=== PATIENT | female | born 1990 | race Caucasian/White ===

== ENCOUNTER → 2020-08-10 09:32 | Outpatient (CLI) | payer OTHER, SELFPAY ==
[2020-08-10 13:12] LABS: Add Manual Diff / Slide Review NO; Basophils Absolute Auto 0 /uL (0-100); Basophils Percent Auto 0.2 % (0-2); Eosinophils Absolute Auto 100 /uL (0-450); Eosinophils Percent Auto 0.5 % (2-4); Hematocrit 35.3 % (36-46); Lymphocytes Absolute Auto 1600 /uL (1100-4500); Lymphocytes Percent Auto 14.6 % (25-40); Mean Corpuscular Hemoglobin 31.6 PG (26-34); Monocytes Absolute Auto 400 /uL (0-900); Monocytes Percent Auto 3.8 % (3-14); Neutrophils Absolute Auto 8700 /uL (1500-7000); Neutrophils Percent Auto 80.9 % (50-75); Platelet Count 233 X10^3/uL (150-400); Red Cell Distribution Width 12.5 % (11.6-14.8); White Blood Cell Count 10.8 X10^3/uL (4.5-11.0)
[2020-08-10 13:29] LABS: GTT (PREG) 1 Hour PP 50gm Dose 103 mg/dL (76-139)
== END ==
PROVIDERS: PCP Family Medicine; Referring Provider Family Medicine; Visit Provider Family Medicine
DX: Z34.90 Encounter for supervision of normal pregnancy, unspecified, unspecified trimester (principal)
CPT/HCPCS: 36415; 82950; 85025

== ENCOUNTER 2020-09-15 09:00 | Outpatient (CLI) | payer OTHER, SELFPAY ==
--- NOTE | 2020-09-15 09:27 | PM.OBTRLD ---
Visit Information Visit Information Date of evaluation: 09/15/20 Primary OB Provider: Chayo Diego Reason for Evaluation: Yes non-stress test non-stress test reason: other (growth restriction) Comments/Additional reasons for admission: 29yo at 34w0d here for NST due to growth restriction. Recent growth scan 7th percentile. [facility] Medical History (Updated 09/15/20 @ 09:30 by Chayo Diego MD) Congenital dysplasia of right hip (~2009) DVT (deep venous thrombosis) (~2011) Labral tear of right hip joint (~2011) Seasonal allergies Surgical History (Updated 07/10/20 @ 17:17 by Diamante Mg RN) H/O LEEP (~2012) History of hip surgery (~2009) History of laparoscopic appendectomy (~2010) History of tonsillectomy (~02/2012) Hx laparoscopic cholecystectomy (~2010) [place] teeth extracted (~2008) Family History (Updated 07/10/20 @ 17:32 by Diamante Mg RN) Mother Osteoporosis Father Glaucoma Grandmother Alzheimer's dementia Parkinsons disease Osteoporosis History of heart bypass surgery Hypertension Grandfather Family estrangement Hypertension Glaucoma Grandmother Family estrangement Grandfather Family estrangement Family/Other Heart murmur Family/Other VSD (ventricular septal defect) Social History marital status: Evaluation Evaluation Baseline heart rate: 135 Variability: Moderate (11-25) monitor accelerations: Present monitor decelerations: Absent Diagnosis, Plan/Disposition Final Diagnosis (1) 34 weeks gestation of : Status: Acute (2) growth restriction: Status: Acute Plan/Disposition Plan: 29yo G1P at 34w0d here for NST for growth restriction. Reactive NST. Continue twice weekly NST with weekly ANA LILIA. OB Disposition: home
== END 2020-09-15 09:42 | disposition home or self-care (01) ==
LOC: LABOR 09:19 → OB 09-16 16:47
PROVIDERS: PCP Family Medicine; Referring Provider Family Medicine; Visit Provider Family Medicine
DX: O36.5930 Maternal care for other known or suspected poor fetal growth, third trimester, not applicable or unspecified (principal); Z3A.34 34 weeks gestation of pregnancy
CPT/HCPCS: 59025; G0378; G0379

== ENCOUNTER 2020-09-21 12:27 | Outpatient (CLI) | payer OTHER, SELFPAY ==
--- NOTE | 2020-09-21 13:12 | PM.OBTRLD ---
Visit Information Visit Information Date of evaluation: 09/21/20 Primary OB Provider: Chayo Diego Reason for Evaluation: Yes non-stress test non-stress test reason: other (IUGR) Comments/Additional reasons for admission: 29yo at 34w6d her for NST due to IUGR. [facility] Medical History (Updated 09/15/20 @ 09:30 by Chayo Diego MD) Congenital dysplasia of right hip (~2009) DVT (deep venous thrombosis) (~2011) Labral tear of right hip joint (~2011) Seasonal allergies Surgical History (Updated 07/10/20 @ 17:17 by Diamante Mg RN) H/O LEEP (~2012) History of hip surgery (~2009) History of laparoscopic appendectomy (~2010) History of tonsillectomy (~02/2012) Hx laparoscopic cholecystectomy (~2010) [place] teeth extracted (~2008) Family History (Updated 07/10/20 @ 17:32 by Diamante Mg RN) Mother Osteoporosis Father Glaucoma Grandmother Alzheimer's dementia Parkinsons disease Osteoporosis History of heart bypass surgery Hypertension Grandfather Family estrangement Hypertension Glaucoma Grandmother Family estrangement Grandfather Family estrangement Family/Other Heart murmur Family/Other VSD (ventricular septal defect) Social History marital status: Evaluation Evaluation Baseline heart rate: 130 Variability: Moderate (11-25) monitor accelerations: Present monitor decelerations: Absent Category of Tracing: Reactive Diagnosis, Plan/Disposition Final Diagnosis (1) growth restriction: Status: Acute (2) 34 weeks gestation of : Status: Acute Plan/Disposition Plan: 29yo at 34w6d here for NST due to IUGR. Reactive NST. Continue twice weekly NST with weekly ANA LILIA/doppler. OB Disposition: home
== END 2020-09-21 13:15 | disposition home or self-care (01) ==
LOC: LABOR 12:41 → OB 15:41
PROVIDERS: PCP Family Medicine; Referring Provider Family Medicine; Visit Provider Family Medicine
DX: O36.5930 Maternal care for other known or suspected poor fetal growth, third trimester, not applicable or unspecified (principal); Z3A.34 34 weeks gestation of pregnancy
CPT/HCPCS: 59025; G0378; G0379

== ENCOUNTER 2020-09-28 11:04 | Outpatient (CLI) | payer OTHER, SELFPAY ==
--- NOTE | 2020-09-28 11:47 | PM.OBTRLD ---
Visit Information Visit Information Date of evaluation: 09/28/20 Primary OB Provider: phyllis On-call OB Provider: Alanis Gorman Reason for Evaluation: Yes non-stress test non-stress test reason: other (IUGR) Comments/Additional reasons for admission: 29yo at 35w6d her for NST due to IUGR. Vital Signs Vital Signs: Temperature 36.4? blood pressure 118/61 heart rate 91 PFSH Medical History (Updated 09/28/20 @ 11:48 by Alanis Gorman, DO) Abnormal Pap smear of cervix (~2012) Acne (~2005) Allergies Chicken pox (~1994) Congenital dysplasia of right hip (~2009) DVT (deep venous thrombosis) (~2011) Fibroids (~2009) Labral tear of right hip joint (~2011) Seasonal allergies Surgical History (Updated 09/21/20 @ 20:20 by Crissy Jimenez) Anesthesia H/O LEEP (~2012) History of hip surgery (~2009) History of laparoscopic appendectomy (~2010) History of tonsillectomy (~02/2012) Hx laparoscopic cholecystectomy (~2010) [place] teeth extracted (~2008) Family History (Updated 07/10/20 @ 17:32 by Diamante Mg RN) Mother Osteoporosis Father Glaucoma Grandmother Alzheimer's dementia Parkinsons disease Osteoporosis History of heart bypass surgery Hypertension Grandfather Family estrangement Hypertension Glaucoma Grandmother Family estrangement Grandfather Family estrangement Family/Other Heart murmur Family/Other VSD (ventricular septal defect) Social History marital status: Evaluation Evaluation Baseline heart rate: 130 Variability: Moderate (11-25) monitor accelerations: Present monitor decelerations: Absent Category of Tracing: Reactive Diagnosis, Plan/Disposition Final Diagnosis (1) growth restriction: Status: Acute (2) 35 weeks gestation of : Status: Acute Plan/Disposition Plan: 29yo at 35w6d her for NST due to IUGR. Reactive NST. Continue twice weekly NST with weekly ANA LILIA/doppler, follow up with Dr. Diego as scheduled. OB Disposition: home
== END 2020-09-28 11:57 | disposition home or self-care (01) ==
LOC: LABOR 11:09 → OB 09-29 09:11
PROVIDERS: PCP Family Medicine; Referring Provider Family Medicine; Visit Provider Family Medicine
DX: O36.5930 Maternal care for other known or suspected poor fetal growth, third trimester, not applicable or unspecified (principal); Z3A.35 35 weeks gestation of pregnancy
CPT/HCPCS: 59025; G0378; G0379

== ENCOUNTER → 2020-09-30 11:53 | Outpatient (CLI) | payer OTHER, SELFPAY ==
[2020-10-01 08:31] LABS: Strep Grp B PCR NEG for Grp B Strep
== END ==
PROVIDERS: PCP Family Medicine; Visit Provider Family Medicine
DX: Z34.03 Encounter for supervision of normal first pregnancy, third trimester (principal); Z3A.36 36 weeks gestation of pregnancy
CPT/HCPCS: 87653

== ENCOUNTER 2020-10-08 08:09 | Outpatient (CLI) | payer OTHER, SELFPAY ==
--- NOTE | 2020-10-08 08:34 | P.TNLD_ITS ---
Visit Information Visit Information Date of evaluation: 10/08/20 On-call OB Provider: Manish Quintero Reason for Evaluation: Yes non-stress test Comments/Additional reasons for admission: Patient in for NST because of value GR. strip was reviewed blood pressure is normal. Patient is not young. NST is reassuring category 1 [facility] Medical History (Updated 09/28/20 @ 11:48 by Alanis Gorman DO) Abnormal Pap smear of cervix (~2012) Acne (~2005) Allergies Chicken pox (~1994) Congenital dysplasia of right hip (~2009) DVT (deep venous thrombosis) (~2011) Fibroids (~2009) Labral tear of right hip joint (~2011) Seasonal allergies Surgical History (Updated 09/21/20 @ 20:20 by Crissy Jimenez) Anesthesia H/O LEEP (~2012) History of hip surgery (~2009) History of laparoscopic appendectomy (~2010) History of tonsillectomy (~02/2012) Hx laparoscopic cholecystectomy (~2010) [place] teeth extracted (~2008) Family History (Updated 07/10/20 @ 17:32 by Diamante Mg RN) Mother Osteoporosis Father Glaucoma Grandmother Alzheimer's dementia Parkinsons disease Osteoporosis History of heart bypass surgery Hypertension Grandfather Family estrangement Hypertension Glaucoma Grandmother Family estrangement Grandfather Family estrangement Family/Other Heart murmur Family/Other VSD (ventricular septal defect) Social History marital status:
== END 2020-10-08 08:45 | disposition home or self-care (01) ==
LOC: LABOR 08:54 → OB 10-11 11:02
PROVIDERS: PCP Family Medicine; Referring Provider Family Medicine; Visit Provider Family Medicine
DX: O36.5930 Maternal care for other known or suspected poor fetal growth, third trimester, not applicable or unspecified (principal); Z3A.37 37 weeks gestation of pregnancy
CPT/HCPCS: 59025; G0378; G0379

== ENCOUNTER 2020-10-15 09:00 | Outpatient (RCR) | payer OTHER, SELFPAY ==
--- NOTE | 2020-08-03 19:34 | PT.OIE ---
Current Diagnoses Pain in right hip (07/30/20) Sacrococcygeal disorders, not elsewhere classified (07/30/20) Encounter for supervision of normal , unspecified, unspecified trimester (07/30/20) Other specified postprocedural states (07/30/20) Past Medical History (Last Updated 07/10/20 @ 16:28 by Diamante Mg RN) Congenital dysplasia of right hip (Acute ~2009) DVT (deep venous thrombosis) (Acute ~2011) Labral tear of right hip joint (Acute ~2011) Seasonal allergies (Acute) Past Surgical History (Last Updated 07/10/20 @ 17:17 by Dimaante Mg RN) H/O LEEP (Acute ~2012) History of hip surgery (Acute ~2009) History of laparoscopic appendectomy (Acute ~2010) History of tonsillectomy (Acute ~02/2012) Hx laparoscopic cholecystectomy (Acute ~2010) [place] teeth extracted (Acute ~2008) Visit Care Team Role Provider Type Chayo Diego MD Attending Provider Physician Primary Care Provider Referring Provider Specialty: [facility] Address: [address] [place] [address] Email: [email or web address] Physical Therapy Initial Evaluation PT-OP-A Visit Information Start: 07/30/20 08:59 Freq: Status: Active Protocol: Document 07/30/20 17:53 [facility] (Rec: 07/30/20 17:54 [facility] [email or web address]) Out-Patient Physical Therapy Visit Information Visit Information Visit Type Initial Evaluation Visit Start Time 16:00 Visit Stop Time 16:45 Total Visit Minutes 45 Number of SEATING CAPTAIN Visits 1 Evaluation Information Evaluation Date 07/30/20 PT-OP-B Current Condition Start: 07/30/20 08:59 Freq: Status: Active Protocol: Document 07/30/20 16:00 [facility] (Rec: 08/03/20 19:11 [facility] [email or web address]) Current Condition History of Current Condition Onset Date with Current Complaints R sided SI pain History of Current Condition Kimber is a 29 year old female 27 weeks with her first . She c/o right sided SI pain. Kimber has a history of torn labrum on her right hip when she was 19. She was diagnosed with hip dysplasia at that time. She underwent pericetabular osteotomy and a year and a half later returned for a labrum repair with hip flexor release. She did have a good amount of PT both before and after surgery. She reports she has stayed very active since this time and if she stays active she has limited symptoms. Her right sided sciatic symptoms began at 12 weeks. She also reports symptoms of round ligament pain especially with quick positions changes. She was stationed in [place] with her and they recently moved to [place]. Kimber did get PT in [place]. Kimber reports her plan is that she would like to have a vaginal delivery. Past medical history includes DVT following hip surgery. Treatment Goals Patient/Caregiver Goals Kimber goals include decreasing her right sided SI joint pain and her birthing plan is that she would like a vaginal delivery Current Functional Impairments (Reported) Functional Limitations- ADL's activites that require sitting for long periods increase her symptoms PT-OP-C Subjective Start: 07/30/20 08:59 Freq: Status: Active Protocol: Document 07/30/20 16:00 [facility] (Rec: 08/03/20 19:32 [facility] [email or web address]) OP-PT Pain Assessment Pain Assessment Grid Paper Pain Assessment Grid Completed Yes Location round ligament B Pain Location Details round ligament B Intensity 2 Scale Used Numeric (0 - 10) Description Sharp Frequency Intermittent Pain Aggravating Factors Changing Position right SI joint Pain Location Details right SI joint Intensity 2 Scale Used Numeric (0 - 10) PT-OP-J Posture/Palpation/Skin Start: 07/30/20 08:59 Freq: Status: Active Protocol: Document 07/30/20 16:00 [facility] (Rec: 08/03/20 19:32 [facility] [email or web address]) Palpation Assessment Location right SI joint Palpation Location right SI joint PSIS Palpation Findings Tenderness Palpation Details tenderness to palpation over the right ASIS PT-OP-K Range of Motion Start: 07/30/20 08:59 Freq: Status: Active Protocol: Document 07/30/20 16:00 [facility] (Rec: 08/03/20 19:32 [facility] [email or web address]) Hip Goniometric Range of Motion Hip Right Comments Kimber shows good overall hip ROM on the right and no pain with end range hip motion. She does have tightness in her iliopsoas on the right as compared to her left with a + rufus test on the right Hip ROM Limitations Hip ROM Limitations Soft Tissue Tightness Comments hip limited in full extension on the right as compared to the left PT-OP-M Strength Start: 07/30/20 08:59 Freq: Status: Active Protocol: Document 07/30/20 16:00 [facility] (Rec: 08/03/20 19:32 [facility] [email or web address]) Trunk Strength Trunk Manual Muscle Testing Core Stabilization Kimber had difficulty finding her pelvic floor muscles and has limited endurance of her pelvic floor. With education Kimber was able to contract her pelvic floor today and was given a home program for her pelvic floor and TA There is some stretch weakness of the transverse abdominal musculature PT-OP-Q Treatments Start: 07/30/20 08:59 Freq: Status: Active Protocol: Document 07/30/20 17:54 [facility] (Rec: 07/30/20 17:56 [facility] [email or web address]) Therapeutic Exercises Other Exercises supine ball squeeze Other Exercise Name supine ball squeeze Side bilateral Reps/Minutes x 10 sidelying Pelvic floor Reps/Minutes work up to 10 reps x 10 second hold quadruped TA Other Exercise Name quadruped TA Side bilateral Reps/Minutes work up to 10 reps with 10 second hold Self-Care/Home Management Treatment Education Patient Education Body Mechanics,Home Exercise Program Other Education body mechanics training to avoid strain to the right SI, avoid crossing the right leg over left in sitting PT-OP-T Assessment and Plan Start: 07/30/20 08:59 Freq: Status: Active Protocol: Document 07/30/20 16:00 [facility] (Rec: 08/03/20 19:32 [facility] [email or web address]) Physical Therapy Assessment Rehab Potential Rehabilitation Potential Excellent Evaluation Complexity Number of Personal Factors/Comorbidities 0 Number of Body Systems Impaired 1-2 Clinical Presentation at Evaluation Stable Impairments Impairments Activity Tolerance,Pain, Posture,Soft Tissue Mobility, Strength Goals difficulty with squatting Impairment Difficulty with squatting activity due to R SI pain Long-Term Goal (LTG) Kimber is able to perform a safe squat 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 car seat without complaints of right sided SI pain LTG Duration 6-8 weeks iliopsoas tightness R>L Impairment Iliopsoas tightness R>L Short Term Goal (STG) Kimber is educated on a home stretching program for her iliopsoas during STG Duration 4 weeks right sided SI joint pain Impairment right sided SI joint pain rated 2/10 Short Term Goal (STG) Kimber is educated on safe body mechanics during to avoid straining her SI joint STG Duration 2-3 weeks Long-Term Goal (LTG) Kimber is able to stabilize her right SI joint with pelvic floor and transverse abdominal bracing during her to reduce pain and improve her function LTG Duration 8 weeks Assessment Summary Assessment Kimber is a 29 year old female who is 27 weeks with chief complaints of right sided sciatic pain that began around week 10 of her . She was stationed in [place] with her and was receiving PT in [place] and she has recently moved to [place]. Kimber has a past medical history of a torn labrum in her right hip at age 19. She was diagnosed with hip dysplasia at the time of injury and underwent a pericetabular osteotomy. A year and a half later was still having pain and then had a labrum repair with hip flexor release. She did do extensive PT after her surgery . She reports if she stays active for the most part her right hip does not bother her. Her SI pain can be aggravated by long durations of sitting. She also reports having some round ligament pain especially with quick positional changes. With examination today Kimber demonstrates WFL ROM of her right hip without any pain at end ranges. She notes that her plan is to have a vaginal which sheis discussing with her doctor with her history of hip surgery. I did place her in end range hip flexion with abduction and ER and this did not bring on symptoms. She is tighter in her right iliopsoas as compared to her left and this tightness on the right could be contributing her her SI joint pain. She presents with stretch weakness of the transverse abdominal muscles and has limited endurance of her pelvic floor. I began her today with both pelvic floor and Transverse abdominal bracing exercises to help stabilize her SI joint. She was also given a iliopsoas stretch with emphasis on the right side. She is a good candidate for PT for SI stabilization during her . Physical Therapy Plan Frequency and Duration Frequency of Treatment 1x/Week Duration of Treatment 8 weeks Plan of Care Start Date 07/30/20 Plan of Care End Date 09/24/20 Therapeutic Interventions Therapeutic Interventions Home Exercise Program,Manual Therapy,Neuromuscular Re- education,Patient/Caregiver Education,Self-Care/Home Management,Soft Tissue Mobilization,Therapeutic Exercises Next Visit Focus/Plan Next Note Type Treatment Note Next Visit Plan Review stabilization exercises next visit, body mechanics with ADL's to decrease strain to the SI joint, iliopsoas stretches
--- NOTE | 2020-08-03 19:35 | PT.OPPOC ---
Physical, Occupational & Speech Therapy At [facility] Current Diagnoses Pain in right hip (07/30/20) Sacrococcygeal disorders, not elsewhere classified (07/30/20) Encounter for supervision of normal , unspecified, unspecified trimester (07/30/20) Other specified postprocedural states (07/30/20) Visit Care Team Role Provider Type Chayo Diego MD Attending Provider Physician Primary Care Provider Referring Provider Specialty: [facility] Practice Address: [address] [place] [address] Email: [email or web address] Plan Of Care PT-OP-T Assessment and Plan Start: 07/30/20 08:59 Freq: Status: Active Protocol: Document 07/30/20 16:00 [facility] (Rec: 08/03/20 19:32 [facility] [email or web address]) Physical Therapy Assessment Rehab Potential Rehabilitation Potential Excellent Evaluation Complexity Number of Personal Factors/Comorbidities 0 Number of Body Systems Impaired 1-2 Clinical Presentation at Evaluation Stable Impairments Impairments Activity Tolerance,Pain, Posture,Soft Tissue Mobility, Strength Goals difficulty with squatting Impairment Difficulty with squatting activity due to R SI pain Shelter Goal (LTG) Kimber is able to perform a safe squat 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 car seat without complaints of right sided SI pain LTG Duration 6-8 weeks iliopsoas tightness R>L Impairment Iliopsoas tightness R>L Short Term Goal (STG) Kimber is educated on a home stretching program for her iliopsoas during STG Duration 4 weeks right sided SI joint pain Impairment right sided SI joint pain rated 2/10 Short Term Goal (STG) Kimber is educated on safe body mechanics during to avoid straining her SI joint STG Duration 2-3 weeks Tank Stave Assembler Goal (LTG) Kimber is able to stabilize her right SI joint with pelvic floor and transverse abdominal bracing during her to reduce pain and improve her function LTG Duration 8 weeks Assessment Summary Assessment Kimber is a 29 year old female who is 27 weeks with chief complaints of right sided sciatic pain that began around week 10 of her . She was stationed in [place] with her and was receiving PT in [place] and she has recently moved to [place]. Kimber has a past medical history of a torn labrum in her right hip at age 19. She was diagnosed with hip dysplasia at the time of injury and underwent a pericetabular osteotomy. A year and a half later was still having pain and then had a labrum repair with hip flexor release. She did do extensive PT after her surgery . She reports if she stays active for the most part her right hip does not bother her. Her SI pain can be aggravated by long durations of sitting. She also reports having some round ligament pain especially with quick positional changes. With examination today Kimber demonstrates WFL ROM of her right hip without any pain at end ranges. She notes that her plan is to have a vaginal which she is discussing with her doctor with her history of hip surgery. I did place her in end range hip flexion with abduction and ER and this did not bring on symptoms. She is tighter in her right iliopsoas as compared to her left and this tightness on the right could be contributing her her SI joint pain. She presents with stretch weakness of the transverse abdominal muscles and has limited endurance of her pelvic floor. I began her today with both pelvic floor and Transverse abdominal bracing exercises to help stabilize her SI joint. She was also given a iliopsoas stretch with emphasis on the right side. She is a good candidate for PT for SI stabilization during her . Physical Therapy Plan Frequency and Duration Frequency of Treatment 1x/Week Duration of Treatment 8 weeks Plan of Care Start Date 07/30/20 Plan of Care End Date 09/24/20 Therapeutic Interventions Therapeutic Interventions Home Exercise Program,Manual Therapy,Neuromuscular Re- education,Patient/Caregiver Education,Self-Care/Home Management,Soft Tissue Mobilization,Therapeutic Exercises Next Visit Focus/Plan Next Note Type Treatment Note Next Visit Plan Review stabilization exercises next visit, body mechanics with ADL's to decrease strain to the SI joint, iliopsoas stretches Plan of Care Dates Plan of Care Start Date 07/30/20 Plan of Care End Date 09/24/20 Electronically Signed by: Hyacinth Gifford, PT 08/03/201934 Please Sign and Return: I have reviewed this Plan of Care and certify that the skilled therapy services above are required to meet the patient?s needs. Physician Signature Date Printed Name and Credentials Clinical Instructor Signature Printed Name and Credentials
--- NOTE | 2020-08-04 16:29 | PT.OTN ---
Current Diagnoses Pain in right hip (08/04/20) Sacrococcygeal disorders, not elsewhere classified (08/04/20) Encounter for supervision of normal , unspecified, unspecified trimester (08/04/20) Other specified postprocedural states (08/04/20) Physical Therapy Treatment Note PT-OP-A Visit Information Start: 07/30/20 08:59 Freq: Status: Active Protocol: Document 08/04/20 16:00 [facility] (Rec: 08/09/20 16:29 [facility] [email or web address]) Out-Patient Physical Therapy Visit Information Visit Information Visit Type Treatment Note Visit Start Time 16:00 Visit Stop Time 16:45 Total Visit Minutes 45 Visit Number 2 PT-OP-B Current Condition Start: 07/30/20 08:59 Freq: Status: Active Protocol: Document 07/30/20 16:00 [facility] (Rec: 08/03/20 19:11 [facility] [email or web address]) Current Condition History of Current Condition Onset Date with Current Complaints R sided SI pain History of Current Condition Kimber is a 29 year old female 27 weeks with her first . She c/o right sided SI pain. Kimber has a history of torn labrum on her right hip when she was 19. She was diagnosed with hip dysplasia at that time. She underwent pericetabular osteotomy and a year and a half later returned for a labrum repair with hip flexor release. She did have a good amount of PT both before and after surgery. She reports she has stayed very active since this time and if she stays active she has limited symptoms. Her right sided sciatic symptoms began at 12 weeks. She also reports symptoms of round ligament pain especially with quick positions changes. She was stationed in [place] with her and they recently moved to [place]. Kimber did get PT in [place]. Kimber reports her plan is that she would like to have a vaginal delivery. Past medical history includes DVT following hip surgery. Treatment Goals Patient/Caregiver Goals Kimber goals include decreasing her right sided SI joint pain and her birthing plan is that she would like a vaginal delivery Current Functional Impairments (Reported) Functional Limitations- ADL's activites that require sitting for long periods increase her symptoms PT-OP-C Subjective Start: 07/30/20 08:59 Freq: Status: Active Protocol: Document 08/04/20 16:00 [facility] (Rec: 08/09/20 16:29 [facility] [email or web address]) OP-PT Subjective Patient Comments Patient Comments Kimber reports she has some right sided Si joint pain today PT-OP-J Posture/Palpation/Skin Start: 07/30/20 08:59 Freq: Status: Active Protocol: Document 07/30/20 16:00 [facility] (Rec: 08/03/20 19:32 [facility] [email or web address]) Palpation Assessment Location right SI joint Palpation Location right SI joint PSIS Palpation Findings Tenderness Palpation Details tenderness to palpation over the right ASIS PT-OP-K Range of Motion Start: 07/30/20 08:59 Freq: Status: Active Protocol: Document 07/30/20 16:00 [facility] (Rec: 08/03/20 19:32 [facility] [email or web address]) Hip Goniometric Range of Motion Hip Right Comments Kimber shows good overall hip ROM on the right and no pain with end range hip motion. She does have tightness in her iliopsoas on the right as compared to her left with a + rufus test on the right Hip ROM Limitations Hip ROM Limitations Soft Tissue Tightness Comments hip limited in full extension on the right as compared to the left PT-OP-M Strength Start: 07/30/20 08:59 Freq: Status: Active Protocol: Document 07/30/20 16:00 [facility] (Rec: 08/03/20 19:32 [facility] [email or web address]) Trunk Strength Trunk Manual Muscle Testing Core Stabilization Kimber had difficulty finding her pelvic floor muscles and has limited endurance of her pelvic floor. With education Kimber was able to contract her pelvic floor today and was given a home program for her pelvic floor and TA There is some stretch weakness of the transverse abdominal musculatre PT-OP-Q Treatments Start: 07/30/20 08:59 Freq: Status: Active Protocol: Document 08/04/20 16:00 [facility] (Rec: 08/09/20 16:29 [facility] [email or web address]) Therapeutic Exercises Supine Exercises iliopsoas stretch Supine Exercise Name iliopsoas stretch for HEP Other Exercises supine ball squeeze Other Exercise Name supine ball squeeze Side bilateral Reps/Minutes x 10 sidelying Pelvic floor Reps/Minutes work up to 10 reps x 10 second hold quadruped TA Other Exercise Name quadruped TA Side bilateral Reps/Minutes work up to 10 reps with 10 second hold Manual Therapy Treatment Manual Techniques manual ilopsoas and quad stretches Type manual iliopsas and quad stretches Body Position Sidelying Comments pt in both supine and sidelying, manual release to the quads and psoas stretches. Good tolerance for manual work manual MET for right innominant anterior rotation Type MET right innominant anterior rotation Reps/Duration x 5 reps Comments good tolerance and pt was shown a partner MET for home in left sidelying PT-OP-T Assessment and Plan Start: 07/30/20 08:59 Freq: Status: Active Protocol: Document 08/04/20 16:00 [facility] (Rec: 08/09/20 16:29 [facility] [email or web address]) Physical Therapy Assessment Assessment Summary Assessment pt was educted on SI belt for home and self MET with her in left sidelying. Reviewed body mechancis to avoid strain to the SI joint Good tolerance for ther ex today. Physical Therapy Plan Frequency and Duration Frequency of Treatment 1x/Week Duration of Treatment 8 weeks Plan of Care Start Date 07/30/20 Plan of Care End Date 09/24/20 Therapeutic Interventions Therapeutic Interventions Home Exercise Program,Manual Therapy,Neuromuscular Re- education,Patient/Caregiver Education,Self-Care/Home Management,Soft Tissue Mobilization,Therapeutic Exercises
--- NOTE | 2020-08-13 15:47 | PT.OTN ---
Current Diagnoses Pain in right hip (08/13/20) Sacrococcygeal disorders, not elsewhere classified (08/13/20) Encounter for supervision of normal , unspecified, unspecified trimester (08/13/20) Other specified postprocedural states (08/13/20) Physical Therapy Treatment Note PT-OP-A Visit Information Start: 07/30/20 08:59 Freq: Status: Active Protocol: Document 08/13/20 09:47 [facility] (Rec: 08/13/20 09:50 [facility] [id number]) Out-Patient Physical Therapy Visit Information Visit Information Visit Type Treatment Note Visit Start Time 09:48 Visit Stop Time 10:30 Visit Number 3 PT-OP-B Current Condition Start: 07/30/20 08:59 Freq: Status: Active Protocol: Document 07/30/20 16:00 [facility] (Rec: 08/03/20 19:11 [facility] [email or web address]) Current Condition History of Current Condition Onset Date with Current Complaints R sided SI pain History of Current Condition Kimber is a 29 year old female 27 weeks with her first . She c/o right sided SI pain. Kimber has a history of torn labrum on her right hip when she was 19. She was diagnosed with hip dysplasia at that time. She underwent pericetabular osteotomy and a year and a half later returned for a labrum repair with hip flexor release. She did have a good amount of PT both before and after surgery. She reports she has stayed very active since this time and if she stays active she has limited symptoms. Her right sided sciatic symptoms began at 12 weeks. She also reports symptoms of round ligament pain especially with quick positions changes. She was stationed in [employer] with her and they recently moved to [place]. Kimber did get PT in [employer]. Kimber reports her plan is that she would like to have a vaginal delivery. Past medical history includes DVT following hip surgery. Treatment Goals Patient/Caregiver Goals Kimber goals include decreasing her right sided SI joint pain and her birthing plan is that she would like a vaginal delivery Current Functional Impairments (Reported) Functional Limitations- ADL's activites that require sitting for long periods increase her symptoms PT-OP-C Subjective Start: 07/30/20 08:59 Freq: Status: Active Protocol: Document 08/13/20 09:47 [facility] (Rec: 08/13/20 09:50 [facility] [id number]) OP-PT Subjective Patient Comments Patient Comments Si pain off and on, today not as bad PT-OP-J Posture/Palpation/Skin Start: 07/30/20 08:59 Freq: Status: Active Protocol: Document 07/30/20 16:00 [facility] (Rec: 08/03/20 19:32 [facility] [email or web address]) Palpation Assessment Location right SI joint Palpation Location right SI joint PSIS Palpation Findings Tenderness Palpation Details tenderness to palpation over the right ASIS PT-OP-K Range of Motion Start: 07/30/20 08:59 Freq: Status: Active Protocol: Document 07/30/20 16:00 [facility] (Rec: 08/03/20 19:32 [facility] [email or web address]) Hip Goniometric Range of Motion Hip Right Comments Kimber shows good overall hip ROM on the right and no pain with end range hip motion. She does have tightness in her iliopsoas on the right as compared to her left with a + rufus test on the right Hip ROM Limitations Hip ROM Limitations Soft Tissue Tightness Comments hip limited in full extension on the right as compared to the left PT-OP-M Strength Start: 07/30/20 08:59 Freq: Status: Active Protocol: Document 07/30/20 16:00 [facility] (Rec: 08/03/20 19:32 [facility] [email or web address]) Trunk Strength Trunk Manual Muscle Testing Core Stabilization Kimber had difficulty finding her pelvic floor muscles and has limited endurance of her pelvic floor. With education Kimber was able to contract her pelvic floor today and was given a home program for her pelvic floor and TA There is some stretch weakness of the transverse abdominal musculatre PT-OP-Q Treatments Start: 07/30/20 08:59 Freq: Status: Active Protocol: Document 08/13/20 15:40 [facility] (Rec: 08/13/20 15:47 [facility] [email or web address]) Therapeutic Exercises Supine Exercises iliopsoas stretch Supine Exercise Name iliopsoas stretch for HEP Other Exercises quadruped thoracic extension Other Exercise Name quarduped thoracic rotation Reps/Minutes x 10 reps quadruped sidebends Other Exercise Name quadruped sidebends Reps/Minutes x 10 reps cat cow Other Exercise Name cat cow Reps/Minutes x 10 reps supine ball squeeze Other Exercise Name supine ball squeeze Side bilateral Reps/Minutes x 10 quadruped TA Other Exercise Name quadruped TA Side bilateral Reps/Minutes work up to 10 reps with 10 second hold Manual Therapy Treatment Soft Tissue Mobilization 1 Body Location right iliopsoas and quads Comments manual STM/MFR over the right quadriceps and iliopsoas Manual Techniques manual ilopsoas and quad stretches Type manual iliopsas and quad stretches Body Position Sidelying Comments pt in both supine and sidelying, manual release to the quads and psoas stretches. Good tolerance for manual work PT-OP-T Assessment and Plan Start: 07/30/20 08:59 Freq: Status: Active Protocol: Document 08/13/20 15:40 [facility] (Rec: 08/13/20 15:47 [facility] [email or web address]) Physical Therapy Assessment Assessment Summary Assessment Kimber was given thoracic rotation and side bends in quadruped for the rib tightness she is experiencing. She was aligned today with her leg length. She is tolerating treatment well. Physical Therapy Plan Frequency and Duration Frequency of Treatment 1x/Week Duration of Treatment 8 weeks Plan of Care Start Date 07/30/20 Plan of Care End Date 09/24/20 Therapeutic Interventions Therapeutic Interventions Home Exercise Program,Manual Therapy,Neuromuscular Re- education,Patient/Caregiver Education,Self-Care/Home Management,Soft Tissue Mobilization,Therapeutic Exercises Next Visit Focus/Plan Next Note Type Treatment Note Next Visit Plan Review stabilization exercises next visit, body mechanics with ADL's to decrease strain to the SI joint, iliopsoas stretches
--- NOTE | 2020-08-26 14:22 | PT.OTN ---
Current Diagnoses Pain in right hip (08/26/20) Sacrococcygeal disorders, not elsewhere classified (08/26/20) Encounter for supervision of normal , unspecified, unspecified trimester (08/26/20) Other specified postprocedural states (08/26/20) Physical Therapy Treatment Note PT-OP-A Visit Information Start: 07/30/20 08:59 Freq: Status: Active Protocol: Document 08/26/20 14:17 [facility] (Rec: 08/26/20 14:21 [facility] [id number]) Out-Patient Physical Therapy Visit Information Visit Information Visit Type Treatment Note Visit Start Time 10:30 Visit Stop Time 11:15 Total Visit Minutes 45 Visit Number 4 PT-OP-B Current Condition Start: 07/30/20 08:59 Freq: Status: Active Protocol: Document 07/30/20 16:00 [facility] (Rec: 08/03/20 19:11 [facility] [email or web address]) Current Condition History of Current Condition Onset Date with Current Complaints R sided SI pain History of Current Condition Kimber is a 29 year old female 27 weeks with her first . She c/o right sided SI pain. Kimber has a history of torn labrum on her right hip when she was 19. She was diagnosed with hip dysplasia at that time. She underwent pericetabular osteotomy and a year and a half later returned for a labrum repair with hip flexor release. She did have a good amount of PT both before and after surgery. She reports she has stayed very active since this time and if she stays active she has limited symptoms. Her right sided sciatic symptoms began at 12 weeks. She also reports symptoms of round ligament pain especially with quick positions changes. She was stationed in [employer] with her and they recently moved to [place]. Kimber did get PT in [employer]. Kimber reports her plan is that she would like to have a vaginal delivery. Past medical history includes DVT following hip surgery. Treatment Goals Patient/Caregiver Goals Kimber goals include decreasing her right sided SI joint pain and her birthing plan is that she would like a vaginal delivery Current Functional Impairments (Reported) Functional Limitations- ADL's activites that require sitting for long periods increase her symptoms PT-OP-C Subjective Start: 07/30/20 08:59 Freq: Status: Active Protocol: Document 08/26/20 14:17 [facility] (Rec: 08/26/20 14:21 [facility] [id number]) OP-PT Subjective Patient Comments Patient Comments Jose Maria reports she tried sweeping and vaccumming and felt right SI pain afterward. She had been fine until she did this. PT-OP-J Posture/Palpation/Skin Start: 07/30/20 08:59 Freq: Status: Active Protocol: Document 07/30/20 16:00 [facility] (Rec: 08/03/20 19:32 [facility] [email or web address]) Palpation Assessment Location right SI joint Palpation Location right SI joint PSIS Palpation Findings Tenderness Palpation Details tenderness to palpation over the right ASIS PT-OP-K Range of Motion Start: 07/30/20 08:59 Freq: Status: Active Protocol: Document 07/30/20 16:00 [facility] (Rec: 08/03/20 19:32 [facility] [email or web address]) Hip Goniometric Range of Motion Hip Right Comments Kimber shows good overall hip ROM on the right and no pain with end range hip motion. She does have tightness in her iliopsoas on the right as compared to her left with a + rufus test on the right Hip ROM Limitations Hip ROM Limitations Soft Tissue Tightness Comments hip limited in full extension on the right as compared to the left PT-OP-M Strength Start: 07/30/20 08:59 Freq: Status: Active Protocol: Document 07/30/20 16:00 [facility] (Rec: 08/03/20 19:32 [facility] [email or web address]) Trunk Strength Trunk Manual Muscle Testing Core Stabilization Kimber had difficulty finding her pelvic floor muscles and has limited endurance of her pelvic floor. With education Kimber was able to contract her pelvic floor today and was given a home program for her pelvic floor and TA There is some stretch weakness of the transverse abdominal musculatre PT-OP-Q Treatments Start: 07/30/20 08:59 Freq: Status: Active Protocol: Document 08/26/20 14:17 [facility] (Rec: 08/26/20 14:21 [facility] [id number]) Therapeutic Exercises Supine Exercises iliopsoas stretch Supine Exercise Name iliopsoas stretch for HEP Other Exercises cat cow Other Exercise Name cat cow Reps/Minutes x 10 reps Manual Therapy Treatment Soft Tissue Mobilization prone over pillow paraspinal release Body Location paraspinal release Mobilization Type Myofascial Release 1 Body Location right iliopsoas and quads Comments manual STM/MFR over the right quadriceps and iliopsoas Manual Techniques manual ilopsoas and quad stretches Type manual iliopsas and quad stretches Body Position Sidelying Comments pt in both supine and sidelying, manual release to the quads and psoas stretches. Good tolerance for manual work manual MET for right innominant anterior rotation Type MET right innominant anterior rotation Reps/Duration x 5 reps Comments good tolerance and pt was shown a partner MET for home in left sidelying Self-Care/Home Management Treatment Education Patient Education Home Exercise Program,Joint Protection Other Education review of body mechanics for ADL's PT-OP-T Assessment and Plan Start: 07/30/20 08:59 Freq: Status: Active Protocol: Document 08/26/20 14:17 [facility] (Rec: 08/26/20 14:21 [facility] [id number]) Physical Therapy Assessment Assessment Summary Assessment Body mechanics were reviewed today for ADL's, squatting and lifting. I worked on the paraspinals today with pillow which pt tolerated well. Her low back was tighter today and we are working on avoiding excess lumbar lordosis. She did well with treatement. Physical Therapy Plan Frequency and Duration Frequency of Treatment 1x/Week Duration of Treatment 8 weeks Plan of Care Start Date 07/30/20 Plan of Care End Date 09/24/20 Therapeutic Interventions Therapeutic Interventions Home Exercise Program,Manual Therapy,Neuromuscular Re- education,Patient/Caregiver Education,Self-Care/Home Management,Soft Tissue Mobilization,Therapeutic Exercises
--- NOTE | 2020-09-09 14:31 | PT.OTN ---
Current Diagnoses Pain in right hip (09/09/20) Sacrococcygeal disorders, not elsewhere classified (09/09/20) Encounter for supervision of normal , unspecified, unspecified trimester (09/09/20) Other specified postprocedural states (09/09/20) Physical Therapy Treatment Note PT-OP-A Visit Information Start: 07/30/20 08:59 Freq: Status: Active Protocol: Document 09/09/20 14:21 [facility] (Rec: 09/09/20 14:30 [facility] [id number]) Out-Patient Physical Therapy Visit Information Visit Information Visit Type Treatment Note Visit Start Time 11:15 Visit Stop Time 12:00 Total Visit Minutes 45 Visit Number 5 PT-OP-B Current Condition Start: 07/30/20 08:59 Freq: Status: Active Protocol: Document 07/30/20 16:00 [facility] (Rec: 08/03/20 19:11 [facility] [email or web address]) Current Condition History of Current Condition Onset Date with Current Complaints R sided SI pain History of Current Condition Kimber is a 29 year old female 27 weeks with her first . She c/o right sided SI pain. Kimber has a history of torn labrum on her right hip when she was 19. She was diagnosed with hip dysplasia at that time. She underwent pericetabular osteotomy and a year and a half later returned for a labrum repair with hip flexor release. She did have a good amount of PT both before and after surgery. She reports she has stayed very active since this time and if she stays active she has limited symptoms. Her right sided sciatic symptoms began at 12 weeks. She also reports symptoms of round ligament pain especially with quick positions changes. She was stationed in [employer] with her and they recently moved to [place]. Kimber did get PT in [place]. iKmber reports her plan is that she would like to have a vaginal delivery. Past medical history includes DVT following hip surgery. Treatment Goals Patient/Caregiver Goals Kimber goals include decreasing her right sided SI joint pain and her birthing plan is that she would like a vaginal delivery Current Functional Impairments (Reported) Functional Limitations- ADL's activites that require sitting for long periods increase her symptoms PT-OP-C Subjective Start: 07/30/20 08:59 Freq: Status: Active Protocol: Document 09/09/20 14:21 [facility] (Rec: 09/09/20 14:30 [facility] [id number]) OP-PT Subjective Patient Comments Patient Comments Kimber reports right SI pain the past few weeks but has been better in the last 2 days . She does have a muscle spasm up higher in the right side of her thoracic spine. She did get a SI belt and feels this has been helping PT-OP-J Posture/Palpation/Skin Start: 07/30/20 08:59 Freq: Status: Active Protocol: Document 07/30/20 16:00 [facility] (Rec: 08/03/20 19:32 [facility] [email or web address]) Palpation Assessment Location right SI joint Palpation Location right SI joint PSIS Palpation Findings Tenderness Palpation Details tenderness to palpation over the right ASIS PT-OP-K Range of Motion Start: 07/30/20 08:59 Freq: Status: Active Protocol: Document 07/30/20 16:00 [facility] (Rec: 08/03/20 19:32 [facility] [email or web address]) Hip Goniometric Range of Motion Hip Right Comments Kimber shows good overall hip ROM on the right and no pain with end range hip motion. She does have tightness in her iliopsoas on the right as compared to her left with a + rufus test on the right Hip ROM Limitations Hip ROM Limitations Soft Tissue Tightness Comments hip limited in full extension on the right as compared to the left PT-OP-M Strength Start: 07/30/20 08:59 Freq: Status: Active Protocol: Document 07/30/20 16:00 [facility] (Rec: 08/03/20 19:32 [facility] [email or web address]) Trunk Strength Trunk Manual Muscle Testing Core Stabilization Kimber had difficulty finding her pelvic floor muscles and has limited endurance of her pelvic floor. With education Kimber was able to contract her pelvic floor today and was given a home program for her pelvic floor and TA There is some stretch weakness of the transverse abdominal musculatre PT-OP-Q Treatments Start: 07/30/20 08:59 Freq: Status: Active Protocol: Document 09/09/20 14:21 [facility] (Rec: 09/09/20 14:30 [facility] [id number]) Therapeutic Exercises Supine Exercises iliopsoas stretch Supine Exercise Name iliopsoas stretch for HEP Other Exercises tj pose with arms to the left to stretch right side of spine Other Exercise Name tj pose with arms to the left to stretch the right side of the spine Comments HEP Manual Therapy Treatment Soft Tissue Mobilization prone over pillow paraspinal release Body Location paraspinal release Mobilization Type Myofascial Release Comments worked higher up in the thoracic spine today as right side of paraspinals was guarded Manual Techniques manual ilopsoas and quad stretches Type manual iliopsas and quad stretches Body Position Sidelying Comments pt in sidelying, manual release to the quads and psoas stretches. Good tolerance for manual work Self-Care/Home Management Treatment Education Patient Education Joint Protection Other Education pt shown how to nahid SI belt in the correct place, discussed right sidelying as a position for the pushing phase of labor PT-OP-T Assessment and Plan Start: 07/30/20 08:59 Freq: Status: Active Protocol: Document 09/09/20 14:21 [facility] (Rec: 09/09/20 14:30 [facility] [id number]) Physical Therapy Assessment Assessment Summary Assessment Kimber was tighter in the paraspinals today with right sided lower thoracic tightness . We talked about starting to open up her chest with doorway stretch. We also talked about positions for labor and delivery to minimize stress to her right hip. Right sidelying may be beneficial for the pusing phase of labor. Physical Therapy Plan Frequency and Duration Frequency of Treatment 1x/Week Duration of Treatment 8 weeks Plan of Care Start Date 07/30/20 Plan of Care End Date 09/24/20 Therapeutic Interventions Therapeutic Interventions Home Exercise Program,Manual Therapy,Neuromuscular Re- education,Patient/Caregiver Education,Self-Care/Home Management,Soft Tissue Mobilization,Therapeutic Exercises Next Visit Focus/Plan Next Note Type Treatment Note Next Visit Plan review all stretches next week including doorwau chest stretch
--- NOTE | 2020-09-16 14:17 | PT.OTN ---
Current Diagnoses Pain in right hip (09/16/20) Sacrococcygeal disorders, not elsewhere classified (09/16/20) Encounter for supervision of normal , unspecified, unspecified trimester (09/16/20) Other specified postprocedural states (09/16/20) Physical Therapy Treatment Note PT-OP-A Visit Information Start: 07/30/20 08:59 Freq: Status: Active Protocol: Document 09/16/20 14:12 [facility] (Rec: 09/16/20 14:17 [facility] [email or web address]) Out-Patient Physical Therapy Visit Information Visit Information Visit Type Treatment Note Visit Start Time 11:15 Visit Stop Time 12:00 Total Visit Minutes 45 Visit Number 6 PT-OP-B Current Condition Start: 07/30/20 08:59 Freq: Status: Active Protocol: Document 07/30/20 16:00 [facility] (Rec: 08/03/20 19:11 [facility] [email or web address]) Current Condition History of Current Condition Onset Date with Current Complaints R sided SI pain History of Current Condition Kimber is a 29 year old female 27 weeks with her first . She c/o right sided SI pain. Kimber has a history of torn labrum on her right hip when she was 19. She was diagnosed with hip dysplasia at that time. She underwent pericetabular osteotomy and a year and a half later returned for a labrum repair with hip flexor release. She did have a good amount of PT both before and after surgery. She reports she has stayed very active since this time and if she stays active she has limited symptoms. Her right sided sciatic symptoms began at 12 weeks. She also reports symptoms of round ligament pain especially with quick positions changes. She was stationed in [employer] with her and they recently moved to [place]. Kimber did get PT in [employer]. Kimber reports her plan is that she would like to have a vaginal delivery. Past medical history includes DVT following hip surgery. Treatment Goals Patient/Caregiver Goals Kimber goals include decreasing her right sided SI joint pain and her birthing plan is that she would like a vaginal delivery Current Functional Impairments (Reported) Functional Limitations- ADL's activites that require sitting for long periods increase her symptoms PT-OP-C Subjective Start: 07/30/20 08:59 Freq: Status: Active Protocol: Document 09/16/20 14:12 [facility] (Rec: 09/16/20 14:17 [facility] [email or web address]) OP-PT Subjective Patient Comments Patient Comments Kimber reports her SI is feeling good at this point. She is still feeling the muscle spasm on the right side of her mid back. SHe is trying to work on the door way stretch PT-OP-J Posture/Palpation/Skin Start: 07/30/20 08:59 Freq: Status: Active Protocol: Document 07/30/20 16:00 [facility] (Rec: 08/03/20 19:32 [facility] [email or web address]) Palpation Assessment Location right SI joint Palpation Location right SI joint PSIS Palpation Findings Tenderness Palpation Details tenderness to palpation over the right ASIS PT-OP-K Range of Motion Start: 07/30/20 08:59 Freq: Status: Active Protocol: Document 07/30/20 16:00 [facility] (Rec: 08/03/20 19:32 [facility] [email or web address]) Hip Goniometric Range of Motion Hip Right Comments Kimber shows good overall hip ROM on the right and no pain with end range hip motion. She does have tightness in her iliopsoas on the right as compared to her left with a + rufus test on the right Hip ROM Limitations Hip ROM Limitations Soft Tissue Tightness Comments hip limited in full extension on the right as compared to the left PT-OP-M Strength Start: 07/30/20 08:59 Freq: Status: Active Protocol: Document 07/30/20 16:00 [facility] (Rec: 08/03/20 19:32 [facility] [email or web address]) Trunk Strength Trunk Manual Muscle Testing Core Stabilization Kimber had difficulty finding her pelvic floor muscles and has limited endurance of her pelvic floor. With education Kimber was able to contract her pelvic floor today and was given a home program for her pelvic floor and TA There is some stretch weakness of the transverse abdominal musculatre PT-OP-Q Treatments Start: 07/30/20 08:59 Freq: Status: Active Protocol: Document 09/16/20 14:12 [facility] (Rec: 09/16/20 14:17 [facility] [email or web address]) Therapeutic Exercises Other Exercises standing theraband rows Other Exercise Name standing theraband rows Reps/Minutes 2 x 10 reps horizontal 1/2 foam roll Other Exercise Name horizontal 1/2 foam roll T spine Comments hold 1-2 min 1/2 foam roller Other Exercise Name vertical 1/2 foam roller Comments arm flexion, wall slides, snow angels Manual Therapy Treatment Soft Tissue Mobilization prone over pillow paraspinal release Body Location paraspinal release Mobilization Type Myofascial Release Comments worked higher up in the thoracic spine today as right side of paraspinals was guarded Manual Techniques sidelying scapular mobs Type sidelying scapular mobs PT-OP-T Assessment and Plan Start: 07/30/20 08:59 Freq: Status: Active Protocol: Document 09/16/20 14:12 [facility] (Rec: 09/16/20 14:17 [facility] [email or web address]) Physical Therapy Assessment Assessment Summary Assessment worked on the 1/2 foam roll today with good tolerance. Kimber could tell this was working on the area she is sore on her right side. She noted today she may be induced early due to lower weight of the baby. She may be induced the first near the end of this year or October Physical Therapy Plan Frequency and Duration Frequency of Treatment 1x/Week Duration of Treatment 8 weeks Plan of Care Start Date 07/30/20 Plan of Care End Date 09/24/20 Therapeutic Interventions Therapeutic Interventions Home Exercise Program,Manual Therapy,Neuromuscular Re- education,Patient/Caregiver Education,Self-Care/Home Management,Soft Tissue Mobilization,Therapeutic Exercises
--- NOTE | 2020-09-30 10:25 | PT.OTN ---
Current Diagnoses Pain in right hip (09/29/20) Sacrococcygeal disorders, not elsewhere classified (09/29/20) Encounter for supervision of normal , unspecified, unspecified trimester (09/29/20) Other specified postprocedural states (09/29/20) Physical Therapy Treatment Note PT-OP-A Visit Information Start: 07/30/20 08:59 Freq: Status: Active Protocol: Document 09/29/20 14:30 [facility] (Rec: 09/30/20 10:25 [facility] [email or web address]) Out-Patient Physical Therapy Visit Information Visit Information Visit Type Treatment Note Visit Start Time 14:30 Visit Stop Time 15:15 Total Visit Minutes 45 Visit Number 8 PT-OP-B Current Condition Start: 07/30/20 08:59 Freq: Status: Active Protocol: Document 07/30/20 16:00 [facility] (Rec: 08/03/20 19:11 [facility] [email or web address]) Current Condition History of Current Condition Onset Date with Current Complaints R sided SI pain History of Current Condition Kimber is a 29 year old female 27 weeks with her first . She c/o right sided SI pain. Kimber has a history of torn labrum on her right hip when she was 19. She was diagnosed with hip dysplasia at that time. She underwent pericetabular osteotomy and a year and a half later returned for a labrum repair with hip flexor release. She did have a good amount of PT both before and after surgery. She reports she has stayed very active since this time and if she stays active she has limited symptoms. Her right sided sciatic symptoms began at 12 weeks. She also reports symptoms of round ligament pain especially with quick positions changes. She was stationed in [facility] with her and they recently moved to [place]. Kimber did get PT in [facility]. Kimber reports her plan is that she would like to have a vaginal delivery. Past medical history includes DVT following hip surgery. Treatment Goals Patient/Caregiver Goals Kimber goals include decreasing her right sided SI joint pain and her birthing plan is that she would like a vaginal delivery Current Functional Impairments (Reported) Functional Limitations- ADL's activites that require sitting for long periods increase her symptoms PT-OP-C Subjective Start: 07/30/20 08:59 Freq: Status: Active Protocol: Document 09/29/20 14:30 [facility] (Rec: 09/30/20 10:25 [facility] [email or web address]) OP-PT Subjective Patient Comments Patient Comments pt reports she had relief for a few days following last visit. She is now feeling the right sided mid thoracic pain again. She has been working on stretches at home PT-OP-J Posture/Palpation/Skin Start: 07/30/20 08:59 Freq: Status: Active Protocol: Document 07/30/20 16:00 [facility] (Rec: 08/03/20 19:32 [facility] [email or web address]) Palpation Assessment Location right SI joint Palpation Location right SI joint PSIS Palpation Findings Tenderness Palpation Details tenderness to palpation over the right ASIS PT-OP-K Range of Motion Start: 07/30/20 08:59 Freq: Status: Active Protocol: Document 07/30/20 16:00 [facility] (Rec: 08/03/20 19:32 [facility] [email or web address]) Hip Goniometric Range of Motion Hip Right Comments Kimber shows good overall hip ROM on the right and no pain with end range hip motion. She does have tightness in her iliopsoas on the right as compared to her left with a + rufus test on the right Hip ROM Limitations Hip ROM Limitations Soft Tissue Tightness Comments hip limited in full extension on the right as compared to the left PT-OP-M Strength Start: 07/30/20 08:59 Freq: Status: Active Protocol: Document 07/30/20 16:00 [facility] (Rec: 08/03/20 19:32 [facility] [email or web address]) Trunk Strength Trunk Manual Muscle Testing Core Stabilization Kimber had difficulty finding her pelvic floor muscles and has limited endurance of her pelvic floor. With education Kimber was able to contract her pelvic floor today and was given a home program for her pelvic floor and TA There is some stretch weakness of the transverse abdominal musculatre PT-OP-Q Treatments Start: 07/30/20 08:59 Freq: Status: Active Protocol: Document 09/29/20 14:30 [facility] (Rec: 09/30/20 10:25 [facility] [email or web address]) Therapeutic Exercises Other Exercises supine horizontal abduction over foam roll Reps/Minutes x 10 Manual Therapy Treatment Soft Tissue Mobilization prone over pillow paraspinal release Body Location paraspinal release Mobilization Type Myofascial Release Comments worked higher up in the thoracic spine today as right side of paraspinals was guarded Joint Mobilizations seated thoracic mobilizations Joint seated thoracic mobilizations for improved extension Direction AMBROCIO san Grade II Comments good tolerance, good spinal mobility, pain appears to be more muscular in nature Manual Techniques kinesiotape Type kinestiotape to inhibit the pec minor and facilitate lower traps Comments right side PT-OP-T Assessment and Plan Start: 07/30/20 08:59 Freq: Status: Active Protocol: Document 09/29/20 14:30 [facility] (Rec: 09/30/20 10:25 [facility] [email or web address]) Physical Therapy Assessment Assessment Summary Assessment Pain appears to be more muscular in nature. Kimber hasd been shown stretches for her thoracic spine for home. I did try taping her shoulder today for lower trap facilitation and pec minor inhibition. Physical Therapy Plan Frequency and Duration Frequency of Treatment 1x/Week Duration of Treatment 8 weeks Plan of Care Start Date 07/30/20 Plan of Care End Date 09/24/20 Therapeutic Interventions Therapeutic Interventions Home Exercise Program,Manual Therapy,Neuromuscular Re- education,Patient/Caregiver Education,Self-Care/Home Management,Soft Tissue Mobilization,Therapeutic Exercises Next Visit Focus/Plan Next Note Type Treatment Note Next Visit Plan reassess kinesiotape next visit and work on releasing the right paraspinals
--- NOTE | 2020-10-15 13:37 | PT.OTN ---
Current Diagnoses Pain in right hip (10/15/20) Sacrococcygeal disorders, not elsewhere classified (10/15/20) Encounter for supervision of normal , unspecified, unspecified trimester (10/15/20) Other specified postprocedural states (10/15/20) Physical Therapy Treatment Note PT-OP-A Visit Information Start: 07/30/20 08:59 Freq: Status: Active Protocol: Document 10/15/20 09:03 [facility] (Rec: 10/15/20 09:06 [facility] [id number]) Out-Patient Physical Therapy Visit Information Visit Information Visit Type Treatment Note Visit Start Time 09:00 Visit Stop Time 09:45 Total Visit Minutes 45 Visit Number 9 PT-OP-B Current Condition Start: 07/30/20 08:59 Freq: Status: Active Protocol: Document 07/30/20 16:00 [facility] (Rec: 08/03/20 19:11 [facility] [email or web address]) Current Condition History of Current Condition Onset Date with Current Complaints R sided SI pain History of Current Condition Kimber is a 29 year old female 27 weeks with her first . She c/o right sided SI pain. Kimber has a history of torn labrum on her right hip when she was 19. She was diagnosed with hip dysplasia at that time. She underwent pericetabular osteotomy and a year and a half later returned for a labrum repair with hip flexor release. She did have a good amount of PT both before and after surgery. She reports she has stayed very active since this time and if she stays active she has limited symptoms. Her right sided sciatic symptoms began at 12 weeks. She also reports symptoms of round ligament pain especially with quick positions changes. She was stationed in [employer] with her and they recently moved to [place]. Kimber did get PT in [employer]. Kimber reports her plan is that she would like to have a vaginal delivery. Past medical history includes DVT following hip surgery. Treatment Goals Patient/Caregiver Goals Kimber goals include decreasing her right sided SI joint pain and her birthing plan is that she would like a vaginal delivery Current Functional Impairments (Reported) Functional Limitations- ADL's activites that require sitting for long periods increase her symptoms PT-OP-C Subjective Start: 07/30/20 08:59 Freq: Status: Active Protocol: Document 10/15/20 09:03 [facility] (Rec: 10/15/20 09:06 [facility] [id number]) OP-PT Subjective Patient Comments Patient Comments Hip is a little tight, she worked it on the foam roller yesterday. Her back is still bothering her but she did get good relief after last visit. Kimber reports she will be induced tonight at [facility]. PT-OP-J Posture/Palpation/Skin Start: 07/30/20 08:59 Freq: Status: Active Protocol: Document 07/30/20 16:00 [facility] (Rec: 08/03/20 19:32 [facility] [email or web address]) Palpation Assessment Location right SI joint Palpation Location right SI joint PSIS Palpation Findings Tenderness Palpation Details tenderness to palpation over the right ASIS PT-OP-K Range of Motion Start: 07/30/20 08:59 Freq: Status: Active Protocol: Document 07/30/20 16:00 [facility] (Rec: 08/03/20 19:32 [facility] [email or web address]) Hip Goniometric Range of Motion Hip Right Comments Kimber shows good overall hip ROM on the right and no pain with end range hip motion. She does have tightness in her iliopsoas on the right as compared to her left with a + rufus test on the right Hip ROM Limitations Hip ROM Limitations Soft Tissue Tightness Comments hip limited in full extension on the right as compared to the left PT-OP-M Strength Start: 07/30/20 08:59 Freq: Status: Active Protocol: Document 07/30/20 16:00 [facility] (Rec: 08/03/20 19:32 [facility] [email or web address]) Trunk Strength Trunk Manual Muscle Testing Core Stabilization Kimber had difficulty finding her pelvic floor muscles and has limited endurance of her pelvic floor. With education Kimber was able to contract her pelvic floor today and was given a home program for her pelvic floor and TA There is some stretch weakness of the transverse abdominal musculatre PT-OP-Q Treatments Start: 07/30/20 08:59 Freq: Status: Active Protocol: Document 10/15/20 13:35 [facility] (Rec: 10/15/20 13:37 [facility] [email or web address]) Manual Therapy Treatment Soft Tissue Mobilization prone over pillow paraspinal release Body Location paraspinal release Mobilization Type Myofascial Release Comments worked higher up in the thoracic spine today as right side of paraspinals was guarded Joint Mobilizations seated thoracic mobilizations Joint seated thoracic mobilizations for improved extension Direction AMBROCIO san Grade II Comments good tolerance, good spinal mobility, pain appears to be more muscular in nature PT-OP-T Assessment and Plan Start: 07/30/20 08:59 Freq: Status: Active Protocol: Document 10/15/20 13:35 [facility] (Rec: 10/15/20 13:37 [facility] [email or web address]) Physical Therapy Assessment Assessment Summary Assessment pt in her last day of PT prior to delivery. Pt plans on delivering in right sidelying to avoid strain to the right hip. She has been given exercises she can do . I would be happy to resume treatment for her in the period should she need further treatment Physical Therapy Plan Discharge Physical Therapy Discharge Reasons Change in Medical Status Discharge Comments Pt being induced tonight for delivery
--- NOTE | 2020-10-15 13:40 | PT.OPDS ---
Current Diagnoses Pain in right hip (10/15/20) Sacrococcygeal disorders, not elsewhere classified (10/15/20) Encounter for supervision of normal , unspecified, unspecified trimester (10/15/20) Other specified postprocedural states (10/15/20) Visit Care Team Role Provider Type Chayo Diego MD Attending Provider Physician Primary Care Provider Referring Provider Specialty: Family Practice Address: [address] [place] [address], [facility] Email: [email or web address] Number Visit Number 9 Discharge Summary PT-OP-B Current Condition Start: 07/30/20 08:59 Freq: Status: Active Protocol: Document 07/30/20 16:00 [facility] (Rec: 08/03/20 19:11 [facility] [id number]) Current Condition History of Current Condition Onset Date with Current Complaints R sided SI pain History of Current Condition Kimber is a 29 year old female 27 weeks with her first . She c/o right sided SI pain. Kimber has a history of torn labrum on her right hip when she was 19. She was diagnosed with hip dysplasia at that time. She underwent pericetabular osteotomy and a year and a half later returned for a labrum repair with hip flexor release. She did have a good amount of PT both before and after surgery. She reports she has stayed very active since this time and if she stays active she has limited symptoms. Her right sided sciatic symptoms began at 12 weeks. She also reports symptoms of round ligament pain especially with quick positions changes. She was stationed in [place] with her and they recently moved to [place]. Kimber did get PT in [place]. Kimber reports her plan is that she would like to have a vaginal delivery. Past medical history includes DVT following hip surgery. Treatment Goals Patient/Caregiver Goals Kimber goals include decreasing her right sided SI joint pain and her birthing plan is that she would like a vaginal delivery Current Functional Impairments (Reported) Functional Limitations- ADL's activites that require sitting for long periods increase her symptoms PT-OP-C Subjective Start: 07/30/20 08:59 Freq: Status: Active Protocol: Document 10/15/20 09:03 [facility] (Rec: 10/15/20 09:06 [facility] [id number]) OP-PT Subjective Patient Comments Patient Comments Hip is a little tight, she worked it on the foam roller yesterday. Her back is still bothering her but she did get good relief after last visit. Kimber reports she will be induced tonight at [facility]. PT-OP-J Posture/Palpation/Skin Start: 07/30/20 08:59 Freq: Status: Active Protocol: Document 07/30/20 16:00 [facility] (Rec: 08/03/20 19:32 [facility] [id number]) Palpation Assessment Location right SI joint Palpation Location right SI joint PSIS Palpation Findings Tenderness Palpation Details tenderness to palpation over the right ASIS PT-OP-K Range of Motion Start: 07/30/20 08:59 Freq: Status: Active Protocol: Document 07/30/20 16:00 [facility] (Rec: 08/03/20 19:32 [facility] [id number]) Hip Goniometric Range of Motion Hip Right Comments Kimber shows good overall hip ROM on the right and no pain with end range hip motion. She does have tightness in her iliopsoas on the right as compared to her left with a + rufus test on the right Hip ROM Limitations Hip ROM Limitations Soft Tissue Tightness Comments hip limited in full extension on the right as compared to the left PT-OP-M Strength Start: 07/30/20 08:59 Freq: Status: Active Protocol: Document 07/30/20 16:00 [facility] (Rec: 08/03/20 19:32 [facility] [id number]) Trunk Strength Trunk Manual Muscle Testing Core Stabilization Kimber had difficulty finding her pelvic floor muscles and has limited endurance of her pelvic floor. With education Kimber was able to contract her pelvic floor today and was given a home program for her pelvic floor and TA There is some stretch weakness of the transverse abdominal musculature PT-OP-T Assessment and Plan Start: 07/30/20 08:59 Freq: Status: Active Protocol: Document 10/15/20 13:35 [facility] (Rec: 10/15/20 13:37 [facility] [id number]) Physical Therapy Assessment Assessment Summary Assessment Kimber was seen for the last visit of PT today prior to delivery. She has done well with PT and has minimal c/o right hip tightness in the psoas at this time. Pt plans on delivering in right sidelying to avoid strain to the right hip. She has been given exercises she can do for her core. I would be happy to resume treatment for her in the period should she need further treatment Physical Therapy Plan Discharge Physical Therapy Discharge Reasons Change in Medical Status Discharge Comments Pt being induced tonight for delivery
== END 2020-10-16 13:00 ==
LOC: PHYS 09:00
PROVIDERS: PCP Family Medicine; Referring Provider Family Medicine; Visit Provider Family Medicine
DX: Z34.90 Encounter for supervision of normal pregnancy, unspecified, unspecified trimester (principal); M25.551 Pain in right hip; Z98.890 Other specified postprocedural states; M53.3 Sacrococcygeal disorders, not elsewhere classified
CPT/HCPCS: 97110; 97140; 97161; 97535

== ENCOUNTER 2020-10-15 18:59 | Inpatient (IN) | payer OTHER, SELFPAY ==
[2020-10-15 20:22] VITALS: BP 122/65
[2020-10-15] MEDS: DINOPROSTONE VAG (CERVIDIL) 10 MG VAG (20:22)
[2020-10-15 20:25] LABS: Add Manual Diff / Slide Review NO; Basophils Absolute Auto 0 /uL (0-100); Basophils Percent Auto 0.3 % (0-2); Eosinophils Absolute Auto 100 /uL (0-450); Eosinophils Percent Auto 0.8 % (2-4); Hematocrit 34.6 % (36-46); Hemoglobin 11.8 g/dL (12.0-16.0); Lymphocytes Absolute Auto 3000 /uL (1100-4500); Lymphocytes Percent Auto 23.1 % (25-40); Mean Corpuscular HGB Conc 34.3 % (30-36); Mean Corpuscular Hemoglobin 31.1 PG (26-34); Mean Corpuscular Volume 90.8 fL (80-100); Monocytes Absolute Auto 600 /uL (0-900); Monocytes Percent Auto 4.8 % (3-14); Neutrophils Absolute Auto 9100 /uL (1500-7000); Platelet Count 277 X10^3/uL (150-400); Red Blood Cell Count 3.81 X10^6/uL (4.0-5.2); Red Cell Distribution Width 12.5 % (11.6-14.8); White Blood Cell Count 12.9 X10^3/uL (4.5-11.0)
[2020-10-15 20:38] LABS: COVID19 -Nasal RAPID Negative (Negative)
[2020-10-15 20:43] LABS: INR 0.9 (0.9-1.3); Prothrombin Time 10.7 SECONDS (10.1-12.7)
[2020-10-15 20:45] LABS: PTT Partial Thromboplastin Tim 33 SECONDS (26.4-36.2)
[2020-10-15] MEDS: ZOLPIDEM 5 MG TABLET PO (22:45)
--- NOTE | 2020-10-16 08:19 | P.HPOB_ITS ---
OB HPI Date/Time Date of admission: 10/15/20 Date Patient Seen: 10/16/20 Time Patient Seen: 08:00 History of Present Condition Chief complaint: INDUCTION : 1 Para: 0 Estimated Date of Delivery: 10/27/20 Estimated Gestational Age (weeks): 38w3d Narrative: Kimber Zavala is a 29 year at 38w3d here for IOL due to IUGR. The pt denies any vaginal bleeding, contractions, or LOF prior to presentation. She was feeling baby move regularly. The pt transferred from [facility] around 24wks. Her was complicated by a hx of postoperative DVT without subsequent coagulopathy work-up, on anticoagulation throughout due to potentially increased clotting risk. She remained on Lovenox throughout , transitioning to BID Heparin earlier this week. also complicated by IUGR, found incidentally at her intake appt with MFM due to clotting hx. Initially fetus at 7th percentile. Umbilical dopplers and NSTs remained reassuring. Repeat growth scan the week prior to IOL showed growth at the 6th percentile, however AC had decreased from the 10th to the 2nd percentile. Indications Indication for induction OB: other (IUGR) History of Present care: good care, initiated at week # (7) and pounds weight gain (24) Dating criteria: based on LMP only Ultrasounds: normal 1st trimester US and normal mid trimester US ( weight 12th percentile) Obstetrical complications: growth restriction Medical complications: other (hx of postoperative DVT) Preadmission Labs Blood type: A (+) positive -: Antibody screen: negative, Cystic fibrosis screen: negative, GBS status: negative, HBsAG: negative, HIV: negative and RPR/VDLR: negative -: Chlamydia screen: not detected and Gonorrhea screen: not detected -: Rubella: immune HCT: 34.6 PAP: Normal Quad screen: Normal Urine: Negative 1 hr GTT: 103 Evaluation Evaluation Baseline heart rate: 125 Variability: Moderate (11-25) monitor accelerations: Present monitor decelerations: Absent Contraction Frequency (minutes): 5 Uterine Contraction Intensity: Mild Status: Category l Cervical dilation (cm): 1 Cervical effacement (%): 25 station: -2 Laboratory results: Laboratory Tests 10/15/20 10/15/20 10/15/20 19:45 19:45 19:45 WBC 12.9 H RBC 3.81 L Hgb 11.8 L Hct 34.6 L MCV 90.8 MCH 31.1 MCHC 34.3 RDW 12.5 Plt Count 277 Neut % (Auto) 71.0 Lymph % (Auto) 23.1 L [place] % (Auto) 4.8 Eos % (Auto) 0.8 L Baso % (Auto) 0.3 Neut # (Auto) 9100 H Lymph # (Auto) 3000 [place] # (Auto) 600 Eos # (Auto) 100 Baso # (Auto) 0 PT INR APTT SARS-CoV-2 (PCR) Negative Blood Type A Positive Antibody Screen Negative 10/15/20 20:30 WBC RBC Hgb Hct MCV MCH MCHC RDW Plt Count Neut % (Auto) Lymph % (Auto) [place] % (Auto) Eos % (Auto) Baso % (Auto) Neut # (Auto) Lymph # (Auto) [place] # (Auto) Eos # (Auto) Baso # (Auto) PT 10.7 INR 0.9 APTT 33 SARS-CoV-2 (PCR) Blood Type Antibody Screen [facility] Medical History (Updated 10/14/20 @ 13:11 by Chayo Diego MD) Abnormal Pap smear of cervix (~2012) Acne (~2005) Allergies Chicken pox (~1994) Congenital dysplasia of right hip (~2009) DVT (deep venous thrombosis) (~2011) Fibroids (~2009) Labral tear of right hip joint (~2011) Seasonal allergies Surgical History (Updated 09/21/20 @ 20:20 by Crissy Jimenez) Anesthesia H/O LEEP (~2012) History of hip surgery (~2009) History of laparoscopic appendectomy (~2010) History of tonsillectomy (~02/2012) Hx laparoscopic cholecystectomy (~2010) [place] teeth extracted (~2008) Family History (Updated 07/10/20 @ 17:32 by Diamante Mg RN) Mother Osteoporosis Father Glaucoma Grandmother Alzheimer's dementia Parkinsons disease Osteoporosis History of heart bypass surgery Hypertension Grandfather Family estrangement Hypertension Glaucoma Grandmother Family estrangement Grandfather Family estrangement Family/Other Heart murmur Family/Other VSD (ventricular septal defect) Social History marital status: Smoking Status: Never smoker Meds Home Medications and Allergies Home Medications Medication Instructions Recorded Confirmed Type ferrous sulfate 325 mg (65 mg 325 mg PO DAILY 07/10/20 10/15/20 History iron) tablet magnesium 250 mg tablet 250 mg PO DAILY 07/10/20 10/15/20 History omega-3 fatty acids 1,000 mg 1,000 mg PO DAILY 07/10/20 10/15/20 History capsule loratadine 10 mg tablet 10 mg PO DAILY #90 tab 08/10/20 10/15/20 Rx breast pump #1 ea 08/24/20 10/15/20 Rx enoxaparin 40 mg/0.4 mL 40 mg SUBCUT DAILY #12 ml 08/24/20 10/15/20 Rx subcutaneous syringe prenat.vits,nory,bpo-tfhp-jkhon 1 tab PO DAILY #180 tab 09/08/20 10/15/20 Rx heparin (porcine) 10,000 unit/mL 10,000 unit SUBCUT Q12H 10 Days 10/08/20 10/15/20 Rx injection solution #20 ml Electronic Breast Pump #1 ea 10/13/20 10/15/20 Rx Allergies Allergy/AdvReac Type Severity Reaction Status Date / Time grass pollen Allergy Intermediate Swollen Verified 10/08/20 08:49 lips, no anaphylaxis. meperidine [From Demerol] Allergy Mild Hives Verified 10/08/20 08:49 cefprozil [From Cefzil] Allergy Unknown as a child. Verified 10/08/20 08:49 Sulfa (Sulfonamide Allergy Unknown as a child Verified 10/08/20 08:49 Antibiotics) Exam Const General: cooperative, healthy appearing and comfortable Orientation: alert, awake and oriented x3 Resp Effort & Inspection: normal respiratory effort Auscultation: clear to auscultation bilaterally Cardio Rate: regular rate Rhythm: regular rhythm Heart Sounds: S1 normal, S2 normal and no murmurs GI Inspection: non-distended Palpation: soft and No tender Other: gravid Presentation: vertex Estimated Weight (lbs): 5 Extrem General: no clubbing, cyanosis or edema Objective Labs Result Diagrams: 10/15/20 19:45 Labs: Laboratory Results - last 24 hr 10/15/20 10/15/20 10/15/20 19:45 19:45 19:45 WBC 12.9 H RBC 3.81 L Hgb 11.8 L Hct 34.6 L MCV 90.8 MCH 31.1 MCHC 34.3 RDW 12.5 Plt Count 277 Neut % (Auto) 71.0 Lymph % (Auto) 23.1 L [place] % (Auto) 4.8 Eos % (Auto) 0.8 L Baso % (Auto) 0.3 Neut # (Auto) 9100 H Lymph # (Auto) 3000 [place] # (Auto) 600 Eos # (Auto) 100 Baso # (Auto) 0 PT INR APTT SARS-CoV-2 (PCR) Negative Blood Type A Positive Antibody Screen Negative 10/15/20 20:30 WBC RBC Hgb Hct MCV MCH MCHC RDW Plt Count Neut % (Auto) Lymph % (Auto) [place] % (Auto) Eos % (Auto) Baso % (Auto) Neut # (Auto) Lymph # (Auto) [place] # (Auto) Eos # (Auto) Baso # (Auto) PT 10.7 INR 0.9 APTT 33 SARS-CoV-2 (PCR) Blood Type Antibody Screen Assessment and Plan Assessment and Plan Assessment and Plan narrative: 29yo at 38w3d here for IOL due to IUGR, 6th percentile. also complicated by requiring anticoagulation due to hx of DVT postoperatively without coagulopathy work-up completed after treatment. Received Cervidil overnight with minimal cervical change. Rh positive, GBS negative. - Expectant management, anticipate - Discussed womack cather vs pitocin with the pt. Jimenes score currently 4. Pt adamantly does not want womack catheter currently. Will trial pitocin, titrate up as tolerated. Re-evaluate in 4 hours. If no change, will reconsider womack catheter. - Due to hx of DVT, per [facility] recommendations, SCDs throughout labor when not mobile - Epidural for pain control when desired. Encouraged to wait at least until cervical check in 4 hours. - FHT reassuring - GBS negative, no prophylaxis indicated
[2020-10-16] MEDS: OXYTOCIN PREMIX 30 UNIT/500 ML PLAST..BAG IV (09:13)
[2020-10-16] MEDS: LACTATED RINGERS 1,000 ML 100 ML IV ×3 (09:13→21:32)
[2020-10-16] MEDS: LIDOCAINE 2% (UROJET) 5 ML GEL TOP (12:45)
--- NOTE | 2020-10-16 12:57 | P.PNOB_ITS ---
Date/Time Date Patient Seen: 10/16/20 Time Patient Seen: 13:05 Pain Control Pain control: tolerating well Pelvic Exam Dilation (cm): 1 Effacement (%): 25 station: -2 Contractions Pitocin rate (mU/min): 12 Contraction frequency (min): 2 Contraction pattern: Regular Contraction intensity: Mild Status status: Category l Heart Rate Baseline: 130 Monitor Accelerations: Present Monitor Decelerations: Absent Monitor Variability: Moderate Assessment and Plan Comments: 29yo at 38w3d here for IOL due to IUGR, 6th percentile. also complicated by requiring anticoagulation due to hx of DVT postoperatively without coagulopathy work-up completed after treatment. Received Cervidil overnight with minimal cervical change. On pitocin for 4hrs with no cervical change. Rh positive, GBS negative. - Expectant management, anticipate - Due to no cervical change, and Jimenes still < 8, will initiate womack catheter, which pt is in agreement with now. After informed consent, the womack was introduced through the cervix and inflated with 30cc NS. Position was confirmed. Gentle traction was applied to the womack. Pt tolerated well. Plan to leave for up to 12 hrs or when falls out. - Due to hx of DVT, per [facility] recommendations, SCDs throughout labor when not mobile - Epidural for pain control when desired. Encouraged to wait at least until womack removed. - FHT reassuring - GBS negative, no prophylaxis indicated
--- NOTE | 2020-10-16 17:21 | P.PNOB_ITS ---
Date/Time Date Patient Seen: 10/16/20 Time Patient Seen: 17:00 Pain Control Pain control: tolerating well Pelvic Exam Dilation (cm): 3 Effacement (%): 50 station: -3 Amniotic membrane status: Ruptured Comments: Head well applied to cervix. After informed consent, AROM was performed with production of copius clear fluid. FHT remained reassuring after. Contractions Monitor mode: External Pitocin rate (mU/min): 3 Contraction frequency (min): 4 Contraction pattern: Irregular Contraction intensity: Moderate Status status: Category l Heart Rate Baseline: 130 Monitor Accelerations: Present Monitor Decelerations: Absent Monitor Variability: Moderate Assessment and Plan Comments: 29yo at 38w3d here for IOL due to IUGR, 6th percentile. also complicated by requiring anticoagulation due to hx of DVT postoperatively without coagulopathy work-up completed after treatment. Received Cervidil overnight with minimal cervical change. On pitocin for 4hrs with no cervical change. Kim bulb placed with low dose pitocin continued. Removed due to cervical dilation around bulb. AROM with clear fluid present. Rh positive, GBS negative. - Expectant management, anticipate - Continue pitocin, titrate as tolerated - Due to hx of DVT, per [facility] recommendations, SCDs throughout labor when not mobile. Pt thus far has been out of bed for majority of IOL. - Epidural for pain control when desired. - FHT reassuring - GBS negative, no prophylaxis indicated
[2020-10-17] MEDS: FENT 2MCG/ML BUPIV 0.125% EPI 200 MCG/100 ML PLAST..BAG 12 MCG EPIDURAL (01:55)
[2020-10-17] MEDS: CALCIUM CARBONATE 500 MG TAB PO (03:49)
--- NOTE | 2020-10-17 06:31 | PM.OBPRVD ---
Events: Labor Induction Labor & Delivery Delivery date: 10/17/20 Intrapartal events: None Estimated blood loss (mL): 100 Anesthesia Type: Epidural Complications: None Narrative: PROCEDURE: at 38w2d presented for IOL due to IUGR and was admitted to Labor and Delivery. The patient progressed through the 1st stage over 10.5 hours. She received Cervidil followed by pitocin. Due to no significant cervical change, womack catheter was placed with low-dose pitocin continued. The womack effectively dilated the cervix, and fell out. Pitocin was then titrated up as tolerated. AROM was performed with production of clear fluid. Pain was controlled with an epidural. The patient progressed through the 2nd stage over 3 hours and delivered a viable female with APGARs 9/9 at 6:09 via without complications. Baby was delivered to maternal abdomen, with cord clamped and cut after it stopped pulsating. The perineum and vagina were inspected with no lacerations. PREPROCEDURE DIAGNOSIS: Intrauterine at 38w2d GBS negative RH positive IUGR Hx of DVT POSTPROCEDURE DIAGNOSIS: Intrauterine at 38w4d, delivered Same as preprocedure PROCEDURE: Spontaneous vaginal delivery INDUCTION: Cervidil, Womack catheter LABOR AUGMENTATION: Pitocin, AROM ROM APPEARANCE: Clear BABY A DELIVERY TIME: 6:09am BABY A OUTCOME: Viable BABY A SEX: Female BABY A WEIGHT: [id number] BABY A PRESENTATION: Vertex BABY A POSITION: OA BABY A NUCHAL CORD: None, cord delivered with shoulder BABY A # CORD VESSELS: 3 BABY A CORD GASES OBTAINED: No PLACENTA DELIVERY TIME: 6:13 PLACENTAL DELIVERY TYPE: Spontaneous PLACENTA APPEARANCE: Intact, succenturiate lobe noted Baby 1: gender: Female score (1 min): 9 score (5 min): 9 Plan for aftercare: Normal care
[2020-10-17] MEDS: FERROUS SULFATE 325 MG TABLET PO (11:49)
[2020-10-17] MEDS: PRENATAL VIT,CALC/IRON/FOLIC 1 TABLET 1 TAB PO (11:49)
[2020-10-17] MEDS: DOCUSATE 100 MG CAPSULE PO (11:49)
[2020-10-17] MEDS: ENOXAPARIN 40 MG/0.4 ML SYRINGE SUBCUT (13:57)
[2020-10-17] MEDS: IBUPROFEN 600 MG TABLET PO (21:30)
[2020-10-17] MEDS: ACETAMINOPHEN 325 MG TABLET 650 MG PO (21:30)
[2020-10-18] MEDS: ACETAMINOPHEN 325 MG TABLET 650 MG PO (04:47)
[2020-10-18] MEDS: IBUPROFEN 600 MG TABLET PO (04:47)
[2020-10-18] MEDS: DOCUSATE 100 MG CAPSULE PO (09:17)
[2020-10-18] MEDS: PRENATAL VIT,CALC/IRON/FOLIC 1 TABLET 1 TAB PO (09:17)
[2020-10-18] MEDS: FERROUS SULFATE 325 MG TABLET PO (09:17)
--- NOTE | 2020-10-18 10:23 | PM.OBDS.1 ---
Discharge Providers Provider Date of admission: 10/15/20 18:59 Discharge Date: 10/18/20 Primary care physician: Chayo Diego MD Consults: 10/18/20 06:45 Consult to It Compliance Manager Routine Comment: Discharge provider: Chayo Diego MD Summary Hospital Course Date Patient Seen: 10/18/20 Time Patient Seen: 09:45 Procedures: Spontaneous vaginal delivery Hospital Course: The pt presented for IOL due to IUGR. SCDs were utilized during her labor when she was not out of bed. She received Cervidil overnight, and then was started on Pitocin. Due to no significant cervical change, womack catheter was placed and pitocin reduced to low-dose. The womack catheter fell out, and pitocin was titrated up as tolerated. She received an epidural for pain control. The pt progressed to complete dilation. She had a of a viable baby girl at 6:09am on 10/17/20 without complications. There were no lacerations. She tolerated delivery well. , there were no complications. She was started on Lovenox again 8 hours . At the time of discharge she was voiding, ambulating, and passing flatus without difficulty. She had a BM prior to d/c as well. She was with good latch. Her lochia was decreasing appropriately. Her pain was adequately controlled. She will discharge home with plans to f/u in 6 weeks for check. She will continue her Lovenox at home. Peripartum Data Delivery Method: Natural Vaginal Laceration Description: None Episiotomy description: None Procedures: Spontaneous vaginal delivery complications: none Maple 1: Gender: Female Disposition of : home Status at Discharge Cognitive/behavioral status at discharge: oriented Functional status at discharge: independent ambulation Overall status at discharge: patient is progressing back to baseline Time Spent with Patient Time attestation: Total time spent providing and/or coordinating discharge services: Objective Labs Result Diagrams: 10/15/20 19:45 Discharge Plan Discharge Plan Patient Disposition: Home Discharge orders & Medications Prescriptions: Continued enoxaparin [Lovenox] 40 mg/0.4 mL syringe 40 mg SUBCUT DAILY Qty: 12 RF: 3 (DME) breast pump Device See Rx Instructions .ROUTE .MEDSUPPLY Qty: 1 RF: 0 loratadine [Claritin] 10 mg tablet 10 mg PO DAILY Qty: 90 RF: 3 prenat.vits,nory,cqf-keli-cxmbm Tablet 1 tab PO DAILY Qty: 180 RF: 2 (DME) Electronic Breast Pump See Rx Instructions .Route .MEDSUPPLY Qty: 1 RF: 0 omega-3 fatty acids [Fish Oil Concentrate] 1,000 mg capsule 1,000 mg PO DAILY RF: 0 magnesium 250 mg tablet 250 mg PO DAILY RF: 0 ferrous sulfate [FerrouSul] 325 mg (65 mg iron) tablet 325 mg PO DAILY RF: 0 Discontinued heparin (porcine) 10,000 unit/mL solution 10,000 unit SUBCUT Q12H 10 Days Qty: 20 RF: 0 Follow up/Referrals: Chayo Diego MD [Primary Care Provider] - 6 Weeks Diet/Activity/Treatments Diet: Diet as Tolerated and Regular Skin/Wound/Dressing Care Report to your healthcare provider any signs of infection, such as:: chills, fever, increased pain and unusual drainage Visit Report/Discharge Packet Instructions: DI for Labor and Delivery, Vaginal Visit Report Forms: Patient Portal/API, Stroke Signs & Symptoms Discharge Data Primary Care Provider: Chayo Diego
[2020-10-18 10:26] VITALS: BP 121/69; PULSE 65; RESP 17; TEMP 36.2
== END 2020-10-18 11:00 | disposition home or self-care (01) | DRG 807 ==
PROVIDERS: Admitting Provider Family Medicine; PCP Family Medicine; Referring Provider Family Medicine; Visit Provider Family Medicine
DX: O36.5930 Maternal care for other known or suspected poor fetal growth, third trimester, not applicable or unspecified (principal); Z37.0 Single live birth; Z3A.38 38 weeks gestation of pregnancy; Z86.718 Personal history of other venous thrombosis and embolism; Z79.01 Long term (current) use of anticoagulants; Z20.822 Contact with and (suspected) exposure to COVID-19; M25.551 Pain in right hip; M53.3 Sacrococcygeal disorders, not elsewhere classified
CPT/HCPCS: 01967; 36415; 59050; 59410; 85025; 85610; 85730; 86850; 86900; 86901; 87635; 97140; C9803; J1650; J2590

== ENCOUNTER → 2020-12-24 08:22 | Outpatient (CLI) | payer OTHER, SELFPAY ==
[2020-12-24 09:11] LABS: Add Manual Diff / Slide Review NO; Basophils Absolute Auto 0 /uL (0-100); Basophils Percent Auto 0.6 % (0-2); Eosinophils Absolute Auto 200 /uL (0-450); Eosinophils Percent Auto 2.1 % (2-4); Hematocrit 42.9 % (36-46); Hemoglobin 14.5 g/dL (12.0-16.0); Lymphocytes Absolute Auto 2500 /uL (1100-4500); Lymphocytes Percent Auto 29.2 % (25-40); Mean Corpuscular HGB Conc 33.7 % (30-36); Mean Corpuscular Hemoglobin 30.1 PG (26-34); Mean Corpuscular Volume 89.3 fL (80-100); Monocytes Absolute Auto 400 /uL (0-900); Monocytes Percent Auto 5.2 % (3-14); Neutrophils Absolute Auto 5400 /uL (1500-7000); Neutrophils Percent Auto 62.9 % (50-75); Platelet Count 252 X10^3/uL (150-400); Red Blood Cell Count 4.81 X10^6/uL (4.0-5.2); Red Cell Distribution Width 12.5 % (11.6-14.8); White Blood Cell Count 8.5 X10^3/uL (4.5-11.0)
[2020-12-24 09:16] LABS: Prothrombin Time 11.3 SECONDS (10.1-12.7)
[2020-12-24 09:18] LABS: PTT Partial Thromboplastin Tim 39 SECONDS (26.4-36.2)
[2020-12-24 09:29] LABS: BUN Creatinine Ratio 22.7 (6-22); Blood Urea Nitrogen 20 mg/dL (7-17); Calcium 9.7 mg/dL (8.4-10.2); Carbon Dioxide 25 mmol/L (22-32); Chloride 106 mmol/L (98-107); Estimated Glomerular Filt Rate > 60.0 mL/min (>60); Glucose 86 mg/dL (70-100); HEMOLYSIS < 15 (0-50); Potassium 3.8 mmol/L (3.4-5.1); Sodium 139 mmol/L (137-145)
[2020-12-27 00:41] LABS: Cardiolipin Ab IgA <9 APL U/mL (0-11); Cardiolipin Ab IgG <9 GPL U/mL (0-14); Cardiolipin Ab IgM <9 MPL U/mL (0-12)
[2020-12-27 11:26] LABS: Protein C-Functional 122 % (73-180); Protein S-Functional 86 % (63-140)
[2020-12-27 12:28] LABS: Dilute Russell Viper Venom 33.9 sec (0.0-47.0); Lupus Reflex Interpretation Comment: (.); PTT-LA 34.6 sec (0.0-51.9)
== END ==
PROVIDERS: Family Provider Family Medicine; PCP Family Medicine; Referring Provider Family Medicine; Visit Provider Family Medicine
DX: I82.409 Acute embolism and thrombosis of unspecified deep veins of unspecified lower extremity (principal)
CPT/HCPCS: 36415; 80048; 81241; 85025; 85300; 85303; 85306; 85598; 85610; 85613; 85730; 86147

== ENCOUNTER → 2020-12-25 15:49 | Outpatient (CLI) | payer OTHER, SELFPAY | PROVIDERS: Family Provider Family Medicine; PCP Family Medicine; Visit Provider Family Medicine | DX: J02.9 Acute pharyngitis, unspecified (principal) | CPT/HCPCS: 87081 ==

== ENCOUNTER → 2021-08-11 08:32 | Outpatient (CLI) | payer OTHER, SELFPAY ==
[2021-08-11 11:57] LABS: COVID19 -Nasal RAPID Negative (Negative)
== END ==
PROVIDERS: Family Provider Family Medicine; PCP Family Medicine; Visit Provider Nurse Practitioner Family
DX: Z20.822 Contact with and (suspected) exposure to COVID-19 (principal)
CPT/HCPCS: 87635

== ENCOUNTER → 2022-03-21 16:40 | Outpatient (CLI) | payer OTHER, SELFPAY ==
[2022-03-21 17:18] LABS: Add Manual Diff / Slide Review NO; Basophils Absolute Auto 0 /uL (0-100); Basophils Percent Auto 0.2 % (0-2); Eosinophils Absolute Auto 100 /uL (0-450); Eosinophils Percent Auto 0.6 % (2-4); Hematocrit 38.6 % (36-46); Hemoglobin 13.4 g/dL (12.0-16.0); Lymphocytes Absolute Auto 2000 /uL (1100-4500); Lymphocytes Percent Auto 19.9 % (25-40); Mean Corpuscular HGB Conc 34.8 % (30-36); Mean Corpuscular Hemoglobin 30.5 PG (26-34); Mean Corpuscular Volume 87.7 fL (80-100); Monocytes Absolute Auto 300 /uL (0-900); Monocytes Percent Auto 2.7 % (3-14); Neutrophils Absolute Auto 7700 /uL (1500-7000); Neutrophils Percent Auto 76.6 % (50-75); Platelet Count 200 X10^3/uL (150-400); Red Blood Cell Count 4.39 X10^6/uL (4.0-5.2)
[2022-03-21 17:45] LABS: Alanine Aminotransferase 17 IU/L (<35); Albumin 4.1 g/dL (3.5-5.0); Albumin Globulin Ratio 1.5 (1.0-2.8); Alkaline Phosphatase 48 U/L (38-126); Aspartate Aminotransferase 23 IU/L (14-36); BUN Creatinine Ratio 14.9 (6-22); Bilirubin Total 0.3 mg/dL (0.2-1.3); Blood Urea Nitrogen 11 mg/dL (7-17); Calcium 8.7 mg/dL (8.4-10.2); Carbon Dioxide 26 mmol/L (22-32); Chloride 107 mmol/L (98-107); Estimated Glomerular Filt Rate > 60 mL/min (>60); Globulin 2.8 g/dL (1.7-4.1); Glucose 108 mg/dL (70-100); HEMOLYSIS < 15 (0-50); Potassium 3.5 mmol/L (3.4-5.1); Sodium 139 mmol/L (137-145); Total Protein 6.9 g/dL (6.3-8.2)
[2022-03-21 17:47] LABS: Hemoglobin A1C% w Est Avg Glu 5.1 % (4.0-6.0)
[2022-03-21 18:13] LABS: TSH w/ Reflex to FT4 1.73 uIU/mL (0.47-4.68)
[2022-03-21 18:14] LABS: Testosterone 11.2 ng/dL (5.71-77.0)
[2022-03-21 22:47] LABS: Progesterone, Total 0.59 ng/mL
[2022-03-24 16:36] LABS: Estrogen 148 pg/mL (.)
== END ==
PROVIDERS: Family Provider Family Medicine; PCP Family Medicine; Referring Provider Family Medicine; Visit Provider Family Medicine
DX: N92.6 Irregular menstruation, unspecified (principal); R53.83 Other fatigue
CPT/HCPCS: 36415; 80053; 82672; 83036; 84144; 84403; 84443; 85025

== ENCOUNTER → 2022-07-04 10:45 | Outpatient (CLI) | payer OTHER, SELFPAY ==
[2022-07-04 15:38] LABS: Appearance Urine UA CLEAR; Bilirubin Urine UA NEGATIVE (NEGATIVE); Color Urine UA YELLOW; Glucose Urine UA NEGATIVE (Negative); Ketones Urine UA NEGATIVE (NEGATIVE); Leukocyte Esterase Urine UA NEGATIVE (NEGATIVE); Nitrite Urine UA NEGATIVE (Negative); Occult Blood Urine UA NEGATIVE (Negative); Protein Urine UA NEGATIVE (Negative); Specific Gravity Urine UA 1.015 (1.000-1.035); Urobilinogen Urine UA 0.2 E.U./dL (0.2)
== END ==
PROVIDERS: Family Provider Family Medicine; PCP Family Medicine; Visit Provider Family Medicine
DX: Z34.81 Encounter for supervision of other normal pregnancy, first trimester (principal)
CPT/HCPCS: 81003; 87086

== ENCOUNTER → 2022-07-04 16:40 | Outpatient (CLI) | payer OTHER, SELFPAY ==
[2022-07-04 18:31] LABS: Add Manual Diff / Slide Review NO; Basophils Absolute Auto 0 /uL (0-100); Basophils Percent Auto 0.5 % (0-2); Eosinophils Absolute Auto 100 /uL (0-450); Eosinophils Percent Auto 1.4 % (2-4); Hemoglobin 13.1 g/dL (12.0-16.0); Lymphocytes Absolute Auto 2100 /uL (1100-4500); Lymphocytes Percent Auto 26.5 % (25-40); Mean Corpuscular HGB Conc 34.4 % (30-36); Mean Corpuscular Hemoglobin 30.5 PG (26-34); Mean Corpuscular Volume 88.8 fL (80-100); Monocytes Absolute Auto 400 /uL (0-900); Neutrophils Absolute Auto 5200 /uL (1500-7000); Neutrophils Percent Auto 66.6 % (50-75); Platelet Count 189 X10^3/uL (150-400); Red Blood Cell Count 4.28 X10^6/uL (4.0-5.2); Red Cell Distribution Width 12.9 % (11.6-14.8); White Blood Cell Count 7.8 X10^3/uL (4.5-11.0)
[2022-07-04 19:24] LABS: Hepatitis B Surface Antigen NEGATIVE s/c (NEGATIVE); Rubella Antibody IgG 25.4 IU/mL (>15)
[2022-07-04 19:41] LABS: HIV 1 & 2 Ab/Ag 4th Gen Combo NEGATIVE (NEGATIVE); Hep C Virus Ab w/Reflex Quant NEGATIVE s/c (NEGATIVE)
[2022-07-06 07:01] LABS: Varicella IgG Antibody 364 index (Immune >165)
[2022-07-06 09:10] LABS: RPR Screen Non Reactive (Non Reactive)
[2022-07-06 11:54] LABS: Miscellaneous to LabCorp NATERA KIT
== END ==
PROVIDERS: Family Provider Family Medicine; PCP Family Medicine; Referring Provider Family Medicine; Visit Provider Family Medicine
DX: Z34.81 Encounter for supervision of other normal pregnancy, first trimester (principal)
CPT/HCPCS: 36415; 80055; 81003; 86787; 86803; 86850; 86900; 86901; 87086; 87389

== ENCOUNTER → 2022-08-24 10:56 | Outpatient (CLI) | payer OTHER, SELFPAY ==
[2022-08-24 12:43] LABS: Influenza A - CEPHEID Flu A POSITIVE (NEGATIVE); Influenza B - CEPHEID Flu B NEGATIVE (NEGATIVE); Respiratory Syncytial Virus Negative (Negative)
[2022-08-24 13:07] LABS: COVID-19 CEPHEID 4-PLEX PCR Negative (Negative)
== END ==
PROVIDERS: Family Provider Family Medicine; PCP Family Medicine; Visit Provider Physician Assistant Medical
DX: R05.9 Cough, unspecified (principal)
CPT/HCPCS: 0241U

== ENCOUNTER → 2022-09-07 10:16 | Outpatient (CLI) | payer OTHER, SELFPAY ==
--- NOTE | 2022-09-07 10:17 | DI.US.S_ITS ---
PROCEDURE: US OB >= 14 WEEKS FETUS INDICATIONS: Anatomy scan OUTSIDE/PRIOR DATING DATA: Last menstrual period (LMP): 04/25/2022. LMP-based estimated date of delivery (GREG): 01/30/2023. First dating scan (date and location): 09/07/2022. Estimated date of delivery (GREG) from first dating scan: 01/28/2023. The calculations are made using the ultrasound GREG of 01/28/2023. TECHNIQUE: Real-time scanning was performed of the fetus, with image documentation and biometric measurements. COMPARISON: None. FINDINGS: General: A single living intrauterine gestation is present. Presentation: Transverse head left. Placenta: Placental position is anterior, without previa. Low lying. Placental edge is 1.1 cm from the internal cervical os. Amniotic fluid index: 14 cm, normal range is 5-24 cm. Single deepest vertical pocket is 4.3 cm. heart rate: 136 beats per minute. Maternal cervical canal: 8.3 cm long. Normal lower limit is 2.5 cm. biometrics: Biparietal diameter: 14.6 cm, 19 weeks 6 days Head circumference: 17.1 cm, 19 weeks 5 days Abdominal circumference: 14.2 cm, 19 weeks 4 days Femur length: 2.9 cm, 18 weeks 6 days Clinically estimated gestational age: 19 weeks 2 days Composite gestational age from present scan: 19 weeks 4 days Estimated weight and percentile: 284 g, 45th percentile Anatomic survey: Neuro: Ventricles are non-dilated at less than 10 mm. Cisterna magna is normal at 3-11 mm. Cerebellum is normal in size and morphology. Nuchal skin fold: Normal at less than 6 mm between 14-21 weeks gestational age. Face: Nose and lips are normal. profile not well seen. Spine: No evidence for spina bifida. Heart: Not well seen. Diaphragm: Diaphragm is intact. Stomach: Left-sided stomach is present. Kidneys: No hydronephrosis. Normal is less than 5 mm in 2nd trimester, less than 7 mm in 3rd trimester. Cord: 3-vessel cord has orthotopic insertion. Bladder: Normal in size. Extremities: All 4 extremities identified. Uterine fibroid measuring at 3.4 x 3.2 x 2.4 cm at the anterior Booth in segment. IMPRESSION: 1. Mccormick living intrauterine at 19 weeks 4 days based on today's ultrasound. This is concordant with the prior dating. Fetus is at the 45th percentile for weight. 2. Normal amniotic fluid. Low lying placenta. Placental edge is 1.1 cm from the internal cervical os. 3. profile and heart are not well seen. Otherwise normal anatomic survey. Recommend follow-up OB ultrasound. We strive to produce accurate, complete, and clear reports of imaging services. To assist us in improving patient care, this report was composed using standard report templates and voice recognition software. Therefore, it may contain abnormal punctuation, insertions and/or omissions. Occasional wrong-word or sound-alike substitutions may occur. Though we review the report and make efforts to correct it, we do recommend that the report be read carefully in proper context to recognize any text inaccuracies. Dictated by: Quinten Vallecillo M.D. on 09/07/2022 at 13:58 Approved by: Quinten Vallecillo M.D. on 09/07/2022 at 14:04
== END ==
PROVIDERS: Family Provider Family Medicine; PCP Family Medicine; Referring Provider Family Medicine; Visit Provider Family Medicine
DX: O44.42 Low lying placenta NOS or without hemorrhage, second trimester (principal); Z3A.19 19 weeks gestation of pregnancy
CPT/HCPCS: 76811

== ENCOUNTER → 2022-09-27 12:34 | Outpatient (CLI) | payer OTHER, SELFPAY ==
--- NOTE | 2022-09-27 12:35 | DI.US.S_ITS ---
PROCEDURE: US OB FOLLOW UP INDICATIONS: Ubable to see structures, heart, profile, low lying placenta OUTSIDE/PRIOR DATING DATA: Last menstrual period (LMP): 04/25/2022 LMP-based estimated date of delivery (GREG): 01/30/2023. First dating scan (date and location): 09/07/2022. Estimated date of delivery (GREG) from first dating scan: 01/28/2023. Working GREG is 01/28/2023 TECHNIQUE: Real-time scanning was performed of the fetus, with image documentation and biometric measurements. COMPARISON: [facility], , OB >= 14 WEEKS FETUS, 09/07/2022, 10:24. FINDINGS: General: A single living intrauterine gestation is present. Presentation: Breech. Placenta: Placental position is anterior, without previa. Amniotic fluid index: 11.5 cm, normal range is 5-24 cm. Single deepest vertical pocket is 3.7 cm. heart rate: 137 beats per minute. Maternal cervical canal: 4.7 cm long. Normal lower limit is 2.5 cm. Clinically estimated gestational age: 22 weeks 1 day Other: Normal appearance of the four-chamber heart and cardiac outflow tracts. Anterior maternal intramural fibroid redemonstrated and not significant changed from prior examination measuring up to 4.2 cm in maximal diameter. Subtle differences in size likely related to technique. IMPRESSION: 1. Single living IUP redemonstrated with age estimated at 22 weeks 1 day by prior ultrasound. 2. Normal appearance of the four-chamber heart and cardiac outflow tracts. 3. Resolved low lying placenta. We strive to produce accurate, complete, and clear reports of imaging services. To assist us in improving patient care, this report was composed using standard report templates and voice recognition software. Therefore, it may contain abnormal punctuation, insertions and/or omissions. Occasional wrong-word or sound-alike substitutions may occur. Though we review the report and make efforts to correct it, we do recommend that the report be read carefully in proper context to recognize any text inaccuracies. Dictated by: Michel JACKSON Interpreted: Juan Wallace MD on 09/27/2022 at 15:47 Approved by: Juan Wallace M.D. on 09/27/2022 at 16:30
== END ==
PROVIDERS: Family Provider Family Medicine; PCP Family Medicine; Referring Provider Family Medicine; Visit Provider Family Medicine
DX: Z36.2 Encounter for other antenatal screening follow-up (principal); Z3A.22 22 weeks gestation of pregnancy
CPT/HCPCS: 76816

== ENCOUNTER 2022-10-07 20:15 | Outpatient (CLI) | payer OTHER, SELFPAY ==
--- NOTE | 2022-10-07 20:59 | PM.OBTRLD ---
Visit Information Visit Information Date of evaluation: 10/07/22 Primary OB Provider: Chayo Diego On-call OB Provider: Alanis Gorman Reason for Evaluation: Yes non-stress test non-stress test reason: decreased movement Vital Signs Vital Signs: T 37.3 BP 115/57 P 64 PFSH Medical History Abnormal Pap smear of cervix (~2012) Acne (~2005) Allergies support offered Chicken pox (~1994) Chronic right hip pain Clogged duct, Congenital dysplasia of right hip (~2009) DVT (deep venous thrombosis) (~2011) growth restriction Fibroids (~2009) Labral tear of right hip joint (~2011) Pelvic somatic dysfunction Piriformis syndrome of right side Sacral region somatic dysfunction Seasonal allergies Segmental and somatic dysfunction of abdomen and other regions Short leg syndrome, right, acquired Somatic dysfunction of lower extremity Surgical History Anesthesia H/O LEEP (~2012) History of hip surgery (~2009) History of laparoscopic appendectomy (~2010) History of tonsillectomy (~02/2012) Hx laparoscopic cholecystectomy (~2010) [place]ckel teeth extracted (~2008) Family History Mother Osteoporosis Father Glaucoma Grandmother Alzheimer's dementia Parkinsons disease Osteoporosis History of heart bypass surgery Hypertension Grandfather Family estrangement Hypertension Glaucoma Grandmother Family estrangement Grandfather Family estrangement Social History marital status: number of children: 1 household members: spouse and children lives independently: Yes housing: house pets and animals: Yes (2 [place]) education level: college (S[employer]osh's degree) occupational status: employed (works from home) current occupational exposures/hazards: No special darrick needs: No travel history: recent (domestic only) seatbelt use: always water heater temp set < 120 deg: Yes working smoke detector in home: Yes fire extinguisher in home: Yes carbon monox detector in home: Yes firearms in home: Yes firearms unloaded and locked: Yes do you feel safe at home: Yes Smoking Status: Never smoker alcohol intake: former (~1-3/month when not ) substance use type: does not use during the past year weight has: remained stable well-balanced diet: daily or most days daily servings fruits/ve-4 caffeine: No Type(s) of exercise: walking and weight lifting Evaluation Evaluation Baseline heart rate: 130 Variability: Moderate (11-25) monitor accelerations: Present Monitor Decelerations: Absent Category of Tracing: Reactive Diagnosis, Plan/Disposition Final Diagnosis (1) Decreased movement: Status: Acute (2) 23 weeks gestation of : Status: Acute Plan/Disposition Plan: 31 year old at 23+4 weeks gestation presenting with decreased FM after a fall 24 hours prior. She slipped and hit her left hip/side and left arm. Denies contractions, leaking or bleeding. She has been feeling consistent FM since 18 weeks. NST reactive and EFM with frequent FM. Patient reassured. Follow up with Dr. Diego this week or return to center as needed. OB Disposition: home
== END 2022-10-07 21:00 | disposition home or self-care (01) ==
LOC: LABOR 20:23 → OB 10-10 15:41
PROVIDERS: Family Provider Family Medicine; PCP Family Medicine; Referring Provider Family Medicine; Visit Provider Family Medicine
DX: O36.8120 Decreased fetal movements, second trimester, not applicable or unspecified (principal); Z3A.23 23 weeks gestation of pregnancy
CPT/HCPCS: 59025; G0378; G0379

== ENCOUNTER → 2022-11-03 10:28 | Outpatient (CLI) | payer OTHER, SELFPAY ==
[2022-11-03 12:12] LABS: Add Manual Diff / Slide Review NO; Basophils Absolute Auto 0 /uL (0-100); Basophils Percent Auto 0.2 % (0-2); Eosinophils Absolute Auto 100 /uL (0-450); Eosinophils Percent Auto 0.7 % (2-4); Hematocrit 33.7 % (36-46); Hemoglobin 11.3 g/dL (12.0-16.0); Lymphocytes Absolute Auto 1600 /uL (1100-4500); Lymphocytes Percent Auto 20.2 % (25-40); Mean Corpuscular HGB Conc 33.6 % (30-36); Mean Corpuscular Hemoglobin 30.7 PG (26-34); Mean Corpuscular Volume 91.3 fL (80-100); Monocytes Absolute Auto 400 /uL (0-900); Monocytes Percent Auto 5.1 % (3-14); Neutrophils Absolute Auto 6000 /uL (1500-7000); Neutrophils Percent Auto 73.8 % (50-75); Platelet Count 230 X10^3/uL (150-400); Red Blood Cell Count 3.69 X10^6/uL (4.0-5.2); Red Cell Distribution Width 13.2 % (11.6-14.8); White Blood Cell Count 8.1 X10^3/uL (4.5-11.0)
[2022-11-03 12:16] LABS: GTT (PREG) 1 Hour PP 50gm Dose 89 mg/dL (76-139)
== END ==
PROVIDERS: Family Provider Family Medicine; PCP Family Medicine; Referring Provider Family Medicine; Visit Provider Family Medicine
DX: Z34.92 Encounter for supervision of normal pregnancy, unspecified, second trimester (principal); Z3A.26 26 weeks gestation of pregnancy
CPT/HCPCS: 36415; 82950; 85025

== ENCOUNTER 2022-12-11 09:59 | Observation (INO) | payer OTHER, SELFPAY ==
[2022-12-11 10:29] LABS: Appearance Urine UA SL CLOUDY; Bilirubin Urine UA NEGATIVE (NEGATIVE); Color Urine UA YELLOW; Glucose Urine UA NEGATIVE (Negative); Ketones Urine UA NEGATIVE (NEGATIVE); Leukocyte Esterase Urine UA 1+ (NEGATIVE); Nitrite Urine UA NEGATIVE (Negative); Occult Blood Urine UA NEGATIVE (Negative); Protein Urine UA TRACE (Negative); Urobilinogen Urine UA 0.2 E.U./dL (0.2)
[2022-12-11 10:30] LABS: pH Urine UA 6.5 (4.5-8.0)
[2022-12-11 10:44] LABS: Amorphous Sediment Urine 1+; RBC Urine None Seen (0-5/HPF); Squamous Epithelial Cell Urine 10-30 /HPF (0-5/HPF); WBC Urine 5-10/HPF (0-5/HPF)
[2022-12-11 10:45] LABS: Bacteria Urine Many (>30); Culture Indicated Urine Specimen Cultured; Mucus Urine 1+ (Negative)
--- NOTE | 2022-12-11 12:05 | PM.OBTRLD ---
Visit Information Visit Information Date of evaluation: 12/11/22 Primary OB Provider: Chayo Diego On-call OB Provider: Sanju Morgan Reason for Evaluation: Yes other Comments/Additional reasons for admission: Right upper quadrant pain 32-year-old 2 para 1 currently 32-33 weeks' gestation care with Dr. Delacruz presents with a several hour history of new right upper quadrant pain Review of her records show she is had multiple surgeries and complications on her right side including 2 hip surgeries for hip dysplasia, short leg syndrome on the right, piriformis syndrome on the right status post labial tear of the right hip joint. She is also had a cholecystectomy and an appendectomy proximally 12 years ago On her last note on the 06 of December she was noted to have increasing round ligament pain unilateral. Today's urinalysis which was not a clean catch is not extremely remarkable but is going to be cultured [facility] Medical History Abnormal Pap smear of cervix (~2012) Acne (~2005) Allergies support offered Chicken pox (~1994) Chronic right hip pain Clogged duct, Congenital dysplasia of right hip (~2009) DVT (deep venous thrombosis) (~2011) growth restriction Fibroids (~2009) Labral tear of right hip joint (~2011) Pelvic somatic dysfunction Piriformis syndrome of right side Sacral region somatic dysfunction Seasonal allergies Segmental and somatic dysfunction of abdomen and other regions Short leg syndrome, right, acquired Somatic dysfunction of lower extremity Surgical History Anesthesia H/O LEEP (~2012) History of hip surgery (~2009) History of laparoscopic appendectomy (~2010) History of tonsillectomy (~02/2012) Hx laparoscopic cholecystectomy (~2010) [place] teeth extracted (~2008) Family History Mother Osteoporosis Father Glaucoma Grandmother Alzheimer's dementia Parkinsons disease Osteoporosis History of heart bypass surgery Hypertension Grandfather Family estrangement Hypertension Glaucoma Grandmother Family estrangement Grandfather Family estrangement Social History marital status: number of children: 1 household members: spouse and children lives independently: Yes housing: house pets and animals: Yes (2 Sushila De La Garza) education level: college (S[employer]osh's degree) occupational status: employed (works from home) current occupational exposures/hazards: No special darrick needs: No travel history: recent (domestic only) seatbelt use: always water heater temp set < 120 deg: Yes working smoke detector in home: Yes fire extinguisher in home: Yes carbon monox detector in home: Yes firearms in home: Yes firearms unloaded and locked: Yes do you feel safe at home: Yes Smoking Status: Never smoker alcohol intake: former (~1-3/month when not ) substance use type: does not use during the past year weight has: remained stable well-balanced diet: daily or most days daily servings fruits/ve-4 caffeine: No Type(s) of exercise: walking and weight lifting Exam Const General: cooperative, healthy appearing and well groomed Nutritional Appearance: average body habitus Orientation: oriented x3 HENMT Head: normal to inspection Eyes General: appearance normal, both eyes and all related structures Neck Neck: normal visual inspection Resp Effort & Inspection: normal respiratory effort GI Inspection: normal to inspection and scar (Well-healed scars from her laparoscopic procedures) Palpation: soft (No guarding no area of specific point tenderness. Right side is slightly d) Percussion: normal to percussion Back/Spine/Pelvis Other: No tenderness over symphysis pubis no separation identified Extrem General: full ROM (No tenderness with flexion or extension of her hip) Other: No tenderness over symphysis pubis in spite of a previous history symphysis separation Psych Appearance: grossly normal Mental Status: mental status grossly normal Objective Labs Labs: Laboratory Results - last 24 hr 12/11/22 10:21 Urine Color Yellow Urine Appearance Sl cloudy Urine pH 6.5 Ur Specific [place] 1.020 Urine Protein Trace H Urine Glucose (UA) Negative Urine Ketones Negative Urine Occult Blood Negative Urine Nitrate Negative Urine Bilirubin Negative Urine Urobilinogen 0.2 Ur Leukocyte Esterase 1+ H Urine RBC None seen Urine WBC 5-10/hpf H Ur Squamous Epith Cells 10-30 /hpf H Amorphous Sediment 1+ Urine Bacteria Many (>30) H Urine Mucus 1+ H Ur Culture Indicated? Specimen cultured Evaluation Evaluation Baseline heart rate: 152 Variability: Average (6-10) monitor accelerations: Present Monitor Decelerations: Absent Contraction Frequency (minutes): 0 Status: Category l Diagnosis, Plan/Disposition Final Diagnosis (1) Right upper quadrant abdominal pain affecting in third trimester: Status: Acute (2) Intermittent right upper quadrant abdominal pain: Status: Acute (3) 33 weeks gestation of : Status: Acute Plan/Disposition Plan: Discharged home for bedrest. Patient given assurance there is nothing wrong with her . After dozens of differential diagnoses considered there is nothing positive of major concern Patient told to contact her primary physician the pain lasts for another 48 hours. Told if it greatly intensifies to return to hospital
== END 2022-12-11 12:05 | disposition home or self-care (01) ==
LOC: LABOR 10:01
PROVIDERS: Admitting Provider Obstetrics & Gynecology; Family Provider Family Medicine; PCP Family Medicine; Referring Provider Obstetrics & Gynecology; Visit Provider Obstetrics & Gynecology
DX: O26.893 Other specified pregnancy related conditions, third trimester (principal); R10.11 Right upper quadrant pain; Z3A.33 33 weeks gestation of pregnancy
CPT/HCPCS: 59025; 59050; 81001; 87086; G0378; G0379

== ENCOUNTER → 2023-01-04 10:44 | Outpatient (CLI) | payer OTHER, SELFPAY ==
[2023-01-05 10:49] LABS: Strep Grp B PCR NEG for Grp B Strep
== END ==
PROVIDERS: Family Provider Family Medicine; PCP Family Medicine; Visit Provider Family Medicine
DX: Z34.83 Encounter for supervision of other normal pregnancy, third trimester (principal); Z3A.36 36 weeks gestation of pregnancy
CPT/HCPCS: 87653

== ENCOUNTER → 2023-01-19 07:10 | Outpatient (CLI) | payer OTHER, SELFPAY ==
--- NOTE | 2023-01-19 07:41 | DI.US.S_ITS ---
PROCEDURE: US OB LIMITED INDICATIONS: EFW OUTSIDE/PRIOR DATING DATA: Last menstrual period (LMP): 04/25/22. LMP-based estimated date of delivery (GREG): 10/01/23. First dating scan (date and location): 09/07/22. Estimated date of delivery (GREG) from first dating scan: 01/28/23. The calculations are made using the ultrasound GREG of 01/28/23. TECHNIQUE: Real-time scanning was performed of the fetus with image documentation. Biometric measurements were obtained. Endovaginal scanning: Not performed COMPARISON: [facility], OB >= 14 WEEKS FETUS, 09/07/2022, 10:24. [facility], OB FOLLOW UP, 09/27/2022, 12:40. FINDINGS: General: A single living intrauterine gestation is present. Presentation: Vertex. Placenta: Placental position is anterior to the maternal left , without previa. Amniotic fluid index: 12.6 cm, normal range is 5-24 cm. Single deepest vertical pocket is 5.0 cm. heart rate: 132 beats per minute. Maternal cervical canal: Not seen Clinically estimated gestational age: 38 weeks five days Biparietal diameter 9.2 cm, 37 weeks three days Head circumference 33.9 cm, 38 weeks six days Abdominal circumference 34.6 cm, 38 weeks four days Femur length 7.3 cm, 37 weeks four days Composite gestational age 38 weeks one day Estimated weight 3434 g, 55th percentile IMPRESSION: 1. Single living intrauterine with appropriate growth. 2. Estimated weight 55th percentile We strive to produce accurate, complete, and clear reports of imaging services. To assist us in improving patient care, this report was composed using standard report templates and voice recognition software. Therefore, it may contain abnormal punctuation, insertions and/or omissions. Occasional wrong-word or sound-alike substitutions may occur. Though we review the report and make efforts to correct it, we do recommend that the report be read carefully in proper context to recognize any text inaccuracies. Dictated by: Eugenia Disla M.D. on 01/19/2023 at 8:17 Approved by: Eugenia Disla M.D. on 01/19/2023 at 8:24
== END ==
PROVIDERS: Family Provider Family Medicine; PCP Family Medicine; Referring Provider Family Medicine; Visit Provider Family Medicine
DX: O26.843 Uterine size-date discrepancy, third trimester (principal); Z3A.38 38 weeks gestation of pregnancy
CPT/HCPCS: 76815

== ENCOUNTER 2023-01-19 15:15 | Outpatient (RCR) | payer OTHER, SELFPAY ==
--- NOTE | 2020-12-22 17:02 | PT.OIE ---
Current Diagnoses Pain in unspecified hip (12/22/20) Past Medical History (Last Updated 09/21/20 @ 20:20 by Crissy Jimenez) Abnormal Pap smear of cervix (~2012) Acne (~2005) Allergies Chicken pox (~1994) Congenital dysplasia of right hip (~2009) DVT (deep venous thrombosis) (~2011) Fibroids (~2009) Labral tear of right hip joint (~2011) Seasonal allergies Past Surgical History (Last Updated 09/21/20 @ 20:20 by Crissy Jimenez) Anesthesia H/O LEEP (~2012) History of hip surgery (~2009) History of laparoscopic appendectomy (~2010) History of tonsillectomy (~02/2012) Hx laparoscopic cholecystectomy (~2010) [place] teeth extracted (~2008) Visit Care Team Role Provider Type Chayo Diego MD Attending Provider Physician Family Provider Primary Care Provider Referring Provider Specialty: Family Practice Address: [address] [place] [address] Email: [email or web address] Physical Therapy Initial Evaluation PT-OP-A Visit Information Start: 12/17/20 09:07 Freq: Status: Active Protocol: Document 12/17/20 12:56 [facility] (Rec: 12/17/20 12:56 [facility] [id number]) Out-Patient Physical Therapy Visit Information Visit Information Visit Type Initial Evaluation Visit Start Time 13:00 Visit Stop Time 13:45 Total Visit Minutes 45 Visit Number 1 Evaluation Information Evaluation Date 12/17/20 PT-OP-B Current Condition Start: 12/17/20 09:07 Freq: Status: Active Protocol: Document 12/17/20 12:56 [facility] (Rec: 12/17/20 13:07 [facility] [id number]) Current Condition History of Current Condition History of Current Condition 10/17/20 vaginal delivery no tears and now her pelvic floor feels really tight. She complains of right hip clicking and tightness in the front of her hip, medial ankle on the right painful more so when she stands. When she is rocking back and when she is walking she can feel her anterior hip click. PT-OP-C Subjective Start: 12/17/20 09:07 Freq: Status: Active Protocol: Document 12/17/20 13:00 [facility] (Rec: 12/22/20 15:06 [facility] [email or web address]) OP-PT Pain Assessment Pain Assessment Grid Paper Pain Assessment Grid Completed Yes Location right sided anterior hip pain Pain Location Details right sided anterior hip pain Intensity 4 Scale Used Numeric (0 - 10) Pain Alleviating Factors Standing Other Pain Alleviating Factors standing and weight shifting side to side rocking her baby PT-OP-F Manual Assessment Start: 12/17/20 09:07 Freq: Status: Active Protocol: Document 12/17/20 13:00 [facility] (Rec: 12/22/20 15:06 [facility] [email or web address]) Manual Assessments Soft Tissue Assessment Soft Tissue Mobility Assessment tightness of the right iliopsoas, ITB, quad attachments to the ASIS left lateral wall of the pelvic floor tight and guarded PT-OP-I Pelvic Floor Start: 12/17/20 09:07 Freq: Status: Active Protocol: Document 12/17/20 13:00 [facility] (Rec: 12/22/20 15:06 [facility] [email or web address]) Pelvic Floor Assessment Pelvic Clock Pelvic Clock 3-6 Guarding Contraction Ability Voluntary Contraction Moderate Voluntary Relaxation Moderate Manual Muscle Testing Left 4 Manual Muscle Testing Right 4 Manual Muscle Testing Anterior 4 Manual Muscle Testing Posterior 4 Comments Pelvic Floor Comments pt has good ability to contract and tighten the pelvic floor. She is more guarded on the left side and has difficulty relaxing following a pelvic floor contraction. There was elevated tone on EMG biofeedback with difficulty relaxing. Kimber notes she can feel the tightness in her pelvic floor. PT-OP-J Posture/Palpation/Skin Start: 12/17/20 09:07 Freq: Status: Active Protocol: Document 12/17/20 13:00 [facility] (Rec: 12/22/20 15:06 [facility] [email or web address]) Palpation Assessment Location R ASIS Palpation Location tenderness right ASIS right SI joint Palpation Location right SI joint PSIS Palpation Findings Tenderness Palpation Details tenderness to palpation over the right ASIS PT-OP-M Strength Start: 12/17/20 09:07 Freq: Status: Active Protocol: Document 12/17/20 13:00 [facility] (Rec: 12/22/20 15:06 [facility] [email or web address]) Trunk Strength Trunk Manual Muscle Testing Testing Position Supine Flexion 4 Good Core Stabilization Kimber is able to facilitate her TA with good awareness PT-OP-Q Treatments Start: 12/17/20 09:07 Freq: Status: Active Protocol: Document 12/17/20 13:00 [facility] (Rec: 12/17/20 17:47 [facility] [email or web address]) Therapeutic Exercises Supine Exercises TA with marching Reps/Minutes x 10 pelvic floor long holds with relaxation Comments education on relaxed awareness of the pelvic floor Sitting Exercises towel scrunches for arch suppor Reps/Minutes 5 min per day PT-OP-T Assessment and Plan Start: 12/17/20 09:07 Freq: Status: Active Protocol: Document 12/17/20 13:00 [facility] (Rec: 12/22/20 15:06 [facility] [email or web address]) Physical Therapy Assessment Rehab Potential Rehabilitation Potential Good Evaluation Complexity Number of Personal Factors/Comorbidities 0 Number of Body Systems Impaired 1-2 Clinical Presentation at Evaluation Stable Impairments Impairments Pain,Soft Tissue Mobility,Tone Goals left side pelvic floor guarding Impairment left side of the lateral pelvic floor guarded and tight Short Term Goal (STG) Kimber is educated in relaxed awareness of the pelvic floor and is able to relax to baseline on EMG biofeedback STG Duration 5 weeks hip pain rated 4/10 Impairment right sided hip pain rated 4/ 10, c/o hip clicking with standing rocking Assisted Goal (LTG) Kimber reports a overall reduction in hip tightness and pain and is no longer experiencing clicking when she stands to rock her baby LTG Duration 8 weeks iliopsoas tightness R>L Impairment Iliopsoas tightness R>L Short Term Goal (STG) Kimber is educated in stretches she can do now that she is in the period for her right iliopsoas STG Duration 4 weeks Assessment Summary Assessment Kimber is a 30 year old female 1 para 1 who delivered 10/17/20 in right side lying to help protect her right hip. She has a history of labrum repair on the right. She returns to PT for complaints of tightness in the hip muscles on the right and pelvic floor tightness. She rates her hip pain as 4/10. With examination today the left lateral wall of the iliococcygeus in the pelvic floor is guarded. Kimber has difficulty relaxing her pelvic floor. She has a good strong contraction however her resting tone is elevated. She was educated today on relaxed awareness of her pelvic floor and was given stretches to help with this. Her right iliopsoas and quadriceps on the right are tight with examination today. Manual therapy techniques will be used to help reduce tension in the hip. Kimber has mentioned that after her hip surgeries dry needling worked really well for her. She may benefit from this as well. Treatment will also include SI stabilization and core stability exercises. Physical Therapy Plan Frequency and Duration Frequency of Treatment 2x/Week Duration of Treatment 8 Plan of Care Start Date 12/17/20 Plan of Care End Date 02/11/21 Therapeutic Interventions Therapeutic Interventions Home Exercise Program,Manual Therapy,Patient/Caregiver Education,Self-Care/Home Management,Soft Tissue Mobilization,Therapeutic Exercises Modalities Biofeedback Next Visit Focus/Plan Next Note Type Treatment Note Next Visit Plan MFR for the right iliopsoas and quads on the right, stretches to relax the pelvic floor, EMG biofeedback for endurance training of the pelvic floor as well as relaxed awareness.
--- NOTE | 2020-12-22 17:03 | PT.OPPOC ---
Physical, Occupational & Speech Therapy At [facility] Current Diagnoses Pain in unspecified hip (12/22/20) Visit Care Team Role Provider Type Chayo Diego MD Attending Provider Physician Family Provider Primary Care Provider Referring Provider Specialty: Family Practice Address: [address] [place] [address], [id number] Email: [email or web address] Plan Of Care PT-OP-T Assessment and Plan Start: 12/17/20 09:07 Freq: Status: Active Protocol: Document 12/17/20 13:00 [facility] (Rec: 12/22/20 15:06 [facility] [email or web address]) Physical Therapy Assessment Rehab Potential Rehabilitation Potential Good Evaluation Complexity Number of Personal Factors/Comorbidities 0 Number of Body Systems Impaired 1-2 Clinical Presentation at Evaluation Stable Impairments Impairments Pain,Soft Tissue Mobility,Tone Goals left side pelvic floor guarding Impairment left side of the lateral pelvic floor guarded and tight Short Term Goal (STG) Kimber is educated in relaxed awareness of the pelvic floor and is able to relax to baseline on EMG biofeedback STG Duration 5 weeks hip pain rated 4/10 Impairment right sided hip pain rated 4/ 10, c/o hip clicking with standing rocking Alf Goal (LTG) Kimber reports a overall reduction in hip tightness and pain and is no longer experiencing clicking when she stands to rock her baby LTG Duration 8 weeks iliopsoas tightness R>L Impairment Iliopsoas tightness R>L Short Term Goal (STG) Kimber is educated in stretches she can do now that she is in the period for her right iliopsoas STG Duration 4 weeks Assessment Summary Assessment Kimber is a 30 year old female 1 para 1 who delivered 10/17/20 in right side lying to help protect her right hip. She has a history of labrum repair on the right. She returns to PT for complaints of tightness in the hip muscles on the right and pelvic floor tightness. She rates her hip pain as 4/10. With examination today the left lateral wall of the iliococcygeus in the pelvic floor is guarded. Kimber has difficulty relaxing her pelvic floor. She has a good strong contraction however her resting tone is elevated. She was educated today on relaxed awareness of her pelvic floor and was given stretches to help with this. Her right iliopsoas and quadriceps on the right are tight with examination today. Manual therapy techniques will be used to help reduce tension in the hip. Kimber has mentioned that after her hip surgeries dry needling worked really well for her. She may benefit from this as well. Treatment will also include SI stabilization and core stability exercises. Physical Therapy Plan Frequency and Duration Frequency of Treatment 2x/Week Duration of Treatment 8 Plan of Care Start Date 12/17/20 Plan of Care End Date 02/11/21 Therapeutic Interventions Therapeutic Interventions Home Exercise Program,Manual Therapy,Patient/Caregiver Education,Self-Care/Home Management,Soft Tissue Mobilization,Therapeutic Exercises Modalities Biofeedback Next Visit Focus/Plan Next Note Type Treatment Note Next Visit Plan MFR for the right iliopsoas and quads on the right, stretches to relax the pelvic floor, EMG biofeedback for endurance training of the pelvic floor as well as relaxed awareness. Plan of Care Dates Plan of Care Start Date 12/17/20 Plan of Care End Date 02/11/21 Electronically Signed by: Hyacinth Gifford, PT 12/22/20 [id number] Please Sign and Return: I have reviewed this Plan of Care and certify that the skilled therapy services above are required to meet the patient?s needs. Physician Signature Date Printed Name and Credentials Clinical Instructor Signature Printed Name and Credentials
--- NOTE | 2020-12-22 17:17 | PT.OTN ---
Current Diagnoses Pain in unspecified hip (12/22/20) Physical Therapy Treatment Note PT-OP-A Visit Information Start: 12/17/20 09:07 Freq: Status: Active Protocol: Document 12/22/20 09:45 [facility] (Rec: 12/22/20 17:17 [facility] [email or web address]) Out-Patient Physical Therapy Visit Information Visit Information Visit Type Treatment Note Visit Start Time 09:45 Visit Stop Time 10:30 Total Visit Minutes 45 Visit Number 2 PT-OP-B Current Condition Start: 12/17/20 09:07 Freq: Status: Active Protocol: Document 12/17/20 12:56 [facility] (Rec: 12/17/20 13:07 [facility] [id number]) Current Condition History of Current Condition History of Current Condition 10/17/20 vaginal delivery no tears and now it feels really tight. She complains of right hip clicking and tightness in the front of her hip, medial ankle on the right painful more so when she stands. When she is rocking back and when she is walking she can feel her anterior hip click. PT-OP-C Subjective Start: 12/17/20 09:07 Freq: Status: Active Protocol: Document 12/22/20 09:45 [facility] (Rec: 12/22/20 17:17 [facility] [email or web address]) OP-PT Subjective Patient Comments Patient Comments Kimber notes she has been working on her arch exercises and her stretches for her pelvic floor. She notes it doesn't feel as tight this week. PT-OP-F Manual Assessment Start: 12/17/20 09:07 Freq: Status: Active Protocol: Document 12/17/20 13:00 [facility] (Rec: 12/22/20 15:06 [facility] [email or web address]) Manual Assessments Soft Tissue Assessment Soft Tissue Mobility Assessment tightness of the right iliopsoas, ITB, quad attachments to the ASIS left lateral wall of the pelvic floor tight and guarded PT-OP-I Pelvic Floor Start: 12/17/20 09:07 Freq: Status: Active Protocol: Document 12/17/20 13:00 [facility] (Rec: 12/22/20 15:06 [facility] [email or web address]) Pelvic Floor Assessment Pelvic Clock Pelvic Clock 3-6 Guarding Contraction Ability Voluntary Contraction Moderate Voluntary Relaxation Moderate Manual Muscle Testing Left 4 Manual Muscle Testing Right 4 Manual Muscle Testing Anterior 4 Manual Muscle Testing Posterior 4 Comments Pelvic Floor Comments pt has good ability to contract and tighten the pelvic floor. She is more guarded on the left side and has difficulty relaxing following a pelvic floor contraction. There was elevated tone on EMG biofeedback with difficulty relaxing. Kimber notes she can feel the tightness in her pelvic floor. PT-OP-J Posture/Palpation/Skin Start: 12/17/20 09:07 Freq: Status: Active Protocol: Document 12/17/20 13:00 [facility] (Rec: 12/22/20 15:06 [facility] [email or web address]) Palpation Assessment Location R ASIS Palpation Location tenderness right ASIS right SI joint Palpation Location right SI joint PSIS Palpation Findings Tenderness Palpation Details tenderness to palpation over the right ASIS PT-OP-M Strength Start: 12/17/20 09:07 Freq: Status: Active Protocol: Document 12/17/20 13:00 [facility] (Rec: 12/22/20 15:06 [facility] [email or web address]) Trunk Strength Trunk Manual Muscle Testing Testing Position Supine Flexion 4 Good Core Stabilization Kimber is able to facilitate her TA with good awareness PT-OP-Q Treatments Start: 12/17/20 09:07 Freq: Status: Active Protocol: Document 12/22/20 09:45 [facility] (Rec: 12/22/20 17:17 [facility] [email or web address]) Therapeutic Exercises Supine Exercises piriformis stretch Reps/Minutes hold x 1 min happy baby Reps/Minutes 1 min hold TA with marching Reps/Minutes x 10 Comments progressed to level 1 b pelvic floor long holds with relaxation Comments education on relaxed awareness of the pelvic floor iliopsoas stretch Supine Exercise Name iliopsoas stretch for HEP Manual Therapy Treatment Soft Tissue Mobilization right quad and iliopsoas MFR Body Location right quad and iliopsoas Body Position Supine Comments worked in both supine and sidelying to release the quad and iliopsoas PT-OP-T Assessment and Plan Start: 12/17/20 09:07 Freq: Status: Active Protocol: Document 12/22/20 09:45 [facility] (Rec: 12/22/20 17:17 [facility] [email or web address]) Physical Therapy Assessment Assessment Summary Assessment good improvements today with decreased resting tone 1.0 initially. Pt able to increase to level 1 b lower abdominal progression Physical Therapy Plan Frequency and Duration Frequency of Treatment 2x/Week Duration of Treatment 8 Plan of Care Start Date 12/17/20 Plan of Care End Date 02/11/21 Therapeutic Interventions Therapeutic Interventions Home Exercise Program,Manual Therapy,Patient/Caregiver Education,Self-Care/Home Management,Soft Tissue Mobilization,Therapeutic Exercises Modalities Biofeedback Discharge Physical Therapy Discharge Reasons Change in Medical Status Discharge Comments Pt being induced tonight for delivery Next Visit Focus/Plan Next Note Type Treatment Note Next Visit Plan MFR for the right iliopsoas and quads on the right, stretches to relax the pelvic floor, EMG biofeedback for endurance training of the pelvic floor as well as relaxed awareness.
--- NOTE | 2020-12-24 17:11 | PT.OTN ---
Current Diagnoses Pain in unspecified hip (12/24/20) Physical Therapy Treatment Note PT-OP-A Visit Information Start: 12/17/20 09:07 Freq: Status: Active Protocol: Document 12/24/20 17:05 [facility] (Rec: 12/24/20 17:11 [facility] [email or web address]) Out-Patient Physical Therapy Visit Information Visit Information Visit Type Treatment Note Visit Start Time 09:00 Visit Stop Time 09:45 Total Visit Minutes 45 Visit Number 3 PT-OP-B Current Condition Start: 12/17/20 09:07 Freq: Status: Active Protocol: Document 12/17/20 12:56 [facility] (Rec: 12/17/20 13:07 [facility] [id number]) Current Condition History of Current Condition History of Current Condition 10/17/20 vaginal delivery no tears and now it feels really tight. She complains of right hip clicking and tightness in the front of her hip, medial ankle on the right painful more so when she stands. When she is rocking back and when she is walking she can feel her anterior hip click. PT-OP-C Subjective Start: 12/17/20 09:07 Freq: Status: Active Protocol: Document 12/24/20 09:00 [facility] (Rec: 12/24/20 09:05 [facility] [id number]) OP-PT Subjective Patient Comments Patient Comments still feeling the clicking sometimes in the back and sometimes in the front Patient Reported Progress Improving PT-OP-F Manual Assessment Start: 12/17/20 09:07 Freq: Status: Active Protocol: Document 12/17/20 13:00 [facility] (Rec: 12/22/20 15:06 [facility] [email or web address]) Manual Assessments Soft Tissue Assessment Soft Tissue Mobility Assessment tightness of the right iliopsoas, ITB, quad attachments to the ASIS left lateral wall of the pelvic floor tight and guarded PT-OP-I Pelvic Floor Start: 12/17/20 09:07 Freq: Status: Active Protocol: Document 12/17/20 13:00 [facility] (Rec: 12/22/20 15:06 [facility] [email or web address]) Pelvic Floor Assessment Pelvic Clock Pelvic Clock 3-6 Guarding Contraction Ability Voluntary Contraction Moderate Voluntary Relaxation Moderate Manual Muscle Testing Left 4 Manual Muscle Testing Right 4 Manual Muscle Testing Anterior 4 Manual Muscle Testing Posterior 4 Comments Pelvic Floor Comments pt has good ability to contract and tighten the pelvic floor. She is more guarded on the left side and has difficulty relaxing following a pelvic floor contraction. There was elevated tone on EMG biofeedback with difficulty relaxing. Kimber notes she can feel the tightness in her pelvic floor. PT-OP-J Posture/Palpation/Skin Start: 12/17/20 09:07 Freq: Status: Active Protocol: Document 12/17/20 13:00 [facility] (Rec: 12/22/20 15:06 [facility] [email or web address]) Palpation Assessment Location R ASIS Palpation Location tenderness right ASIS right SI joint Palpation Location right SI joint PSIS Palpation Findings Tenderness Palpation Details tenderness to palpation over the right ASIS PT-OP-M Strength Start: 12/17/20 09:07 Freq: Status: Active Protocol: Document 12/17/20 13:00 [facility] (Rec: 12/22/20 15:06 [facility] [email or web address]) Trunk Strength Trunk Manual Muscle Testing Testing Position Supine Flexion 4 Good Core Stabilization Kimber is able to facilitate her TA with good awareness PT-OP-Q Treatments Start: 12/17/20 09:07 Freq: Status: Active Protocol: Document 12/24/20 17:05 [facility] (Rec: 12/24/20 17:11 [facility] [email or web address]) Therapeutic Exercises Supine Exercises Level 2 lower abdominal progression Reps/Minutes x 10 reps piriformis stretch Reps/Minutes hold x 1 min TA with marching Reps/Minutes x 10 Comments progressed to level 1 b iliopsoas stretch Supine Exercise Name iliopsoas stretch in supine rufus test and sidelying Reps/Minutes hold 1-2 min Sidelying Exercises sidelying hip abduction Reps/Minutes 2 x 10 reps sidelying small hip circles Reps/Minutes x 10 each clam shells Reps/Minutes 3 x 10 reps Manual Therapy Treatment Soft Tissue Mobilization right quad and iliopsoas MFR Body Location right quad and iliopsoas Body Position Supine Comments worked in both supine and sidelying to release the quad and iliopsoas Manual Techniques manual ilopsoas and quad stretches Body Position Sidelying Comments with PROM knee flexion PT-OP-T Assessment and Plan Start: 12/17/20 09:07 Freq: Status: Active Protocol: Document 12/24/20 17:05 [facility] (Rec: 12/24/20 17:11 [facility] [email or web address]) Physical Therapy Assessment Assessment Summary Assessment We did not do biofeedback today but Kimber is feeling that her pelvic floor resting tone is improving with the stertches. I worked on lateral hip stabilization and release of the iliopsoas. Physical Therapy Plan Frequency and Duration Frequency of Treatment 2x/Week Duration of Treatment 8 Plan of Care Start Date 12/17/20 Plan of Care End Date 02/11/21 Therapeutic Interventions Therapeutic Interventions Home Exercise Program,Manual Therapy,Patient/Caregiver Education,Self-Care/Home Management,Soft Tissue Mobilization,Therapeutic Exercises Modalities Biofeedback Next Visit Focus/Plan Next Note Type Treatment Note Next Visit Plan MFR for the right iliopsoas and quads on the right, stretches to relax the pelvic floor, EMG biofeedback for endurance training of the pelvic floor as well as relaxed awareness.
--- NOTE | 2020-12-29 14:26 | PT.OTN ---
Current Diagnoses Pain in unspecified hip (12/29/20) Physical Therapy Treatment Note PT-OP-A Visit Information Start: 12/17/20 09:07 Freq: Status: Active Protocol: Document 12/29/20 09:45 [facility] (Rec: 12/29/20 10:16 AMH [id number]) Out-Patient Physical Therapy Visit Information Visit Information Visit Type Treatment Note Visit Start Time 09:45 Visit Stop Time 10:30 Total Visit Minutes 45 Visit Number 4 PT-OP-B Current Condition Start: 12/17/20 09:07 Freq: Status: Active Protocol: Document 12/17/20 12:56 AMH (Rec: 12/17/20 13:07 AMH [id number]) Current Condition History of Current Condition History of Current Condition 10/17/20 vaginal delivery no tears and now it feels really tight. She complains of right hip clicking and tightness in the front of her hip, medial ankle on the right painful more so when she stands. When she is rocking back and when she is walking she can feel her anterior hip click. PT-OP-C Subjective Start: 12/17/20 09:07 Freq: Status: Active Protocol: Document 12/29/20 09:45 AMH (Rec: 12/29/20 10:16 AMH [id number]) OP-PT Subjective Patient Comments Patient Comments Feels like her hip is a little better, she did [place] this week and pushed the stroller, going up the hills she felt the clicking. Afterwards she felt pretty good. January 28. Still feeling a little of the heavyness of the pelvic floor. Patient Reported Progress Improving PT-OP-F Manual Assessment Start: 12/17/20 09:07 Freq: Status: Active Protocol: Document 12/17/20 13:00 AMH (Rec: 12/22/20 15:06 AMH [email or web address]) Manual Assessments Soft Tissue Assessment Soft Tissue Mobility Assessment tightness of the right iliopsoas, ITB, quad attachments to the ASIS left lateral wall of the pelvic floor tight and guarded PT-OP-I Pelvic Floor Start: 12/17/20 09:07 Freq: Status: Active Protocol: Document 12/17/20 13:00 AMH (Rec: 12/22/20 15:06 AMH [email or web address]) Pelvic Floor Assessment Pelvic Clock Pelvic Clock 3-6 Guarding Contraction Ability Voluntary Contraction Moderate Voluntary Relaxation Moderate Manual Muscle Testing Left 4 Manual Muscle Testing Right 4 Manual Muscle Testing Anterior 4 Manual Muscle Testing Posterior 4 Comments Pelvic Floor Comments pt has good ability to contract and tighten the pelvic floor. She is more guarded on the left side and has difficulty relaxing following a pelvic floor contraction. There was elevated tone on EMG biofeedback with difficulty relaxing. Kimber notes she can feel the tightness in her pelvic floor. PT-OP-J Posture/Palpation/Skin Start: 12/17/20 09:07 Freq: Status: Active Protocol: Document 12/17/20 13:00 AMH (Rec: 12/22/20 15:06 AMH [email or web address]) Palpation Assessment Location R ASIS Palpation Location tenderness right ASIS right SI joint Palpation Location right SI joint PSIS Palpation Findings Tenderness Palpation Details tenderness to palpation over the right ASIS PT-OP-M Strength Start: 12/17/20 09:07 Freq: Status: Active Protocol: Document 12/17/20 13:00 AMH (Rec: 12/22/20 15:06 AMH [email or web address]) Trunk Strength Trunk Manual Muscle Testing Testing Position Supine Flexion 4 Good Core Stabilization Kimber is able to facilitate her TA with good awareness PT-OP-Q Treatments Start: 12/17/20 09:07 Freq: Status: Active Protocol: Document 12/29/20 09:45 AMH (Rec: 12/29/20 10:33 [facility] [id number]) Therapeutic Exercises Supine Exercises quick contractions Reps/Minutes x 10 reps pelvic floor long holds with relaxation Reps/Minutes x 10 Comments avg 7.1 max 11.7 uv iliopsoas stretch Supine Exercise Name iliopsoas stretch in supine rufus test and sidelying Reps/Minutes hold 1-2 min Sidelying Exercises sidelying hip abduction Reps/Minutes 2 x 10 reps sidelying small hip circles Reps/Minutes x 10 each Manual Therapy Treatment Soft Tissue Mobilization right quad and iliopsoas MFR Body Location right quad and iliopsoas Body Position Supine Comments worked in both supine and sidelying to release the quad and iliopsoas Manual Techniques manual ilopsoas and quad stretches Body Position Sidelying Comments with PROM knee flexion PT-OP-T Assessment and Plan Start: 12/17/20 09:07 Freq: Status: Active Protocol: Document 12/29/20 09:45 AMH (Rec: 12/29/20 14:24 [facility] [email or web address]) Physical Therapy Assessment Assessment Summary Assessment EMG biofeedback showed a lower resting tone today and I elevate Abigails pelvis on a bolster today and she did better with that so she was encouraged to do this at home especially following walks or when she feels more pelvic pressure Physical Therapy Plan Frequency and Duration Frequency of Treatment 2x/Week Duration of Treatment 8 Plan of Care Start Date 12/17/20 Plan of Care End Date 02/11/21 Therapeutic Interventions Therapeutic Interventions Home Exercise Program,Manual Therapy,Patient/Caregiver Education,Self-Care/Home Management,Soft Tissue Mobilization,Therapeutic Exercises Modalities Biofeedback Next Visit Focus/Plan Next Note Type Treatment Note Next Visit Plan MFR for the right iliopsoas and quads on the right, stretches to relax the pelvic floor, EMG biofeedback for endurance training of the pelvic floor as well as relaxed awareness.
--- NOTE | 2020-12-31 17:08 | PT.OTN ---
Current Diagnoses Pain in unspecified hip (12/31/20) Physical Therapy Treatment Note PT-OP-A Visit Information Start: 12/17/20 09:07 Freq: Status: Active Protocol: Document 12/31/20 13:02 AMH (Rec: 12/31/20 17:00 AMH [email or web address]) Out-Patient Physical Therapy Visit Information Visit Information Visit Type Treatment Note Visit Start Time 13:00 Visit Stop Time 13:45 Total Visit Minutes 45 Visit Number 5 PT-OP-B Current Condition Start: 12/17/20 09:07 Freq: Status: Active Protocol: Document 12/17/20 12:56 AMH (Rec: 12/17/20 13:07 AMH [id number]) Current Condition History of Current Condition History of Current Condition 10/17/20 vaginal delivery no tears and now it feels really tight. She complains of right hip clicking and tightness in the front of her hip, medial ankle on the right painful more so when she stands. When she is rocking back and when she is walking she can feel her anterior hip click. PT-OP-C Subjective Start: 12/17/20 09:07 Freq: Status: Active Protocol: Document 12/31/20 13:02 AMH (Rec: 12/31/20 17:00 AMH [email or web address]) OP-PT Subjective Patient Comments Patient Comments Pt notes she is still feeling the hip clicking in the front of her hip, she has intermittent complaints of pelvic heavyness and pressure. She is not sure what is creating that PT-OP-F Manual Assessment Start: 12/17/20 09:07 Freq: Status: Active Protocol: Document 12/17/20 13:00 AMH (Rec: 12/22/20 15:06 AMH [email or web address]) Manual Assessments Soft Tissue Assessment Soft Tissue Mobility Assessment tightness of the right iliopsoas, ITB, quad attachments to the ASIS left lateral wall of the pelvic floor tight and guarded PT-OP-I Pelvic Floor Start: 12/17/20 09:07 Freq: Status: Active Protocol: Document 12/17/20 13:00 AMH (Rec: 12/22/20 15:06 AMH [email or web address]) Pelvic Floor Assessment Pelvic Clock Pelvic Clock 3-6 Guarding Contraction Ability Voluntary Contraction Moderate Voluntary Relaxation Moderate Manual Muscle Testing Left 4 Manual Muscle Testing Right 4 Manual Muscle Testing Anterior 4 Manual Muscle Testing Posterior 4 Comments Pelvic Floor Comments pt has good ability to contract and tighten the pelvic floor. She is more guarded on the left side and has difficulty relaxing following a pelvic floor contraction. There was elevated tone on EMG biofeedback with difficulty relaxing. Kimber notes she can feel the tightness in her pelvic floor. PT-OP-J Posture/Palpation/Skin Start: 12/17/20 09:07 Freq: Status: Active Protocol: Document 12/17/20 13:00 AMH (Rec: 12/22/20 15:06 [facility] [email or web address]) Palpation Assessment Location R ASIS Palpation Location tenderness right ASIS right SI joint Palpation Location right SI joint PSIS Palpation Findings Tenderness Palpation Details tenderness to palpation over the right ASIS PT-OP-M Strength Start: 12/17/20 09:07 Freq: Status: Active Protocol: Document 12/17/20 13:00 AMH (Rec: 12/22/20 15:06 [facility] [email or web address]) Trunk Strength Trunk Manual Muscle Testing Testing Position Supine Flexion 4 Good Core Stabilization Kimber is able to facilitate her TA with good awareness PT-OP-Q Treatments Start: 12/17/20 09:07 Freq: Status: Active Protocol: Document 12/31/20 13:02 AMH (Rec: 12/31/20 13:50 AMH [id number]) Therapeutic Exercises Supine Exercises pelvic floor long holds with relaxation Reps/Minutes x 10 reps Comments average 11.7 and max 36 uv iliopsoas stretch Supine Exercise Name iliopsoas stretch in supine rufus test and sidelying Reps/Minutes hold 1-2 min Manual Therapy Treatment Soft Tissue Mobilization right quad and iliopsoas MFR Body Location right quad and iliopsoas Body Position Supine Comments worked in both supine and sidelying to release the quad and iliopsoas Manual Techniques manual iliopsoasd release in sidelying Type sidelying ilospsoas release Body Position Sidelying manual ilopsoas and quad stretches Body Position Sidelying Comments with PROM knee flexion PT-OP-T Assessment and Plan Start: 12/17/20 09:07 Freq: Status: Active Protocol: Document 12/31/20 13:02 AMH (Rec: 12/31/20 17:00 [facility] [email or web address]) Physical Therapy Assessment Assessment Summary Assessment resting tone was improved again today and Kimber showed improved endurance and strength of her pelvic floor. We talked about pelvic floor engagement prior to lifting the car seat and her baby. We also talked about position of the baby carrier as the front position can place more strain on the bladder. Kimber may benefit from a trial of NMES next visit to help wake up the anterior pelvic floor as well for improved bladder support Physical Therapy Plan Frequency and Duration Frequency of Treatment 2x/Week Duration of Treatment 8 Plan of Care Start Date 12/17/20 Plan of Care End Date 02/11/21 Therapeutic Interventions Therapeutic Interventions Home Exercise Program,Manual Therapy,Patient/Caregiver Education,Self-Care/Home Management,Soft Tissue Mobilization,Therapeutic Exercises Modalities Biofeedback Next Visit Focus/Plan Next Note Type Treatment Note Next Visit Plan Begin treatment with NMES next visit, Also work on lengthening out the lumbar paraspinals
--- NOTE | 2021-01-05 10:30 | PT.OTN ---
Current Diagnoses Pain in unspecified hip (01/05/21) Physical Therapy Treatment Note PT-OP-A Visit Information Start: 12/17/20 09:07 Freq: Status: Active Protocol: Document 01/05/21 09:47 SP (Rec: 01/05/21 12:44 SP [id number]) Out-Patient Physical Therapy Visit Information Visit Information Visit Type Treatment Note Visit Start Time 09:47 Visit Stop Time 10:30 Total Visit Minutes 43 Visit Number 6 Number of FLAME GOUGER Visits 1 PT-OP-B Current Condition Start: 12/17/20 09:07 Freq: Status: Active Protocol: Document 12/17/20 12:56 AMH (Rec: 12/17/20 13:07 AMH [id number]) Current Condition History of Current Condition History of Current Condition 10/17/20 vaginal delivery no tears and now it feels really tight. She complains of right hip clicking and tightness in the front of her hip, medial ankle on the right painful more so when she stands. When she is rocking back and when she is walking she can feel her anterior hip click. PT-OP-C Subjective Start: 12/17/20 09:07 Freq: Status: Active Protocol: Document 01/05/21 09:47 SP (Rec: 01/05/21 12:44 SP [id number]) OP-PT Subjective Patient Comments Patient Comments Pt stated i was sore in R anterolateral thigh approx 1 day then went away. Still continue to have the heaviness in pelvic floor, not sure how to tell. PT-OP-F Manual Assessment Start: 12/17/20 09:07 Freq: Status: Active Protocol: Document 12/17/20 13:00 AMH (Rec: 12/22/20 15:06 AMH [email or web address]) Manual Assessments Soft Tissue Assessment Soft Tissue Mobility Assessment tightness of the right iliopsoas, ITB, quad attachments to the ASIS left lateral wall of the pelvic floor tight and guarded PT-OP-I Pelvic Floor Start: 12/17/20 09:07 Freq: Status: Active Protocol: Document 12/17/20 13:00 AMH (Rec: 12/22/20 15:06 AMH [email or web address]) Pelvic Floor Assessment Pelvic Clock Pelvic Clock 3-6 Guarding Contraction Ability Voluntary Contraction Moderate Voluntary Relaxation Moderate Manual Muscle Testing Left 4 Manual Muscle Testing Right 4 Manual Muscle Testing Anterior 4 Manual Muscle Testing Posterior 4 Comments Pelvic Floor Comments pt has good ability to contract and tighten the pelvic floor. She is more guarded on the left side and has difficulty relaxing following a pelvic floor contraction. There was elevated tone on EMG biofeedback with difficulty relaxing. Kimber notes she can feel the tightness in her pelvic floor. PT-OP-J Posture/Palpation/Skin Start: 12/17/20 09:07 Freq: Status: Active Protocol: Document 12/17/20 13:00 AMH (Rec: 12/22/20 15:06 AMH [email or web address]) Palpation Assessment Location R ASIS Palpation Location tenderness right ASIS right SI joint Palpation Location right SI joint PSIS Palpation Findings Tenderness Palpation Details tenderness to palpation over the right ASIS PT-OP-M Strength Start: 12/17/20 09:07 Freq: Status: Active Protocol: Document 12/17/20 13:00 AMH (Rec: 12/22/20 15:06 AMH [email or web address]) Trunk Strength Trunk Manual Muscle Testing Testing Position Supine Flexion 4 Good Core Stabilization Kimber is able to facilitate her TA with good awareness PT-OP-Q Treatments Start: 12/17/20 09:07 Freq: Status: Active Protocol: Document 01/05/21 09:47 SP (Rec: 01/05/21 12:44 SP [id number]) Therapeutic Exercises Supine Exercises ITb stretch Side right Equipment Used strap Reps/Minutes 30 x2 Comments 2 angles happy baby Reps/Minutes 1 min hold iliopsoas stretch Supine Exercise Name iliopsoas stretch in supine rufus test Reps/Minutes hold 1-2 min Other Exercises tj pose with arms to the left to stretch right side of spine Other Exercise Name quadruped cat stretch> tj pose Reps/Minutes hold stretch Comments w/ manual STMs to parapinals, strum and MF inferior glide quadruped thoracic extension Other Exercise Name quarduped thoracic ext Reps/Minutes x 10 reps cat cow Other Exercise Name cat cow> into child's pose Reps/Minutes x 10 reps Manual Therapy Treatment Soft Tissue Mobilization STMs Body Location paraspinals in LS Mobilization Type Myofascial Release,Strumming Intensity/Depth Moderate Body Position Prone Comments quadruped cat stretch>child's pose. Then instruction racquetball roll paraspinals, glut med, TFL on wall sustained pressure and roll- good response right quad and iliopsoas MFR Body Location right quad and iliopsoas Body Position Supine Comments worked in both supine Rolling pin to R quad, ITB; racquetball at wall rolling/ sustained pressure: TFL, glut med, Hip ERs, paraspinals PT-OP-T Assessment and Plan Start: 12/17/20 09:07 Freq: Status: Active Protocol: Document 01/05/21 09:47 SP (Rec: 01/05/21 12:44 SP [id number]) Physical Therapy Assessment Goals left side pelvic floor guarding Impairment left side of the lateral pelvic floor guarded and tight Short Term Goal (STG) Kimber is educated in relaxed awarenss of the pelvic floor and is able to relax to baseline on EMG biofeedback STG Duration 5 weeks hip pain rated 4/10 Impairment right sided hip pain rated 4/ 10, c/o hip clicking with standing rocking Mcfp Goal (LTG) Kimber reports a overall reduction in hip tightness and pain and is no longer experiencing clicking when she stands to rock her baby LTG Duration 8 weeks difficulty with squatting Impairment Difficulty with squatting activity due to R SI pain Test Analyst Goal (LTG) Kimber is able to perform a safe squat to waste picker a car seat without complaints of right sided SI pain LTG Duration 6-8 weeks iliopsoas tightness R>L Impairment Iliopsoas tightness R>L Short Term Goal (STG) Kimber is educated in stretches she can do now that she is in the period for her right iliopsoas STG Duration 4 weeks Assessment Summary Assessment Pt reported manual and instruction of and self performance instrument STMs then self stretching Iliopsoas and TFL in 1/2 kneel helped release tightness had when arrived. Reviewed HEP with no adverse affects. Next tx plan discussed to assess NMES assist for L pelvic floor tightness. Physical Therapy Plan Frequency and Duration Frequency of Treatment 2x/Week Duration of Treatment 8 Plan of Care Start Date 12/17/20 Plan of Care End Date 02/11/21 Therapeutic Interventions Therapeutic Interventions Home Exercise Program,Manual Therapy,Patient/Caregiver Education,Self-Care/Home Management,Soft Tissue Mobilization,Therapeutic Exercises Modalities Biofeedback Next Visit Focus/Plan Next Note Type Treatment Note Next Visit Plan Assess reponse to manual and self STMs, stretching. Next tx Begin treatment with NMES, Also work on lengthening out the lumbar paraspinals
--- NOTE | 2021-01-07 15:07 | PT.OTN ---
Current Diagnoses Pain in unspecified hip (01/07/21) Physical Therapy Treatment Note PT-OP-A Visit Information Start: 12/17/20 09:07 Freq: Status: Active Protocol: Document 01/07/21 13:55 AMH (Rec: 01/07/21 15:01 AMH [email or web address]) Out-Patient Physical Therapy Visit Information Visit Information Visit Type Treatment Note Visit Start Time 13:55 Visit Stop Time 14:45 Total Visit Minutes 50 Visit Number 7 Number of [employer] Visits 0 PT-OP-B Current Condition Start: 12/17/20 09:07 Freq: Status: Active Protocol: Document 12/17/20 12:56 AMH (Rec: 12/17/20 13:07 AMH [id number]) Current Condition History of Current Condition History of Current Condition 10/17/20 vaginal delivery no tears and now it feels really tight. She complains of right hip clicking and tightness in the front of her hip, medial ankle on the right painful more so when she stands. When she is rocking back and when she is walking she can feel her anterior hip click. PT-OP-C Subjective Start: 12/17/20 09:07 Freq: Status: Active Protocol: Document 01/07/21 13:56 AMH (Rec: 01/07/21 13:57 AMH [id number]) OP-PT Subjective Patient Comments Patient Comments has tried squatting with just the 35 # bar but felt her squat wasn't right and that she weight shifted on the way up, has also been walking more 2.5 miles last 2-3 days. No complaints of urinary leakage. Patient Reported Progress Improving PT-OP-F Manual Assessment Start: 12/17/20 09:07 Freq: Status: Active Protocol: Document 12/17/20 13:00 AMH (Rec: 12/22/20 15:06 AMH [email or web address]) Manual Assessments Soft Tissue Assessment Soft Tissue Mobility Assessment tightness of the right iliopsoas, ITB, quad attachments to the ASIS left lateral wall of the pelvic floor tight and guarded PT-OP-I Pelvic Floor Start: 12/17/20 09:07 Freq: Status: Active Protocol: Document 12/17/20 13:00 AMH (Rec: 12/22/20 15:06 AMH [email or web address]) Pelvic Floor Assessment Pelvic Clock Pelvic Clock 3-6 Guarding Contraction Ability Voluntary Contraction Moderate Voluntary Relaxation Moderate Manual Muscle Testing Left 4 Manual Muscle Testing Right 4 Manual Muscle Testing Anterior 4 Manual Muscle Testing Posterior 4 Comments Pelvic Floor Comments pt has good ability to contract and tighten the pelvic floor. She is more guarded on the left side and has difficulty relaxing following a pelvic floor contraction. There was elevated tone on EMG biofeedback with difficulty relaxing. Kimber notes she can feel the tightness in her pelvic floor. PT-OP-J Posture/Palpation/Skin Start: 12/17/20 09:07 Freq: Status: Active Protocol: Document 12/17/20 13:00 AMH (Rec: 12/22/20 15:06 AMH [email or web address]) Palpation Assessment Location R ASIS Palpation Location tenderness right ASIS right SI joint Palpation Location right SI joint PSIS Palpation Findings Tenderness Palpation Details tenderness to palpation over the right ASIS PT-OP-M Strength Start: 12/17/20 09:07 Freq: Status: Active Protocol: Document 12/17/20 13:00 AMH (Rec: 12/22/20 15:06 AMH [email or web address]) Trunk Strength Trunk Manual Muscle Testing Testing Position Supine Flexion 4 Good Core Stabilization Kimber is able to facilitate her TA with good awareness PT-OP-Q Treatments Start: 12/17/20 09:07 Freq: Status: Active Protocol: Document 01/07/21 13:55 AMH (Rec: 01/07/21 14:33 AMH [id number]) Therapeutic Exercises Supine Exercises quick contractions Reps/Minutes x 10 reps pelvic floor long holds with relaxation Reps/Minutes x 10 reps Comments 13.8 average. iliopsoas stretch Supine Exercise Name iliopsoas stretch in supine rufus test Reps/Minutes hold 1-2 min Standing Exercises standing single leg squats Standing Exercise Name standing single leg squats forward, lateral, posterior Manual Therapy Treatment Soft Tissue Mobilization right quad and iliopsoas MFR Body Location right quad and iliopsoas Body Position Supine Comments worked in both supine and sidelying to release the quad and iliopsoas Manual Techniques manual ilopsoas and quad stretches Body Position Sidelying Comments with PROM knee flexion Neuro Re-Education Treatment Other Activities NMES for pelvic floor Details NMES PELVIC FLOOR Comments pt worked up to 16 intensity on the NMES, she could feel the posterior and right lateral wall but had difficulty feeling the anterior and left sides PT-OP-T Assessment and Plan Start: 12/17/20 09:07 Freq: Status: Active Protocol: Document 01/07/21 13:55 [facility] (Rec: 01/07/21 15:01 [facility] [email or web address]) Physical Therapy Assessment Assessment Summary Assessment I worked with Kimber today on NMES for improved anterior pelvic floor faciliation. She felt this primarily in the posterior and right lateral kendall of the levator ani. Her average on EMG biofeedback was improved again today so this continues to improve. Kimber had questions on squatting as she tried using the 30 pound bar at home. She had reported feeling like her squat wasn't quite right. When I assessed her without weight she was not putting as much weight through her left LE. I added single leg squats using the TRX band she has at home. I also talked to her about holding off on the weight and just work on body weight for now, working up to the bar. Physical Therapy Plan Frequency and Duration Frequency of Treatment 2x/Week Duration of Treatment 8 Plan of Care Start Date 12/17/20 Plan of Care End Date 02/11/21 Therapeutic Interventions Therapeutic Interventions Home Exercise Program,Manual Therapy,Patient/Caregiver Education,Self-Care/Home Management,Soft Tissue Mobilization,Therapeutic Exercises Modalities Biofeedback
--- NOTE | 2021-01-19 16:41 | PT.OTN ---
Current Diagnoses Pain in unspecified hip (01/19/21) Physical Therapy Treatment Note PT-OP-A Visit Information Start: 12/17/20 09:07 Freq: Status: Active Protocol: Document 01/19/21 13:00 [facility] (Rec: 01/19/21 14:00 [facility] [id number]) Out-Patient Physical Therapy Visit Information Visit Information Visit Type Treatment Note Visit Start Time 13:00 Visit Stop Time 13:45 Total Visit Minutes 45 Visit Number 8 Number of LEAD NITRATE PROCESSOR Visits 0 PT-OP-B Current Condition Start: 12/17/20 09:07 Freq: Status: Active Protocol: Document 12/17/20 12:56 [facility] (Rec: 12/17/20 13:07 [facility] [id number]) Current Condition History of Current Condition History of Current Condition 10/17/20 vaginal delivery no tears and now it feels really tight. She complains of right hip clicking and tightness in the front of her hip, medial ankle on the right painful more so when she stands. When she is rocking back and when she is walking she can feel her anterior hip click. PT-OP-C Subjective Start: 12/17/20 09:07 Freq: Status: Active Protocol: Document 01/19/21 13:00 [facility] (Rec: 01/19/21 14:00 [facility] [id number]) OP-PT Subjective Patient Comments Patient Comments pt notes she has been trying the single leg squats, they are very hard. She feels less of the pelvic floor tightness and heaviness. Still feeing hip tightness. Has dry needling done next week 01/2221 PT-OP-F Manual Assessment Start: 12/17/20 09:07 Freq: Status: Active Protocol: Document 12/17/20 13:00 [facility] (Rec: 12/22/20 15:06 [facility] [email or web address]) Manual Assessments Soft Tissue Assessment Soft Tissue Mobility Assessment tightness of the right iliopsoas, ITB, quad attachments to the ASIS left lateral wall of the pelvic floor tight and guarded PT-OP-I Pelvic Floor Start: 12/17/20 09:07 Freq: Status: Active Protocol: Document 12/17/20 13:00 [facility] (Rec: 12/22/20 15:06 [facility] [email or web address]) Pelvic Floor Assessment Pelvic Clock Pelvic Clock 3-6 Guarding Contraction Ability Voluntary Contraction Moderate Voluntary Relaxation Moderate Manual Muscle Testing Left 4 Manual Muscle Testing Right 4 Manual Muscle Testing Anterior 4 Manual Muscle Testing Posterior 4 Comments Pelvic Floor Comments pt has good ability to contract and tighten the pelvic floor. She is more guarded on the left side and has difficulty relaxing following a pelvic floor contraction. There was elevated tone on EMG biofeedback with difficulty relaxing. Kimber notes she can feel the tightness in her pelvic floor. PT-OP-J Posture/Palpation/Skin Start: 12/17/20 09:07 Freq: Status: Active Protocol: Document 12/17/20 13:00 [facility] (Rec: 12/22/20 15:06 [facility] [email or web address]) Palpation Assessment Location R ASIS Palpation Location tenderness right ASIS right SI joint Palpation Location right SI joint PSIS Palpation Findings Tenderness Palpation Details tenderness to palpation over the right ASIS PT-OP-M Strength Start: 12/17/20 09:07 Freq: Status: Active Protocol: Document 12/17/20 13:00 [facility] (Rec: 12/22/20 15:06 [facility] [email or web address]) Trunk Strength Trunk Manual Muscle Testing Testing Position Supine Flexion 4 Good Core Stabilization Kimber is able to facilitate her TA with good awareness PT-OP-Q Treatments Start: 12/17/20 09:07 Freq: Status: Active Protocol: Document 01/19/21 13:00 [facility] (Rec: 01/19/21 14:00 [facility] [id number]) Therapeutic Exercises Standing Exercises standing hip hikes Reps/Minutes 3 x 10 reps Comments HEP on stairs Manual Therapy Treatment Soft Tissue Mobilization right quad and iliopsoas MFR Body Location right quad and iliopsoas Body Position Supine Comments worked in both supine and sidelying to release the quad and iliopsoas Manual Techniques manual iliopsoasd release in sidelying Type sidelying ilospsoas release Body Position Sidelying manual ilopsoas and quad stretches Body Position Sidelying Comments with PROM knee flexion Neuro Re-Education Treatment Other Activities NMES for pelvic floor Details NMES PELVIC FLOOR Reps/Duration x 10 min Comments pt worked up to 20 intensity on the NMES, she could feel the posterior and right lateral wall with slight sensation in the anterior wall PT-OP-T Assessment and Plan Start: 12/17/20 09:07 Freq: Status: Active Protocol: Document 01/19/21 13:00 [facility] (Rec: 01/19/21 14:00 [facility] [id number]) Physical Therapy Assessment Assessment Summary Assessment pt hip tends to IR with single leg squats, added in hip hikes for HEP. She is feeling better with decreased pelvic floor heaviness. Her right anterior hip is still feeling really tight. She is looking forward to dry needling. She is tight at the ASIS attachments. Physical Therapy Plan Frequency and Duration Frequency of Treatment 2x/Week Duration of Treatment 8 Plan of Care Start Date 12/17/20 Plan of Care End Date 02/11/21 Therapeutic Interventions Therapeutic Interventions Home Exercise Program,Manual Therapy,Patient/Caregiver Education,Self-Care/Home Management,Soft Tissue Mobilization,Therapeutic Exercises Modalities Biofeedback
--- NOTE | 2021-01-21 10:33 | PT.OTN ---
Current Diagnoses Pain in unspecified hip (01/21/21) Physical Therapy Treatment Note PT-OP-A Visit Information Start: 12/17/20 09:07 Freq: Status: Active Protocol: Document 01/21/21 09:55 [facility] (Rec: 01/21/21 10:32 [facility] [id number]) Out-Patient Physical Therapy Visit Information Visit Information Visit Type Treatment Note Visit Start Time 09:55 Visit Stop Time 10:35 Total Visit Minutes 45 Visit Number 9 Number of GLASS BELT SANDER Visits 0 PT-OP-B Current Condition Start: 12/17/20 09:07 Freq: Status: Active Protocol: Document 12/17/20 12:56 [facility] (Rec: 12/17/20 13:07 [facility] [id number]) Current Condition History of Current Condition History of Current Condition 10/17/20 vaginal delivery no tears and now it feels really tight. She complains of right hip clicking and tightness in the front of her hip, medial ankle on the right painful more so when she stands. When she is rocking back and when she is walking she can feel her anterior hip click. PT-OP-C Subjective Start: 12/17/20 09:07 Freq: Status: Active Protocol: Document 01/21/21 09:55 [facility] (Rec: 01/21/21 10:32 [facility] [id number]) OP-PT Subjective Patient Comments Patient Comments pt notes her hip is not as tight today as it was on monday PT-OP-F Manual Assessment Start: 12/17/20 09:07 Freq: Status: Active Protocol: Document 12/17/20 13:00 [facility] (Rec: 12/22/20 15:06 [facility] [email or web address]) Manual Assessments Soft Tissue Assessment Soft Tissue Mobility Assessment tightness of the right iliopsoas, ITB, quad attachments to the ASIS left lateral wall of the pelvic floor tight and guarded PT-OP-I Pelvic Floor Start: 12/17/20 09:07 Freq: Status: Active Protocol: Document 12/17/20 13:00 [facility] (Rec: 12/22/20 15:06 [facility] [email or web address]) Pelvic Floor Assessment Pelvic Clock Pelvic Clock 3-6 Guarding Contraction Ability Voluntary Contraction Moderate Voluntary Relaxation Moderate Manual Muscle Testing Left 4 Manual Muscle Testing Right 4 Manual Muscle Testing Anterior 4 Manual Muscle Testing Posterior 4 Comments Pelvic Floor Comments pt has good ability to contract and tighten the pelvic floor. She is more guarded on the left side and has difficulty relaxing following a pelvic floor contraction. There was elevated tone on EMG biofeedback with difficulty relaxing. Kibmer notes she can feel the tightness in her pelvic floor. PT-OP-J Posture/Palpation/Skin Start: 12/17/20 09:07 Freq: Status: Active Protocol: Document 12/17/20 13:00 [facility] (Rec: 12/22/20 15:06 [facility] [email or web address]) Palpation Assessment Location R ASIS Palpation Location tenderness right ASIS right SI joint Palpation Location right SI joint PSIS Palpation Findings Tenderness Palpation Details tenderness to palpation over the right ASIS PT-OP-M Strength Start: 12/17/20 09:07 Freq: Status: Active Protocol: Document 12/17/20 13:00 [facility] (Rec: 12/22/20 15:06 [facility] [email or web address]) Trunk Strength Trunk Manual Muscle Testing Testing Position Supine Flexion 4 Good Core Stabilization Kimber is able to facilitate her TA with good awareness PT-OP-Q Treatments Start: 12/17/20 09:07 Freq: Status: Active Protocol: Document 01/21/21 09:55 [facility] (Rec: 01/21/21 10:32 [facility] [id number]) Manual Therapy Treatment Soft Tissue Mobilization right quad and iliopsoas MFR Body Location right quad and iliopsoas Body Position Supine Comments worked in both supine and sidelying to release the quad and iliopsoas 1 Body Location right iliopsoas and quads Comments manual STM/MFR over the right quadriceps and iliopsoas Manual Techniques manual ilopsoas and quad stretches Body Position Sidelying Comments with PROM knee flexion Neuro Re-Education Treatment Other Activities NMES for pelvic floor Details NMES PELVIC FLOOR Reps/Duration x 10 min Comments pt able to feel the left side today with NMES at level 17 PT-OP-T Assessment and Plan Start: 12/17/20 09:07 Freq: Status: Active Protocol: Document 01/21/21 09:55 [facility] (Rec: 01/21/21 10:32 [facility] [id number]) Physical Therapy Assessment Assessment Summary Assessment pt notes her hip isn't as tiht today, dry needling appointment next week. She did try the hip hikes and notes they are hard. Physical Therapy Plan Frequency and Duration Frequency of Treatment 2x/Week Duration of Treatment 8 Plan of Care Start Date 12/17/20 Plan of Care End Date 02/11/21 Therapeutic Interventions Therapeutic Interventions Home Exercise Program,Manual Therapy,Patient/Caregiver Education,Self-Care/Home Management,Soft Tissue Mobilization,Therapeutic Exercises Modalities Biofeedback Next Visit Focus/Plan Next Note Type Treatment Note Next Visit Plan Assess reponse to manual and self STMs, stretching. Next tx Begin treatment with NMES, Also work on lengthening out the lumbar paraspinals. Look into the upper back next visit as well.
--- NOTE | 2021-01-28 13:18 | PT.OTN ---
Current Diagnoses Pain in unspecified hip (01/28/21) Physical Therapy Treatment Note PT-OP-A Visit Information Start: 12/17/20 09:07 Freq: Status: Active Protocol: Document 01/28/21 13:02 [facility] (Rec: 01/28/21 13:18 [facility] [email or web address]) Out-Patient Physical Therapy Visit Information Visit Information Visit Type Treatment Note Visit Start Time 09:00 Visit Stop Time 09:45 Total Visit Minutes 45 Visit Number 10 Number of ENGINEERING TECHNOLOGY INSTRUCTOR Visits 0 PT-OP-B Current Condition Start: 12/17/20 09:07 Freq: Status: Active Protocol: Document 12/17/20 12:56 [facility] (Rec: 12/17/20 13:07 [facility] [id number]) Current Condition History of Current Condition History of Current Condition 10/17/20 vaginal delivery no tears and now it feels really tight. She complains of right hip clicking and tightness in the front of her hip, medial ankle on the right painful more so when she stands. When she is rocking back and when she is walking she can feel her anterior hip click. PT-OP-C Subjective Start: 12/17/20 09:07 Freq: Status: Active Protocol: Document 01/28/21 13:02 [facility] (Rec: 01/28/21 13:18 [facility] [email or web address]) OP-PT Subjective Patient Comments Patient Comments pt is seeing Dr. John today for dry needling. She would like to focus more on pelvic floor today. She is not feeling the pelvic floor heaviness that she was. PT-OP-F Manual Assessment Start: 12/17/20 09:07 Freq: Status: Active Protocol: Document 12/17/20 13:00 [facility] (Rec: 12/22/20 15:06 [facility] [email or web address]) Manual Assessments Soft Tissue Assessment Soft Tissue Mobility Assessment tightness of the right iliopsoas, ITB, quad attachments to the ASIS left lateral wall of the pelvic floor tight and guarded PT-OP-I Pelvic Floor Start: 12/17/20 09:07 Freq: Status: Active Protocol: Document 12/17/20 13:00 [facility] (Rec: 12/22/20 15:06 [facility] [email or web address]) Pelvic Floor Assessment Pelvic Clock Pelvic Clock 3-6 Guarding Contraction Ability Voluntary Contraction Moderate Voluntary Relaxation Moderate Manual Muscle Testing Left 4 Manual Muscle Testing Right 4 Manual Muscle Testing Anterior 4 Manual Muscle Testing Posterior 4 Comments Pelvic Floor Comments pt has good ability to contract and tighten the pelvic floor. She is more guarded on the left side and has difficulty relaxing following a pelvic floor contraction. There was elevated tone on EMG biofeedback with difficulty relaxing. Kimber notes she can feel the tightness in her pelvic floor. PT-OP-J Posture/Palpation/Skin Start: 12/17/20 09:07 Freq: Status: Active Protocol: Document 12/17/20 13:00 [facility] (Rec: 12/22/20 15:06 [facility] [email or web address]) Palpation Assessment Location R ASIS Palpation Location tenderness right ASIS right SI joint Palpation Location right SI joint PSIS Palpation Findings Tenderness Palpation Details tenderness to palpation over the right ASIS PT-OP-M Strength Start: 12/17/20 09:07 Freq: Status: Active Protocol: Document 12/17/20 13:00 [facility] (Rec: 12/22/20 15:06 [facility] [email or web address]) Trunk Strength Trunk Manual Muscle Testing Testing Position Supine Flexion 4 Good Core Stabilization Kimber is able to facilitate her TA with good awareness PT-OP-Q Treatments Start: 12/17/20 09:07 Freq: Status: Active Protocol: Document 01/28/21 13:02 [facility] (Rec: 01/28/21 13:18 [facility] [email or web address]) Therapeutic Exercises Supine Exercises templates for eccentric control and coordination Supine Exercise Name EMG biofeedback pelvic floor templates for eccentric control and coordinati Comments x 5 min quick contractions Reps/Minutes x 10 reps Level 2 lower abdominal progression Reps/Minutes x 10 reps Comments progressed to level 1 lower abdominal progression TA with marching Reps/Minutes x 10 Comments progressed to level 1 b pelvic floor long holds with relaxation Reps/Minutes x 10 reps Comments 13.8 average. Neuro Re-Education Treatment Other Activities NMES for pelvic floor Details NMES PELVIC FLOOR Reps/Duration x 10 min Comments pt able to feel the left side today with NMES at level 17 PT-OP-T Assessment and Plan Start: 12/17/20 09:07 Freq: Status: Active Protocol: Document 01/28/21 13:02 [facility] (Rec: 01/28/21 13:18 [facility] [email or web address]) Physical Therapy Assessment Assessment Summary Assessment Kimber is able to feel the left side of her pelvic floor a little now. Her resting tone was good today and she is continuing to show improved recruitment of her pelvic floor. I did start templates for eccentric lowering. Physical Therapy Plan Frequency and Duration Frequency of Treatment 2x/Week Duration of Treatment 8 Plan of Care Start Date 12/17/20 Plan of Care End Date 02/11/21 Therapeutic Interventions Therapeutic Interventions Home Exercise Program,Manual Therapy,Patient/Caregiver Education,Self-Care/Home Management,Soft Tissue Mobilization,Therapeutic Exercises Modalities Biofeedback Discharge Physical Therapy Discharge Reasons Change in Medical Status Discharge Comments Pt being induced tonight for delivery Next Visit Focus/Plan Next Note Type Treatment Note Next Visit Plan reassess pelvic floor strength with internal examination, work on standingpelvic floor and check into how Kimber did with dry needling.
--- NOTE | 2021-02-04 12:59 | PT.OTN ---
Current Diagnoses Pain in unspecified hip (02/04/21) Physical Therapy Treatment Note PT-OP-A Visit Information Start: 12/17/20 09:07 Freq: Status: Active Protocol: Document 02/04/21 09:00 [facility] (Rec: 02/04/21 08:58 [facility] [id number]) Out-Patient Physical Therapy Visit Information Visit Information Visit Type Treatment Note Visit Start Time 09:00 Visit Stop Time 09:45 Total Visit Minutes 45 Visit Number 11 Number of METER READERS SUPERVISOR Visits 0 PT-OP-B Current Condition Start: 12/17/20 09:07 Freq: Status: Active Protocol: Document 12/17/20 12:56 [facility] (Rec: 12/17/20 13:07 [facility] [id number]) Current Condition History of Current Condition History of Current Condition 10/17/20 vaginal delivery no tears and now it feels really tight. She complains of right hip clicking and tightness in the front of her hip, medial ankle on the right painful more so when she stands. When she is rocking back and when she is walking she can feel her anterior hip click. PT-OP-C Subjective Start: 12/17/20 09:07 Freq: Status: Active Protocol: Document 02/04/21 09:00 [facility] (Rec: 02/04/21 09:05 [facility] [id number]) OP-PT Subjective Patient Comments Patient Comments pt reports she walked quite a bit yesterday and took the dogs for a walk. She is feeling tight today. Patient Reported Progress Improving PT-OP-F Manual Assessment Start: 12/17/20 09:07 Freq: Status: Active Protocol: Document 12/17/20 13:00 [facility] (Rec: 12/22/20 15:06 [facility] [email or web address]) Manual Assessments Soft Tissue Assessment Soft Tissue Mobility Assessment tightness of the right iliopsoas, ITB, quad attachments to the ASIS left lateral wall of the pelvic floor tight and guarded PT-OP-I Pelvic Floor Start: 12/17/20 09:07 Freq: Status: Active Protocol: Document 12/17/20 13:00 [facility] (Rec: 12/22/20 15:06 [facility] [email or web address]) Pelvic Floor Assessment Pelvic Clock Pelvic Clock 3-6 Guarding Contraction Ability Voluntary Contraction Moderate Voluntary Relaxation Moderate Manual Muscle Testing Left 4 Manual Muscle Testing Right 4 Manual Muscle Testing Anterior 4 Manual Muscle Testing Posterior 4 Comments Pelvic Floor Comments pt has good ability to contract and tighten the pelvic floor. She is more guarded on the left side and has difficulty relaxing following a pelvic floor contraction. There was elevated tone on EMG biofeedback with difficulty relaxing. Kimber notes she can feel the tightness in her pelvic floor. PT-OP-J Posture/Palpation/Skin Start: 12/17/20 09:07 Freq: Status: Active Protocol: Document 12/17/20 13:00 [facility] (Rec: 12/22/20 15:06 [facility] [email or web address]) Palpation Assessment Location R ASIS Palpation Location tenderness right ASIS right SI joint Palpation Location right SI joint PSIS Palpation Findings Tenderness Palpation Details tenderness to palpation over the right ASIS PT-OP-M Strength Start: 12/17/20 09:07 Freq: Status: Active Protocol: Document 12/17/20 13:00 [facility] (Rec: 12/22/20 15:06 [facility] [email or web address]) Trunk Strength Trunk Manual Muscle Testing Testing Position Supine Flexion 4 Good Core Stabilization Kimber is able to facilitate her TA with good awareness PT-OP-Q Treatments Start: 12/17/20 09:07 Freq: Status: Active Protocol: Document 02/04/21 09:00 [facility] (Rec: 02/04/21 09:47 [facility] [id number]) Therapeutic Exercises Supine Exercises pelvic floor long holds with relaxation Comments 15.1 average and 35.4 max Manual Therapy Treatment Soft Tissue Mobilization right quad and iliopsoas MFR Body Location right quad and iliopsoas Body Position Supine Comments worked in both supine and sidelying to release the quad and iliopsoas Manual Techniques manual iliopsoasd release in sidelying Type sidelying ilospsoas release Body Position Sidelying Neuro Re-Education Treatment Other Activities NMES for pelvic floor Details NMES PELVIC FLOOR Reps/Duration x 10 min Comments pt able to feel the left side today with NMES at level 19 PT-OP-T Assessment and Plan Start: 12/17/20 09:07 Freq: Status: Active Protocol: Document 02/04/21 09:00 [facility] (Rec: 02/04/21 12:57 [facility] [email or web address]) Physical Therapy Assessment Assessment Summary Assessment Kimber continues to make progress with her pelvic floor and her average was up again today. She did feel a little looser in her hip than I have felt. We talked about ways to decompress her low back to such as laying over the ball as she is feeling tighter. Physical Therapy Plan Frequency and Duration Frequency of Treatment 2x/Week Duration of Treatment 8 Plan of Care Start Date 12/17/20 Plan of Care End Date 02/11/21 Therapeutic Interventions Therapeutic Interventions Home Exercise Program,Manual Therapy,Patient/Caregiver Education,Self-Care/Home Management,Soft Tissue Mobilization,Therapeutic Exercises Modalities Biofeedback Next Visit Focus/Plan Next Note Type Treatment Note Next Visit Plan reassess pelvic floor strength with internal examination, work on standingpelvic floor and check into how Kimber did with dry needling.
--- NOTE | 2021-02-09 16:11 | PT.OTN ---
Current Diagnoses Pain in unspecified hip (02/09/21) Physical Therapy Treatment Note PT-OP-A Visit Information Start: 12/17/20 09:07 Freq: Status: Active Protocol: Document 02/09/21 15:21 [facility] (Rec: 02/09/21 16:11 [facility] [id number]) Out-Patient Physical Therapy Visit Information Visit Information Visit Type Treatment Note Visit Start Time 15:15 Visit Stop Time 16:00 Total Visit Minutes 45 Visit Number 12 Number of HUMAN FACTORS ADVISOR LEAD Visits 0 PT-OP-B Current Condition Start: 12/17/20 09:07 Freq: Status: Active Protocol: Document 12/17/20 12:56 [facility] (Rec: 12/17/20 13:07 [facility] [id number]) Current Condition History of Current Condition History of Current Condition 10/17/20 vaginal delivery no tears and now it feels really tight. She complains of right hip clicking and tightness in the front of her hip, medial ankle on the right painful more so when she stands. When she is rocking back and when she is walking she can feel her anterior hip click. PT-OP-C Subjective Start: 12/17/20 09:07 Freq: Status: Active Protocol: Document 02/09/21 15:21 [facility] (Rec: 02/09/21 16:11 [facility] [id number]) OP-PT Subjective Patient Comments Patient Comments Kimber reports her hip is not feeling as tight this week and she is not feeling the pelvic pressure that she was. She is going to work out tonight for the first time in a few weeks PT-OP-F Manual Assessment Start: 12/17/20 09:07 Freq: Status: Active Protocol: Document 12/17/20 13:00 [facility] (Rec: 12/22/20 15:06 [facility] [email or web address]) Manual Assessments Soft Tissue Assessment Soft Tissue Mobility Assessment tightness of the right iliopsoas, ITB, quad attachments to the ASIS left lateral wall of the pelvic floor tight and guarded PT-OP-I Pelvic Floor Start: 12/17/20 09:07 Freq: Status: Active Protocol: Document 12/17/20 13:00 [facility] (Rec: 12/22/20 15:06 [facility] [email or web address]) Pelvic Floor Assessment Pelvic Clock Pelvic Clock 3-6 Guarding Contraction Ability Voluntary Contraction Moderate Voluntary Relaxation Moderate Manual Muscle Testing Left 4 Manual Muscle Testing Right 4 Manual Muscle Testing Anterior 4 Manual Muscle Testing Posterior 4 Comments Pelvic Floor Comments pt has good ability to contract and tighten the pelvic floor. She is more guarded on the left side and has difficulty relaxing following a pelvic floor contraction. There was elevated tone on EMG biofeedback with difficulty relaxing. Kimber notes she can feel the tightness in her pelvic floor. PT-OP-J Posture/Palpation/Skin Start: 12/17/20 09:07 Freq: Status: Active Protocol: Document 12/17/20 13:00 [facility] (Rec: 12/22/20 15:06 [facility] [email or web address]) Palpation Assessment Location R ASIS Palpation Location tenderness right ASIS right SI joint Palpation Location right SI joint PSIS Palpation Findings Tenderness Palpation Details tenderness to palpation over the right ASIS PT-OP-M Strength Start: 12/17/20 09:07 Freq: Status: Active Protocol: Document 12/17/20 13:00 [facility] (Rec: 12/22/20 15:06 [facility] [email or web address]) Trunk Strength Trunk Manual Muscle Testing Testing Position Supine Flexion 4 Good Core Stabilization Kimber is able to facilitate her TA with good awareness PT-OP-Q Treatments Start: 12/17/20 09:07 Freq: Status: Active Protocol: Document 02/09/21 15:21 [facility] (Rec: 02/09/21 16:11 [facility] [id number]) Therapeutic Exercises Supine Exercises pelvic floor long holds with relaxation Equipment Used x 10 reps Reps/Minutes x 10 Comments 14.6 28.3 Manual Therapy Treatment Soft Tissue Mobilization right quad and iliopsoas MFR Body Location right quad and iliopsoas Body Position Supine Comments worked in both supine and sidelying to release the quad and iliopsoas Manual Techniques manual iliopsoasd release in sidelying Type sidelying ilospsoas release Body Position Sidelying PT-OP-T Assessment and Plan Start: 12/17/20 09:07 Freq: Status: Active Protocol: Document 02/09/21 15:21 [facility] (Rec: 02/09/21 16:11 [facility] [id number]) Physical Therapy Assessment Assessment Summary Assessment Kimber is not feeling the pelvic pressure as much now. We will recheck her pelvic floor strength manually next visit Physical Therapy Plan Frequency and Duration Frequency of Treatment 2x/Week Duration of Treatment 8 Plan of Care Start Date 12/17/20 Plan of Care End Date 02/11/21 Next Visit Focus/Plan Next Note Type Progress Note Next Visit Plan reassess pelivc floor internal strength next visit
--- NOTE | 2021-02-11 17:41 | PT.OTN ---
Current Diagnoses Pain in unspecified hip (02/11/21) Physical Therapy Treatment Note PT-OP-A Visit Information Start: 12/17/20 09:07 Freq: Status: Active Protocol: Document 02/11/21 09:00 [facility] (Rec: 02/11/21 17:41 [facility] [email or web address]) Out-Patient Physical Therapy Visit Information Visit Information Visit Type Treatment Note Visit Start Time 09:00 Visit Stop Time 09:45 Total Visit Minutes 45 Visit Number 13 Number of ASBESTOS REMOVER Visits 0 PT-OP-B Current Condition Start: 12/17/20 09:07 Freq: Status: Active Protocol: Document 12/17/20 12:56 [facility] (Rec: 12/17/20 13:07 [facility] [id number]) Current Condition History of Current Condition History of Current Condition 10/17/20 vaginal delivery no tears and now it feels really tight. She complains of right hip clicking and tightness in the front of her hip, medial ankle on the right painful more so when she stands. When she is rocking back and when she is walking she can feel her anterior hip click. PT-OP-C Subjective Start: 12/17/20 09:07 Freq: Status: Active Protocol: Document 02/11/21 09:04 [facility] (Rec: 02/11/21 09:05 [facility] [id number]) OP-PT Subjective Patient Comments Patient Comments she worked out for the first time and had some low back pain afterwards. PT-OP-F Manual Assessment Start: 12/17/20 09:07 Freq: Status: Active Protocol: Document 12/17/20 13:00 [facility] (Rec: 12/22/20 15:06 [facility] [email or web address]) Manual Assessments Soft Tissue Assessment Soft Tissue Mobility Assessment tightness of the right iliopsoas, ITB, quad attachments to the ASIS left lateral wall of the pelvic floor tight and guarded PT-OP-I Pelvic Floor Start: 12/17/20 09:07 Freq: Status: Active Protocol: Document 12/17/20 13:00 [facility] (Rec: 12/22/20 15:06 [facility] [email or web address]) Pelvic Floor Assessment Pelvic Clock Pelvic Clock 3-6 Guarding Contraction Ability Voluntary Contraction Moderate Voluntary Relaxation Moderate Manual Muscle Testing Left 4 Manual Muscle Testing Right 4 Manual Muscle Testing Anterior 4 Manual Muscle Testing Posterior 4 Comments Pelvic Floor Comments pt has good ability to contract and tighten the pelvic floor. She is more guarded on the left side and has difficulty relaxing following a pelvic floor contraction. There was elevated tone on EMG biofeedback with difficulty relaxing. Kimber notes she can feel the tightness in her pelvic floor. PT-OP-J Posture/Palpation/Skin Start: 12/17/20 09:07 Freq: Status: Active Protocol: Document 12/17/20 13:00 [facility] (Rec: 12/22/20 15:06 [facility] [email or web address]) Palpation Assessment Location R ASIS Palpation Location tenderness right ASIS right SI joint Palpation Location right SI joint PSIS Palpation Findings Tenderness Palpation Details tenderness to palpation over the right ASIS PT-OP-M Strength Start: 12/17/20 09:07 Freq: Status: Active Protocol: Document 12/17/20 13:00 [facility] (Rec: 12/22/20 15:06 [facility] [email or web address]) Trunk Strength Trunk Manual Muscle Testing Testing Position Supine Flexion 4 Good Core Stabilization Kimber is able to facilitate her TA with good awareness PT-OP-Q Treatments Start: 12/17/20 09:07 Freq: Status: Active Protocol: Document 02/11/21 09:00 [facility] (Rec: 02/11/21 17:41 [facility] [email or web address]) Therapeutic Exercises Standing Exercises runners lunge Reps/Minutes hold 30 sec- 1 min 1/2 kneeling iliopsoasd stretch Reps/Minutes hold 30 sec-1 min danitza squats Reps/Minutes x 10 Comments with theraband side steps in mini squat with theraband Reps/Minutes 2 min standing hip hikes Reps/Minutes 3 x 10 reps Comments HEP on stairs standing single leg squats Standing Exercise Name standing single leg squats forward, lateral, posterior standing wall slides Standing Exercise Name standing wall slides Reps/Minutes x 10 reps Manual Therapy Treatment Manual Techniques manual assessment of pelvic floor strength Comments pt is now 4/5 MMT for all portions of the levator ani Neuro Re-Education Treatment Other Activities NMES for pelvic floor Details NMES PELVIC FLOOR Reps/Duration x 10 min Comments pt able to feel the left side today with NMES at level 19 PT-OP-T Assessment and Plan Start: 12/17/20 09:07 Freq: Status: Active Protocol: Document 02/11/21 09:00 [facility] (Rec: 02/11/21 17:41 [facility] [email or web address]) Physical Therapy Assessment Goals left side pelvic floor guarding Impairment left side of the lateral pelvic floor guarded and tight Short Term Goal (STG) Kimber is educated in relaxed awarenss of the pelvic floor and is able to relax to baseline on EMG biofeedback Goal met STG Duration 5 weeks hip pain rated 4/10 Impairment right sided hip pain rated 4/ 10, c/o hip clicking with standing rocking Jail Goal (LTG) Kimber reports a overall reduction in hip tightness and pain and is no longer experiencing clicking when she stands to rock her baby Good progress, we will continue to progress dynamic hip strengthening in standing positions LTG Duration 8 weeks difficulty with squatting Impairment Difficulty with squatting activity due to R SI pain Boulevard Glassware Replacer Goal (LTG) Kimber is able to perform a safe squat to slat pickler a car seat without complaints of right sided SI pain Goal met LTG Duration 6-8 weeks iliopsoas tightness R>L Impairment Iliopsoas tightness R>L Short Term Goal (STG) Kimber is educated in stretches she can do now that she is in the period for her right iliopsoas Goal met STG Duration 4 weeks Assessment Summary Assessment Kimber is doing much better with hip stabilization exercises. She was able to tolerate runners lunge positions for her hip flexor today without pain. I did recheck her pelvci floor and guarding has decreased overall . She has more tissue bulk on the left side and maybe this is a compensation from her right hip injury? She is doing better with her pelvic floor with decreasing c/o symptoms. She did have some low back pain today after her home work out and I reviewed ways to hold her weights at home to decrease strain to her spine and well as reviewed stretches to do following. Kimber would benefit from a few more visits of PT to progress her standing stability exercises Physical Therapy Plan Frequency and Duration Frequency of Treatment 2x/Week Duration of Treatment 8 Plan of Care Start Date 02/11/21 Plan of Care End Date 04/01/21 Therapeutic Interventions Therapeutic Interventions Home Exercise Program,Manual Therapy,Patient/Caregiver Education,Self-Care/Home Management,Soft Tissue Mobilization,Therapeutic Exercises Modalities Biofeedback Discharge Physical Therapy Discharge Reasons Change in Medical Status Discharge Comments Pt being induced tonight for delivery Next Visit Focus/Plan Next Note Type Progress Note Next Visit Plan reassess pelivc floor internal strength next visit
--- NOTE | 2021-02-11 17:43 | PT.OPPOC ---
Physical, Occupational & Speech Therapy At [facility] Current Diagnoses Pain in unspecified hip (02/11/21) Visit Care Team Role Provider Type Chayo Diego MD Attending Provider Physician Family Provider Primary Care Provider Referring Provider Specialty: Family Practice Address: [address] [place] [address], [id number] Email: [email or web address] Plan Of Care PT-OP-T Assessment and Plan Start: 12/17/20 09:07 Freq: Status: Active Protocol: Document 02/11/21 09:00 [facility] (Rec: 02/11/21 17:41 [facility] [email or web address]) Physical Therapy Assessment Goals left side pelvic floor guarding Impairment left side of the lateral pelvic floor guarded and tight Short Term Goal (STG) Kimber is educated in relaxed awareness of the pelvic floor and is able to relax to baseline on EMG biofeedback Goal met STG Duration 5 weeks hip pain rated 4/10 Impairment right sided hip pain rated 4/ 10, c/o hip clicking with standing rocking Form [employer]ter [employer] Goal (LTG) Kimber reports a overall reduction in hip tightness and pain and is no longer experiencing clicking when she stands to rock her baby Good progress, we will continue to progress dynamic hip strengthening in standing positions LTG Duration 8 weeks difficulty with squatting Impairment Difficulty with squatting activity due to R SI pain Form [employer] Goal (LTG) Kimber is able to perform a safe 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 She was able to tolerate runners lunge positions for her hip flexor today without pain. I did recheck her pelvic floor and guarding has decreased overall . She has more muscle bulk on the left side and maybe this is a compensation from her right hip injury? She is doing better with her pelvic floor with decreasing c/o symptoms. She did have some low back pain today after her home work out and I reviewed ways to hold her weights at home to decrease strain to her spine and well as reviewed stretches to do following. Kimber would benefit from a few more visits of PT to progress her standing stability exercises Physical Therapy Plan Frequency and Duration Frequency of Treatment 2x/Week Duration of Treatment 8 Plan of Care Start Date 02/11/21 Plan of Care End Date 04/01/21 Therapeutic Interventions Therapeutic Interventions Home Exercise Program,Manual Therapy,Patient/Caregiver Education,Self-Care/Home Management,Soft Tissue Mobilization,Therapeutic Exercises Modalities Biofeedback Discharge Physical Therapy Discharge Reasons Change in Medical Status Discharge Comments Pt being induced tonight for delivery Next Visit Focus/Plan Next Note Type Progress Note Next Visit Plan reassess pelvic floor internal strength next visit Plan of Care Dates Plan of Care Start Date 02/11/21 Plan of Care End Date 04/01/21 Electronically Signed by: Hyacinth Gifford, PT 02/11/21 [id number] Please Sign and Return: I have reviewed this Plan of Care and certify that the skilled therapy services above are required to meet the patient?s needs. Physician Signature Date Printed Name and Credentials Clinical Instructor Signature Printed Name and Credentials
--- NOTE | 2021-02-16 17:33 | PT.OTN ---
Current Diagnoses Pain in unspecified hip (02/16/21) Physical Therapy Treatment Note PT-OP-A Visit Information Start: 12/17/20 09:07 Freq: Status: Active Protocol: Document 02/16/21 15:20 [facility] (Rec: 02/16/21 15:23 [facility] [id number]) Out-Patient Physical Therapy Visit Information Visit Information Visit Type Treatment Note Visit Start Time 15:15 Visit Stop Time 16:00 Total Visit Minutes 45 Visit Number 14 Number of CUSTOMER ACQUISITION MANAGER Visits 0 PT-OP-B Current Condition Start: 12/17/20 09:07 Freq: Status: Active Protocol: Document 12/17/20 12:56 [facility] (Rec: 12/17/20 13:07 [facility] [id number]) Current Condition History of Current Condition History of Current Condition 10/17/20 vaginal delivery no tears and now it feels really tight. She complains of right hip clicking and tightness in the front of her hip, medial ankle on the right painful more so when she stands. When she is rocking back and when she is walking she can feel her anterior hip click. PT-OP-C Subjective Start: 12/17/20 09:07 Freq: Status: Active Protocol: Document 02/16/21 15:20 [facility] (Rec: 02/16/21 15:23 [facility] [id number]) OP-PT Subjective Patient Comments Patient Comments pt did good from the exercises last visit, it isn't as tight as it has been. The clicking is intermittent in nature. PT-OP-F Manual Assessment Start: 12/17/20 09:07 Freq: Status: Active Protocol: Document 12/17/20 13:00 [facility] (Rec: 12/22/20 15:06 [facility] [email or web address]) Manual Assessments Soft Tissue Assessment Soft Tissue Mobility Assessment tightness of the right iliopsoas, ITB, quad attachments to the ASIS left lateral wall of the pelvic floor tight and guarded PT-OP-I Pelvic Floor Start: 12/17/20 09:07 Freq: Status: Active Protocol: Document 12/17/20 13:00 [facility] (Rec: 12/22/20 15:06 [facility] [email or web address]) Pelvic Floor Assessment Pelvic Clock Pelvic Clock 3-6 Guarding Contraction Ability Voluntary Contraction Moderate Voluntary Relaxation Moderate Manual Muscle Testing Left 4 Manual Muscle Testing Right 4 Manual Muscle Testing Anterior 4 Manual Muscle Testing Posterior 4 Comments Pelvic Floor Comments pt has good ability to contract and tighten the pelvic floor. She is more guarded on the left side and has difficulty relaxing following a pelvic floor contraction. There was elevated tone on EMG biofeedback with difficulty relaxing. Kimber notes she can feel the tightness in her pelvic floor. PT-OP-J Posture/Palpation/Skin Start: 12/17/20 09:07 Freq: Status: Active Protocol: Document 12/17/20 13:00 [facility] (Rec: 12/22/20 15:06 [facility] [email or web address]) Palpation Assessment Location R ASIS Palpation Location tenderness right ASIS right SI joint Palpation Location right SI joint PSIS Palpation Findings Tenderness Palpation Details tenderness to palpation over the right ASIS PT-OP-M Strength Start: 12/17/20 09:07 Freq: Status: Active Protocol: Document 12/17/20 13:00 [facility] (Rec: 12/22/20 15:06 [facility] [email or web address]) Trunk Strength Trunk Manual Muscle Testing Testing Position Supine Flexion 4 Good Core Stabilization Kimber is able to facilitate her TA with good awareness PT-OP-Q Treatments Start: 12/17/20 09:07 Freq: Status: Active Protocol: Document 02/16/21 15:20 [facility] (Rec: 02/16/21 15:55 [facility] [id number]) Manual Therapy Treatment Soft Tissue Mobilization right quad and iliopsoas MFR Body Location right quad and iliopsoas Body Position Supine Comments worked in both supine and sidelying to release the quad and iliopsoas Manual Techniques manual iliopsoasd release in sidelying Type sidelying ilospsoas release Body Position Sidelying manual ilopsoas and quad stretches Body Position Sidelying Comments with PROM knee flexion Neuro Re-Education Treatment Other Activities NMES for pelvic floor Details NMES PELVIC FLOOR Reps/Duration x 10 min Comments left side still feels difficult to feel. 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 Assessment Summary Assessment Left side of the hip a little more tight today, pt was out of town and drove home on monday, [place] this [place]. Physical Therapy Plan Frequency and Duration Frequency of Treatment 2x/Week Duration of Treatment 8 Plan of Care Start Date 02/16/21 Plan of Care End Date 05/04/21 Therapeutic Interventions Therapeutic Interventions Home Exercise Program,Manual Therapy,Patient/Caregiver Education,Self-Care/Home Management,Soft Tissue Mobilization,Therapeutic Exercises Modalities Biofeedback Next Visit Focus/Plan Next Note Type Treatment Note
--- NOTE | 2021-02-18 09:52 | PT.OTN ---
Current Diagnoses Pain in unspecified hip (02/18/21) Physical Therapy Treatment Note PT-OP-A Visit Information Start: 12/17/20 09:07 Freq: Status: Active Protocol: Document 02/18/21 09:01 [facility] (Rec: 02/18/21 09:40 [facility] [id number]) Out-Patient Physical Therapy Visit Information Visit Information Visit Type Treatment Note Visit Start Time 09:00 Visit Stop Time 09:45 Total Visit Minutes 45 Visit Number 15 Number of CELL POURER Visits 0 PT-OP-B Current Condition Start: 12/17/20 09:07 Freq: Status: Active Protocol: Document 12/17/20 12:56 [facility] (Rec: 12/17/20 13:07 [facility] [id number]) Current Condition History of Current Condition History of Current Condition 10/17/20 vaginal delivery no tears and now it feels really tight. She complains of right hip clicking and tightness in the front of her hip, medial ankle on the right painful more so when she stands. When she is rocking back and when she is walking she can feel her anterior hip click. PT-OP-C Subjective Start: 12/17/20 09:07 Freq: Status: Active Protocol: Document 02/18/21 09:01 [facility] (Rec: 02/18/21 09:40 [facility] [id number]) OP-PT Subjective Patient Comments Patient Comments reports she was able to work out last night. Jumping squats did bother her. PT-OP-F Manual Assessment Start: 12/17/20 09:07 Freq: Status: Active Protocol: Document 12/17/20 13:00 [facility] (Rec: 12/22/20 15:06 [facility] [email or web address]) Manual Assessments Soft Tissue Assessment Soft Tissue Mobility Assessment tightness of the right iliopsoas, ITB, quad attachments to the ASIS left lateral wall of the pelvic floor tight and guarded PT-OP-I Pelvic Floor Start: 12/17/20 09:07 Freq: Status: Active Protocol: Document 12/17/20 13:00 [facility] (Rec: 12/22/20 15:06 [facility] [email or web address]) Pelvic Floor Assessment Pelvic Clock Pelvic Clock 3-6 Guarding Contraction Ability Voluntary Contraction Moderate Voluntary Relaxation Moderate Manual Muscle Testing Left 4 Manual Muscle Testing Right 4 Manual Muscle Testing Anterior 4 Manual Muscle Testing Posterior 4 Comments Pelvic Floor Comments pt has good ability to contract and tighten the pelvic floor. She is more guarded on the left side and has difficulty relaxing following a pelvic floor contraction. There was elevated tone on EMG biofeedback with difficulty relaxing. Kimber notes she can feel the tightness in her pelvic floor. PT-OP-J Posture/Palpation/Skin Start: 12/17/20 09:07 Freq: Status: Active Protocol: Document 12/17/20 13:00 [facility] (Rec: 12/22/20 15:06 [facility] [email or web address]) Palpation Assessment Location R ASIS Palpation Location tenderness right ASIS right SI joint Palpation Location right SI joint PSIS Palpation Findings Tenderness Palpation Details tenderness to palpation over the right ASIS PT-OP-M Strength Start: 12/17/20 09:07 Freq: Status: Active Protocol: Document 12/17/20 13:00 [facility] (Rec: 12/22/20 15:06 [facility] [email or web address]) Trunk Strength Trunk Manual Muscle Testing Testing Position Supine Flexion 4 Good Core Stabilization Kimber is able to facilitate her TA with good awareness PT-OP-Q Treatments Start: 12/17/20 09:07 Freq: Status: Active Protocol: Document 02/18/21 09:01 [facility] (Rec: 02/18/21 09:40 [facility] [id number]) Gym Equipment Shuttle Recovery Bilateral Squats Reps/Time 3 x 10 reps Manual Therapy Treatment Soft Tissue Mobilization right quad and iliopsoas MFR Body Location right quad and iliopsoas Body Position Supine Comments worked in both supine and sidelying to release the quad and iliopsoas Manual Techniques gentle hip distraction Comments good tolerance posterior capsule stretch Type posterior hip capsule stretch Comments good tolerance manual ilopsoas and quad stretches Body Position Sidelying Comments with PROM knee flexion PT-OP-T Assessment and Plan Start: 12/17/20 09:07 Freq: Status: Active Protocol: Document 02/18/21 09:01 [facility] (Rec: 02/18/21 09:40 [facility] [id number]) Physical Therapy Assessment Assessment Summary Assessment pt was shown squat jumps on the shuttle today, also tried gentle hip distraction. Pt could feel more on the left side with NMES. Physical Therapy Plan Frequency and Duration Frequency of Treatment 2x/Week Duration of Treatment 8 Plan of Care Start Date 02/16/21 Plan of Care End Date 05/04/21 Therapeutic Interventions Therapeutic Interventions Home Exercise Program,Manual Therapy,Patient/Caregiver Education,Self-Care/Home Management,Soft Tissue Mobilization,Therapeutic Exercises Modalities Biofeedback Next Visit Focus/Plan Next Note Type Treatment Note Next Visit Plan review squat jumps next visit, theraband around thighs for jumps
--- NOTE | 2021-02-23 11:44 | PT.OTN ---
Current Diagnoses Pain in unspecified hip (02/23/21) Physical Therapy Treatment Note PT-OP-A Visit Information Start: 12/17/20 09:07 Freq: Status: Active Protocol: Document 02/23/21 08:59 [facility] (Rec: 02/23/21 09:02 [facility] [id number]) Out-Patient Physical Therapy Visit Information Visit Information Visit Type Treatment Note Visit Start Time 09:00 Visit Stop Time 09:45 Total Visit Minutes 45 Visit Number 16 PT-OP-B Current Condition Start: 12/17/20 09:07 Freq: Status: Active Protocol: Document 12/17/20 12:56 [facility] (Rec: 12/17/20 13:07 [facility] [id number]) Current Condition History of Current Condition History of Current Condition 10/17/20 vaginal delivery no tears and now it feels really tight. She complains of right hip clicking and tightness in the front of her hip, medial ankle on the right painful more so when she stands. When she is rocking back and when she is walking she can feel her anterior hip click. PT-OP-C Subjective Start: 12/17/20 09:07 Freq: Status: Active Protocol: Document 02/23/21 08:59 [facility] (Rec: 02/23/21 09:02 [facility] [id number]) OP-PT Subjective Patient Comments Patient Comments using the band for jump squats and it makes her feel more stable. Patient Reported Progress Improving PT-OP-F Manual Assessment Start: 12/17/20 09:07 Freq: Status: Active Protocol: Document 12/17/20 13:00 [facility] (Rec: 12/22/20 15:06 [facility] [email or web address]) Manual Assessments Soft Tissue Assessment Soft Tissue Mobility Assessment tightness of the right iliopsoas, ITB, quad attachments to the ASIS left lateral wall of the pelvic floor tight and guarded PT-OP-I Pelvic Floor Start: 12/17/20 09:07 Freq: Status: Active Protocol: Document 12/17/20 13:00 [facility] (Rec: 12/22/20 15:06 [facility] [email or web address]) Pelvic Floor Assessment Pelvic Clock Pelvic Clock 3-6 Guarding Contraction Ability Voluntary Contraction Moderate Voluntary Relaxation Moderate Manual Muscle Testing Left 4 Manual Muscle Testing Right 4 Manual Muscle Testing Anterior 4 Manual Muscle Testing Posterior 4 Comments Pelvic Floor Comments pt has good ability to contract and tighten the pelvic floor. She is more guarded on the left side and has difficulty relaxing following a pelvic floor contraction. There was elevated tone on EMG biofeedback with difficulty relaxing. Kimber notes she can feel the tightness in her pelvic floor. PT-OP-J Posture/Palpation/Skin Start: 12/17/20 09:07 Freq: Status: Active Protocol: Document 12/17/20 13:00 [facility] (Rec: 12/22/20 15:06 [facility] [id number]) Palpation Assessment Location R ASIS Palpation Location tenderness right ASIS right SI joint Palpation Location right SI joint PSIS Palpation Findings Tenderness Palpation Details tenderness to palpation over the right ASIS PT-OP-M Strength Start: 12/17/20 09:07 Freq: Status: Active Protocol: Document 12/17/20 13:00 [facility] (Rec: 12/22/20 15:06 [facility] [id number]) Trunk Strength Trunk Manual Muscle Testing Testing Position Supine Flexion 4 Good Core Stabilization Kimber is able to facilitate her TA with good awareness PT-OP-Q Treatments Start: 12/17/20 09:07 Freq: Status: Active Protocol: Document 02/23/21 09:00 [facility] (Rec: 02/23/21 11:43 [facility] [id number]) Manual Therapy Treatment Soft Tissue Mobilization right quad and iliopsoas MFR Body Location right quad and iliopsoas Body Position Supine Comments worked in both supine and sidelying to release the quad and iliopsoas Manual Techniques manual iliopsoasd release in sidelying Type sidelying ilospsoas release Body Position Sidelying manual ilopsoas and quad stretches Body Position Sidelying Comments with PROM knee flexion Neuro Re-Education Treatment Other Activities NMES for pelvic floor Details NMES PELVIC FLOOR Reps/Duration x 10 min Comments able to feel the posterior part of the left side PT-OP-T Assessment and Plan Start: 12/17/20 09:07 Freq: Status: Active Protocol: Document 02/23/21 09:00 [facility] (Rec: 02/23/21 11:43 [facility] [email or web address]) Physical Therapy Assessment Assessment Summary Assessment pt doing well with the theraband for squat jumps, she has one visit left after today. We will focus on pelvic floor next visit. She will then recheck in one month . Physical Therapy Plan Frequency and Duration Frequency of Treatment 2x/Week Duration of Treatment 8 Plan of Care Start Date 02/16/21 Plan of Care End Date 05/04/21 Therapeutic Interventions Therapeutic Interventions Home Exercise Program,Manual Therapy,Patient/Caregiver Education,Self-Care/Home Management,Soft Tissue Mobilization,Therapeutic Exercises Modalities Biofeedback Next Visit Focus/Plan Next Note Type Treatment Note Next Visit Plan pelvic floor work with EMG biofeedback next visit, JOVANNIES.
--- NOTE | 2021-02-25 13:26 | PT.OTN ---
Current Diagnoses Pain in unspecified hip (02/25/21) Physical Therapy Treatment Note PT-OP-A Visit Information Start: 12/17/20 09:07 Freq: Status: Active Protocol: Document 02/25/21 09:01 [facility] (Rec: 02/25/21 09:45 [facility] [id number]) Out-Patient Physical Therapy Visit Information Visit Information Visit Type Treatment Note Visit Start Time 09:00 Visit Stop Time 09:45 Total Visit Minutes 45 Visit Number 17 PT-OP-B Current Condition Start: 12/17/20 09:07 Freq: Status: Active Protocol: Document 12/17/20 12:56 [facility] (Rec: 12/17/20 13:07 [facility] [id number]) Current Condition History of Current Condition History of Current Condition 10/17/20 vaginal delivery no tears and now it feels really tight. She complains of right hip clicking and tightness in the front of her hip, medial ankle on the right painful more so when she stands. When she is rocking back and when she is walking she can feel her anterior hip click. PT-OP-C Subjective Start: 12/17/20 09:07 Freq: Status: Active Protocol: Document 02/25/21 09:01 [facility] (Rec: 02/25/21 09:45 [facility] [id number]) OP-PT Subjective Patient Comments Patient Comments pt notes she has been working out and using the bands for her hips. Overall doing better with decreased c/o pelvic heaviness PT-OP-F Manual Assessment Start: 12/17/20 09:07 Freq: Status: Active Protocol: Document 12/17/20 13:00 [facility] (Rec: 12/22/20 15:06 [facility] [email or web address]) Manual Assessments Soft Tissue Assessment Soft Tissue Mobility Assessment tightness of the right iliopsoas, ITB, quad attachments to the ASIS left lateral wall of the pelvic floor tight and guarded PT-OP-I Pelvic Floor Start: 12/17/20 09:07 Freq: Status: Active Protocol: Document 12/17/20 13:00 [facility] (Rec: 12/22/20 15:06 [facility] [email or web address]) Pelvic Floor Assessment Pelvic Clock Pelvic Clock 3-6 Guarding Contraction Ability Voluntary Contraction Moderate Voluntary Relaxation Moderate Manual Muscle Testing Left 4 Manual Muscle Testing Right 4 Manual Muscle Testing Anterior 4 Manual Muscle Testing Posterior 4 Comments Pelvic Floor Comments pt has good ability to contract and tighten the pelvic floor. She is more guarded on the left side and has difficulty relaxing following a pelvic floor contraction. There was elevated tone on EMG biofeedback with difficulty relaxing. Kimber notes she can feel the tightness in her pelvic floor. PT-OP-J Posture/Palpation/Skin Start: 12/17/20 09:07 Freq: Status: Active Protocol: Document 12/17/20 13:00 [facility] (Rec: 12/22/20 15:06 [facility] [email or web address]) Palpation Assessment Location R ASIS Palpation Location tenderness right ASIS right SI joint Palpation Location right SI joint PSIS Palpation Findings Tenderness Palpation Details tenderness to palpation over the right ASIS PT-OP-M Strength Start: 12/17/20 09:07 Freq: Status: Active Protocol: Document 12/17/20 13:00 [facility] (Rec: 12/22/20 15:06 [facility] [email or web address]) Trunk Strength Trunk Manual Muscle Testing Testing Position Supine Flexion 4 Good Core Stabilization Kimber is able to facilitate her TA with good awareness PT-OP-Q Treatments Start: 12/17/20 09:07 Freq: Status: Active Protocol: Document 02/25/21 09:01 [facility] (Rec: 02/25/21 09:45 [facility] [id number]) Therapeutic Exercises Supine Exercises templates for eccentric control and coordination Supine Exercise Name EMG biofeedback pelvic floor templates for eccentric control and coordinati Comments x 5 min quick contractions Reps/Minutes x 10 reps Comments 21.6 uv pelvic floor long holds with relaxation Equipment Used x 10 reps Reps/Minutes x 10 Comments 14.6 28.3 Sidelying Exercises clam shells Reps/Minutes 3 x 10 reps Neuro Re-Education Treatment Other Activities NMES for pelvic floor Details NMES PELVIC FLOOR Reps/Duration x 10 min Comments able to feel the posterior part of the left side PT-OP-T Assessment and Plan Start: 12/17/20 09:07 Freq: Status: Active Protocol: Document 02/25/21 09:00 [facility] (Rec: 02/25/21 13:26 [facility] [email or web address]) Physical Therapy Assessment Assessment Summary Assessment Mimi has made really good progress overall since the of her baby girl She is much stronger in her pelvic floor and is resuming more activities at home. She has begun gentle weight lifting again and we have worked on her form and body mechanics for this as well as continued work on her hip. She tends to be chronically tight in the right psoas musculature from her histoy with hip surgery. She is currently being seen by Dr. John for dry needling as this really helped her in the past. Kimber will work follow up with me for a revisit in a month to review her exercises and modify if needed. Physical Therapy Plan Frequency and Duration Frequency of Treatment 2x/Week Duration of Treatment 8 Plan of Care Start Date 02/16/21 Plan of Care End Date 05/04/21 Therapeutic Interventions Therapeutic Interventions Home Exercise Program,Manual Therapy,Patient/Caregiver Education,Self-Care/Home Management,Soft Tissue Mobilization,Therapeutic Exercises Modalities Biofeedback Next Visit Focus/Plan Next Note Type Treatment Note Next Visit Plan review HEP, modify if needed, check length and tone of iliopsoas
--- NOTE | 2021-04-07 12:22 | PT.OTN ---
Current Diagnoses Pain in unspecified hip (04/07/21) Physical Therapy Treatment Note PT-OP-A Visit Information Start: 12/17/20 09:07 Freq: Status: Active Protocol: Document 04/07/21 11:16 [facility] (Rec: 04/07/21 12:05 [facility] [id number]) Out-Patient Physical Therapy Visit Information Visit Information Visit Type Treatment Note Visit Start Time 11:15 Visit Stop Time 12:00 Total Visit Minutes 45 Visit Number 18 PT-OP-B Current Condition Start: 12/17/20 09:07 Freq: Status: Active Protocol: Document 12/17/20 12:56 [facility] (Rec: 12/17/20 13:07 [facility] [id number]) Current Condition History of Current Condition History of Current Condition 10/17/20 vaginal delivery no tears and now it feels really tight. She complains of right hip clicking and tightness in the front of her hip, medial ankle on the right painful more so when she stands. When she is rocking back and when she is walking she can feel her anterior hip click. PT-OP-C Subjective Start: 12/17/20 09:07 Freq: Status: Active Protocol: Document 04/07/21 11:16 [facility] (Rec: 04/07/21 12:05 [facility] [id number]) OP-PT Subjective Patient Comments Patient Comments Slowly progressing her exercises, still feels a little unstable in her SI joint with specific exercises like loaded squats. She is still feeling anterior hip pain and feels that her hip is tight. She is having a consult with a orthopedic surgeon to see if taking out the hardware in her pelvis would help her. Patient Reported Progress Same PT-OP-F Manual Assessment Start: 12/17/20 09:07 Freq: Status: Active Protocol: Document 12/17/20 13:00 [facility] (Rec: 12/22/20 15:06 [facility] [email or web address]) Manual Assessments Soft Tissue Assessment Soft Tissue Mobility Assessment tightness of the right iliopsoas, ITB, quad attachments to the ASIS left lateral wall of the pelvic floor tight and guarded PT-OP-I Pelvic Floor Start: 12/17/20 09:07 Freq: Status: Active Protocol: Document 12/17/20 13:00 [facility] (Rec: 12/22/20 15:06 [facility] [email or web address]) Pelvic Floor Assessment Pelvic Clock Pelvic Clock 3-6 Guarding Contraction Ability Voluntary Contraction Moderate Voluntary Relaxation Moderate Manual Muscle Testing Left 4 Manual Muscle Testing Right 4 Manual Muscle Testing Anterior 4 Manual Muscle Testing Posterior 4 Comments Pelvic Floor Comments pt has good ability to contract and tighten the pelvic floor. She is more guarded on the left side and has difficulty relaxing following a pelvic floor contraction. There was elevated tone on EMG biofeedback with difficulty relaxing. Kimber notes she can feel the tightness in her pelvic floor. PT-OP-J Posture/Palpation/Skin Start: 12/17/20 09:07 Freq: Status: Active Protocol: Document 12/17/20 13:00 [facility] (Rec: 12/22/20 15:06 [facility] [email or web address]) Palpation Assessment Location R ASIS Palpation Location tenderness right ASIS right SI joint Palpation Location right SI joint PSIS Palpation Findings Tenderness Palpation Details tenderness to palpation over the right ASIS PT-OP-M Strength Start: 12/17/20 09:07 Freq: Status: Active Protocol: Document 12/17/20 13:00 [facility] (Rec: 12/22/20 15:06 [facility] [email or web address]) Trunk Strength Trunk Manual Muscle Testing Testing Position Supine Flexion 4 Good Core Stabilization Kimber is able to facilitate her TA with good awareness PT-OP-Q Treatments Start: 12/17/20 09:07 Freq: Status: Active Protocol: Document 04/07/21 11:15 [facility] (Rec: 04/07/21 12:20 [facility] [email or web address]) Therapeutic Exercises Supine Exercises reviewed the hundred exercise Comments pt given this exercise as a alternative to leg lowering PT-OP-T Assessment and Plan Start: 12/17/20 09:07 Freq: Status: Active Protocol: Document 04/07/21 11:15 [facility] (Rec: 04/07/21 12:20 [facility] [email or web address]) Physical Therapy Assessment Assessment Summary Assessment Mimi is 5 1/2 months post . She continues to work on her stabilization program at home. She is still experiencing some locking in her SI joint and the feeling of instability with certain exercises like squats. Her anterior hip still feels tight to her. Today we worked on the attachments to the ASIS with a instrument assited tool for scar release. Kimber tolerated this well. She does have a appointment with a ortho doc for considering taking out the hardware in her right pelvis. Kimber would like a recheck in 4-6 weeks with PT Physical Therapy Plan Frequency and Duration Frequency of Treatment 2x/Week Duration of Treatment 8 Plan of Care Start Date 02/16/21 Plan of Care End Date 05/04/21 Therapeutic Interventions Therapeutic Interventions Home Exercise Program,Manual Therapy,Patient/Caregiver Education,Self-Care/Home Management,Soft Tissue Mobilization,Therapeutic Exercises Modalities Biofeedback Next Visit Focus/Plan Next Note Type Progress Note Next Visit Plan review HEP, modify if needed, check length and tone of iliopsoas, revist scar tissue release massage how pt did with this last visit
--- NOTE | 2021-05-13 17:26 | PT.OTN ---
Current Diagnoses Pain in unspecified hip (05/13/21) Physical Therapy Treatment Note PT-OP-A Visit Information Start: 12/17/20 09:07 Freq: Status: Active Protocol: Document 05/13/21 14:35 [facility] (Rec: 05/13/21 14:36 [facility] [id number]) Out-Patient Physical Therapy Visit Information Visit Information Visit Type Treatment Note Visit Start Time 14:30 Visit Stop Time 15:15 Total Visit Minutes 45 Visit Number 19 PT-OP-B Current Condition Start: 12/17/20 09:07 Freq: Status: Active Protocol: Document 12/17/20 12:56 [facility] (Rec: 12/17/20 13:07 [facility] [id number]) Current Condition History of Current Condition History of Current Condition 10/17/20 vaginal delivery no tears and now it feels really tight. She complains of right hip clicking and tightness in the front of her hip, medial ankle on the right painful more so when she stands. When she is rocking back and when she is walking she can feel her anterior hip click. PT-OP-C Subjective Start: 12/17/20 09:07 Freq: Status: Active Protocol: Document 05/13/21 14:35 [facility] (Rec: 05/13/21 14:36 [facility] [id number]) OP-PT Subjective Patient Comments Patient Comments xrays taken and the hardware looks really good. Hardly any arthritis in that hip. PT-OP-F Manual Assessment Start: 12/17/20 09:07 Freq: Status: Active Protocol: Document 12/17/20 13:00 [facility] (Rec: 12/22/20 15:06 [facility] [email or web address]) Manual Assessments Soft Tissue Assessment Soft Tissue Mobility Assessment tightness of the right iliopsoas, ITB, quad attachments to the ASIS left lateral wall of the pelvic floor tight and guarded PT-OP-I Pelvic Floor Start: 12/17/20 09:07 Freq: Status: Active Protocol: Document 12/17/20 13:00 [facility] (Rec: 12/22/20 15:06 [facility] [email or web address]) Pelvic Floor Assessment Pelvic Clock Pelvic Clock 3-6 Guarding Contraction Ability Voluntary Contraction Moderate Voluntary Relaxation Moderate Manual Muscle Testing Left 4 Manual Muscle Testing Right 4 Manual Muscle Testing Anterior 4 Manual Muscle Testing Posterior 4 Comments Pelvic Floor Comments pt has good ability to contract and tighten the pelvic floor. She is more guarded on the left side and has difficulty relaxing following a pelvic floor contraction. There was elevated tone on EMG biofeedback with difficulty relaxing. Kimber notes she can feel the tightness in her pelvic floor. PT-OP-J Posture/Palpation/Skin Start: 12/17/20 09:07 Freq: Status: Active Protocol: Document 12/17/20 13:00 [facility] (Rec: 12/22/20 15:06 [facility] [id number]) Palpation Assessment Location R ASIS Palpation Location tenderness right ASIS right SI joint Palpation Location right SI joint PSIS Palpation Findings Tenderness Palpation Details tenderness to palpation over the right ASIS PT-OP-M Strength Start: 12/17/20 09:07 Freq: Status: Active Protocol: Document 12/17/20 13:00 [facility] (Rec: 12/22/20 15:06 [facility] [id number]) Trunk Strength Trunk Manual Muscle Testing Testing Position Supine Flexion 4 Good Core Stabilization Kimber is able to facilitate her TA with good awareness PT-OP-Q Treatments Start: 12/17/20 09:07 Freq: Status: Active Protocol: Document 05/13/21 17:21 [facility] (Rec: 05/13/21 17:26 [facility] [id number]) Manual Therapy Treatment Soft Tissue Mobilization right quad and iliopsoas MFR Body Location right quad and iliopsoas Body Position Supine Comments worked in both supine and sidelying to release the quad and iliopsoas 1 Body Location right iliopsoas and quads Comments manual STM/MFR over the right quadriceps and iliopsoas Manual Techniques manual iliopsoasd release in sidelying Type sidelying ilospsoas release Body Position Sidelying PT-OP-R Modalities Start: 05/13/21 17:21 Freq: Status: Active Protocol: Document 05/13/21 17:21 [facility] (Rec: 05/13/21 17:26 [facility] [id number]) Ultrasound Therapy Treatment right quad attachments to the iliac crest Treatment Duration (minutes) 8 Patient Position Sitting Coupling Medium Ultrasound Gel Applicator Size (cm2) 5 Mode Setting Continuous Duty Cycle 100% PT-OP-T Assessment and Plan Start: 12/17/20 09:07 Freq: Status: Active Protocol: Document 05/13/21 17:21 [facility] (Rec: 05/13/21 17:26 [facility] [email or web address]) Physical Therapy Assessment Goals left side pelvic floor guarding Impairment left side of the lateral pelvic floor guarded and tight Short Term Goal (STG) Kimber is educated in relaxed awarenss of the pelvic floor and is able to relax to baseline on EMG biofeedback Goal met STG Duration 5 weeks hip pain rated 4/10 Impairment right sided hip pain rated 4/ 10, c/o hip clicking with standing rocking [employer] Goal (LTG) Kimber reports a overall reduction in hip tightness and pain and is no longer experiencing clicking when she stands to rock her baby After not being seen since March Kimber is reporting increased hip tightness LTG Duration 8 weeks difficulty with squatting Impairment Difficulty with squatting activity due to R SI pain Usp Goal (LTG) SI pain is intermittent and comes and goes, squating without weight is okay but with resistance she has pain. iliopsoas tightness R>L Impairment Iliopsoas tightness R>L Short Term Goal (STG) Kimber is educated in stretches she can do now that she is in the period for her right iliopsoas Goal met STG Duration 4 weeks Assessment Summary Assessment pt returns to PT after not being seen since April 07. She feels her hip is getting tighter. She saw orthopedic MD and he would like to her to dry needling and continued PT on a more consistent basis. Dry needling really worked for her after her hip surgery and she has been seeing Dr. John for this. Kimber would benefit from continued PT Physical Therapy Plan Frequency and Duration Frequency of Treatment 2x/Week Duration of Treatment 8 Plan of Care Start Date 05/13/21 Plan of Care End Date 07/13/21 Therapeutic Interventions Therapeutic Interventions Home Exercise Program,Manual Therapy,Patient/Caregiver Education,Self-Care/Home Management,Soft Tissue Mobilization,Therapeutic Exercises Modalities Biofeedback
--- NOTE | 2021-05-13 17:27 | PT.OPPOC ---
Physical, Occupational & Speech Therapy At [facility] Current Diagnoses Pain in unspecified hip (05/13/21) Visit Care Team Role Provider Type Chayo Diego MD Attending Provider Physician Family Provider Primary Care Provider Referring Provider Specialty: Family Practice Address: [address] [place] [address], [id number] Email: [email or web address] Plan Of Care PT-OP-T Assessment and Plan Start: 12/17/20 09:07 Freq: Status: Active Protocol: Document 05/13/21 17:21 [facility] (Rec: 05/13/21 17:26 [facility] [email or web address]) Physical Therapy Assessment Goals left side pelvic floor guarding Impairment left side of the lateral pelvic floor guarded and tight Short Term Goal (STG) Kimber is educated in relaxed awarenss of the pelvic floor and is able to relax to baseline on EMG biofeedback Goal met STG Duration 5 weeks hip pain rated 4/10 Impairment right sided hip pain rated 4/ 10, c/o hip clicking with standing rocking [employer] Goal (LTG) Kimber reports a overall reduction in hip tightness and pain and is no longer experiencing clicking when she stands to rock her baby After not being seen since March Kimber is reporting increased hip tightness LTG Duration 8 weeks difficulty with squatting Impairment Difficulty with squatting activity due to R SI pain [facility] Goal (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 iliopsoas tightness R>L Impairment Iliopsoas tightness R>L Short Term Goal (STG) Kimber is educated in stretches she can do now that she is in the period for her right iliopsoas Goal met STG Duration 4 weeks Assessment Summary Assessment pt returns to PT after not being seen since April 07. She feels her hip is getting tighter. She saw orthopedic MD and he would like to her to dry needling and continued PT on a more consistent basis. Dry needling really worked for her after her hip surgery and she has been seeing Dr. John for this. Kimber would benefit from continued PT Physical Therapy Plan Frequency and Duration Frequency of Treatment 2x/Week Duration of Treatment 8 Plan of Care Start Date 05/13/21 Plan of Care End Date 07/13/21 Therapeutic Interventions Therapeutic Interventions Home Exercise Program,Manual Therapy,Patient/Caregiver Education,Self-Care/Home Management,Soft Tissue Mobilization,Therapeutic Exercises Modalities Biofeedback Plan of Care Dates Plan of Care Start Date 05/13/21 Plan of Care End Date 07/13/21 Electronically Signed by: Hyacinth Gifford, PT 05/13/21 [id number] Please Sign and Return: I have reviewed this Plan of Care and certify that the skilled therapy services above are required to meet the patient?s needs. Physician Signature Date Printed Name and Credentials Clinical Instructor Signature Printed Name and Credentials
--- NOTE | 2021-05-19 11:09 | PT.OTN ---
Current Diagnoses Pain in unspecified hip (05/18/21) Physical Therapy Treatment Note PT-OP-A Visit Information Start: 12/17/20 09:07 Freq: Status: Active Protocol: Document 05/18/21 13:02 [facility] (Rec: 05/18/21 13:03 [facility] [id number]) Out-Patient Physical Therapy Visit Information Visit Information Visit Type Treatment Note Visit Start Time 13:00 Visit Stop Time 13:45 Total Visit Minutes 45 Visit Number 20 PT-OP-B Current Condition Start: 12/17/20 09:07 Freq: Status: Active Protocol: Document 12/17/20 12:56 [facility] (Rec: 12/17/20 13:07 [facility] [id number]) Current Condition History of Current Condition History of Current Condition 10/17/20 vaginal delivery no tears and now it feels really tight. She complains of right hip clicking and tightness in the front of her hip, medial ankle on the right painful more so when she stands. When she is rocking back and when she is walking she can feel her anterior hip click. PT-OP-C Subjective Start: 12/17/20 09:07 Freq: Status: Active Protocol: Document 05/18/21 13:02 [facility] (Rec: 05/18/21 13:03 [facility] [id number]) OP-PT Subjective Patient Comments Patient Comments pt feels like PT helped some last visit, she worked on stretches Monday PT-OP-F Manual Assessment Start: 12/17/20 09:07 Freq: Status: Active Protocol: Document 12/17/20 13:00 [facility] (Rec: 12/22/20 15:06 [facility] [email or web address]) Manual Assessments Soft Tissue Assessment Soft Tissue Mobility Assessment tightness of the right iliopsoas, ITB, quad attachments to the ASIS left lateral wall of the pelvic floor tight and guarded PT-OP-I Pelvic Floor Start: 12/17/20 09:07 Freq: Status: Active Protocol: Document 12/17/20 13:00 [facility] (Rec: 12/22/20 15:06 [facility] [email or web address]) Pelvic Floor Assessment Pelvic Clock Pelvic Clock 3-6 Guarding Contraction Ability Voluntary Contraction Moderate Voluntary Relaxation Moderate Manual Muscle Testing Left 4 Manual Muscle Testing Right 4 Manual Muscle Testing Anterior 4 Manual Muscle Testing Posterior 4 Comments Pelvic Floor Comments pt has good ability to contract and tighten the pelvic floor. She is more guarded on the left side and has difficulty relaxing following a pelvic floor contraction. There was elevated tone on EMG biofeedback with difficulty relaxing. Kimber notes she can feel the tightness in her pelvic floor. PT-OP-J Posture/Palpation/Skin Start: 12/17/20 09:07 Freq: Status: Active Protocol: Document 12/17/20 13:00 [facility] (Rec: 12/22/20 15:06 [facility] [email or web address]) Palpation Assessment Location R ASIS Palpation Location tenderness right ASIS right SI joint Palpation Location right SI joint PSIS Palpation Findings Tenderness Palpation Details tenderness to palpation over the right ASIS PT-OP-M Strength Start: 12/17/20 09:07 Freq: Status: Active Protocol: Document 12/17/20 13:00 [facility] (Rec: 12/22/20 15:06 [facility] [email or web address]) Trunk Strength Trunk Manual Muscle Testing Testing Position Supine Flexion 4 Good Core Stabilization Kimber is able to facilitate her TA with good awareness PT-OP-Q Treatments Start: 12/17/20 09:07 Freq: Status: Active Protocol: Document 05/18/21 13:00 [facility] (Rec: 05/19/21 11:08 [facility] [email or web address]) Manual Therapy Treatment Soft Tissue Mobilization right quad and iliopsoas MFR Body Location right quad and iliopsoas Body Position Supine Comments worked in both supine and sidelying to release the quad and iliopsoas 1 Body Location right iliopsoas and quads Comments manual STM/MFR over the right quadriceps and iliopsoas Manual Techniques manual iliopsoasd release in sidelying Type sidelying ilospsoas release Body Position Sidelying manual ilopsoas and quad stretches Body Position Sidelying Comments with PROM knee flexion PT-OP-R Modalities Start: 05/13/21 17:21 Freq: Status: Active Protocol: Document 05/19/21 11:08 [facility] (Rec: 05/19/21 11:09 [facility] [email or web address]) Ultrasound Therapy Treatment right quad attachments to the iliac crest Treatment Duration (minutes) 8 Patient Position Sitting Coupling Medium Ultrasound Gel Applicator Size (cm2) 5 Mode Setting Continuous Duty Cycle 100% PT-OP-T Assessment and Plan Start: 12/17/20 09:07 Freq: Status: Active Protocol: Document 05/18/21 13:00 [facility] (Rec: 05/19/21 11:08 [facility] [email or web address]) Physical Therapy Assessment Assessment Summary Assessment Worked on releasing the quad and iliopsoas, supine and sidelying positions. Pt to continue to work on her stretches at home and is scheduled for more dry needling. Physical Therapy Plan Frequency and Duration Frequency of Treatment 2x/Week Duration of Treatment 8 Plan of Care Start Date 05/13/21 Plan of Care End Date 07/13/21 Therapeutic Interventions Therapeutic Interventions Home Exercise Program,Manual Therapy,Patient/Caregiver Education,Self-Care/Home Management,Soft Tissue Mobilization,Therapeutic Exercises Modalities Biofeedback Next Visit Focus/Plan Next Note Type Treatment Note Next Visit Plan review HEP, modify if needed, check length and tone of iliopsoas, revist scar tissue release with adams next visit
--- NOTE | 2021-06-03 16:49 | PT.OTN ---
Current Diagnoses Pain in unspecified hip (06/02/21) Physical Therapy Treatment Note PT-OP-A Visit Information Start: 12/17/20 09:07 Freq: Status: Active Protocol: Document 06/02/21 11:20 [facility] (Rec: 06/02/21 11:34 [facility] [id number]) Out-Patient Physical Therapy Visit Information Visit Information Visit Type Treatment Note Visit Start Time 11:20 Visit Stop Time 12:00 Total Visit Minutes 40 Visit Number 21 PT-OP-B Current Condition Start: 12/17/20 09:07 Freq: Status: Active Protocol: Document 12/17/20 12:56 [facility] (Rec: 12/17/20 13:07 [facility] [id number]) Current Condition History of Current Condition History of Current Condition 10/17/20 vaginal delivery no tears and now it feels really tight. She complains of right hip clicking and tightness in the front of her hip, medial ankle on the right painful more so when she stands. When she is rocking back and when she is walking she can feel her anterior hip click. PT-OP-C Subjective Start: 12/17/20 09:07 Freq: Status: Active Protocol: Document 06/02/21 11:20 [facility] (Rec: 06/02/21 11:34 [facility] [id number]) OP-PT Subjective Patient Comments Patient Comments pt did have dry needling done yesterday and feels it helped her hip some PT-OP-F Manual Assessment Start: 12/17/20 09:07 Freq: Status: Active Protocol: Document 12/17/20 13:00 [facility] (Rec: 12/22/20 15:06 [facility] [email or web address]) Manual Assessments Soft Tissue Assessment Soft Tissue Mobility Assessment tightness of the right iliopsoas, ITB, quad attachments to the ASIS left lateral wall of the pelvic floor tight and guarded PT-OP-I Pelvic Floor Start: 12/17/20 09:07 Freq: Status: Active Protocol: Document 12/17/20 13:00 [facility] (Rec: 12/22/20 15:06 [facility] [email or web address]) Pelvic Floor Assessment Pelvic Clock Pelvic Clock 3-6 Guarding Contraction Ability Voluntary Contraction Moderate Voluntary Relaxation Moderate Manual Muscle Testing Left 4 Manual Muscle Testing Right 4 Manual Muscle Testing Anterior 4 Manual Muscle Testing Posterior 4 Comments Pelvic Floor Comments pt has good ability to contract and tighten the pelvic floor. She is more guarded on the left side and has difficulty relaxing following a pelvic floor contraction. There was elevated tone on EMG biofeedback with difficulty relaxing. Kimber notes she can feel the tightness in her pelvic floor. PT-OP-J Posture/Palpation/Skin Start: 12/17/20 09:07 Freq: Status: Active Protocol: Document 12/17/20 13:00 [facility] (Rec: 12/22/20 15:06 [facility] [email or web address]) Palpation Assessment Location R ASIS Palpation Location tenderness right ASIS right SI joint Palpation Location right SI joint PSIS Palpation Findings Tenderness Palpation Details tenderness to palpation over the right ASIS PT-OP-M Strength Start: 12/17/20 09:07 Freq: Status: Active Protocol: Document 12/17/20 13:00 [facility] (Rec: 12/22/20 15:06 [facility] [email or web address]) Trunk Strength Trunk Manual Muscle Testing Testing Position Supine Flexion 4 Good Core Stabilization Kimber is able to facilitate her TA with good awareness PT-OP-Q Treatments Start: 12/17/20 09:07 Freq: Status: Active Protocol: Document 06/02/21 11:20 [facility] (Rec: 06/02/21 11:34 [facility] [id number]) Therapeutic Exercises Supine Exercises ball squeeze with pelvic floor activation Reps/Minutes x 5 Manual Therapy Treatment Soft Tissue Mobilization right quad and iliopsoas MFR Body Location right quad and iliopsoas Body Position Supine Comments worked in both supine and sidelying to release the quad and iliopsoas Manual Techniques scar tissue release right anterior hip Body Location right anterior hip and quad Body Position Supine Comments gusha was used to help release myofascial tightness and scar tissue MET for right pelvic ourflare Reps/Duration x 5 reps manual recheck of leg length Comments right leg slightly shorter and outflared manual ilopsoas and quad stretches Body Position supine rufus test position Comments with PROM knee flexion PT-OP-R Modalities Start: 05/13/21 17:21 Freq: Status: Active Protocol: Document 05/18/21 11:08 [facility] (Rec: 05/19/21 11:09 [facility] [email or web address]) Ultrasound Therapy Treatment right quad attachments to the iliac crest Treatment Duration (minutes) 8 Patient Position Sitting Coupling Medium Ultrasound Gel Applicator Size (cm2) 5 Mode Setting Continuous Duty Cycle 100% PT-OP-T Assessment and Plan Start: 12/17/20 09:07 Freq: Status: Active Protocol: Document 06/02/21 11:20 [facility] (Rec: 06/03/21 16:47 [facility] [email or web address]) Physical Therapy Assessment Assessment Summary Assessment Dry needling does seem to help soften the quad for Kimber. I did try using the gusha today to help assist with tightness and scar tissue release and Kimber responded well to this Physical Therapy Plan Frequency and Duration Frequency of Treatment 2x/Week Duration of Treatment 8 Plan of Care Start Date 05/13/21 Plan of Care End Date 07/13/21 Therapeutic Interventions Therapeutic Interventions Home Exercise Program,Manual Therapy,Patient/Caregiver Education,Self-Care/Home Management,Soft Tissue Mobilization,Therapeutic Exercises Modalities Biofeedback Next Visit Focus/Plan Next Note Type Treatment Note Next Visit Plan review HEP, modify if needed, check length and tone of iliopsoas, revist scar tissue release with gusha next visit
--- NOTE | 2021-06-17 14:30 | PT.OTN ---
Current Diagnoses Pain in unspecified hip (06/17/21) Physical Therapy Treatment Note PT-OP-A Visit Information Start: 12/17/20 09:07 Freq: Status: Active Protocol: Document 06/17/21 14:30 [facility] (Rec: 06/23/21 09:38 [facility] [email or web address]) Out-Patient Physical Therapy Visit Information Visit Information Visit Type Treatment Note Visit Start Time 14:30 Visit Stop Time 15:15 Total Visit Minutes 45 Visit Number 22 PT-OP-B Current Condition Start: 12/17/20 09:07 Freq: Status: Active Protocol: Document 12/17/20 12:56 [facility] (Rec: 12/17/20 13:07 [facility] [id number]) Current Condition History of Current Condition History of Current Condition 10/17/20 vaginal delivery no tears and now it feels really tight. She complains of right hip clicking and tightness in the front of her hip, medial ankle on the right painful more so when she stands. When she is rocking back and when she is walking she can feel her anterior hip click. PT-OP-C Subjective Start: 12/17/20 09:07 Freq: Status: Active Protocol: Document 06/17/21 14:30 [facility] (Rec: 06/23/21 09:38 [facility] [email or web address]) OP-PT Subjective Patient Comments Patient Comments pt had dry needling done again this am, feels it has continued to help. Pt also reports her SI went out of alignment this past weekend. PT-OP-F Manual Assessment Start: 12/17/20 09:07 Freq: Status: Active Protocol: Document 12/17/20 13:00 [facility] (Rec: 12/22/20 15:06 [facility] [email or web address]) Manual Assessments Soft Tissue Assessment Soft Tissue Mobility Assessment tightness of the right iliopsoas, ITB, quad attachments to the ASIS left lateral wall of the pelvic floor tight and guarded PT-OP-I Pelvic Floor Start: 12/17/20 09:07 Freq: Status: Active Protocol: Document 12/17/20 13:00 [facility] (Rec: 12/22/20 15:06 [facility] [email or web address]) Pelvic Floor Assessment Pelvic Clock Pelvic Clock 3-6 Guarding Contraction Ability Voluntary Contraction Moderate Voluntary Relaxation Moderate Manual Muscle Testing Left 4 Manual Muscle Testing Right 4 Manual Muscle Testing Anterior 4 Manual Muscle Testing Posterior 4 Comments Pelvic Floor Comments pt has good ability to contract and tighten the pelvic floor. She is more guarded on the left side and has difficulty relaxing following a pelvic floor contraction. There was elevated tone on EMG biofeedback with difficulty relaxing. Kimber notes she can feel the tightness in her pelvic floor. PT-OP-J Posture/Palpation/Skin Start: 12/17/20 09:07 Freq: Status: Active Protocol: Document 12/17/20 13:00 [facility] (Rec: 12/22/20 15:06 [facility] [email or web address]) Palpation Assessment Location R ASIS Palpation Location tenderness right ASIS right SI joint Palpation Location right SI joint PSIS Palpation Findings Tenderness Palpation Details tenderness to palpation over the right ASIS PT-OP-M Strength Start: 12/17/20 09:07 Freq: Status: Active Protocol: Document 12/17/20 13:00 [facility] (Rec: 12/22/20 15:06 [facility] [email or web address]) Trunk Strength Trunk Manual Muscle Testing Testing Position Supine Flexion 4 Good Core Stabilization Kimber is able to facilitate her TA with good awareness PT-OP-Q Treatments Start: 12/17/20 09:07 Freq: Status: Active Protocol: Document 06/17/21 14:30 [facility] (Rec: 06/23/21 09:38 [facility] [email or web address]) Manual Therapy Treatment Soft Tissue Mobilization right quad and iliopsoas MFR Body Location right quad and iliopsoas Body Position Supine Comments worked in both supine and sidelying to release the quad and iliopsoas Manual Techniques manual recheck of leg length Comments pt aligned today, review of all stabilization exercises manual iliopsoasd release in sidelying Type sidelying ilospsoas release Body Position Sidelying manual ilopsoas and quad stretches Body Position supine rufus test position Comments with PROM knee flexion Self-Care/Home Management Treatment Education Patient Education Body Mechanics,Home Exercise Program Other Education reviewed body mechanics especially for picking up her baby Anayeli from the crib as Kimber mentioned that she had to lower the mattress down in the crib. PT-OP-R Modalities Start: 05/13/21 17:21 Freq: Status: Active Protocol: Document 05/18/21 11:08 [facility] (Rec: 05/19/21 11:09 [facility] [email or web address]) Ultrasound Therapy Treatment right quad attachments to the iliac crest Treatment Duration (minutes) 8 Patient Position Sitting Coupling Medium Ultrasound Gel Applicator Size (cm2) 5 Mode Setting Continuous Duty Cycle 100% PT-OP-T Assessment and Plan Start: 12/17/20 09:07 Freq: Status: Active Protocol: Document 06/17/21 14:30 [facility] (Rec: 06/23/21 09:38 [email or web address] [email or web address]) Physical Therapy Assessment Assessment Summary Assessment we worked today on review of exercises for SI stabilization and body mechanics for picking up Anayeli from the crib. Manual work for the right quad and iliopsoas was performed Physical Therapy Plan Frequency and Duration Frequency of Treatment 2x/Week Duration of Treatment 8 Plan of Care Start Date 05/13/21 Plan of Care End Date 07/13/21 Therapeutic Interventions Therapeutic Interventions Home Exercise Program,Manual Therapy,Patient/Caregiver Education,Self-Care/Home Management,Soft Tissue Mobilization,Therapeutic Exercises Modalities Biofeedback Next Visit Focus/Plan Next Note Type Treatment Note Next Visit Plan review HEP, modify if needed, check length and tone of iliopsoas, revist scar tissue release with adams next visit
--- NOTE | 2021-06-24 14:08 | PT.OTN ---
Current Diagnoses Pain in unspecified hip (06/24/21) Physical Therapy Treatment Note PT-OP-A Visit Information Start: 12/17/20 09:07 Freq: Status: Active Protocol: Document 06/24/21 13:59 [facility] (Rec: 06/24/21 14:08 [facility] [email or web address]) Out-Patient Physical Therapy Visit Information Visit Information Visit Type Treatment Note Visit Start Time 09:45 Visit Stop Time 10:30 Total Visit Minutes 45 Visit Number 23 PT-OP-B Current Condition Start: 12/17/20 09:07 Freq: Status: Active Protocol: Document 12/17/20 12:56 [facility] (Rec: 12/17/20 13:07 [facility] [id number]) Current Condition History of Current Condition History of Current Condition 10/17/20 vaginal delivery no tears and now it feels really tight. She complains of right hip clicking and tightness in the front of her hip, medial ankle on the right painful more so when she stands. When she is rocking back and when she is walking she can feel her anterior hip click. PT-OP-C Subjective Start: 12/17/20 09:07 Freq: Status: Active Protocol: Document 06/24/21 13:59 [facility] (Rec: 06/24/21 14:08 [facility] [email or web address]) OP-PT Subjective Patient Comments Patient Comments pt reports putting her baby into and out of the crib has thrown her low back out this week. She notes pain in her sacral region PT-OP-F Manual Assessment Start: 12/17/20 09:07 Freq: Status: Active Protocol: Document 12/17/20 13:00 [facility] (Rec: 12/22/20 15:06 [facility] [email or web address]) Manual Assessments Soft Tissue Assessment Soft Tissue Mobility Assessment tightness of the right iliopsoas, ITB, quad attachments to the ASIS left lateral wall of the pelvic floor tight and guarded PT-OP-I Pelvic Floor Start: 12/17/20 09:07 Freq: Status: Active Protocol: Document 12/17/20 13:00 [facility] (Rec: 12/22/20 15:06 [facility] [email or web address]) Pelvic Floor Assessment Pelvic Clock Pelvic Clock 3-6 Guarding Contraction Ability Voluntary Contraction Moderate Voluntary Relaxation Moderate Manual Muscle Testing Left 4 Manual Muscle Testing Right 4 Manual Muscle Testing Anterior 4 Manual Muscle Testing Posterior 4 Comments Pelvic Floor Comments pt has good ability to contract and tighten the pelvic floor. She is more guarded on the left side and has difficulty relaxing following a pelvic floor contraction. There was elevated tone on EMG biofeedback with difficulty relaxing. Kimber notes she can feel the tightness in her pelvic floor. PT-OP-J Posture/Palpation/Skin Start: 12/17/20 09:07 Freq: Status: Active Protocol: Document 12/17/20 13:00 [facility] (Rec: 12/22/20 15:06 [facility] [email or web address]) Palpation Assessment Location R ASIS Palpation Location tenderness right ASIS right SI joint Palpation Location right SI joint PSIS Palpation Findings Tenderness Palpation Details tenderness to palpation over the right ASIS PT-OP-M Strength Start: 12/17/20 09:07 Freq: Status: Active Protocol: Document 12/17/20 13:00 [facility] (Rec: 12/22/20 15:06 [facility] [email or web address]) Trunk Strength Trunk Manual Muscle Testing Testing Position Supine Flexion 4 Good Core Stabilization Kimber is able to facilitate her TA with good awareness PT-OP-Q Treatments Start: 12/17/20 09:07 Freq: Status: Active Protocol: Document 06/24/21 13:59 [facility] (Rec: 06/24/21 14:08 [facility] [email or web address]) Manual Therapy Treatment Soft Tissue Mobilization lumbar paraspinals Body Location lumbar Mobilization Type Myofascial Release Comments left greater than right lumbar paraspinal tightness Manual Techniques manual sacral decompression Type manual sacral decompression and work into counter nutation MET for right pelvic ourflare Reps/Duration x 5 reps manual MET for right innominant anterior rotation Type MET right innominant anterior rotation Reps/Duration x 5 reps PT-OP-R Modalities Start: 05/13/21 17:21 Freq: Status: Active Protocol: Document 05/18/21 11:08 [facility] (Rec: 05/19/21 11:09 [facility] [email or web address]) Ultrasound Therapy Treatment right quad attachments to the iliac crest Treatment Duration (minutes) 8 Patient Position Sitting Coupling Medium Ultrasound Gel Applicator Size (cm2) 5 Mode Setting Continuous Duty Cycle 100% PT-OP-T Assessment and Plan Start: 12/17/20 09:07 Freq: Status: Active Protocol: Document 06/24/21 13:59 [facility] (Rec: 06/24/21 14:08 [facility] [email or web address]) Physical Therapy Assessment Assessment Summary Assessment paraspinal tightness and guarding today and the sacrum was held in counter nutation Physical Therapy Plan Frequency and Duration Frequency of Treatment 2x/Week Duration of Treatment 8 Plan of Care Start Date 05/13/21 Plan of Care End Date 07/13/21 Therapeutic Interventions Therapeutic Interventions Home Exercise Program,Manual Therapy,Patient/Caregiver Education,Self-Care/Home Management,Soft Tissue Mobilization,Therapeutic Exercises Modalities Biofeedback Discharge Physical Therapy Discharge Reasons Change in Medical Status Discharge Comments Pt being induced tonight for delivery Next Visit Focus/Plan Next Note Type Treatment Note Next Visit Plan recheck sacral alignment, review body mechanics for lifting baby in and out of the crib, check length and tone of iliopsoas, revist scar tissue release with adams next visit
--- NOTE | 2021-06-29 09:53 | PT.OTN ---
Current Diagnoses Pain in unspecified hip (06/29/21) Physical Therapy Treatment Note PT-OP-A Visit Information Start: 12/17/20 09:07 Freq: Status: Active Protocol: Document 06/29/21 09:02 [facility] (Rec: 06/29/21 09:03 [facility] [id number]) Out-Patient Physical Therapy Visit Information Visit Information Visit Type Treatment Note Visit Start Time 09:00 Visit Stop Time 09:45 Total Visit Minutes 1,030 Visit Number 24 PT-OP-B Current Condition Start: 12/17/20 09:07 Freq: Status: Active Protocol: Document 12/17/20 12:56 [facility] (Rec: 12/17/20 13:07 [facility] [id number]) Current Condition History of Current Condition History of Current Condition 10/17/20 vaginal delivery no tears and now it feels really tight. She complains of right hip clicking and tightness in the front of her hip, medial ankle on the right painful more so when she stands. When she is rocking back and when she is walking she can feel her anterior hip click. PT-OP-C Subjective Start: 12/17/20 09:07 Freq: Status: Active Protocol: Document 06/29/21 09:01 [facility] (Rec: 06/29/21 09:02 [facility] [id number]) OP-PT Subjective Patient Comments Patient Comments pt reports she was doing good until yesterday. PT-OP-F Manual Assessment Start: 12/17/20 09:07 Freq: Status: Active Protocol: Document 12/17/20 13:00 [facility] (Rec: 12/22/20 15:06 [facility] [email or web address]) Manual Assessments Soft Tissue Assessment Soft Tissue Mobility Assessment tightness of the right iliopsoas, ITB, quad attachments to the ASIS left lateral wall of the pelvic floor tight and guarded PT-OP-I Pelvic Floor Start: 12/17/20 09:07 Freq: Status: Active Protocol: Document 12/17/20 13:00 [facility] (Rec: 12/22/20 15:06 [facility] [email or web address]) Pelvic Floor Assessment Pelvic Clock Pelvic Clock 3-6 Guarding Contraction Ability Voluntary Contraction Moderate Voluntary Relaxation Moderate Manual Muscle Testing Left 4 Manual Muscle Testing Right 4 Manual Muscle Testing Anterior 4 Manual Muscle Testing Posterior 4 Comments Pelvic Floor Comments pt has good ability to contract and tighten the pelvic floor. She is more guarded on the left side and has difficulty relaxing following a pelvic floor contraction. There was elevated tone on EMG biofeedback with difficulty relaxing. Kimber notes she can feel the tightness in her pelvic floor. PT-OP-J Posture/Palpation/Skin Start: 12/17/20 09:07 Freq: Status: Active Protocol: Document 12/17/20 13:00 [facility] (Rec: 12/22/20 15:06 [facility] [email or web address]) Palpation Assessment Location R ASIS Palpation Location tenderness right ASIS right SI joint Palpation Location right SI joint PSIS Palpation Findings Tenderness Palpation Details tenderness to palpation over the right ASIS PT-OP-M Strength Start: 12/17/20 09:07 Freq: Status: Active Protocol: Document 12/17/20 13:00 [facility] (Rec: 12/22/20 15:06 [facility] [email or web address]) Trunk Strength Trunk Manual Muscle Testing Testing Position Supine Flexion 4 Good Core Stabilization Kimber is able to facilitate her TA with good awareness PT-OP-Q Treatments Start: 12/17/20 09:07 Freq: Status: Active Protocol: Document 06/29/21 09:00 [facility] (Rec: 06/29/21 09:53 [facility] [email or web address]) Therapeutic Exercises Other Exercises tj pose with arms to the left to stretch right side of spine Other Exercise Name quadruped cat stretch> tj pose Reps/Minutes hold stretch Comments w/ manual STMs to parapinals, strum and MF inferior glide quadruped thoracic extension Other Exercise Name quarduped thoracic ext Reps/Minutes x 10 reps quadruped sidebends Other Exercise Name quadruped sidebends Reps/Minutes x 10 reps cat cow Other Exercise Name cat cow> into child's pose Reps/Minutes x 10 reps Manual Therapy Treatment Soft Tissue Mobilization lumbar paraspinals Body Location lumbar Mobilization Type Myofascial Release Comments left greater than right lumbar paraspinal tightness STMs Body Location paraspinals in LS Mobilization Type Myofascial Release,Strumming Intensity/Depth Moderate Body Position Prone Comments quadruped cat stretch>child's pose. Then instruction racquetball roll paraspinals, glut med, TFL on wall sustained pressure and roll- good response Manual Techniques manual sacral decompression Type manual sacral decompression and work into counter nutation Comments worked on sacral counternutation with MET gentle hip distraction Comments good tolerance PT-OP-R Modalities Start: 05/13/21 17:21 Freq: Status: Active Protocol: Document 05/18/21 11:08 [facility] (Rec: 05/19/21 11:09 [facility] [email or web address]) Ultrasound Therapy Treatment right quad attachments to the iliac crest Treatment Duration (minutes) 8 Patient Position Sitting Coupling Medium Ultrasound Gel Applicator Size (cm2) 5 Mode Setting Continuous Duty Cycle 100% PT-OP-T Assessment and Plan Start: 12/17/20 09:07 Freq: Status: Active Protocol: Document 06/29/21 09:00 [facility] (Rec: 06/29/21 09:53 [facility] [email or web address]) Physical Therapy Assessment Assessment Summary Assessment left sided paraspinal guarding today Physical Therapy Plan Frequency and Duration Frequency of Treatment 2x/Week Duration of Treatment 8 Plan of Care Start Date 05/13/21 Plan of Care End Date 07/13/21 Therapeutic Interventions Therapeutic Interventions Home Exercise Program,Manual Therapy,Patient/Caregiver Education,Self-Care/Home Management,Soft Tissue Mobilization,Therapeutic Exercises Modalities Biofeedback Next Visit Focus/Plan Next Note Type Treatment Note Next Visit Plan recheck sacral alignment, review body mechanics for lifting baby in and out of the crib, check length and tone of iliopsoas, revist scar tissue release with gusha next visit
--- NOTE | 2021-08-04 09:37 | PT.OTN ---
Current Diagnoses Pain in unspecified hip (08/04/21) Physical Therapy Treatment Note PT-OP-A Visit Information Start: 12/17/20 09:07 Freq: Status: Active Protocol: Document 08/04/21 09:44 [facility] (Rec: 08/04/21 10:29 [facility] [id number]) Out-Patient Physical Therapy Visit Information Visit Information Visit Type Treatment Note Visit Start Time 09:45 Visit Stop Time 10:30 Total Visit Minutes 45 Visit Number 25 PT-OP-B Current Condition Start: 12/17/20 09:07 Freq: Status: Active Protocol: Document 12/17/20 12:56 [facility] (Rec: 12/17/20 13:07 [facility] [id number]) Current Condition History of Current Condition History of Current Condition 10/17/20 vaginal delivery no tears and now it feels really tight. She complains of right hip clicking and tightness in the front of her hip, medial ankle on the right painful more so when she stands. When she is rocking back and when she is walking she can feel her anterior hip click. PT-OP-C Subjective Start: 12/17/20 09:07 Freq: Status: Active Protocol: Document 08/04/21 09:44 [facility] (Rec: 08/04/21 10:29 [facility] [id number]) OP-PT Subjective Patient Comments Patient Comments pt reports she feels like her standing posture is off. SHe is bending and lifting her daughter so much more now. Her hip is feeling pretty good andnot as tight. PT-OP-F Manual Assessment Start: 12/17/20 09:07 Freq: Status: Active Protocol: Document 12/17/20 13:00 [facility] (Rec: 12/22/20 15:06 [facility] [email or web address]) Manual Assessments Soft Tissue Assessment Soft Tissue Mobility Assessment tightness of the right iliopsoas, ITB, quad attachments to the ASIS left lateral wall of the pelvic floor tight and guarded PT-OP-I Pelvic Floor Start: 12/17/20 09:07 Freq: Status: Active Protocol: Document 12/17/20 13:00 [facility] (Rec: 12/22/20 15:06 [facility] [email or web address]) Pelvic Floor Assessment Pelvic Clock Pelvic Clock 3-6 Guarding Contraction Ability Voluntary Contraction Moderate Voluntary Relaxation Moderate Manual Muscle Testing Left 4 Manual Muscle Testing Right 4 Manual Muscle Testing Anterior 4 Manual Muscle Testing Posterior 4 Comments Pelvic Floor Comments pt has good ability to contract and tighten the pelvic floor. She is more guarded on the left side and has difficulty relaxing following a pelvic floor contraction. There was elevated tone on EMG biofeedback with difficulty relaxing. Kimber notes she can feel the tightness in her pelvic floor. PT-OP-J Posture/Palpation/Skin Start: 12/17/20 09:07 Freq: Status: Active Protocol: Document 12/17/20 13:00 [facility] (Rec: 12/22/20 15:06 [facility] [email or web address]) Palpation Assessment Location R ASIS Palpation Location tenderness right ASIS right SI joint Palpation Location right SI joint PSIS Palpation Findings Tenderness Palpation Details tenderness to palpation over the right ASIS PT-OP-M Strength Start: 12/17/20 09:07 Freq: Status: Active Protocol: Document 12/17/20 13:00 [facility] (Rec: 12/22/20 15:06 [facility] [email or web address]) Trunk Strength Trunk Manual Muscle Testing Testing Position Supine Flexion 4 Good Core Stabilization Kimber is able to facilitate her TA with good awareness PT-OP-Q Treatments Start: 12/17/20 09:07 Freq: Status: Active Protocol: Document 08/04/21 09:45 [facility] (Rec: 08/05/21 09:36 [facility] [email or web address]) Therapeutic Exercises Sidelying Exercises sidelying over the ball to open up the lateral kendall of the QL and lumbar paraspinals Side bilateral Comments R > L sided tightness Other Exercises tj pose with arms to the left to stretch right side of spine Other Exercise Name quadruped cat stretch> tj pose Reps/Minutes hold stretch Comments w/ manual STMs to parapinals, strum and MF inferior glide Manual Therapy Treatment Soft Tissue Mobilization sidelying QL release B Mobilization Type Myofascial Release Body Position Sidelying lumbar paraspinals Body Location lumbar Mobilization Type Myofascial Release Manual Techniques manual sacral decompression Type manual sacral decompression and work into counter nutation Comments worked on sacral counternutation with MET PT-OP-R Modalities Start: 05/13/21 17:21 Freq: Status: Active Protocol: Document 05/18/21 11:08 [facility] (Rec: 05/19/21 11:09 [facility] [email or web address]) Ultrasound Therapy Treatment right quad attachments to the iliac crest Treatment Duration (minutes) 8 Patient Position Sitting Coupling Medium Ultrasound Gel Applicator Size (cm2) 5 Mode Setting Continuous Duty Cycle 100% PT-OP-T Assessment and Plan Start: 12/17/20 09:07 Freq: Status: Active Protocol: Document 08/04/21 09:45 [facility] (Rec: 08/05/21 09:36 [facility] [email or web address]) Physical Therapy Assessment Goals Pt is demonstrating good body mechanics when picking up her baby girl Rn Cardiac Cath Goal (LTG) Kimber reports she is able to properly lift her baby without increased c/o LBP or reaggravating her hip. left side pelvic floor guarding Impairment left side of the lateral pelvic floor guarded and tight Short Term Goal (STG) Kimber is educated in relaxed awarenss of the pelvic floor and is able to relax to baseline on EMG biofeedback Goal met STG Duration 5 weeks hip pain rated 4/10 Impairment right sided hip pain rated 4/ 10, c/o hip clicking with standing rocking Assisted Goal (LTG) Kimber reports a overall reduction in hip tightness and pain and is no longer experiencing clicking when she stands to rock her baby Kimber reports she is doing better overall with this and feels both therapy and dry needling have helped LTG Duration 8 weeks difficulty with squatting Impairment Difficulty with squatting activity due to R SI pain Rn Cardiac Cath Goal (LTG) SI pain is intermittent and comes and goes, squating without weight is okay but with resistance she has pain. iliopsoas tightness R>L Impairment Iliopsoas tightness R>L Short Term Goal (STG) Kimber is educated in stretches she can do now that she is in the period for her right iliopsoas Goal met STG Duration 4 weeks Assessment Summary Assessment worked on opening up lateral sidebending today, QL release B as Kimber is experiencing tightness in standing. Added in a lateral stretch over the gym ball which Kimber could feel in the lateral sides of her back. Her hip is doing better with decreased c/o pain in anterior joint. Continue to work on body mechanics for lifting up her baby girl and ADL's to reduce hip and SI dysfunction Physical Therapy Plan Frequency and Duration Frequency of Treatment 2x/Week Duration of Treatment 8 Plan of Care Start Date 08/04/21 Plan of Care End Date 10/07/21 Therapeutic Interventions Therapeutic Interventions Home Exercise Program,Manual Therapy,Patient/Caregiver Education,Self-Care/Home Management,Soft Tissue Mobilization,Therapeutic Exercises Modalities Biofeedback Next Visit Focus/Plan Next Note Type Treatment Note Next Visit Plan recheck sacral alignment, review body mechanics for lifting baby in and out of the crib, check length and tone of iliopsoas, core stabilization progression
--- NOTE | 2021-08-05 09:38 | PT.OPPOC ---
Physical, Occupational & Speech Therapy At [facility] Current Diagnoses Pain in unspecified hip (08/04/21) Visit Care Team Role Provider Type Chayo Diego MD Attending Provider Physician Family Provider Primary Care Provider Referring Provider Specialty: Family Practice Address: [address] [place] [address], [id number] Email: [email or web address] Plan Of Care PT-OP-T Assessment and Plan Start: 12/17/20 09:07 Freq: Status: Active Protocol: Document 08/04/21 09:45 [facility] (Rec: 08/05/21 09:36 [facility] [email or web address]) Physical Therapy Assessment Goals Pt is demonstrating good body mechanics when picking up her baby girl 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 iliopsoas tightness R>L Impairment Iliopsoas tightness R>L Short Term Goal (STG) Kimber is educated in stretches she can do now that she is in the period for her right iliopsoas Goal met STG Duration 4 weeks Assessment Summary Assessment worked on opening up lateral sidebending today, QL release B as Kimber is experiencing tightness in standing. Added in a lateral stretch over the gym ball which Kimber could feel in the lateral sides of her back. Her hip is doing better with decreased c/o pain in anterior joint. Continue to work on body mechanics for lifting up her baby girl and ADL's to reduce hip and SI dysfunction Physical Therapy Plan Frequency and Duration Frequency of Treatment 2x/Week Duration of Treatment 8 Plan of Care Start Date 08/04/21 Plan of Care End Date 10/07/21 Therapeutic Interventions Therapeutic Interventions Home Exercise Program,Manual Therapy,Patient/Caregiver Education,Self-Care/Home Management,Soft Tissue Mobilization,Therapeutic Exercises Modalities Biofeedback Next Visit Focus/Plan Next Note Type Treatment Note Next Visit Plan recheck sacral alignment, review body mechanics for lifting baby in and out of the crib, check length and tone of iliopsoas, core stabilization progression Plan of Care Dates Plan of Care Start Date 08/04/21 Plan of Care End Date 10/07/21 Electronically Signed by: Hyacinth Gifford, PT 08/05/21 [id number] Please Sign and Return: I have reviewed this Plan of Care and certify that the skilled therapy services above are required to meet the patient?s needs. Physician Signature Date Printed Name and Credentials Clinical Instructor Signature Printed Name and Credentials
--- NOTE | 2021-08-10 14:30 | PT.OTN ---
Current Diagnoses Pain in unspecified hip (08/10/21) Physical Therapy Treatment Note PT-OP-A Visit Information Start: 12/17/20 09:07 Freq: Status: Active Protocol: Document 08/10/21 14:28 [facility] (Rec: 08/10/21 14:32 [facility] [id number]) Out-Patient Physical Therapy Visit Information Visit Information Visit Type Treatment Note Visit Start Time 14:30 Visit Stop Time 15:15 Total Visit Minutes 45 Visit Number 26 PT-OP-B Current Condition Start: 12/17/20 09:07 Freq: Status: Active Protocol: Document 12/17/20 12:56 [facility] (Rec: 12/17/20 13:07 [facility] [id number]) Current Condition History of Current Condition History of Current Condition 10/17/20 vaginal delivery no tears and now it feels really tight. She complains of right hip clicking and tightness in the front of her hip, medial ankle on the right painful more so when she stands. When she is rocking back and when she is walking she can feel her anterior hip click. PT-OP-C Subjective Start: 12/17/20 09:07 Freq: Status: Active Protocol: Document 08/10/21 14:28 [facility] (Rec: 08/10/21 14:32 [facility] [email or web address]) OP-PT Subjective Patient Comments Patient Comments still feels like she is tight and out of alignment, she has been doing the stretches 3 times a day, getting close but not quite there. Patient Reported Progress Improving PT-OP-F Manual Assessment Start: 12/17/20 09:07 Freq: Status: Active Protocol: Document 12/17/20 13:00 [facility] (Rec: 12/22/20 15:06 [facility] [email or web address]) Manual Assessments Soft Tissue Assessment Soft Tissue Mobility Assessment tightness of the right iliopsoas, ITB, quad attachments to the ASIS left lateral wall of the pelvic floor tight and guarded PT-OP-I Pelvic Floor Start: 12/17/20 09:07 Freq: Status: Active Protocol: Document 12/17/20 13:00 [facility] (Rec: 12/22/20 15:06 [facility] [email or web address]) Pelvic Floor Assessment Pelvic Clock Pelvic Clock 3-6 Guarding Contraction Ability Voluntary Contraction Moderate Voluntary Relaxation Moderate Manual Muscle Testing Left 4 Manual Muscle Testing Right 4 Manual Muscle Testing Anterior 4 Manual Muscle Testing Posterior 4 Comments Pelvic Floor Comments pt has good ability to contract and tighten the pelvic floor. She is more guarded on the left side and has difficulty relaxing following a pelvic floor contraction. There was elevated tone on EMG biofeedback with difficulty relaxing. Kimber notes she can feel the tightness in her pelvic floor. PT-OP-J Posture/Palpation/Skin Start: 12/17/20 09:07 Freq: Status: Active Protocol: Document 12/17/20 13:00 [facility] (Rec: 12/22/20 15:06 [facility] [email or web address]) Palpation Assessment Location R ASIS Palpation Location tenderness right ASIS right SI joint Palpation Location right SI joint PSIS Palpation Findings Tenderness Palpation Details tenderness to palpation over the right ASIS PT-OP-M Strength Start: 12/17/20 09:07 Freq: Status: Active Protocol: Document 12/17/20 13:00 [facility] (Rec: 12/22/20 15:06 [facility] [email or web address]) Trunk Strength Trunk Manual Muscle Testing Testing Position Supine Flexion 4 Good Core Stabilization Kimber is able to facilitate her TA with good awareness PT-OP-Q Treatments Start: 12/17/20 09:07 Freq: Status: Active Protocol: Document 08/10/21 14:30 [facility] (Rec: 08/11/21 09:20 [facility] [email or web address]) Manual Therapy Treatment Soft Tissue Mobilization sidelying QL release B Mobilization Type Myofascial Release Body Position Sidelying lumbar paraspinals Body Location lumbar Mobilization Type Myofascial Release right quad and iliopsoas MFR Body Location right quad and iliopsoas Body Position Supine Comments worked in both supine and sidelying to release the quad and iliopsoas Manual Techniques manual ilopsoas and quad stretches Body Position supine rufus test position Comments with PROM knee flexion PT-OP-R Modalities Start: 05/13/21 17:21 Freq: Status: Active Protocol: Document 05/18/21 11:08 [facility] (Rec: 05/19/21 11:09 [facility] [email or web address]) Ultrasound Therapy Treatment right quad attachments to the iliac crest Treatment Duration (minutes) 8 Patient Position Sitting Coupling Medium Ultrasound Gel Applicator Size (cm2) 5 Mode Setting Continuous Duty Cycle 100% PT-OP-T Assessment and Plan Start: 12/17/20 09:07 Freq: Status: Active Protocol: Document 08/10/21 14:30 [facility] (Rec: 08/11/21 09:20 [facility] [email or web address]) Physical Therapy Assessment Assessment Summary Assessment decreased tightness of the quadratus lumborum today B and Kimber is working on her stretches at home Physical Therapy Plan Frequency and Duration Frequency of Treatment 2x/Week Duration of Treatment 8 Plan of Care Start Date 08/04/21 Plan of Care End Date 10/07/21 Therapeutic Interventions Therapeutic Interventions Home Exercise Program,Manual Therapy,Patient/Caregiver Education,Self-Care/Home Management,Soft Tissue Mobilization,Therapeutic Exercises Modalities Biofeedback Next Visit Focus/Plan Next Note Type Treatment Note Next Visit Plan recheck sacral alignment, review body mechanics for lifting baby in and out of the crib, check length and tone of iliopsoas, core stabilization progression
--- NOTE | 2021-09-09 15:15 | PT.OTN ---
Current Diagnoses Pain in unspecified hip (09/14/21) Physical Therapy Treatment Note PT-OP-A Visit Information Start: 12/17/20 09:07 Freq: Status: Active Protocol: Document 09/09/21 13:00 [facility] (Rec: 09/14/21 15:11 [facility] [email or web address]) Out-Patient Physical Therapy Visit Information Visit Information Visit Type Treatment Note Visit Start Time 13:00 Visit Stop Time 13:45 Total Visit Minutes 45 Visit Number 27 Evaluation Information Evaluation Date 12/17/20 PT-OP-B Current Condition Start: 12/17/20 09:07 Freq: Status: Active Protocol: Document 12/17/20 12:56 [facility] (Rec: 12/17/20 13:07 [facility] [id number]) Current Condition History of Current Condition History of Current Condition 10/17/20 vaginal delivery no tears and now it feels really tight. She complains of right hip clicking and tightness in the front of her hip, medial ankle on the right painful more so when she stands. When she is rocking back and when she is walking she can feel her anterior hip click. PT-OP-C Subjective Start: 12/17/20 09:07 Freq: Status: Active Protocol: Document 09/09/21 13:02 [facility] (Rec: 09/09/21 14:15 [facility] [id number]) OP-PT Subjective Patient Comments Patient Comments pt notes her back pain is intermittent, she did try running and leaked a little bit, she had her daughter in the carrier and felt her hips were sore Patient Reported Progress Improving PT-OP-F Manual Assessment Start: 12/17/20 09:07 Freq: Status: Active Protocol: Document 12/17/20 13:00 [facility] (Rec: 12/22/20 15:06 [facility] [email or web address]) Manual Assessments Soft Tissue Assessment Soft Tissue Mobility Assessment tightness of the right iliopsoas, ITB, quad attachments to the ASIS left lateral wall of the pelvic floor tight and guarded PT-OP-I Pelvic Floor Start: 12/17/20 09:07 Freq: Status: Active Protocol: Document 12/17/20 13:00 [facility] (Rec: 12/22/20 15:06 [facility] [email or web address]) Pelvic Floor Assessment Pelvic Clock Pelvic Clock 3-6 Guarding Contraction Ability Voluntary Contraction Moderate Voluntary Relaxation Moderate Manual Muscle Testing Left 4 Manual Muscle Testing Right 4 Manual Muscle Testing Anterior 4 Manual Muscle Testing Posterior 4 Comments Pelvic Floor Comments pt has good ability to contract and tighten the pelvic floor. She is more guarded on the left side and has difficulty relaxing following a pelvic floor contraction. There was elevated tone on EMG biofeedback with difficulty relaxing. Kimber notes she can feel the tightness in her pelvic floor. PT-OP-J Posture/Palpation/Skin Start: 12/17/20 09:07 Freq: Status: Active Protocol: Document 12/17/20 13:00 [facility] (Rec: 12/22/20 15:06 [facility] [email or web address]) Palpation Assessment Location R ASIS Palpation Location tenderness right ASIS right SI joint Palpation Location right SI joint PSIS Palpation Findings Tenderness Palpation Details tenderness to palpation over the right ASIS PT-OP-M Strength Start: 12/17/20 09:07 Freq: Status: Active Protocol: Document 12/17/20 13:00 [facility] (Rec: 12/22/20 15:06 [facility] [email or web address]) Trunk Strength Trunk Manual Muscle Testing Testing Position Supine Flexion 4 Good Core Stabilization Kimber is able to facilitate her TA with good awareness PT-OP-Q Treatments Start: 12/17/20 09:07 Freq: Status: Active Protocol: Document 09/09/21 13:00 [facility] (Rec: 09/14/21 15:11 [facility] [email or web address]) Therapeutic Exercises Supine Exercises ITb stretch Reps/Minutes hold 30 sec to 1 min Comments with strap Sidelying Exercises sidelying small hip circles Reps/Minutes x 10 each Manual Therapy Treatment Soft Tissue Mobilization ITB release on the right Body Location right ITB Body Position left sidelying right quad and iliopsoas MFR Body Location right quad and iliopsoas Body Position Supine Comments worked in both supine and sidelying to release the quad and iliopsoas Manual Techniques manual iliopsoasd release in sidelying Type sidelying ilospsoas release Body Position Sidelying PT-OP-R Modalities Start: 05/13/21 17:21 Freq: Status: Active Protocol: Document 05/18/21 11:08 [facility] (Rec: 05/19/21 11:09 [facility] [email or web address]) Ultrasound Therapy Treatment right quad attachments to the iliac crest Treatment Duration (minutes) 8 Patient Position Sitting Coupling Medium Ultrasound Gel Applicator Size (cm2) 5 Mode Setting Continuous Duty Cycle 100% PT-OP-T Assessment and Plan Start: 12/17/20 09:07 Freq: Status: Active Protocol: Document 09/09/21 13:00 [facility] (Rec: 09/14/21 15:11 [facility] [email or web address]) Physical Therapy Assessment Assessment Summary Assessment worked on ITB release today and discussed ITB stretches for home as well as keeping up with gluteus medius strengthening. Pt would like to review running mechanics next visit and recheck her pelvic floor next visit Physical Therapy Plan Frequency and Duration Frequency of Treatment 2x/Week Duration of Treatment 8 Plan of Care Start Date 08/04/21 Plan of Care End Date 10/07/21 Therapeutic Interventions Therapeutic Interventions Home Exercise Program,Manual Therapy,Patient/Caregiver Education,Self-Care/Home Management,Soft Tissue Mobilization,Therapeutic Exercises Modalities Biofeedback Next Visit Focus/Plan Next Note Type Treatment Note Next Visit Plan pt would like her pelvic floor rechecked next visit, look at running mechanics on the treadmill
--- NOTE | 2021-09-14 17:48 | PT.OTN ---
Current Diagnoses Pain in unspecified hip (09/21/21) Physical Therapy Treatment Note PT-OP-A Visit Information Start: 12/17/20 09:07 Freq: Status: Active Protocol: Document 09/14/21 15:15 [facility] (Rec: 09/14/21 15:20 [facility] [id number]) Out-Patient Physical Therapy Visit Information Visit Information Visit Type Treatment Note Visit Start Time 15:15 Visit Stop Time 16:00 Total Visit Minutes 45 Visit Number 28 PT-OP-B Current Condition Start: 12/17/20 09:07 Freq: Status: Active Protocol: Document 12/17/20 12:56 [facility] (Rec: 12/17/20 13:07 [facility] [id number]) Current Condition History of Current Condition History of Current Condition 10/17/20 vaginal delivery no tears and now it feels really tight. She complains of right hip clicking and tightness in the front of her hip, medial ankle on the right painful more so when she stands. When she is rocking back and when she is walking she can feel her anterior hip click. PT-OP-C Subjective Start: 12/17/20 09:07 Freq: Status: Active Protocol: Document 09/21/21 13:52 [facility] (Rec: 09/21/21 14:35 [facility] [id number]) OP-PT Subjective Patient Comments Patient Comments sacral pain on the left side PT-OP-F Manual Assessment Start: 12/17/20 09:07 Freq: Status: Active Protocol: Document 12/17/20 13:00 [facility] (Rec: 12/22/20 15:06 [facility] [email or web address]) Manual Assessments Soft Tissue Assessment Soft Tissue Mobility Assessment tightness of the right iliopsoas, ITB, quad attachments to the ASIS left lateral wall of the pelvic floor tight and guarded PT-OP-I Pelvic Floor Start: 12/17/20 09:07 Freq: Status: Active Protocol: Document 12/17/20 13:00 [facility] (Rec: 12/22/20 15:06 [facility] [email or web address]) Pelvic Floor Assessment Pelvic Clock Pelvic Clock 3-6 Guarding Contraction Ability Voluntary Contraction Moderate Voluntary Relaxation Moderate Manual Muscle Testing Left 4 Manual Muscle Testing Right 4 Manual Muscle Testing Anterior 4 Manual Muscle Testing Posterior 4 Comments Pelvic Floor Comments pt has good ability to contract and tighten the pelvic floor. She is more guarded on the left side and has difficulty relaxing following a pelvic floor contraction. There was elevated tone on EMG biofeedback with difficulty relaxing. Kimber notes she can feel the tightness in her pelvic floor. PT-OP-J Posture/Palpation/Skin Start: 12/17/20 09:07 Freq: Status: Active Protocol: Document 12/17/20 13:00 [facility] (Rec: 12/22/20 15:06 [facility] [email or web address]) Palpation Assessment Location R ASIS Palpation Location tenderness right ASIS right SI joint Palpation Location right SI joint PSIS Palpation Findings Tenderness Palpation Details tenderness to palpation over the right ASIS PT-OP-M Strength Start: 12/17/20 09:07 Freq: Status: Active Protocol: Document 12/17/20 13:00 [facility] (Rec: 12/22/20 15:06 [facility] [email or web address]) Trunk Strength Trunk Manual Muscle Testing Testing Position Supine Flexion 4 Good Core Stabilization Kimber is able to facilitate her TA with good awareness PT-OP-Q Treatments Start: 12/17/20 09:07 Freq: Status: Active Protocol: Document 09/14/21 15:38 [facility] (Rec: 09/14/21 15:40 [facility] [id number]) Therapeutic Exercises Supine Exercises pelvic floor long holds with relaxation Equipment Used x 10 reps Reps/Minutes x 10 Comments 14 average max of 25 PT-OP-R Modalities Start: 05/13/21 17:21 Freq: Status: Active Protocol: Document 05/18/21 11:08 [facility] (Rec: 05/19/21 11:09 [facility] [email or web address]) Ultrasound Therapy Treatment right quad attachments to the iliac crest Treatment Duration (minutes) 8 Patient Position Sitting Coupling Medium Ultrasound Gel Applicator Size (cm2) 5 Mode Setting Continuous Duty Cycle 100% PT-OP-T Assessment and Plan Start: 12/17/20 09:07 Freq: Status: Active Protocol: Document 09/14/21 15:15 [facility] (Rec: 09/21/21 17:48 [facility] [email or web address]) Physical Therapy Assessment Assessment Summary Assessment pt doing better with ITB today and decreased SI pain, pelvic floor presents with decreased endurance, encouraged long holds for home Physical Therapy Plan Frequency and Duration Frequency of Treatment 2x/Week Duration of Treatment 8 Plan of Care Start Date 08/04/21 Plan of Care End Date 10/07/21 Next Visit Focus/Plan Next Note Type Treatment Note Next Visit Plan recheck pts SI after she travels
--- NOTE | 2021-09-22 09:19 | PT.OTN ---
Current Diagnoses Pain in unspecified hip (09/21/21) Physical Therapy Treatment Note PT-OP-A Visit Information Start: 12/17/20 09:07 Freq: Status: Active Protocol: Document 09/21/21 13:45 [facility] (Rec: 09/22/21 09:18 [facility] [id number]) Out-Patient Physical Therapy Visit Information Visit Information Visit Type Treatment Note Visit Start Time 09:45 Visit Stop Time 10:30 Total Visit Minutes 45 Visit Number 29 PT-OP-B Current Condition Start: 12/17/20 09:07 Freq: Status: Active Protocol: Document 12/17/20 12:56 [facility] (Rec: 12/17/20 13:07 [facility] [id number]) Current Condition History of Current Condition History of Current Condition 10/17/20 vaginal delivery no tears and now it feels really tight. She complains of right hip clicking and tightness in the front of her hip, medial ankle on the right painful more so when she stands. When she is rocking back and when she is walking she can feel her anterior hip click. PT-OP-C Subjective Start: 12/17/20 09:07 Freq: Status: Active Protocol: Document 09/21/21 13:45 [facility] (Rec: 09/21/21 14:35 [facility] [id number]) OP-PT Subjective Patient Comments Patient Comments pt notes she is sore from icce skating, sacral pain on the left side PT-OP-F Manual Assessment Start: 12/17/20 09:07 Freq: Status: Active Protocol: Document 12/17/20 13:00 [facility] (Rec: 12/22/20 15:06 [facility] [email or web address]) Manual Assessments Soft Tissue Assessment Soft Tissue Mobility Assessment tightness of the right iliopsoas, ITB, quad attachments to the ASIS left lateral wall of the pelvic floor tight and guarded PT-OP-I Pelvic Floor Start: 12/17/20 09:07 Freq: Status: Active Protocol: Document 12/17/20 13:00 [facility] (Rec: 12/22/20 15:06 [facility] [email or web address]) Pelvic Floor Assessment Pelvic Clock Pelvic Clock 3-6 Guarding Contraction Ability Voluntary Contraction Moderate Voluntary Relaxation Moderate Manual Muscle Testing Left 4 Manual Muscle Testing Right 4 Manual Muscle Testing Anterior 4 Manual Muscle Testing Posterior 4 Comments Pelvic Floor Comments pt has good ability to contract and tighten the pelvic floor. She is more guarded on the left side and has difficulty relaxing following a pelvic floor contraction. There was elevated tone on EMG biofeedback with difficulty relaxing. Kimber notes she can feel the tightness in her pelvic floor. PT-OP-J Posture/Palpation/Skin Start: 12/17/20 09:07 Freq: Status: Active Protocol: Document 12/17/20 13:00 [facility] (Rec: 12/22/20 15:06 [facility] [email or web address]) Palpation Assessment Location R ASIS Palpation Location tenderness right ASIS right SI joint Palpation Location right SI joint PSIS Palpation Findings Tenderness Palpation Details tenderness to palpation over the right ASIS PT-OP-M Strength Start: 12/17/20 09:07 Freq: Status: Active Protocol: Document 12/17/20 13:00 [facility] (Rec: 12/22/20 15:06 [facility] [email or web address]) Trunk Strength Trunk Manual Muscle Testing Testing Position Supine Flexion 4 Good Core Stabilization Kimber is able to facilitate her TA with good awareness PT-OP-Q Treatments Start: 12/17/20 09:07 Freq: Status: Active Protocol: Document 09/21/21 09:45 [facility] (Rec: 09/22/21 09:18 [facility] [id number]) Manual Therapy Treatment Soft Tissue Mobilization prone piriformis release B Body Position Prone Comments left greater than right piriformis tightness, sidelying QL release B Body Location sidelying QL release on the right side Comments right pelvis upsliped and anteriorly rotated Manual Techniques manual piriformis stretch Reps/Duration holding 1-2 min x 2 manual sacral decompression Type manual sacral decompression and work into counter nutation Comments worked on sacral counternutation with MET MET for right pelvic ourflare Reps/Duration x 5 reps manual recheck of leg length Comments R leg shorter in supine manual MET for right innominant anterior rotation Type MET right innominant anterior rotation Reps/Duration x 5 reps PT-OP-R Modalities Start: 05/13/21 17:21 Freq: Status: Active Protocol: Document 05/18/21 11:08 [facility] (Rec: 05/19/21 11:09 [facility] [email or web address]) Ultrasound Therapy Treatment right quad attachments to the iliac crest Treatment Duration (minutes) 8 Patient Position Sitting Coupling Medium Ultrasound Gel Applicator Size (cm2) 5 Mode Setting Continuous Duty Cycle 100% PT-OP-T Assessment and Plan Start: 12/17/20 09:07 Freq: Status: Active Protocol: Document 09/21/21 13:45 [facility] (Rec: 09/22/21 09:18 [facility] [id number]) Physical Therapy Assessment Assessment Summary Assessment pt was sore in her SI and sacral region from traveling and ice skating. Her right hip did really well overall. Physical Therapy Plan Frequency and Duration Frequency of Treatment 2x/Week Duration of Treatment 8 Plan of Care Start Date 08/04/21 Plan of Care End Date 10/07/21 Therapeutic Interventions Therapeutic Interventions Home Exercise Program,Manual Therapy,Patient/Caregiver Education,Self-Care/Home Management,Soft Tissue Mobilization,Therapeutic Exercises Modalities Biofeedback Next Visit Focus/Plan Next Note Type Treatment Note Next Visit Plan pelvic floor and core stabilization exercises
--- NOTE | 2021-09-29 14:18 | PT.OTN ---
Current Diagnoses Pain in unspecified hip (09/29/21) Physical Therapy Treatment Note PT-OP-A Visit Information Start: 12/17/20 09:07 Freq: Status: Active Protocol: Document 09/29/21 11:14 [facility] (Rec: 09/29/21 12:03 [facility] [id number]) Out-Patient Physical Therapy Visit Information Visit Information Visit Type Treatment Note Visit Start Time 11:15 Visit Stop Time 12:00 Total Visit Minutes 45 Visit Number 30 PT-OP-B Current Condition Start: 12/17/20 09:07 Freq: Status: Active Protocol: Document 12/17/20 12:56 [facility] (Rec: 12/17/20 13:07 [facility] [id number]) Current Condition History of Current Condition History of Current Condition 10/17/20 vaginal delivery no tears and now it feels really tight. She complains of right hip clicking and tightness in the front of her hip, medial ankle on the right painful more so when she stands. When she is rocking back and when she is walking she can feel her anterior hip click. PT-OP-C Subjective Start: 12/17/20 09:07 Freq: Status: Active Protocol: Document 09/29/21 11:14 [facility] (Rec: 09/29/21 12:03 [facility] [id number]) OP-PT Subjective Patient Comments Patient Comments pt has taken off the last 3-4 days from working out, she also notes at her hips get sore when she is carring her baby on her in the front. PT-OP-F Manual Assessment Start: 12/17/20 09:07 Freq: Status: Active Protocol: Document 12/17/20 13:00 [facility] (Rec: 12/22/20 15:06 [facility] [id number]) Manual Assessments Soft Tissue Assessment Soft Tissue Mobility Assessment tightness of the right iliopsoas, ITB, quad attachments to the ASIS left lateral wall of the pelvic floor tight and guarded PT-OP-I Pelvic Floor Start: 12/17/20 09:07 Freq: Status: Active Protocol: Document 12/17/20 13:00 [facility] (Rec: 12/22/20 15:06 [facility] [email or web address]) Pelvic Floor Assessment Pelvic Clock Pelvic Clock 3-6 Guarding Contraction Ability Voluntary Contraction Moderate Voluntary Relaxation Moderate Manual Muscle Testing Left 4 Manual Muscle Testing Right 4 Manual Muscle Testing Anterior 4 Manual Muscle Testing Posterior 4 Comments Pelvic Floor Comments pt has good ability to contract and tighten the pelvic floor. She is more guarded on the left side and has difficulty relaxing following a pelvic floor contraction. There was elevated tone on EMG biofeedback with difficulty relaxing. Kimber notes she can feel the tightness in her pelvic floor. PT-OP-J Posture/Palpation/Skin Start: 12/17/20 09:07 Freq: Status: Active Protocol: Document 12/17/20 13:00 [facility] (Rec: 12/22/20 15:06 [facility] [id number]) Palpation Assessment Location R ASIS Palpation Location tenderness right ASIS right SI joint Palpation Location right SI joint PSIS Palpation Findings Tenderness Palpation Details tenderness to palpation over the right ASIS PT-OP-M Strength Start: 12/17/20 09:07 Freq: Status: Active Protocol: Document 12/17/20 13:00 [facility] (Rec: 12/22/20 15:06 [facility] [id number]) Trunk Strength Trunk Manual Muscle Testing Testing Position Supine Flexion 4 Good Core Stabilization Kimber is able to facilitate her TA with good awareness PT-OP-Q Treatments Start: 12/17/20 09:07 Freq: Status: Active Protocol: Document 09/29/21 11:15 [facility] (Rec: 09/29/21 14:17 [facility] [id number]) Manual Therapy Treatment Soft Tissue Mobilization ITB release on the right Body Location right ITB Body Position left sidelying right quad and iliopsoas MFR Body Location right quad and iliopsoas Body Position Supine Comments worked in both supine and sidelying to release the quad and iliopsoas Self-Care/Home Management Treatment Education Patient Education Home Exercise Program,Joint Protection Other Education education was given on wearing the ergo with baby Anayeli on her back rather than on her front to decrease posterior pelvic tilt. Kimber could tell right away this took pressure off her hips PT-OP-R Modalities Start: 05/13/21 17:21 Freq: Status: Active Protocol: Document 05/18/21 11:08 [facility] (Rec: 05/19/21 11:09 [facility] [id number]) Ultrasound Therapy Treatment right quad attachments to the iliac crest Treatment Duration (minutes) 8 Patient Position Sitting Coupling Medium Ultrasound Gel Applicator Size (cm2) 5 Mode Setting Continuous Duty Cycle 100% PT-OP-T Assessment and Plan Start: 12/17/20 09:07 Freq: Status: Active Protocol: Document 09/29/21 11:15 [facility] (Rec: 09/29/21 14:17 [facility] [id number]) Physical Therapy Assessment Assessment Summary Assessment time was taken today to educate pt on how to wear her baby girl on her back instead of her front to decrease strain on her hips. She tolerated this well and noted it took pressure off her hips. Physical Therapy Plan Frequency and Duration Frequency of Treatment 2x/Week Duration of Treatment 8 Plan of Care Start Date 08/04/21 Plan of Care End Date 10/07/21 Therapeutic Interventions Therapeutic Interventions Home Exercise Program,Manual Therapy,Patient/Caregiver Education,Self-Care/Home Management,Soft Tissue Mobilization,Therapeutic Exercises Modalities Biofeedback Next Visit Focus/Plan Next Note Type Treatment Note Next Visit Plan pelvic floor and core stabilization exercises, recheck quad and iliopsoas tightness
--- NOTE | 2021-10-14 16:03 | PT.OTN ---
Current Diagnoses Pain in unspecified hip (10/14/21) Physical Therapy Treatment Note PT-OP-A Visit Information Start: 12/17/20 09:07 Freq: Status: Active Protocol: Document 10/14/21 13:45 [facility] (Rec: 10/14/21 15:55 [facility] [id number]) Out-Patient Physical Therapy Visit Information Visit Information Visit Type Treatment Note Visit Start Time 13:45 Visit Stop Time 14:30 Total Visit Minutes 45 Visit Number 31 PT-OP-B Current Condition Start: 12/17/20 09:07 Freq: Status: Active Protocol: Document 12/17/20 12:56 [facility] (Rec: 12/17/20 13:07 [facility] [id number]) Current Condition History of Current Condition History of Current Condition 10/17/20 vaginal delivery no tears and now it feels really tight. She complains of right hip clicking and tightness in the front of her hip, medial ankle on the right painful more so when she stands. When she is rocking back and when she is walking she can feel her anterior hip click. PT-OP-C Subjective Start: 12/17/20 09:07 Freq: Status: Active Protocol: Document 10/14/21 13:45 [facility] (Rec: 10/14/21 15:55 [facility] [id number]) OP-PT Subjective Patient Comments Patient Comments pt reports r back and her hip are both really sore today, the miracle balls really helped to even out her SI joint. Patient Reported Progress Same PT-OP-F Manual Assessment Start: 12/17/20 09:07 Freq: Status: Active Protocol: Document 12/17/20 13:00 [facility] (Rec: 12/22/20 15:06 [facility] [email or web address]) Manual Assessments Soft Tissue Assessment Soft Tissue Mobility Assessment tightness of the right iliopsoas, ITB, quad attachments to the ASIS left lateral wall of the pelvic floor tight and guarded PT-OP-I Pelvic Floor Start: 12/17/20 09:07 Freq: Status: Active Protocol: Document 12/17/20 13:00 [facility] (Rec: 12/22/20 15:06 [facility] [email or web address]) Pelvic Floor Assessment Pelvic Clock Pelvic Clock 3-6 Guarding Contraction Ability Voluntary Contraction Moderate Voluntary Relaxation Moderate Manual Muscle Testing Left 4 Manual Muscle Testing Right 4 Manual Muscle Testing Anterior 4 Manual Muscle Testing Posterior 4 Comments Pelvic Floor Comments pt has good ability to contract and tighten the pelvic floor. She is more guarded on the left side and has difficulty relaxing following a pelvic floor contraction. There was elevated tone on EMG biofeedback with difficulty relaxing. Kimber notes she can feel the tightness in her pelvic floor. PT-OP-J Posture/Palpation/Skin Start: 12/17/20 09:07 Freq: Status: Active Protocol: Document 12/17/20 13:00 [facility] (Rec: 12/22/20 15:06 [facility] [email or web address]) Palpation Assessment Location R ASIS Palpation Location tenderness right ASIS right SI joint Palpation Location right SI joint PSIS Palpation Findings Tenderness Palpation Details tenderness to palpation over the right ASIS PT-OP-M Strength Start: 12/17/20 09:07 Freq: Status: Active Protocol: Document 12/17/20 13:00 [facility] (Rec: 12/22/20 15:06 [facility] [email or web address]) Trunk Strength Trunk Manual Muscle Testing Testing Position Supine Flexion 4 Good Core Stabilization Kimber is able to facilitate her TA with good awareness PT-OP-Q Treatments Start: 12/17/20 09:07 Freq: Status: Active Protocol: Document 10/14/21 13:45 [facility] (Rec: 10/14/21 15:59 [facility] [id number]) Therapeutic Exercises Other Exercises quadratus lumorum stretch Reps/Minutes B Comments QL pharmacovigilance scientist quadruped sidebends Other Exercise Name quadruped sidebends Reps/Minutes x 10 reps Manual Therapy Treatment Soft Tissue Mobilization sidelying QL release B Body Location sidelying QL release on the right side Comments right pelvis upsliped and anteriorly rotated lumbar paraspinals Body Location lumbar Mobilization Type Myofascial Release right quad and iliopsoas MFR Body Location right quad and iliopsoas Body Position Supine Comments worked in both supine and sidelying to release the quad and iliopsoas Manual Techniques manual recheck of leg length Comments R leg shorter in supine gentle hip distraction Comments good tolerance manual iliopsoasd release in sidelying Type sidelying ilospsoas release Body Position Sidelying manual MET for right innominant anterior rotation Type MET right innominant anterior rotation Reps/Duration x 5 reps PT-OP-R Modalities Start: 05/13/21 17:21 Freq: Status: Active Protocol: Document 05/18/21 11:08 [facility] (Rec: 05/19/21 11:09 [facility] [id number]) Ultrasound Therapy Treatment right quad attachments to the iliac crest Treatment Duration (minutes) 8 Patient Position Sitting Coupling Medium Ultrasound Gel Applicator Size (cm2) 5 Mode Setting Continuous Duty Cycle 100% PT-OP-T Assessment and Plan Start: 12/17/20 09:07 Freq: Status: Active Protocol: Document 10/14/21 13:45 [facility] (Rec: 10/14/21 15:59 [facility] [id number]) Physical Therapy Assessment Goals Pt is demonstrating good body mechanics when picking up her baby girl Usp Goal (LTG) Kimber reports she is able to properly lift her baby without increased c/o LBP or reaggravating her hip. GOOD PROGRESS left side pelvic floor guarding Impairment left side of the lateral pelvic floor guarded and tight Short Term Goal (STG) Kimber is educated in relaxed awarenss of the pelvic floor and is able to relax to baseline on EMG biofeedback Goal met STG Duration 5 weeks hip pain rated 4/10 Impairment right sided hip pain rated 4/ 10, c/o hip clicking with standing rocking Director Trade Goal (LTG) Kimber reports a overall reduction in hip tightness and pain and is no longer experiencing clicking when she stands to rock her baby Kimber reports she is doing better overall with this and feels both therapy and dry needling have helped, she still is experiencing intermittent anterior hip pain LTG Duration 8 weeks difficulty with squatting Impairment Difficulty with squatting activity due to R SI pain Director Trade Goal (LTG) SI pain is intermittent but seems improved overall, squatting has not been as much as a issue for Kimber. She is using miracle balls for home which help to release the tightness in her gluteals iliopsoas tightness R>L Impairment Iliopsoas tightness R>L Short Term Goal (STG) Kimber is educated in stretches she can do now that she is in the period for her right iliopsoas Goal met STG Duration 4 weeks Assessment Summary Assessment Kimber continues to work on core stabilization and stretches at home. She is also carrying her baby girl on her back now instead of in front. She has not been able to walk as much these past 2 weeks due to the weather and felt tighter in both her low back and hip today. Physical Therapy Plan Frequency and Duration Frequency of Treatment 2x/Week Duration of Treatment 8 Plan of Care Start Date 10/14/21 Plan of Care End Date 02/04/22
--- NOTE | 2021-10-14 16:06 | PT.OPPOC ---
Physical, Occupational & Speech Therapy At [facility] Current Diagnoses Pain in unspecified hip (10/14/21) Visit Care Team Role Provider Type Chayo Diego MD Attending Provider Physician Family Provider Primary Care Provider Referring Provider Specialty: Family Practice Address: [address] [place] [address], [id number] Email: [email or web address] Plan Of Care PT-OP-T Assessment and Plan Start: 12/17/20 09:07 Freq: Status: Active Protocol: Document 10/14/21 13:45 [facility] (Rec: 10/14/21 15:59 [facility] [id number]) Physical Therapy Assessment Goals Pt is demonstrating good body mechanics when picking up her baby girl Exhibit Designer Goal (LTG) Kimber reports she is able to properly lift her baby without increased c/o LBP or reaggravating her hip. GOOD PROGRESS left side pelvic floor guarding Impairment left side of the lateral pelvic floor guarded and tight Short Term Goal (STG) Kimber is educated in relaxed awarenss of the pelvic floor and is able to relax to baseline on EMG biofeedback Goal met STG Duration 5 weeks hip pain rated 4/10 Impairment right sided hip pain rated 4/ 10, c/o hip clicking with standing rocking Exhibit Designer Goal (LTG) Kimber reports a overall reduction in hip tightness and pain and is no longer experiencing clicking when she stands to rock her baby Kibmer reports she is doing better overall with this and feels both therapy and dry needling have helped, she still is experiencing intermittent anterior hip pain LTG Duration 8 weeks difficulty with squatting Impairment Difficulty with squatting activity due to R SI pain Exhibit Designer Goal (LTG) SI pain is intermittent but seems improved overall, squatting has not been as much as a issue for Kimber. She is using miracle balls for home which help to release the tightness in her gluteals iliopsoas tightness R>L Impairment Iliopsoas tightness R>L Short Term Goal (STG) Kimber is educated in stretches she can do now that she is in the period for her right iliopsoas Goal met STG Duration 4 weeks Assessment Summary Assessment Kimber continues to work on core stabilization and stretches at home. She is also carrying her baby girl on her back now instead of in front. She has not been able to walk as much these past 2 weeks due to the weather and felt tighter in both her low back and hip today. Kimber would like to continue PT. Physical Therapy Plan Frequency and Duration Frequency of Treatment 2x/Week Duration of Treatment 8 Plan of Care Start Date 10/14/21 Plan of Care End Date 02/04/22 Next Visit Focus/Plan Next Note Type Treatment Note Next Visit Plan Recheck quadratus lumborum tightness, MFR for the QL and iliopsoas musculature Plan of Care Dates Plan of Care Start Date 10/14/21 Plan of Care End Date 02/04/22 Electronically Signed by: Hyacinth Gifford, PT 10/14/21 [id number] Please Sign and Return: I have reviewed this Plan of Care and certify that the skilled therapy services above are required to meet the patient?s needs. Physician Signature Date Printed Name and Credentials Clinical Instructor Signature Printed Name and Credentials
--- NOTE | 2021-10-19 11:02 | PT.OTN ---
Current Diagnoses Pain in unspecified hip (10/19/21) Physical Therapy Treatment Note PT-OP-A Visit Information Start: 12/17/20 09:07 Freq: Status: Active Protocol: Document 10/19/21 09:00 [facility] (Rec: 10/19/21 09:46 [facility] [id number]) Out-Patient Physical Therapy Visit Information Visit Information Visit Type Treatment Note Visit Start Time 09:00 Visit Stop Time 09:40 Total Visit Minutes 40 Visit Number 32 PT-OP-B Current Condition Start: 12/17/20 09:07 Freq: Status: Active Protocol: Document 12/17/20 12:56 [facility] (Rec: 12/17/20 13:07 [facility] [id number]) Current Condition History of Current Condition History of Current Condition 10/17/20 vaginal delivery no tears and now it feels really tight. She complains of right hip clicking and tightness in the front of her hip, medial ankle on the right painful more so when she stands. When she is rocking back and when she is walking she can feel her anterior hip click. PT-OP-C Subjective Start: 12/17/20 09:07 Freq: Status: Active Protocol: Document 10/19/21 09:00 [facility] (Rec: 10/19/21 09:46 [facility] [id number]) OP-PT Subjective Patient Comments Patient Comments Feeling anterior pinching with clam shell but has been working on QL stretch and feels her back isn't as tight. She is weaning off breast feeding now and is hoping that this helps with joint stability Patient Reported Progress Improving PT-OP-F Manual Assessment Start: 12/17/20 09:07 Freq: Status: Active Protocol: Document 12/17/20 13:00 [facility] (Rec: 12/22/20 15:06 [facility] [email or web address]) Manual Assessments Soft Tissue Assessment Soft Tissue Mobility Assessment tightness of the right iliopsoas, ITB, quad attachments to the ASIS left lateral wall of the pelvic floor tight and guarded PT-OP-I Pelvic Floor Start: 12/17/20 09:07 Freq: Status: Active Protocol: Document 12/17/20 13:00 [facility] (Rec: 12/22/20 15:06 [facility] [email or web address]) Pelvic Floor Assessment Pelvic Clock Pelvic Clock 3-6 Guarding Contraction Ability Voluntary Contraction Moderate Voluntary Relaxation Moderate Manual Muscle Testing Left 4 Manual Muscle Testing Right 4 Manual Muscle Testing Anterior 4 Manual Muscle Testing Posterior 4 Comments Pelvic Floor Comments pt has good ability to contract and tighten the pelvic floor. She is more guarded on the left side and has difficulty relaxing following a pelvic floor contraction. There was elevated tone on EMG biofeedback with difficulty relaxing. Kimber notes she can feel the tightness in her pelvic floor. PT-OP-J Posture/Palpation/Skin Start: 12/17/20 09:07 Freq: Status: Active Protocol: Document 12/17/20 13:00 [facility] (Rec: 12/22/20 15:06 [facility] [id number]) Palpation Assessment Location R ASIS Palpation Location tenderness right ASIS right SI joint Palpation Location right SI joint PSIS Palpation Findings Tenderness Palpation Details tenderness to palpation over the right ASIS PT-OP-M Strength Start: 12/17/20 09:07 Freq: Status: Active Protocol: Document 12/17/20 13:00 [facility] (Rec: 12/22/20 15:06 [facility] [id number]) Trunk Strength Trunk Manual Muscle Testing Testing Position Supine Flexion 4 Good Core Stabilization Kimber is able to facilitate her TA with good awareness PT-OP-Q Treatments Start: 12/17/20 09:07 Freq: Status: Active Protocol: Document 10/19/21 09:00 [facility] (Rec: 10/19/21 11:02 [facility] [id number]) Therapeutic Exercises Supine Exercises bridges with band Reps/Minutes x 30 Comments slight hip ER with theraband hip abduction with band in supine Reps/Minutes x 30 TA with marching Reps/Minutes x 10 Comments progressed to level 1 b iliopsoas stretch Supine Exercise Name iliopsoas stretch in supine rufus test Reps/Minutes hold 1-2 min Sidelying Exercises clam shells Reps/Minutes 3 x 10 reps Comments worked on keeping pelvis stacked Manual Therapy Treatment Soft Tissue Mobilization sidelying QL release B Body Location sidelying QL release R Comments decreased tightness today as pt has been working on QL release right quad and iliopsoas MFR Body Location right quad and iliopsoas Body Position Supine Comments worked in both supine and sidelying to release the quad and iliopsoas Manual Techniques manual recheck of leg length Comments R leg shorter in supine gentle hip distraction Comments good tolerance posterior capsule stretch Type posterior hip capsule stretch Comments good tolerance PT-OP-R Modalities Start: 05/13/21 17:21 Freq: Status: Active Protocol: Document 05/18/21 11:08 [facility] (Rec: 05/19/21 11:09 [facility] [id number]) Ultrasound Therapy Treatment right quad attachments to the iliac crest Treatment Duration (minutes) 8 Patient Position Sitting Coupling Medium Ultrasound Gel Applicator Size (cm2) 5 Mode Setting Continuous Duty Cycle 100% PT-OP-T Assessment and Plan Start: 12/17/20 09:07 Freq: Status: Active Protocol: Document 10/19/21 09:00 [facility] (Rec: 10/19/21 11:02 [facility] [id number]) Physical Therapy Assessment Assessment Summary Assessment Clam shells were reviewed today and Kimber was cued to keep her pelvis aligned and this helped take away the anterior hip pain with clam shells. She will try them against the wall. Her posterior hip capsule was a little tight today so we worked on releasing this as well today. Decreased QL tightness Physical Therapy Plan Frequency and Duration Frequency of Treatment 2x/Week Duration of Treatment 8 Plan of Care Start Date 10/14/21 Plan of Care End Date 02/04/22 Therapeutic Interventions Therapeutic Interventions Home Exercise Program,Manual Therapy,Patient/Caregiver Education,Self-Care/Home Management,Soft Tissue Mobilization,Therapeutic Exercises Modalities Biofeedback Next Visit Focus/Plan Next Note Type Treatment Note Next Visit Plan assess clam shells next visit
--- NOTE | 2021-10-28 14:22 | PT.OTN ---
Current Diagnoses Pain in unspecified hip (10/27/21) Physical Therapy Treatment Note PT-OP-A Visit Information Start: 12/17/20 09:07 Freq: Status: Active Protocol: Document 10/27/21 12:08 [facility] (Rec: 10/27/21 13:56 [facility] [id number]) Out-Patient Physical Therapy Visit Information Visit Information Visit Type Treatment Note Visit Start Time 12:00 Visit Stop Time 12:45 Total Visit Minutes 45 Visit Number 33 PT-OP-B Current Condition Start: 12/17/20 09:07 Freq: Status: Active Protocol: Document 12/17/20 12:56 [facility] (Rec: 12/17/20 13:07 [facility] [id number]) Current Condition History of Current Condition History of Current Condition 10/17/20 vaginal delivery no tears and now it feels really tight. She complains of right hip clicking and tightness in the front of her hip, medial ankle on the right painful more so when she stands. When she is rocking back and when she is walking she can feel her anterior hip click. PT-OP-C Subjective Start: 12/17/20 09:07 Freq: Status: Active Protocol: Document 10/27/21 12:08 [facility] (Rec: 10/27/21 13:56 [facility] [id number]) OP-PT Subjective Patient Comments Patient Comments pt reports he back has been bothering her and it feels like it is her upper back that is feeling sore. She has had some neck pain but that seems better. SHe will be getting a stand up desk and duel monitors. SHe will have a lap top and munguia board. PT-OP-F Manual Assessment Start: 12/17/20 09:07 Freq: Status: Active Protocol: Document 12/17/20 13:00 [facility] (Rec: 12/22/20 15:06 [facility] [email or web address]) Manual Assessments Soft Tissue Assessment Soft Tissue Mobility Assessment tightness of the right iliopsoas, ITB, quad attachments to the ASIS left lateral wall of the pelvic floor tight and guarded PT-OP-I Pelvic Floor Start: 12/17/20 09:07 Freq: Status: Active Protocol: Document 12/17/20 13:00 [facility] (Rec: 12/22/20 15:06 [facility] [email or web address]) Pelvic Floor Assessment Pelvic Clock Pelvic Clock 3-6 Guarding Contraction Ability Voluntary Contraction Moderate Voluntary Relaxation Moderate Manual Muscle Testing Left 4 Manual Muscle Testing Right 4 Manual Muscle Testing Anterior 4 Manual Muscle Testing Posterior 4 Comments Pelvic Floor Comments pt has good ability to contract and tighten the pelvic floor. She is more guarded on the left side and has difficulty relaxing following a pelvic floor contraction. There was elevated tone on EMG biofeedback with difficulty relaxing. Kimber notes she can feel the tightness in her pelvic floor. PT-OP-J Posture/Palpation/Skin Start: 12/17/20 09:07 Freq: Status: Active Protocol: Document 12/17/20 13:00 [facility] (Rec: 12/22/20 15:06 [facility] [email or web address]) Palpation Assessment Location R ASIS Palpation Location tenderness right ASIS right SI joint Palpation Location right SI joint PSIS Palpation Findings Tenderness Palpation Details tenderness to palpation over the right ASIS PT-OP-M Strength Start: 12/17/20 09:07 Freq: Status: Active Protocol: Document 12/17/20 13:00 [facility] (Rec: 12/22/20 15:06 [facility] [email or web address]) Trunk Strength Trunk Manual Muscle Testing Testing Position Supine Flexion 4 Good Core Stabilization Kimber is able to facilitate her TA with good awareness PT-OP-Q Treatments Start: 12/17/20 09:07 Freq: Status: Active Protocol: Document 10/27/21 12:00 [facility] (Rec: 10/28/21 14:22 [facility] [id number]) Manual Therapy Treatment Soft Tissue Mobilization prone MFR over the thoracic paraspinals Mobilization Type Myofascial Release Intensity/Depth Moderate Body Position Prone Comments right greater than left thoracic paraspinal tightness and guarding Joint Mobilizations prone thoracic mobilizations Joint T3-T8 Direction PA Grade II Body Position Prone PT-OP-R Modalities Start: 05/13/21 17:21 Freq: Status: Active Protocol: Document 10/27/21 12:00 [facility] (Rec: 10/28/21 14:22 [facility] [id number]) Ultrasound Therapy Treatment right thoracic parapsinals Treatment Duration (minutes) 8 Patient Position Prone Coupling Medium Ultrasound Gel Applicator Size (cm2) 5 Mode Setting Continuous Duty Cycle 100% Intensity Setting (w/cm2) 1.5 Comments good tolerance PT-OP-T Assessment and Plan Start: 12/17/20 09:07 Freq: Status: Active Protocol: Document 10/27/21 12:00 [facility] (Rec: 10/28/21 14:22 [facility] [id number]) Physical Therapy Assessment Assessment Summary Assessment I talked to Kimber today about continuing with her postural exercises and she notes she feels that she has rounded shoulders right now taking care of her baby girl. We talked about using the foam roll and ball to open up her chest to help reduce thoracic tightness Physical Therapy Plan Frequency and Duration Frequency of Treatment 2x/Week Duration of Treatment 8 Plan of Care Start Date 10/14/21 Plan of Care End Date 02/04/22 Therapeutic Interventions Therapeutic Interventions Home Exercise Program,Manual Therapy,Patient/Caregiver Education,Self-Care/Home Management,Soft Tissue Mobilization,Therapeutic Exercises Modalities Biofeedback Next Visit Focus/Plan Next Note Type Treatment Note Next Visit Plan review postural exercises, check SI alignment, progress core stabilization
--- NOTE | 2021-11-03 14:02 | PT.OTN ---
Current Diagnoses Pain in unspecified hip (11/03/21) Physical Therapy Treatment Note PT-OP-A Visit Information Start: 12/17/20 09:07 Freq: Status: Active Protocol: Document 11/03/21 12:01 [facility] (Rec: 11/03/21 14:01 [facility] [id number]) Out-Patient Physical Therapy Visit Information Visit Information Visit Type Treatment Note Visit Start Time 12:00 Visit Stop Time 12:45 Total Visit Minutes 45 Visit Number 34 PT-OP-B Current Condition Start: 12/17/20 09:07 Freq: Status: Active Protocol: Document 12/17/20 12:56 [facility] (Rec: 12/17/20 13:07 [facility] [id number]) Current Condition History of Current Condition History of Current Condition 10/17/20 vaginal delivery no tears and now it feels really tight. She complains of right hip clicking and tightness in the front of her hip, medial ankle on the right painful more so when she stands. When she is rocking back and when she is walking she can feel her anterior hip click. PT-OP-C Subjective Start: 12/17/20 09:07 Freq: Status: Active Protocol: Document 11/03/21 12:01 [facility] (Rec: 11/03/21 14:01 [facility] [id number]) OP-PT Subjective Patient Comments Patient Comments pt reports her sciatic region was bothering her this weekend . She is planning on weaning her baby soon. PT-OP-F Manual Assessment Start: 12/17/20 09:07 Freq: Status: Active Protocol: Document 12/17/20 13:00 [facility] (Rec: 12/22/20 15:06 [facility] [email or web address]) Manual Assessments Soft Tissue Assessment Soft Tissue Mobility Assessment tightness of the right iliopsoas, ITB, quad attachments to the ASIS left lateral wall of the pelvic floor tight and guarded PT-OP-I Pelvic Floor Start: 12/17/20 09:07 Freq: Status: Active Protocol: Document 12/17/20 13:00 [facility] (Rec: 12/22/20 15:06 [facility] [email or web address]) Pelvic Floor Assessment Pelvic Clock Pelvic Clock 3-6 Guarding Contraction Ability Voluntary Contraction Moderate Voluntary Relaxation Moderate Manual Muscle Testing Left 4 Manual Muscle Testing Right 4 Manual Muscle Testing Anterior 4 Manual Muscle Testing Posterior 4 Comments Pelvic Floor Comments pt has good ability to contract and tighten the pelvic floor. She is more guarded on the left side and has difficulty relaxing following a pelvic floor contraction. There was elevated tone on EMG biofeedback with difficulty relaxing. Kimber notes she can feel the tightness in her pelvic floor. PT-OP-J Posture/Palpation/Skin Start: 12/17/20 09:07 Freq: Status: Active Protocol: Document 12/17/20 13:00 [facility] (Rec: 12/22/20 15:06 [facility] [email or web address]) Palpation Assessment Location R ASIS Palpation Location tenderness right ASIS right SI joint Palpation Location right SI joint PSIS Palpation Findings Tenderness Palpation Details tenderness to palpation over the right ASIS PT-OP-M Strength Start: 12/17/20 09:07 Freq: Status: Active Protocol: Document 12/17/20 13:00 [facility] (Rec: 12/22/20 15:06 [facility] [email or web address]) Trunk Strength Trunk Manual Muscle Testing Testing Position Supine Flexion 4 Good Core Stabilization Kimber is able to facilitate her TA with good awareness PT-OP-Q Treatments Start: 12/17/20 09:07 Freq: Status: Active Protocol: Document 11/03/21 12:01 [facility] (Rec: 11/03/21 14:01 [facility] [id number]) Therapeutic Exercises Supine Exercises 1/2 foam roll stretch Supine Exercise Name 1/2 foam roll stretch, performed both horizontal as well as vertical Reps/Minutes 4 min Comments to open up the anterior chest Prone Exercises prone thoracic extension Reps/Minutes x 10 reps Comments shoulders ER Manual Therapy Treatment Soft Tissue Mobilization prone MFR over the thoracic paraspinals Mobilization Type Myofascial Release Intensity/Depth Moderate Body Position Prone Comments right greater than left thoracic paraspinal tightness and guarding right quad and iliopsoas MFR Body Location right quad and iliopsoas Body Position Supine Comments worked in both supine and sidelying to release the quad and iliopsoas Manual Techniques MET for right pelvic ourflare Reps/Duration x 5 reps manual recheck of leg length Comments R leg shorter in supine gentle hip distraction Comments good tolerance manual iliopsoasd release in sidelying Type sidelying ilospsoas release Body Position Sidelying sidelying scapular mobs Type sidelying scapular mobs PT-OP-R Modalities Start: 05/13/21 17:21 Freq: Status: Active Protocol: Document 10/27/21 12:00 [facility] (Rec: 10/28/21 14:22 [facility] [id number]) Ultrasound Therapy Treatment right thoracic parapsinals Treatment Duration (minutes) 8 Patient Position Prone Coupling Medium Ultrasound Gel Applicator Size (cm2) 5 Mode Setting Continuous Duty Cycle 100% Intensity Setting (w/cm2) 1.5 Comments good tolerance PT-OP-T Assessment and Plan Start: 12/17/20 09:07 Freq: Status: Active Protocol: Document 11/03/21 12:01 [facility] (Rec: 11/03/21 14:01 [facility] [id number]) Physical Therapy Assessment Assessment Summary Assessment I added in prone thoracic extension today, right side of the pec minor is much tighter than the left. Pt to work on anterior chest stretching at home for HEP Physical Therapy Plan Frequency and Duration Frequency of Treatment 2x/Week Duration of Treatment 8 Plan of Care Start Date 10/14/21 Plan of Care End Date 02/04/22 Therapeutic Interventions Therapeutic Interventions Home Exercise Program,Manual Therapy,Patient/Caregiver Education,Self-Care/Home Management,Soft Tissue Mobilization,Therapeutic Exercises Modalities Biofeedback Next Visit Focus/Plan Next Note Type Treatment Note Next Visit Plan review prone thoracic extension exercises, continue working on opening up the anterior chest with pec minor release and stretches
--- NOTE | 2021-11-10 09:36 | PT.OTN ---
Current Diagnoses Pain in unspecified hip (11/09/21) Physical Therapy Treatment Note PT-OP-A Visit Information Start: 12/17/20 09:07 Freq: Status: Active Protocol: Document 11/09/21 12:59 [facility] (Rec: 11/09/21 13:44 [facility] [id number]) Out-Patient Physical Therapy Visit Information Visit Information Visit Type Treatment Note Visit Start Time 13:00 Visit Stop Time 13:45 Total Visit Minutes 45 Visit Number 35 PT-OP-B Current Condition Start: 12/17/20 09:07 Freq: Status: Active Protocol: Document 12/17/20 12:56 [facility] (Rec: 12/17/20 13:07 [facility] [id number]) Current Condition History of Current Condition History of Current Condition 10/17/20 vaginal delivery no tears and now it feels really tight. She complains of right hip clicking and tightness in the front of her hip, medial ankle on the right painful more so when she stands. When she is rocking back and when she is walking she can feel her anterior hip click. PT-OP-C Subjective Start: 12/17/20 09:07 Freq: Status: Active Protocol: Document 11/09/21 12:59 [facility] (Rec: 11/09/21 13:44 [facility] [id number]) OP-PT Subjective Patient Comments Patient Comments pt feels like she did pretty good with her flight and went tubing and didn't experience in increase in back pain. She starts her new job Nov 22 and is getting a high-low work desk for flexibility and variety of movement Patient Reported Progress Improving PT-OP-F Manual Assessment Start: 12/17/20 09:07 Freq: Status: Active Protocol: Document 12/17/20 13:00 [facility] (Rec: 12/22/20 15:06 [facility] [email or web address]) Manual Assessments Soft Tissue Assessment Soft Tissue Mobility Assessment tightness of the right iliopsoas, ITB, quad attachments to the ASIS left lateral wall of the pelvic floor tight and guarded PT-OP-I Pelvic Floor Start: 12/17/20 09:07 Freq: Status: Active Protocol: Document 12/17/20 13:00 [facility] (Rec: 12/22/20 15:06 [facility] [email or web address]) Pelvic Floor Assessment Pelvic Clock Pelvic Clock 3-6 Guarding Contraction Ability Voluntary Contraction Moderate Voluntary Relaxation Moderate Manual Muscle Testing Left 4 Manual Muscle Testing Right 4 Manual Muscle Testing Anterior 4 Manual Muscle Testing Posterior 4 Comments Pelvic Floor Comments pt has good ability to contract and tighten the pelvic floor. She is more guarded on the left side and has difficulty relaxing following a pelvic floor contraction. There was elevated tone on EMG biofeedback with difficulty relaxing. Kimber notes she can feel the tightness in her pelvic floor. PT-OP-J Posture/Palpation/Skin Start: 12/17/20 09:07 Freq: Status: Active Protocol: Document 12/17/20 13:00 [facility] (Rec: 12/22/20 15:06 [facility] [email or web address]) Palpation Assessment Location R ASIS Palpation Location tenderness right ASIS right SI joint Palpation Location right SI joint PSIS Palpation Findings Tenderness Palpation Details tenderness to palpation over the right ASIS PT-OP-M Strength Start: 12/17/20 09:07 Freq: Status: Active Protocol: Document 12/17/20 13:00 [facility] (Rec: 12/22/20 15:06 [facility] [email or web address]) Trunk Strength Trunk Manual Muscle Testing Testing Position Supine Flexion 4 Good Core Stabilization Kimber is able to facilitate her TA with good awareness PT-OP-Q Treatments Start: 12/17/20 09:07 Freq: Status: Active Protocol: Document 11/09/21 12:59 [facility] (Rec: 11/09/21 13:44 [facility] [id number]) Therapeutic Exercises Supine Exercises 1/2 foam roll stretch Supine Exercise Name 1/2 foam roll stretch, performed both horizontal as well as vertical Reps/Minutes 4 min Comments to open up the anterior chest Prone Exercises prone thoracic extension Reps/Minutes x 10 reps Comments shoulders ER Other Exercises tj pose Reps/Minutes hold 1-2 minutes thread the needle Reps/Minutes x 10 reps cat cow Reps/Minutes x 10 reps Manual Therapy Treatment Soft Tissue Mobilization prone MFR over the thoracic paraspinals Mobilization Type Myofascial Release Intensity/Depth Moderate Body Position Prone Comments right greater than left thoracic paraspinal tightness and guarding right quad and iliopsoas MFR Body Location right quad and iliopsoas Body Position Supine Comments worked in supine today for Iliopsoas and quad release Manual Techniques sidelying scapular mobs Type sidelying scapular mobs manual ilopsoas and quad stretches Body Position supine rufus test position Comments with PROM knee flexion PT-OP-R Modalities Start: 05/13/21 17:21 Freq: Status: Active Protocol: Document 10/27/21 12:00 [facility] (Rec: 10/28/21 14:22 [facility] [id number]) Ultrasound Therapy Treatment right thoracic parapsinals Treatment Duration (minutes) 8 Patient Position Prone Coupling Medium Ultrasound Gel Applicator Size (cm2) 5 Mode Setting Continuous Duty Cycle 100% Intensity Setting (w/cm2) 1.5 Comments good tolerance PT-OP-T Assessment and Plan Start: 12/17/20 09:07 Freq: Status: Active Protocol: Document 11/09/21 13:00 [facility] (Rec: 11/10/21 09:36 [facility] [id number]) Physical Therapy Assessment Assessment Summary Assessment Kimber is doing better this week. She will be starting her job on 11/22/21 and will transition to 1 xm every other week through January. We will progress towards discharge to a [facility] Physical Therapy Plan Frequency and Duration Frequency of Treatment 2x/Week Duration of Treatment 8 Plan of Care Start Date 10/14/21 Plan of Care End Date 02/04/22 Therapeutic Interventions Therapeutic Interventions Home Exercise Program,Manual Therapy,Patient/Caregiver Education,Self-Care/Home Management,Soft Tissue Mobilization,Therapeutic Exercises Modalities Biofeedback Next Visit Focus/Plan Next Note Type Treatment Note Next Visit Plan review postural exercises, iliopsoas stretching and recheck SI alignment
--- NOTE | 2021-12-08 13:43 | PT.OTN ---
Current Diagnoses Pain in unspecified hip (12/08/21) Physical Therapy Treatment Note PT-OP-A Visit Information Start: 12/17/20 09:07 Freq: Status: Active Protocol: Document 12/08/21 12:09 [facility] (Rec: 12/08/21 13:38 [facility] [id number]) Out-Patient Physical Therapy Visit Information Visit Information Visit Type Treatment Note Visit Start Time 12:09 Visit Stop Time 12:55 Total Visit Minutes 46 PT-OP-B Current Condition Start: 12/17/20 09:07 Freq: Status: Active Protocol: Document 12/17/20 12:56 [facility] (Rec: 12/17/20 13:07 [facility] [id number]) Current Condition History of Current Condition History of Current Condition 10/17/20 vaginal delivery no tears and now it feels really tight. She complains of right hip clicking and tightness in the front of her hip, medial ankle on the right painful more so when she stands. When she is rocking back and when she is walking she can feel her anterior hip click. PT-OP-C Subjective Start: 12/17/20 09:07 Freq: Status: Active Protocol: Document 12/08/21 12:09 [facility] (Rec: 12/08/21 13:38 [facility] [id number]) OP-PT Subjective Patient Comments Patient Comments pt reports she tweaked her back 2.5 weeks ago, she has been sitting a lot more for work than normal because of that. She notes feeling more tightness in her hip. Trying to work and get her schedule figured out she hasn't been in her routine of exercise PT-OP-F Manual Assessment Start: 12/17/20 09:07 Freq: Status: Active Protocol: Document 12/17/20 13:00 [facility] (Rec: 12/22/20 15:06 [facility] [email or web address]) Manual Assessments Soft Tissue Assessment Soft Tissue Mobility Assessment tightness of the right iliopsoas, ITB, quad attachments to the ASIS left lateral wall of the pelvic floor tight and guarded PT-OP-I Pelvic Floor Start: 12/17/20 09:07 Freq: Status: Active Protocol: Document 12/17/20 13:00 [facility] (Rec: 12/22/20 15:06 [facility] [email or web address]) Pelvic Floor Assessment Pelvic Clock Pelvic Clock 3-6 Guarding Contraction Ability Voluntary Contraction Moderate Voluntary Relaxation Moderate Manual Muscle Testing Left 4 Manual Muscle Testing Right 4 Manual Muscle Testing Anterior 4 Manual Muscle Testing Posterior 4 Comments Pelvic Floor Comments pt has good ability to contract and tighten the pelvic floor. She is more guarded on the left side and has difficulty relaxing following a pelvic floor contraction. There was elevated tone on EMG biofeedback with difficulty relaxing. Kimber notes she can feel the tightness in her pelvic floor. PT-OP-J Posture/Palpation/Skin Start: 12/17/20 09:07 Freq: Status: Active Protocol: Document 12/17/20 13:00 [facility] (Rec: 12/22/20 15:06 [facility] [id number]) Palpation Assessment Location R ASIS Palpation Location tenderness right ASIS right SI joint Palpation Location right SI joint PSIS Palpation Findings Tenderness Palpation Details tenderness to palpation over the right ASIS PT-OP-M Strength Start: 12/17/20 09:07 Freq: Status: Active Protocol: Document 12/17/20 13:00 [facility] (Rec: 12/22/20 15:06 [facility] [id number]) Trunk Strength Trunk Manual Muscle Testing Testing Position Supine Flexion 4 Good Core Stabilization Kimber is able to facilitate her TA with good awareness PT-OP-Q Treatments Start: 12/17/20 09:07 Freq: Status: Active Protocol: Document 12/08/21 12:09 [facility] (Rec: 12/08/21 13:38 [facility] [id number]) Therapeutic Exercises Supine Exercises windshield wipers Reps/Minutes x 10 reps Comments to open up the anterior hip and low back Other Exercises tj pose Other Exercise Name tj pose center and then sides especially to open up the right side Reps/Minutes hold 1-2 minutes Manual Therapy Treatment Soft Tissue Mobilization sidelying QL release B Body Location QL release on the right side Body Position left sidelying Comments right >left side tightness right quad and iliopsoas MFR Body Location right quad and iliopsoas Body Position Supine Comments worked in supine today for Iliopsoas and quad release Manual Techniques MET for right pelvic ourflare Type MET Reps/Duration x 5 reps manual ilopsoas and quad stretches Body Position supine rufus test position Comments with PROM knee flexion and manual release to the quad and iliopsoas PT-OP-R Modalities Start: 05/13/21 17:21 Freq: Status: Active Protocol: Document 10/27/21 12:00 [facility] (Rec: 10/28/21 14:22 [facility] [id number]) Ultrasound Therapy Treatment right thoracic parapsinals Treatment Duration (minutes) 8 Patient Position Prone Coupling Medium Ultrasound Gel Applicator Size (cm2) 5 Mode Setting Continuous Duty Cycle 100% Intensity Setting (w/cm2) 1.5 Comments good tolerance PT-OP-T Assessment and Plan Start: 12/17/20 09:07 Freq: Status: Active Protocol: Document 12/08/21 12:09 [facility] (Rec: 12/08/21 13:40 [facility] [id number]) Physical Therapy Assessment Assessment Summary Assessment Kimber has just returned to work after having her baby and her body is adjusting. She was tight right side of low back and in her iliopsoas today. Stretches for her low back were reviewed. Physical Therapy Plan Frequency and Duration Frequency of Treatment 2x/Week Duration of Treatment 8 Plan of Care Start Date 10/14/21 Plan of Care End Date 02/04/22 Therapeutic Interventions Therapeutic Interventions Home Exercise Program,Manual Therapy,Patient/Caregiver Education,Self-Care/Home Management,Soft Tissue Mobilization,Therapeutic Exercises Modalities Biofeedback Next Visit Focus/Plan Next Note Type Treatment Note Next Visit Plan review postural exercises, iliopsoas stretching and recheck SI alignment, sitting alignment for work
--- NOTE | 2021-12-14 17:57 | PT.OTN ---
Current Diagnoses Pain in unspecified hip (12/14/21) Physical Therapy Treatment Note PT-OP-A Visit Information Start: 12/17/20 09:07 Freq: Status: Active Protocol: Document 12/14/21 15:15 [facility] (Rec: 12/14/21 16:01 [facility] [id number]) Out-Patient Physical Therapy Visit Information Visit Information Visit Type Treatment Note Visit Start Time 15:15 Visit Stop Time 16:00 Total Visit Minutes 45 Visit Number 37 PT-OP-B Current Condition Start: 12/17/20 09:07 Freq: Status: Active Protocol: Document 12/17/20 12:56 [facility] (Rec: 12/17/20 13:07 [facility] [id number]) Current Condition History of Current Condition History of Current Condition 10/17/20 vaginal delivery no tears and now it feels really tight. She complains of right hip clicking and tightness in the front of her hip, medial ankle on the right painful more so when she stands. When she is rocking back and when she is walking she can feel her anterior hip click. PT-OP-C Subjective Start: 12/17/20 09:07 Freq: Status: Active Protocol: Document 12/14/21 15:15 [facility] (Rec: 12/14/21 15:57 [facility] [id number]) OP-PT Subjective Patient Comments Patient Comments pt reports her back is feeling a little better but still feeling like that her low back wants to arch in the sacrum area. Patient Reported Progress Improving PT-OP-F Manual Assessment Start: 12/17/20 09:07 Freq: Status: Active Protocol: Document 12/17/20 13:00 [facility] (Rec: 12/22/20 15:06 [facility] [email or web address]) Manual Assessments Soft Tissue Assessment Soft Tissue Mobility Assessment tightness of the right iliopsoas, ITB, quad attachments to the ASIS left lateral wall of the pelvic floor tight and guarded PT-OP-I Pelvic Floor Start: 12/17/20 09:07 Freq: Status: Active Protocol: Document 12/17/20 13:00 [facility] (Rec: 12/22/20 15:06 [facility] [email or web address]) Pelvic Floor Assessment Pelvic Clock Pelvic Clock 3-6 Guarding Contraction Ability Voluntary Contraction Moderate Voluntary Relaxation Moderate Manual Muscle Testing Left 4 Manual Muscle Testing Right 4 Manual Muscle Testing Anterior 4 Manual Muscle Testing Posterior 4 Comments Pelvic Floor Comments pt has good ability to contract and tighten the pelvic floor. She is more guarded on the left side and has difficulty relaxing following a pelvic floor contraction. There was elevated tone on EMG biofeedback with difficulty relaxing. Kimber notes she can feel the tightness in her pelvic floor. PT-OP-J Posture/Palpation/Skin Start: 12/17/20 09:07 Freq: Status: Active Protocol: Document 12/17/20 13:00 [facility] (Rec: 12/22/20 15:06 [facility] [email or web address]) Palpation Assessment Location R ASIS Palpation Location tenderness right ASIS right SI joint Palpation Location right SI joint PSIS Palpation Findings Tenderness Palpation Details tenderness to palpation over the right ASIS PT-OP-M Strength Start: 12/17/20 09:07 Freq: Status: Active Protocol: Document 12/17/20 13:00 [facility] (Rec: 12/22/20 15:06 [facility] [id number]) Trunk Strength Trunk Manual Muscle Testing Testing Position Supine Flexion 4 Good Core Stabilization Kimber is able to facilitate her TA with good awareness PT-OP-Q Treatments Start: 12/17/20 09:07 Freq: Status: Active Protocol: Document 12/14/21 15:15 [facility] (Rec: 12/14/21 16:01 [facility] [id number]) Therapeutic Exercises Supine Exercises piriformis stretch Reps/Minutes hold x 1 min pelvic floor long holds with relaxation Equipment Used x 10 reps Reps/Minutes x 10 Comments 18.2 with max of 26 uv Manual Therapy Treatment Soft Tissue Mobilization prone piriformis release B Body Position Prone Comments left greater than right piriformis tightness, Manual Techniques manual sacral decompression Type manual sacral decompression and work into counter nutation Comments worked on sacral counternutation with MET manual iliopsoasd release in sidelying Type sidelying ilospsoas release Body Position Sidelying PT-OP-R Modalities Start: 05/13/21 17:21 Freq: Status: Active Protocol: Document 10/27/21 12:00 [facility] (Rec: 10/28/21 14:22 [facility] [id number]) Ultrasound Therapy Treatment right thoracic parapsinals Treatment Duration (minutes) 8 Patient Position Prone Coupling Medium Ultrasound Gel Applicator Size (cm2) 5 Mode Setting Continuous Duty Cycle 100% Intensity Setting (w/cm2) 1.5 Comments good tolerance PT-OP-T Assessment and Plan Start: 12/17/20 09:07 Freq: Status: Active Protocol: Document 12/14/21 15:15 [facility] (Rec: 12/14/21 17:57 [facility] [id number]) Physical Therapy Assessment Assessment Summary Assessment Kimber is doing better this week with her hip and back, not as much tightness into IR on the right. She has been working on her sidebending stretches and she wasn't as tight in the QL today. Pelvic floor strength improved and endurance to 10 seconds and 20 uv on EMG biofeedback Physical Therapy Plan Frequency and Duration Frequency of Treatment 2x/Week Duration of Treatment 8 Plan of Care Start Date 10/14/21 Plan of Care End Date 02/04/22 Therapeutic Interventions Therapeutic Interventions Home Exercise Program,Manual Therapy,Patient/Caregiver Education,Self-Care/Home Management,Soft Tissue Mobilization,Therapeutic Exercises Modalities Biofeedback Next Visit Focus/Plan Next Note Type Treatment Note Next Visit Plan review postural exercises, iliopsoas stretching and recheck SI alignment, sitting alignment for work
--- NOTE | 2022-01-06 17:26 | PT.OTN ---
Current Diagnoses Pain in unspecified hip (01/06/22) Physical Therapy Treatment Note PT-OP-A Visit Information Start: 12/17/20 09:07 Freq: Status: Active Protocol: Document 01/06/22 14:36 [facility] (Rec: 01/06/22 14:38 [facility] [id number]) Out-Patient Physical Therapy Visit Information Visit Information Visit Type Treatment Note Visit Start Time 14:37 Visit Stop Time 15:20 Total Visit Minutes 38 PT-OP-B Current Condition Start: 12/17/20 09:07 Freq: Status: Active Protocol: Document 12/17/20 12:56 [facility] (Rec: 12/17/20 13:07 [facility] [id number]) Current Condition History of Current Condition History of Current Condition 10/17/20 vaginal delivery no tears and now it feels really tight. She complains of right hip clicking and tightness in the front of her hip, medial ankle on the right painful more so when she stands. When she is rocking back and when she is walking she can feel her anterior hip click. PT-OP-C Subjective Start: 12/17/20 09:07 Freq: Status: Active Protocol: Document 01/06/22 14:36 [facility] (Rec: 01/06/22 14:38 [facility] [id number]) OP-PT Subjective Patient Comments Patient Comments R hip felt tight last week and then she felt some sciatic pain and knee pain but other than that she has felt better with her low back and hip Patient Reported Progress Improving PT-OP-F Manual Assessment Start: 12/17/20 09:07 Freq: Status: Active Protocol: Document 12/17/20 13:00 [facility] (Rec: 12/22/20 15:06 [facility] [email or web address]) Manual Assessments Soft Tissue Assessment Soft Tissue Mobility Assessment tightness of the right iliopsoas, ITB, quad attachments to the ASIS left lateral wall of the pelvic floor tight and guarded PT-OP-I Pelvic Floor Start: 12/17/20 09:07 Freq: Status: Active Protocol: Document 12/17/20 13:00 [facility] (Rec: 12/22/20 15:06 [facility] [email or web address]) Pelvic Floor Assessment Pelvic Clock Pelvic Clock 3-6 Guarding Contraction Ability Voluntary Contraction Moderate Voluntary Relaxation Moderate Manual Muscle Testing Left 4 Manual Muscle Testing Right 4 Manual Muscle Testing Anterior 4 Manual Muscle Testing Posterior 4 Comments Pelvic Floor Comments pt has good ability to contract and tighten the pelvic floor. She is more guarded on the left side and has difficulty relaxing following a pelvic floor contraction. There was elevated tone on EMG biofeedback with difficulty relaxing. Kimber notes she can feel the tightness in her pelvic floor. PT-OP-J Posture/Palpation/Skin Start: 12/17/20 09:07 Freq: Status: Active Protocol: Document 12/17/20 13:00 [facility] (Rec: 12/22/20 15:06 [facility] [email or web address]) Palpation Assessment Location R ASIS Palpation Location tenderness right ASIS right SI joint Palpation Location right SI joint PSIS Palpation Findings Tenderness Palpation Details tenderness to palpation over the right ASIS PT-OP-M Strength Start: 12/17/20 09:07 Freq: Status: Active Protocol: Document 12/17/20 13:00 [facility] (Rec: 12/22/20 15:06 [facility] [email or web address]) Trunk Strength Trunk Manual Muscle Testing Testing Position Supine Flexion 4 Good Core Stabilization Kimber is able to facilitate her TA with good awareness PT-OP-Q Treatments Start: 12/17/20 09:07 Freq: Status: Active Protocol: Document 01/06/22 14:36 [facility] (Rec: 01/06/22 17:26 [facility] [id number]) Manual Therapy Treatment Soft Tissue Mobilization ITB release on the right Body Location right ITB Body Position left sidelying right quad and iliopsoas MFR Body Location right quad and iliopsoas Body Position Supine Comments worked in supine today for Iliopsoas and quad release Manual Techniques manual recheck of leg length Comments R leg shorter in supine gentle hip distraction Type right hip distraction Comments good tolerance manual iliopsoasd release in sidelying Type sidelying ilospsoas release Body Position Sidelying PT-OP-R Modalities Start: 05/13/21 17:21 Freq: Status: Active Protocol: Document 10/27/21 12:00 [facility] (Rec: 10/28/21 14:22 [facility] [id number]) Ultrasound Therapy Treatment right thoracic parapsinals Treatment Duration (minutes) 8 Patient Position Prone Coupling Medium Ultrasound Gel Applicator Size (cm2) 5 Mode Setting Continuous Duty Cycle 100% Intensity Setting (w/cm2) 1.5 Comments good tolerance PT-OP-T Assessment and Plan Start: 12/17/20 09:07 Freq: Status: Active Protocol: Document 01/06/22 14:36 [facility] (Rec: 01/06/22 17:26 [facility] [id number]) Physical Therapy Assessment Assessment Summary Assessment right hip tight today and pulled into IR, worked on hip distraction, releasing the Iliopsoas and quads and hip ER . Leg length equal following treatment. Encouraged pt to continue working lateral stability exercises clam shells and anterior hip stretches Physical Therapy Plan Frequency and Duration Frequency of Treatment 2x/Week Duration of Treatment 8 Plan of Care Start Date 10/14/21 Plan of Care End Date 02/04/22 Therapeutic Interventions Therapeutic Interventions Home Exercise Program,Manual Therapy,Patient/Caregiver Education,Self-Care/Home Management,Soft Tissue Mobilization,Therapeutic Exercises Modalities Biofeedback Next Visit Focus/Plan Next Note Type Treatment Note Next Visit Plan review postural exercises, iliopsoas stretching and recheck SI alignment, sitting alignment for work
--- NOTE | 2022-01-06 17:27 | PT.OTN ---
Current Diagnoses Pain in unspecified hip (01/06/22) Physical Therapy Treatment Note PT-OP-A Visit Information Start: 12/17/20 09:07 Freq: Status: Active Protocol: Document 01/06/22 14:36 [facility] (Rec: 01/06/22 14:38 [facility] [id number]) Out-Patient Physical Therapy Visit Information Visit Information Visit Type Treatment Note Visit Start Time 14:37 Visit Stop Time 15:20 Total Visit Minutes 38 PT-OP-B Current Condition Start: 12/17/20 09:07 Freq: Status: Active Protocol: Document 12/17/20 12:56 [facility] (Rec: 12/17/20 13:07 [facility] [id number]) Current Condition History of Current Condition History of Current Condition 10/17/20 vaginal delivery no tears and now it feels really tight. She complains of right hip clicking and tightness in the front of her hip, medial ankle on the right painful more so when she stands. When she is rocking back and when she is walking she can feel her anterior hip click. PT-OP-C Subjective Start: 12/17/20 09:07 Freq: Status: Active Protocol: Document 01/06/22 14:36 [facility] (Rec: 01/06/22 14:38 [facility] [id number]) OP-PT Subjective Patient Comments Patient Comments R hip felt tight last week and then she felt some sciatic pain and knee pain but other than that she has felt better with her low back and hip Patient Reported Progress Improving PT-OP-F Manual Assessment Start: 12/17/20 09:07 Freq: Status: Active Protocol: Document 12/17/20 13:00 [facility] (Rec: 12/22/20 15:06 [facility] [email or web address]) Manual Assessments Soft Tissue Assessment Soft Tissue Mobility Assessment tightness of the right iliopsoas, ITB, quad attachments to the ASIS left lateral wall of the pelvic floor tight and guarded PT-OP-I Pelvic Floor Start: 12/17/20 09:07 Freq: Status: Active Protocol: Document 12/17/20 13:00 [facility] (Rec: 12/22/20 15:06 [facility] [email or web address]) Pelvic Floor Assessment Pelvic Clock Pelvic Clock 3-6 Guarding Contraction Ability Voluntary Contraction Moderate Voluntary Relaxation Moderate Manual Muscle Testing Left 4 Manual Muscle Testing Right 4 Manual Muscle Testing Anterior 4 Manual Muscle Testing Posterior 4 Comments Pelvic Floor Comments pt has good ability to contract and tighten the pelvic floor. She is more guarded on the left side and has difficulty relaxing following a pelvic floor contraction. There was elevated tone on EMG biofeedback with difficulty relaxing. Kimber notes she can feel the tightness in her pelvic floor. PT-OP-J Posture/Palpation/Skin Start: 12/17/20 09:07 Freq: Status: Active Protocol: Document 12/17/20 13:00 [facility] (Rec: 12/22/20 15:06 [facility] [email or web address]) Palpation Assessment Location R ASIS Palpation Location tenderness right ASIS right SI joint Palpation Location right SI joint PSIS Palpation Findings Tenderness Palpation Details tenderness to palpation over the right ASIS PT-OP-M Strength Start: 12/17/20 09:07 Freq: Status: Active Protocol: Document 12/17/20 13:00 [facility] (Rec: 12/22/20 15:06 [facility] [email or web address]) Trunk Strength Trunk Manual Muscle Testing Testing Position Supine Flexion 4 Good Core Stabilization Kimber is able to facilitate her TA with good awareness PT-OP-Q Treatments Start: 12/17/20 09:07 Freq: Status: Active Protocol: Document 01/06/22 14:36 [facility] (Rec: 01/06/22 17:26 [facility] [id number]) Manual Therapy Treatment Soft Tissue Mobilization ITB release on the right Body Location right ITB Body Position left sidelying right quad and iliopsoas MFR Body Location right quad and iliopsoas Body Position Supine Comments worked in supine today for Iliopsoas and quad release Manual Techniques manual recheck of leg length Comments R leg shorter in supine gentle hip distraction Type right hip distraction Comments good tolerance manual iliopsoasd release in sidelying Type sidelying ilospsoas release Body Position Sidelying PT-OP-R Modalities Start: 05/13/21 17:21 Freq: Status: Active Protocol: Document 10/27/21 12:00 [facility] (Rec: 10/28/21 14:22 [facility] [id number]) Ultrasound Therapy Treatment right thoracic parapsinals Treatment Duration (minutes) 8 Patient Position Prone Coupling Medium Ultrasound Gel Applicator Size (cm2) 5 Mode Setting Continuous Duty Cycle 100% Intensity Setting (w/cm2) 1.5 Comments good tolerance PT-OP-T Assessment and Plan Start: 12/17/20 09:07 Freq: Status: Active Protocol: Document 01/06/22 14:36 [facility] (Rec: 01/06/22 17:26 [facility] [id number]) Physical Therapy Assessment Assessment Summary Assessment right hip tight today and pulled into IR, worked on hip distraction, releasing the Iliopsoas and quads and hip ER . Leg length equal following treatment. Encouraged pt to continue working lateral stability exercises clam shells and anterior hip stretches Physical Therapy Plan Frequency and Duration Frequency of Treatment 2x/Week Duration of Treatment 8 Plan of Care Start Date 10/14/21 Plan of Care End Date 02/04/22 Therapeutic Interventions Therapeutic Interventions Home Exercise Program,Manual Therapy,Patient/Caregiver Education,Self-Care/Home Management,Soft Tissue Mobilization,Therapeutic Exercises Modalities Biofeedback Next Visit Focus/Plan Next Note Type Treatment Note Next Visit Plan review postural exercises, iliopsoas stretching and recheck SI alignment, sitting alignment for work
--- NOTE | 2022-01-20 11:29 | PT.OTN ---
Current Diagnoses Pain in unspecified hip (01/19/22) Physical Therapy Treatment Note PT-OP-A Visit Information Start: 12/17/20 09:07 Freq: Status: Active Protocol: Document 01/19/22 12:00 [facility] (Rec: 01/19/22 13:51 [facility] [id number]) Out-Patient Physical Therapy Visit Information Visit Information Visit Type Treatment Note Visit Start Time 12:02 Visit Stop Time 12:45 Total Visit Minutes 43 Visit Number 39 PT-OP-B Current Condition Start: 12/17/20 09:07 Freq: Status: Active Protocol: Document 12/17/20 12:56 [facility] (Rec: 12/17/20 13:07 [facility] [id number]) Current Condition History of Current Condition History of Current Condition 10/17/20 vaginal delivery no tears and now it feels really tight. She complains of right hip clicking and tightness in the front of her hip, medial ankle on the right painful more so when she stands. When she is rocking back and when she is walking she can feel her anterior hip click. PT-OP-C Subjective Start: 12/17/20 09:07 Freq: Status: Active Protocol: Document 01/19/22 12:00 [facility] (Rec: 01/19/22 13:51 [facility] [id number]) OP-PT Subjective Patient Comments Patient Comments pt notes she flies to [place] tomorrow and this week and her right hip has felt tight. Patient Reported Progress Improving PT-OP-F Manual Assessment Start: 12/17/20 09:07 Freq: Status: Active Protocol: Document 12/17/20 13:00 [facility] (Rec: 12/22/20 15:06 [facility] [email or web address]) Manual Assessments Soft Tissue Assessment Soft Tissue Mobility Assessment tightness of the right iliopsoas, ITB, quad attachments to the ASIS left lateral wall of the pelvic floor tight and guarded PT-OP-I Pelvic Floor Start: 12/17/20 09:07 Freq: Status: Active Protocol: Document 12/17/20 13:00 [facility] (Rec: 12/22/20 15:06 [facility] [email or web address]) Pelvic Floor Assessment Pelvic Clock Pelvic Clock 3-6 Guarding Contraction Ability Voluntary Contraction Moderate Voluntary Relaxation Moderate Manual Muscle Testing Left 4 Manual Muscle Testing Right 4 Manual Muscle Testing Anterior 4 Manual Muscle Testing Posterior 4 Comments Pelvic Floor Comments pt has good ability to contract and tighten the pelvic floor. She is more guarded on the left side and has difficulty relaxing following a pelvic floor contraction. There was elevated tone on EMG biofeedback with difficulty relaxing. Kimber notes she can feel the tightness in her pelvic floor. PT-OP-J Posture/Palpation/Skin Start: 12/17/20 09:07 Freq: Status: Active Protocol: Document 12/17/20 13:00 [facility] (Rec: 12/22/20 15:06 [facility] [email or web address]) Palpation Assessment Location R ASIS Palpation Location tenderness right ASIS right SI joint Palpation Location right SI joint PSIS Palpation Findings Tenderness Palpation Details tenderness to palpation over the right ASIS PT-OP-M Strength Start: 12/17/20 09:07 Freq: Status: Active Protocol: Document 12/17/20 13:00 [facility] (Rec: 12/22/20 15:06 [facility] [email or web address]) Trunk Strength Trunk Manual Muscle Testing Testing Position Supine Flexion 4 Good Core Stabilization Kimber is able to facilitate her TA with good awareness PT-OP-Q Treatments Start: 12/17/20 09:07 Freq: Status: Active Protocol: Document 01/19/22 12:00 [facility] (Rec: 01/20/22 11:28 [facility] [id number]) Manual Therapy Treatment Soft Tissue Mobilization sidelying QL release B Body Location QL and lumbar paraspinal release on the right Body Position left sidelying right quad and iliopsoas MFR Body Location right quad and iliopsoas Body Position Supine Comments worked in supine today for Iliopsoas and quad release Manual Techniques manual piriformis stretch Reps/Duration holding 1-2 min x 2 manual recheck of leg length Comments R leg shorter in supine gentle hip distraction Type right hip distraction Comments good tolerance PT-OP-R Modalities Start: 05/13/21 17:21 Freq: Status: Active Protocol: Document 10/27/21 12:00 [facility] (Rec: 10/28/21 14:22 [facility] [id number]) Ultrasound Therapy Treatment right thoracic parapsinals Treatment Duration (minutes) 8 Patient Position Prone Coupling Medium Ultrasound Gel Applicator Size (cm2) 5 Mode Setting Continuous Duty Cycle 100% Intensity Setting (w/cm2) 1.5 Comments good tolerance PT-OP-T Assessment and Plan Start: 12/17/20 09:07 Freq: Status: Active Protocol: Document 01/19/22 12:00 [facility] (Rec: 01/20/22 11:28 [facility] [id number]) Physical Therapy Assessment Assessment Summary Assessment right leg shorter today but corrected with manual techniques. Pt has been doing better overall with her stretches and her sit-stand desk with standing for periods during the day with her new job Physical Therapy Plan Frequency and Duration Frequency of Treatment 2x/Week Duration of Treatment 8 Plan of Care Start Date 10/14/21 Plan of Care End Date 02/04/22 Therapeutic Interventions Therapeutic Interventions Home Exercise Program,Manual Therapy,Patient/Caregiver Education,Self-Care/Home Management,Soft Tissue Mobilization,Therapeutic Exercises Modalities Biofeedback Next Visit Focus/Plan Next Note Type Progress Note Next Visit Plan reassess leg length, return to EMG biofeedback and stabilization exercises
--- NOTE | 2022-01-25 17:33 | PT.OTN ---
Current Diagnoses Pain in unspecified hip (01/25/22) Physical Therapy Treatment Note PT-OP-A Visit Information Start: 12/17/20 09:07 Freq: Status: Active Protocol: Document 01/25/22 15:20 [facility] (Rec: 01/25/22 17:33 [facility] [id number]) Out-Patient Physical Therapy Visit Information Visit Information Visit Type Treatment Note Visit Start Time 15:20 Visit Stop Time 16:05 Total Visit Minutes 45 Visit Number 45 PT-OP-B Current Condition Start: 12/17/20 09:07 Freq: Status: Active Protocol: Document 12/17/20 12:56 [facility] (Rec: 12/17/20 13:07 [facility] [id number]) Current Condition History of Current Condition History of Current Condition 10/17/20 vaginal delivery no tears and now it feels really tight. She complains of right hip clicking and tightness in the front of her hip, medial ankle on the right painful more so when she stands. When she is rocking back and when she is walking she can feel her anterior hip click. PT-OP-C Subjective Start: 12/17/20 09:07 Freq: Status: Active Protocol: Document 01/25/22 15:25 [facility] (Rec: 01/25/22 16:07 [facility] [id number]) OP-PT Subjective Patient Comments Patient Comments pt reports her hip did really good until her flight back PT-OP-F Manual Assessment Start: 12/17/20 09:07 Freq: Status: Active Protocol: Document 12/17/20 13:00 [facility] (Rec: 12/22/20 15:06 [facility] [id number]) Manual Assessments Soft Tissue Assessment Soft Tissue Mobility Assessment tightness of the right iliopsoas, ITB, quad attachments to the ASIS left lateral wall of the pelvic floor tight and guarded PT-OP-I Pelvic Floor Start: 12/17/20 09:07 Freq: Status: Active Protocol: Document 12/17/20 13:00 [facility] (Rec: 12/22/20 15:06 [facility] [email or web address]) Pelvic Floor Assessment Pelvic Clock Pelvic Clock 3-6 Guarding Contraction Ability Voluntary Contraction Moderate Voluntary Relaxation Moderate Manual Muscle Testing Left 4 Manual Muscle Testing Right 4 Manual Muscle Testing Anterior 4 Manual Muscle Testing Posterior 4 Comments Pelvic Floor Comments pt has good ability to contract and tighten the pelvic floor. She is more guarded on the left side and has difficulty relaxing following a pelvic floor contraction. There was elevated tone on EMG biofeedback with difficulty relaxing. Kimber notes she can feel the tightness in her pelvic floor. PT-OP-J Posture/Palpation/Skin Start: 12/17/20 09:07 Freq: Status: Active Protocol: Document 12/17/20 13:00 [facility] (Rec: 12/22/20 15:06 [facility] [id number]) Palpation Assessment Location R ASIS Palpation Location tenderness right ASIS right SI joint Palpation Location right SI joint PSIS Palpation Findings Tenderness Palpation Details tenderness to palpation over the right ASIS PT-OP-M Strength Start: 12/17/20 09:07 Freq: Status: Active Protocol: Document 12/17/20 13:00 [facility] (Rec: 12/22/20 15:06 [facility] [id number]) Trunk Strength Trunk Manual Muscle Testing Testing Position Supine Flexion 4 Good Core Stabilization Kimber is able to facilitate her TA with good awareness PT-OP-Q Treatments Start: 12/17/20 09:07 Freq: Status: Active Protocol: Document 01/25/22 15:20 [facility] (Rec: 01/25/22 17:33 [facility] [id number]) Therapeutic Exercises Supine Exercises windshield wipers Reps/Minutes x 10 reps Comments to open up the anterior hip and low back Other Exercises tj pose Other Exercise Name tj pose center and then sides especially to open up the right side Reps/Minutes hold 1-2 minutes tj pose with arms to the left to stretch right side of spine Other Exercise Name quadruped cat stretch> tj pose Reps/Minutes hold stretch Comments w/ manual STMs to parapinals, strum and MF inferior glide quadruped thoracic extension Other Exercise Name quarduped thoracic ext Reps/Minutes x 10 reps quadruped sidebends Other Exercise Name quadruped sidebends Reps/Minutes x 10 reps Manual Therapy Treatment Soft Tissue Mobilization ITB release on the right Body Location right ITB Body Position left sidelying sidelying QL release B Body Location QL and lumbar paraspinal release on the right Body Position left sidelying right quad and iliopsoas MFR Body Location right quad and iliopsoas Body Position Supine Comments worked in supine today for Iliopsoas and quad release Manual Techniques manual recheck of leg length Comments leg length equal today gentle hip distraction Type right hip distraction Comments good tolerance PT-OP-R Modalities Start: 05/13/21 17:21 Freq: Status: Active Protocol: Document 10/27/21 12:00 [facility] (Rec: 10/28/21 14:22 [facility] [id number]) Ultrasound Therapy Treatment right thoracic parapsinals Treatment Duration (minutes) 8 Patient Position Prone Coupling Medium Ultrasound Gel Applicator Size (cm2) 5 Mode Setting Continuous Duty Cycle 100% Intensity Setting (w/cm2) 1.5 Comments good tolerance PT-OP-T Assessment and Plan Start: 12/17/20 09:07 Freq: Status: Active Protocol: Document 01/25/22 15:20 [facility] (Rec: 01/25/22 17:33 [facility] [id number]) Physical Therapy Assessment Assessment Summary Assessment pt did really well on the flight to [place] but on the way back she had her daughter on her lap and they had a lay over in [place]. She feels tight in her right low back and hip today Physical Therapy Plan Frequency and Duration Frequency of Treatment 2x/Week Duration of Treatment 8 Plan of Care Start Date 10/14/21 Plan of Care End Date 02/04/22 Therapeutic Interventions Therapeutic Interventions Home Exercise Program,Manual Therapy,Patient/Caregiver Education,Self-Care/Home Management,Soft Tissue Mobilization,Therapeutic Exercises Modalities Biofeedback Next Visit Focus/Plan Next Note Type Progress Note Next Visit Plan reassess leg length, return to EMG biofeedback and stabilization exercises
--- NOTE | 2022-02-08 17:45 | PT.OTN ---
Current Diagnoses Pain in unspecified hip (02/22/22) Physical Therapy Treatment Note PT-OP-A Visit Information Start: 12/17/20 09:07 Freq: Status: Active Protocol: Document 02/08/22 15:26 [facility] (Rec: 02/22/22 17:45 [facility] [id number]) Out-Patient Physical Therapy Visit Information Visit Information Visit Type Treatment Note Visit Start Time 15:26 Visit Stop Time 16:10 Total Visit Minutes 45 Visit Number 46 PT-OP-B Current Condition Start: 12/17/20 09:07 Freq: Status: Active Protocol: Document 12/17/20 12:56 [facility] (Rec: 12/17/20 13:07 [facility] [id number]) Current Condition History of Current Condition History of Current Condition 10/17/20 vaginal delivery no tears and now it feels really tight. She complains of right hip clicking and tightness in the front of her hip, medial ankle on the right painful more so when she stands. When she is rocking back and when she is walking she can feel her anterior hip click. PT-OP-C Subjective Start: 12/17/20 09:07 Freq: Status: Active Protocol: Document 02/08/22 15:26 [facility] (Rec: 02/08/22 17:07 [facility] [id number]) OP-PT Subjective Patient Comments Patient Comments pt notes she feels like she did a lot better on this trip and she just started noticing the right SI region Monday night. Patient Reported Progress Improving PT-OP-F Manual Assessment Start: 12/17/20 09:07 Freq: Status: Active Protocol: Document 12/17/20 13:00 [facility] (Rec: 12/22/20 15:06 [facility] [email or web address]) Manual Assessments Soft Tissue Assessment Soft Tissue Mobility Assessment tightness of the right iliopsoas, ITB, quad attachments to the ASIS left lateral wall of the pelvic floor tight and guarded PT-OP-I Pelvic Floor Start: 12/17/20 09:07 Freq: Status: Active Protocol: Document 12/17/20 13:00 [facility] (Rec: 12/22/20 15:06 [facility] [email or web address]) Pelvic Floor Assessment Pelvic Clock Pelvic Clock 3-6 Guarding Contraction Ability Voluntary Contraction Moderate Voluntary Relaxation Moderate Manual Muscle Testing Left 4 Manual Muscle Testing Right 4 Manual Muscle Testing Anterior 4 Manual Muscle Testing Posterior 4 Comments Pelvic Floor Comments pt has good ability to contract and tighten the pelvic floor. She is more guarded on the left side and has difficulty relaxing following a pelvic floor contraction. There was elevated tone on EMG biofeedback with difficulty relaxing. Kimber notes she can feel the tightness in her pelvic floor. PT-OP-J Posture/Palpation/Skin Start: 12/17/20 09:07 Freq: Status: Active Protocol: Document 12/17/20 13:00 [facility] (Rec: 12/22/20 15:06 [facility] [id number]) Palpation Assessment Location R ASIS Palpation Location tenderness right ASIS right SI joint Palpation Location right SI joint PSIS Palpation Findings Tenderness Palpation Details tenderness to palpation over the right ASIS PT-OP-M Strength Start: 12/17/20 09:07 Freq: Status: Active Protocol: Document 12/17/20 13:00 [facility] (Rec: 12/22/20 15:06 [facility] [id number]) Trunk Strength Trunk Manual Muscle Testing Testing Position Supine Flexion 4 Good Core Stabilization Kimber is able to facilitate her TA with good awareness PT-OP-Q Treatments Start: 12/17/20 09:07 Freq: Status: Active Protocol: Document 02/08/22 15:26 [facility] (Rec: 02/22/22 17:45 [facility] [id number]) Therapeutic Exercises Supine Exercises bridges with band Supine Exercise Name bridges without band Reps/Minutes 3 x 10 reps reviewed the hundred exercise Comments pt given this exercise as a alternative to leg lowering Level 2 lower abdominal progression Reps/Minutes x 10 reps Comments progressed to level 1 lower abdominal progression TA with marching Reps/Minutes x 10 Comments progressed to level 1 b Manual Therapy Treatment Soft Tissue Mobilization sidelying QL release B Body Location QL and lumbar paraspinal release on the right Body Position left sidelying right quad and iliopsoas MFR Body Location right quad and iliopsoas Body Position Supine Comments worked in supine today for Iliopsoas and quad release PT-OP-R Modalities Start: 05/13/21 17:21 Freq: Status: Active Protocol: Document 10/27/21 12:00 [facility] (Rec: 10/28/21 14:22 [facility] [id number]) Ultrasound Therapy Treatment right thoracic parapsinals Treatment Duration (minutes) 8 Patient Position Prone Coupling Medium Ultrasound Gel Applicator Size (cm2) 5 Mode Setting Continuous Duty Cycle 100% Intensity Setting (w/cm2) 1.5 Comments good tolerance PT-OP-T Assessment and Plan Start: 12/17/20 09:07 Freq: Status: Active Protocol: Document 02/08/22 15:26 [facility] (Rec: 02/22/22 17:45 [facility] [id number]) Physical Therapy Assessment Goals Pt is demonstrating good body mechanics when picking up her baby girl Half-Way Goal (LTG) Kimber reports she is able to properly lift her baby without increased c/o LBP or reaggravating her hip. excellent progress left side pelvic floor guarding Impairment left side of the lateral pelvic floor guarded and tight Short Term Goal (STG) Kimber is educated in relaxed awarenss of the pelvic floor and is able to relax to baseline on EMG biofeedback Goal met STG Duration 5 weeks hip pain rated 4/10 Impairment right sided hip pain rated 4/ 10, c/o hip clicking with standing rocking Administrative Professional Goal (LTG) Kimber reports a overall reduction in hip tightness and pain and is no longer experiencing clicking when she stands to rock her baby Kimber reports she is doing better overall with this and feels both therapy and dry needling have helped, she still is experiencing intermittent anterior hip pain Excellent progress overall LTG Duration 8 weeks difficulty with squatting Impairment Difficulty with squatting activity due to R SI pain Administrative Professional Goal (LTG) SI pain is intermittent but seems improved overall, squatting has not been as much as a issue for Kimber. She is using miracle balls for home which help to release the tightness in her gluteals This is much better overall , Kimber still has intermittent c/o SI pain that limits squats at times iliopsoas tightness R>L Impairment Iliopsoas tightness R>L Short Term Goal (STG) Kimber is educated in stretches she can do now that she is in the period for her right iliopsoas Goal met STG Duration 4 weeks Assessment Summary Assessment Kimber has been seen 1-2 times per month for exercise progression and manual work on her hip and SI joint. She has returned to work and sitting erogonomics has taken her body a bit of time to adjust to. She is doing better overall but has been feeling intermittent SI pain on the right side. Today her leg length was equal by the end of treatment, pt to work on piriformis and quadratus lumborum stretches at home. She would benefit from continued PT Physical Therapy Plan Frequency and Duration Frequency of Treatment 2x/Week Duration of Treatment 8 Plan of Care Start Date 02/04/22 Plan of Care End Date 05/06/22 Therapeutic Interventions Therapeutic Interventions Home Exercise Program,Manual Therapy,Patient/Caregiver Education,Self-Care/Home Management,Soft Tissue Mobilization,Therapeutic Exercises Modalities Biofeedback Discharge Physical Therapy Discharge Reasons Change in Medical Status Discharge Comments Pt being induced tonight for delivery Next Visit Focus/Plan Next Note Type Treatment Note Next Visit Plan reassess leg length, return to EMG biofeedback and stabilization exercises
--- NOTE | 2022-02-08 17:46 | PT.OPPOC ---
Physical, Occupational & Speech Therapy At Current Diagnoses Pain in unspecified hip (02/22/22) Visit Care Team Role Provider Type Chayo Diego MD Attending Provider Physician Family Provider Primary Care Provider Referring Provider Specialty: Family Practice Address: [address] [place] [address], [id number] Email: [email or web address] Plan Of Care PT-OP-T Assessment and Plan Start: 12/17/20 09:07 Freq: Status: Active Protocol: Document 02/08/22 15:26 [facility] (Rec: 02/22/22 17:45 [facility]S [facility]CLUDE 234 BEDS AT THE [facility] [id number]) Physical Therapy Assessment Goals Pt is demonstrating good body mechanics when picking up her baby girl Assisted Goal (LTG) Kimber reports she is able to properly lift her baby without increased c/o LBP or reaggravating her hip. excellent progress left side pelvic floor guarding Impairment left side of the lateral pelvic floor guarded and tight Short Term Goal (STG) Kimber is educated in relaxed awareness of the pelvic floor and is able to relax to baseline on EMG biofeedback Goal met STG Duration 5 weeks hip pain rated 4/10 Impairment right sided hip pain rated 4/ 10, c/o hip clicking with standing rocking Assisted Goal (LTG) Kimber reports a overall reduction in hip tightness and pain and is no longer experiencing clicking when she stands to rock her baby Kimber reports she is doing better overall with this and feels both therapy and dry needling have helped, she still is experiencing intermittent anterior hip pain Excellent progress overall LTG Duration 8 weeks difficulty with squatting Impairment Difficulty with squatting activity due to R SI pain Assisted Goal (LTG) SI pain is intermittent but seems improved overall, squatting has not been as much as a issue for Kimber. She is using miracle balls for home which help to release the tightness in her gluteals This is much better overall , Kimber still has intermittent c/o SI pain that limits squats at times iliopsoas tightness R>L Impairment Iliopsoas tightness R>L Short Term Goal (STG) Kimber is educated in stretches she can do now that she is in the period for her right iliopsoas Goal met STG Duration 4 weeks Assessment Summary Assessment Kimber has been seen 1-2 times per month for exercise progression and manual work on her hip and SI joint. She has returned to work and sitting ergonomics has taken her body a bit of time to adjust to. She is doing better overall but has been feeling intermittent SI pain on the right side. Today her leg length was equal by the end of treatment, pt to work on piriformis and quadratus lumborum stretches at home. She would benefit from continued PT Physical Therapy Plan Frequency and Duration Frequency of Treatment 2x/Week Duration of Treatment 8 Plan of Care Start Date 02/04/22 Plan of Care End Date 05/06/22 Therapeutic Interventions Therapeutic Interventions Home Exercise Program,Manual Therapy,Patient/Caregiver Education,Self-Care/Home Management,Soft Tissue Mobilization,Therapeutic Exercises Modalities Biofeedback Discharge Physical Therapy Discharge Reasons Change in Medical Status Discharge Comments Pt being induced tonight for delivery Next Visit Focus/Plan Next Note Type Treatment Note Next Visit Plan reassess leg length, return to EMG biofeedback and stabilization exercises Plan of Care Dates Plan of Care Start Date 02/04/22 Plan of Care End Date 05/06/22 Electronically Signed by: Hyacinth Gifford, PT 02/22/22 0902 If you are in agreement with this Plan of Care, please return a signed and dated copy. I have reviewed this Plan of Care and certify that the skilled therapy services above are required to meet the patient?s needs. Physician Signature Date Printed Name and Credentials Clinical Instructor Signature Printed Name and Credentials
--- NOTE | 2022-02-22 17:54 | PT.OTN ---
Current Diagnoses Pain in unspecified hip (02/22/22) Physical Therapy Treatment Note PT-OP-A Visit Information Start: 12/17/20 09:07 Freq: Status: Active Protocol: Document 02/22/22 17:48 [facility] (Rec: 02/22/22 17:53 [facility] [id number]) Out-Patient Physical Therapy Visit Information Visit Information Visit Type Treatment Note Visit Start Time 15:20 Visit Stop Time 16:05 Total Visit Minutes 45 Visit Number 47 PT-OP-B Current Condition Start: 12/17/20 09:07 Freq: Status: Active Protocol: Document 12/17/20 12:56 [facility] (Rec: 12/17/20 13:07 [facility] [id number]) Current Condition History of Current Condition History of Current Condition 10/17/20 vaginal delivery no tears and now it feels really tight. She complains of right hip clicking and tightness in the front of her hip, medial ankle on the right painful more so when she stands. When she is rocking back and when she is walking she can feel her anterior hip click. PT-OP-C Subjective Start: 12/17/20 09:07 Freq: Status: Active Protocol: Document 02/22/22 17:48 [facility] (Rec: 02/22/22 17:53 [facility] [id number]) OP-PT Subjective Patient Comments Patient Comments pt reports she was walking with her baby in the stroller and her dogs when she got attacked by another dog. She feels her SI today on the right PT-OP-F Manual Assessment Start: 12/17/20 09:07 Freq: Status: Active Protocol: Document 12/17/20 13:00 [facility] (Rec: 12/22/20 15:06 [facility] [email or web address]) Manual Assessments Soft Tissue Assessment Soft Tissue Mobility Assessment tightness of the right iliopsoas, ITB, quad attachments to the ASIS left lateral wall of the pelvic floor tight and guarded PT-OP-I Pelvic Floor Start: 12/17/20 09:07 Freq: Status: Active Protocol: Document 12/17/20 13:00 [facility] (Rec: 12/22/20 15:06 [facility] [email or web address]) Pelvic Floor Assessment Pelvic Clock Pelvic Clock 3-6 Guarding Contraction Ability Voluntary Contraction Moderate Voluntary Relaxation Moderate Manual Muscle Testing Left 4 Manual Muscle Testing Right 4 Manual Muscle Testing Anterior 4 Manual Muscle Testing Posterior 4 Comments Pelvic Floor Comments pt has good ability to contract and tighten the pelvic floor. She is more guarded on the left side and has difficulty relaxing following a pelvic floor contraction. There was elevated tone on EMG biofeedback with difficulty relaxing. Kimber notes she can feel the tightness in her pelvic floor. PT-OP-J Posture/Palpation/Skin Start: 12/17/20 09:07 Freq: Status: Active Protocol: Document 12/17/20 13:00 [facility] (Rec: 12/22/20 15:06 [facility] [email or web address]) Palpation Assessment Location R ASIS Palpation Location tenderness right ASIS right SI joint Palpation Location right SI joint PSIS Palpation Findings Tenderness Palpation Details tenderness to palpation over the right ASIS PT-OP-M Strength Start: 12/17/20 09:07 Freq: Status: Active Protocol: Document 12/17/20 13:00 [facility] (Rec: 12/22/20 15:06 [facility] [id number]) Trunk Strength Trunk Manual Muscle Testing Testing Position Supine Flexion 4 Good Core Stabilization Kimber is able to facilitate her TA with good awareness PT-OP-Q Treatments Start: 12/17/20 09:07 Freq: Status: Active Protocol: Document 02/22/22 17:48 [facility] (Rec: 02/22/22 17:53 [facility] [id number]) Therapeutic Exercises Supine Exercises bridges with band Supine Exercise Name bridges without band Reps/Minutes x 10 reps reviewed the hundred exercise Comments pt given this exercise as a alternative to leg lowering Level 2 lower abdominal progression Reps/Minutes x 10 reps Comments progressed to level 1 lower abdominal progression Manual Therapy Treatment Soft Tissue Mobilization prone piriformis release B Body Position Prone Comments left greater than right piriformis tightness, sidelying QL release B Body Location QL and lumbar paraspinal release on the right Body Position left sidelying lumbar paraspinals Body Location lumbar Mobilization Type Myofascial Release Manual Techniques manual piriformis stretch Reps/Duration holding 1-2 min x 2 gentle hip distraction Type right hip distraction Comments good tolerance manual iliopsoasd release in sidelying Type sidelying ilospsoas release Body Position Sidelying PT-OP-R Modalities Start: 05/13/21 17:21 Freq: Status: Active Protocol: Document 10/27/21 12:00 [facility] (Rec: 10/28/21 14:22 [facility] [id number]) Ultrasound Therapy Treatment right thoracic parapsinals Treatment Duration (minutes) 8 Patient Position Prone Coupling Medium Ultrasound Gel Applicator Size (cm2) 5 Mode Setting Continuous Duty Cycle 100% Intensity Setting (w/cm2) 1.5 Comments good tolerance PT-OP-T Assessment and Plan Start: 12/17/20 09:07 Freq: Status: Active Protocol: Document 02/22/22 17:48 [facility] (Rec: 02/22/22 17:53 [facility] [id number]) Physical Therapy Assessment Assessment Summary Assessment Both the piriformis and QL were not as tight today. Leg length was only slightly off. Pt tolerated all treatment well and was able to tolerate core stabilization following manual work Physical Therapy Plan Frequency and Duration Frequency of Treatment 2x/Week Duration of Treatment 8 Plan of Care Start Date 02/04/22 Plan of Care End Date 05/06/22 Therapeutic Interventions Therapeutic Interventions Home Exercise Program,Manual Therapy,Patient/Caregiver Education,Self-Care/Home Management,Soft Tissue Mobilization,Therapeutic Exercises
--- NOTE | 2022-03-22 17:35 | PT.OTN ---
Current Diagnoses Pain in unspecified hip (03/22/22) Physical Therapy Treatment Note PT-OP-A Visit Information Start: 12/17/20 09:07 Freq: Status: Active Protocol: Document 03/22/22 15:26 [facility] (Rec: 03/22/22 15:56 [facility] [id number]) Out-Patient Physical Therapy Visit Information Visit Information Visit Type Treatment Note Visit Start Time 15:25 Visit Stop Time 16:10 Total Visit Minutes 45 Visit Number [id number] PT-OP-B Current Condition Start: 12/17/20 09:07 Freq: Status: Active Protocol: Document 12/17/20 12:56 [facility] (Rec: 12/17/20 13:07 [facility] [id number]) Current Condition History of Current Condition History of Current Condition 10/17/20 vaginal delivery no tears and now it feels really tight. She complains of right hip clicking and tightness in the front of her hip, medial ankle on the right painful more so when she stands. When she is rocking back and when she is walking she can feel her anterior hip click. PT-OP-C Subjective Start: 12/17/20 09:07 Freq: Status: Active Protocol: Document 03/22/22 15:26 [facility] (Rec: 03/22/22 15:56 [facility] [id number]) OP-PT Subjective Patient Comments Patient Comments pt walked alot this weekend with Anayeli on her front so her hips feels a little sore. PT-OP-F Manual Assessment Start: 12/17/20 09:07 Freq: Status: Active Protocol: Document 12/17/20 13:00 [facility] (Rec: 12/22/20 15:06 [facility] [id number]) Manual Assessments Soft Tissue Assessment Soft Tissue Mobility Assessment tightness of the right iliopsoas, ITB, quad attachments to the ASIS left lateral wall of the pelvic floor tight and guarded PT-OP-I Pelvic Floor Start: 12/17/20 09:07 Freq: Status: Active Protocol: Document 03/22/22 15:26 [facility] (Rec: 03/22/22 16:08 [facility] [id number]) Pelvic Floor Assessment Pelvic Clock Pelvic Clock 3-6 Guarding Contraction Ability Voluntary Contraction Moderate Voluntary Relaxation Moderate Manual Muscle Testing Left 4 Manual Muscle Testing Right 4 Manual Muscle Testing Anterior 4 Manual Muscle Testing Posterior 4 Comments Pelvic Floor Comments pt is not feeling the guarding now and is able to relax to 2 .0 uv PT-OP-J Posture/Palpation/Skin Start: 12/17/20 09:07 Freq: Status: Active Protocol: Document 12/17/20 13:00 [facility] (Rec: 12/22/20 15:06 [facility] [id number]) Palpation Assessment Location R ASIS Palpation Location tenderness right ASIS right SI joint Palpation Location right SI joint PSIS Palpation Findings Tenderness Palpation Details tenderness to palpation over the right ASIS PT-OP-M Strength Start: 12/17/20 09:07 Freq: Status: Active Protocol: Document 12/17/20 13:00 [facility] (Rec: 12/22/20 15:06 [facility] [id number]) Trunk Strength Trunk Manual Muscle Testing Testing Position Supine Flexion 4 Good Core Stabilization Kimber is able to facilitate her TA with good awareness PT-OP-Q Treatments Start: 12/17/20 09:07 Freq: Status: Active Protocol: Document 03/22/22 15:26 [facility] (Rec: 03/22/22 16:08 [facility] [id number]) Gym Equipment Shuttle Recovery Bilateral Squats Reps/Time 3 x 10 reps Therapeutic Exercises Supine Exercises windshield wipers Reps/Minutes x 10 reps Comments to open up the anterior hip and low back 1/2 foam roll stretch Supine Exercise Name 1/2 foam roll stretch, performed both horizontal as well as vertical Reps/Minutes 4 min Comments to open up the anterior chest bridges with band Supine Exercise Name bridges without band Reps/Minutes x 10 reps hip abduction with band in supine Reps/Minutes x 30 ball squeeze with pelvic floor activation Reps/Minutes x 5 reviewed the hundred exercise Comments pt given this exercise as a alternative to leg lowering templates for eccentric control and coordination Supine Exercise Name EMG biofeedback pelvic floor templates for eccentric control and coordinati Comments x 5 min ITb stretch Reps/Minutes hold 30 sec to 1 min Comments with strap quick contractions Reps/Minutes x 10 reps Comments 21.6 uv Level 2 lower abdominal progression Reps/Minutes x 10 reps Comments progressed to level 1 lower abdominal progression piriformis stretch Reps/Minutes hold x 1 min happy baby Reps/Minutes 1 min hold TA with marching Reps/Minutes x 10 Comments progressed to level 1 b pelvic floor long holds with relaxation Equipment Used x 10 reps Reps/Minutes x 10 Comments 17.4 max 31.4 iliopsoas stretch Supine Exercise Name iliopsoas stretch in supine rufus test Reps/Minutes hold 1-2 min Prone Exercises prone thoracic extension Reps/Minutes x 10 reps Comments shoulders ER Sidelying Exercises sidelying over the ball to open up the lateral kednall of the QL and lumbar paraspinals Side bilateral Comments R > L sided tightness sidelying hip abduction Reps/Minutes 2 x 10 reps sidelying small hip circles Reps/Minutes x 10 each clam shells Reps/Minutes 3 x 10 reps Comments worked on keeping pelvis stacked Sitting Exercises towel scrunches for arch suppor Reps/Minutes 5 min per day Standing Exercises runners lunge Reps/Minutes hold 30 sec- 1 min 1/2 kneeling iliopsoasd stretch Reps/Minutes hold 30 sec-1 min danitza squats Reps/Minutes x 10 Comments with theraband side steps in mini squat with theraband Reps/Minutes 2 min standing hip hikes Reps/Minutes 3 x 10 reps Comments HEP on stairs standing single leg squats Standing Exercise Name standing single leg squats forward, lateral, posterior standing wall slides Standing Exercise Name standing wall slides Reps/Minutes x 10 reps Other Exercises tj pose Other Exercise Name tj pose center and then sides especially to open up the right side Reps/Minutes hold 1-2 minutes thread the needle Reps/Minutes x 10 reps quadratus lumorum stretch Reps/Minutes B Comments QL senior safety management consultant supine horizontal abduction over foam roll Reps/Minutes x 10 standing theraband rows Other Exercise Name standing theraband rows Reps/Minutes 2 x 10 reps horizontal 1/2 foam roll Other Exercise Name horizontal 1/2 foam roll T spine Comments hold 1-2 min 1/2 foam roller Other Exercise Name vertical full foam roll Comments arm flexion, wall slides, snow angels tj pose with arms to the left to stretch right side of spine Other Exercise Name quadruped cat stretch> tj pose Reps/Minutes hold stretch Comments w/ manual STMs to parapinals, strum and MF inferior glide quadruped thoracic extension Other Exercise Name quarduped thoracic ext Reps/Minutes x 10 reps quadruped sidebends Other Exercise Name quadruped sidebends Reps/Minutes x 10 reps cat cow Reps/Minutes x 10 reps supine ball squeeze Other Exercise Name supine ball squeeze Side bilateral Reps/Minutes x 10 sidelying Pelvic floor Reps/Minutes work up to 10 reps x 10 second hold quadruped TA Other Exercise Name quadruped TA Side bilateral Reps/Minutes work up to 10 reps with 10 second hold Manual Therapy Treatment Soft Tissue Mobilization sidelying QL release B Body Position left sidelying STMs Body Location paraspinals in LS Mobilization Type Myofascial Release,Strumming Intensity/Depth Moderate Body Position Prone Comments quadruped cat stretch>child's pose. Then instruction racquetball roll paraspinals, glut med, TFL on wall sustained pressure and roll- good response right quad and iliopsoas MFR Body Location right quad and iliopsoas Body Position Supine Comments worked in supine today for Iliopsoas and quad release prone over pillow paraspinal release Body Location paraspinal release 1 Body Location right iliopsoas and quads Comments manual STM/MFR over the right quadriceps and iliopsoas Joint Mobilizations seated thoracic mobilizations Grade II Manual Techniques manual piriformis stretch Reps/Duration holding 1-2 min x 2 manual sacral decompression Type manual sacral decompression and work into counter nutation Comments worked on sacral counternutation with MET scar tissue release right anterior hip Body Location right anterior hip and quad Body Position Supine Comments gusha was used to help release myofascial tightness and scar tissue manual recheck of leg length Comments leg length equal today manual iliopsoasd release in sidelying Type sidelying ilospsoas release Body Position Sidelying kinesiotape Type kinestiotape to inhibit the pec minor and facilitate lower traps Comments right side sidelying scapular mobs Type sidelying scapular mobs manual ilopsoas and quad stretches Body Position supine rufus test position Comments with PROM knee flexion and manual release to the quad and iliopsoas manual MET for right innominant anterior rotation Type MET right innominant anterior rotation Reps/Duration x 5 reps Neuro Re-Education Treatment Other Activities NMES for pelvic floor Details NMES PELVIC FLOOR Reps/Duration x 10 min Comments able to feel the posterior part of the left side Self-Care/Home Management Treatment Education Patient Education Home Exercise Program,Joint Protection Other Education education was given on wearing the ergo with baby Anayeli on her back rather than on her front to decrease posterior pelvic tilt. Kimber could tell right away this took pressure off her hips PT-OP-R Modalities Start: 05/13/21 17:21 Freq: Status: Active Protocol: Document 10/27/21 12:00 [facility] (Rec: 10/28/21 14:22 [facility] [id number]) Ultrasound Therapy Treatment right thoracic parapsinals Treatment Duration (minutes) 8 Patient Position Prone Coupling Medium Ultrasound Gel Applicator Size (cm2) 5 Mode Setting Continuous Duty Cycle 100% Intensity Setting (w/cm2) 1.5 Comments good tolerance PT-OP-T Assessment and Plan Start: 12/17/20 09:07 Freq: Status: Active Protocol: Document 03/22/22 15:26 [facility] (Rec: 03/22/22 16:08 [facility] [id number]) Physical Therapy Assessment Rehab Potential Rehabilitation Potential Good Evaluation Complexity Number of Personal Factors/Comorbidities 0 Number of Body Systems Impaired 1-2 Clinical Presentation at Evaluation Stable Impairments Impairments Pain,Soft Tissue Mobility,Tone Goals Pt is demonstrating good body mechanics when picking up her baby girl Judge Goal (LTG) Kimber reports she is able to properly lift her baby without increased c/o LBP or reaggravating her hip. At this point Linnea is doing better over, she will have occasional back pain not always lifting her correctly. Putting her in the crib isn't hurting any more. excellent progress left side pelvic floor guarding Impairment left side of the lateral pelvic floor guarded and tight Short Term Goal (STG) Kimber is educated in relaxed awarenss of the pelvic floor and is able to relax to baseline on EMG biofeedback Goal met STG Duration 5 weeks hip pain rated 4/10 Impairment right sided hip pain rated 4/ 10, c/o hip clicking with standing rocking Judge Goal (LTG) Kimber reports a overall reduction in hip tightness and pain and is no longer experiencing clicking when she stands to rock her baby Kimber reports she is doing better overall with this and feels both therapy and dry needling have helped, she still is experiencing intermittent anterior hip pain Excellent progress overall LTG Duration 8 weeks difficulty with squatting Impairment Difficulty with squatting activity due to R SI pain Nursing Home Goal (LTG) SI pain is intermittent but seems improved overall, squatting has not been as much as a issue for Kimber. She is using miracle balls for home which help to release the tightness in her gluteals This is much better overall , Kimber still has intermittent c/o SI pain that limits squats at times iliopsoas tightness R>L Impairment Iliopsoas tightness R>L Short Term Goal (STG) Kimber is educated in stretches she can do now that she is in the period for her right iliopsoas Goal met STG Duration 4 weeks Progress Towards Goals Progress Towards Goals Progressing Toward Goals Assessment Summary Assessment Mimi was doing great today and was not c/o pain. She had some residual tightness in the left iliopsoas and quad but no guarding in her low back. She did have some discomfort carrying her daughter in her front pack. We will see her for her next visit in April and if she is still doing well we will DC to a [facility] Physical Therapy Plan Frequency and Duration Frequency of Treatment 2x/Week Duration of Treatment 8 Plan of Care Start Date 02/04/22 Plan of Care End Date 05/06/22 Therapeutic Interventions Therapeutic Interventions Home Exercise Program,Manual Therapy,Patient/Caregiver Education,Self-Care/Home Management,Soft Tissue Mobilization,Therapeutic Exercises Discharge Physical Therapy Discharge Reasons Change in Medical Status Discharge Comments Pt being induced tonight for delivery Next Visit Focus/Plan Next Note Type Treatment Note Next Visit Plan reassess leg length, return to EMG biofeedback and stabilization exercises
--- NOTE | 2022-04-13 13:04 | PT.OTN ---
Current Diagnoses Pain in unspecified hip (04/13/22) Physical Therapy Treatment Note PT-OP-A Visit Information Start: 12/17/20 09:07 Freq: Status: Active Protocol: Document 04/13/22 11:14 [facility] (Rec: 04/13/22 12:00 [facility] [id number]) Out-Patient Physical Therapy Visit Information Visit Information Visit Type Treatment Note Visit Start Time 11:15 Visit Stop Time 12:00 Total Visit Minutes 45 Visit Number 49 PT-OP-B Current Condition Start: 12/17/20 09:07 Freq: Status: Active Protocol: Document 12/17/20 12:56 [facility] (Rec: 12/17/20 13:07 [facility] [id number]) Current Condition History of Current Condition History of Current Condition 10/17/20 vaginal delivery no tears and now it feels really tight. She complains of right hip clicking and tightness in the front of her hip, medial ankle on the right painful more so when she stands. When she is rocking back and when she is walking she can feel her anterior hip click. PT-OP-C Subjective Start: 12/17/20 09:07 Freq: Status: Active Protocol: Document 04/13/22 11:14 [facility] (Rec: 04/13/22 12:00 [facility] [id number]) OP-PT Subjective Patient Comments Patient Comments pt reports she threw out her back on Monday. She has been working out 5 days per week. She did a squat and felt pain at the bottom range in the area of her sacrum. This occured on Monday and it does feel better but Monday she was pretty careful and wasn't able to move much Patient Reported Progress Improving PT-OP-F Manual Assessment Start: 12/17/20 09:07 Freq: Status: Active Protocol: Document 12/17/20 13:00 [facility] (Rec: 12/22/20 15:06 [facility] [email or web address]) Manual Assessments Soft Tissue Assessment Soft Tissue Mobility Assessment tightness of the right iliopsoas, ITB, quad attachments to the ASIS left lateral wall of the pelvic floor tight and guarded PT-OP-I Pelvic Floor Start: 12/17/20 09:07 Freq: Status: Active Protocol: Document 03/22/22 15:26 [facility] (Rec: 03/22/22 16:08 [facility] [id number]) Pelvic Floor Assessment Pelvic Clock Pelvic Clock 3-6 Guarding Contraction Ability Voluntary Contraction Moderate Voluntary Relaxation Moderate Manual Muscle Testing Left 4 Manual Muscle Testing Right 4 Manual Muscle Testing Anterior 4 Manual Muscle Testing Posterior 4 Comments Pelvic Floor Comments pt is not feeling the guarding now and is able to relax to 2 .0 uv PT-OP-J Posture/Palpation/Skin Start: 12/17/20 09:07 Freq: Status: Active Protocol: Document 12/17/20 13:00 [facility] (Rec: 12/22/20 15:06 [facility] [email or web address]) Palpation Assessment Location R ASIS Palpation Location tenderness right ASIS right SI joint Palpation Location right SI joint PSIS Palpation Findings Tenderness Palpation Details tenderness to palpation over the right ASIS PT-OP-M Strength Start: 12/17/20 09:07 Freq: Status: Active Protocol: Document 12/17/20 13:00 [facility] (Rec: 12/22/20 15:06 [facility] [email or web address]) Trunk Strength Trunk Manual Muscle Testing Testing Position Supine Flexion 4 Good Core Stabilization Kimber is able to facilitate her TA with good awareness PT-OP-Q Treatments Start: 12/17/20 09:07 Freq: Status: Active Protocol: Document 04/13/22 11:15 [facility] (Rec: 04/13/22 13:04 [facility] [id number]) Manual Therapy Treatment Soft Tissue Mobilization prone piriformis release B Body Position Prone Comments left greater than right piriformis tightness, lumbar paraspinals Body Location lumbar Mobilization Type Myofascial Release Manual Techniques sacral mobilizations into counternutation Type MET Reps/Duration x 5 reps manual piriformis stretch Reps/Duration holding 1-2 min x 2 manual sacral decompression Type manual sacral decompression and work into counter nutation Comments worked on sacral counternutation with MET manual ilopsoas and quad stretches Body Position supine rufus test position Comments with PROM knee flexion and manual release to the quad and iliopsoas PT-OP-R Modalities Start: 05/13/21 17:21 Freq: Status: Active Protocol: Document 10/27/21 12:00 [facility] (Rec: 10/28/21 14:22 [facility] [id number]) Ultrasound Therapy Treatment right thoracic parapsinals Treatment Duration (minutes) 8 Patient Position Prone Coupling Medium Ultrasound Gel Applicator Size (cm2) 5 Mode Setting Continuous Duty Cycle 100% Intensity Setting (w/cm2) 1.5 Comments good tolerance PT-OP-T Assessment and Plan Start: 12/17/20 09:07 Freq: Status: Active Protocol: Document 04/13/22 11:15 [facility] (Rec: 04/13/22 13:04 [facility] [id number]) Physical Therapy Assessment Assessment Summary Assessment Tightness in the piriformis on the right side today as well as sacral tightness, worked on release of the piriformis and sacral mobilizations, opened up the anterior hip with stretches and MFR. Kimber will continue to work on stretches at home and we talked about warming up prior to her squats and stretching the piriformis and low back first Physical Therapy Plan Frequency and Duration Frequency of Treatment 2x/Week Duration of Treatment 8 Plan of Care Start Date 02/04/22 Plan of Care End Date 05/06/22 Therapeutic Interventions Therapeutic Interventions Home Exercise Program,Manual Therapy,Patient/Caregiver Education,Self-Care/Home Management,Soft Tissue Mobilization,Therapeutic Exercises Next Visit Focus/Plan Next Note Type Treatment Note Next Visit Plan continue progressing core stabilzation, MFR as needed for SI alignment
--- NOTE | 2022-04-26 16:38 | PT.OTN ---
Current Diagnoses Pain in unspecified hip (04/26/22) Physical Therapy Treatment Note PT-OP-A Visit Information Start: 12/17/20 09:07 Freq: Status: Active Protocol: Document 04/26/22 15:19 [facility] (Rec: 04/26/22 16:38 [facility] [id number]) Out-Patient Physical Therapy Visit Information Visit Information Visit Type Progress Note Visit Start Time 15:15 Visit Stop Time 16:00 Total Visit Minutes 45 Visit Number 50 PT-OP-B Current Condition Start: 12/17/20 09:07 Freq: Status: Active Protocol: Document 12/17/20 12:56 [facility] (Rec: 12/17/20 13:07 [facility] [id number]) Current Condition History of Current Condition History of Current Condition 10/17/20 vaginal delivery no tears and now it feels really tight. She complains of right hip clicking and tightness in the front of her hip, medial ankle on the right painful more so when she stands. When she is rocking back and when she is walking she can feel her anterior hip click. PT-OP-C Subjective Start: 12/17/20 09:07 Freq: Status: Active Protocol: Document 04/26/22 15:19 [facility] (Rec: 04/26/22 16:38 [facility] [id number]) OP-PT Subjective Patient Comments Patient Comments pt saw chiropractor last week and she told her that her sacrum was stuck and that her hip was out of alignment. Kimber notes she still feels that something is off in her sacral area and it seems to switch sides. Patient Reported Progress Improving PT-OP-F Manual Assessment Start: 12/17/20 09:07 Freq: Status: Active Protocol: Document 12/17/20 13:00 [facility] (Rec: 12/22/20 15:06 [facility] [id number]) Manual Assessments Soft Tissue Assessment Soft Tissue Mobility Assessment tightness of the right iliopsoas, ITB, quad attachments to the ASIS left lateral wall of the pelvic floor tight and guarded PT-OP-I Pelvic Floor Start: 12/17/20 09:07 Freq: Status: Active Protocol: Document 03/22/22 15:26 [facility] (Rec: 03/22/22 16:08 [facility] [id number]) Pelvic Floor Assessment Pelvic Clock Pelvic Clock 3-6 Guarding Contraction Ability Voluntary Contraction Moderate Voluntary Relaxation Moderate Manual Muscle Testing Left 4 Manual Muscle Testing Right 4 Manual Muscle Testing Anterior 4 Manual Muscle Testing Posterior 4 Comments Pelvic Floor Comments pt is not feeling the guarding now and is able to relax to 2 .0 uv PT-OP-J Posture/Palpation/Skin Start: 12/17/20 09:07 Freq: Status: Active Protocol: Document 12/17/20 13:00 [facility] (Rec: 12/22/20 15:06 [facility] [id number]) Palpation Assessment Location R ASIS Palpation Location tenderness right ASIS right SI joint Palpation Location right SI joint PSIS Palpation Findings Tenderness Palpation Details tenderness to palpation over the right ASIS PT-OP-M Strength Start: 12/17/20 09:07 Freq: Status: Active Protocol: Document 12/17/20 13:00 [facility] (Rec: 12/22/20 15:06 [facility] [id number]) Trunk Strength Trunk Manual Muscle Testing Testing Position Supine Flexion 4 Good Core Stabilization Kimber is able to facilitate her TA with good awareness PT-OP-Q Treatments Start: 12/17/20 09:07 Freq: Status: Active Protocol: Document 04/26/22 15:19 [facility] (Rec: 04/26/22 16:38 [facility] [id number]) Therapeutic Exercises Supine Exercises roll outs with theraband Equipment Used level 3 theraband Reps/Minutes 3 x 10 reps Manual Therapy Treatment Soft Tissue Mobilization prone piriformis release B Body Position Prone Comments left greater than right piriformis tightness, Manual Techniques sidelying MET for sacral rotation Reps/Duration x 5 reps B sacral mobilizations into counternutation Type MET Reps/Duration x 5 reps manual piriformis stretch Reps/Duration holding 1-2 min x 2 manual sacral decompression Type manual sacral decompression and work into counter nutation Comments worked on sacral counternutation with MET manual recheck of leg length Comments leg length equal today PT-OP-R Modalities Start: 05/13/21 17:21 Freq: Status: Active Protocol: Document 10/27/21 12:00 [facility] (Rec: 10/28/21 14:22 [facility] [id number]) Ultrasound Therapy Treatment right thoracic parapsinals Treatment Duration (minutes) 8 Patient Position Prone Coupling Medium Ultrasound Gel Applicator Size (cm2) 5 Mode Setting Continuous Duty Cycle 100% Intensity Setting (w/cm2) 1.5 Comments good tolerance PT-OP-T Assessment and Plan Start: 12/17/20 09:07 Freq: Status: Active Protocol: Document 04/26/22 15:19 [facility] (Rec: 04/26/22 16:38 [facility] [id number]) Physical Therapy Assessment Goals Pt is demonstrating good body mechanics when picking up her baby girl Care Home Goal (LTG) Kimber reports she is able to properly lift her baby without increased c/o LBP or reaggravating her hip. At this point Linnea is doing better over, she will have occasional back pain not always lifting her correctly. Putting her in the crib isn't hurting any more. excellent progress left side pelvic floor guarding Impairment left side of the lateral pelvic floor guarded and tight Short Term Goal (STG) Kimber is educated in relaxed awarenss of the pelvic floor and is able to relax to baseline on EMG biofeedback Goal met STG Duration 5 weeks hip pain rated 4/10 Impairment right sided hip pain rated 4/ 10, c/o hip clicking with standing rocking Care Home Goal (LTG) Kimber reports a overall reduction in hip tightness and pain and is no longer experiencing clicking when she stands to rock her baby Kimber reports she is doing better overall with this and feels both therapy and dry needling have helped, she still is experiencing intermittent anterior hip pain Excellent progress overall LTG Duration 8 weeks difficulty with squatting Impairment Difficulty with squatting activity due to R SI pain Web Development Intern Goal (LTG) SI pain is intermittent but seems improved overall, squatting has not been as much as a issue for Kimber. 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 She hasn't returned to squats since this time iliopsoas tightness R>L Impairment Iliopsoas tightness R>L Short Term Goal (STG) Kimber is educated in stretches she can do now that she is in the period for her right iliopsoas Goal met STG Duration 4 weeks Assessment Summary Assessment sacrul KAYDEN deep on the right side today, tender at the right ischium, worked on MET for sacral torsion/rotation, released piriformis B and sacral mobs into counter nutation. Gave hip roll out stabilization exercise as well as instructions for pelvic floor activation and TA activation for HEP to help with sacral stabilization Physical Therapy Plan Frequency and Duration Frequency of Treatment 2x/Week Duration of Treatment 8 Plan of Care Start Date 04/26/22 Plan of Care End Date 06/27/22 Therapeutic Interventions Therapeutic Interventions Home Exercise Program,Manual Therapy,Patient/Caregiver Education,Self-Care/Home Management,Soft Tissue Mobilization,Therapeutic Exercises
--- NOTE | 2022-04-26 16:39 | PT.OPPOC ---
Physical, Occupational & Speech Therapy At [facility] Current Diagnoses Pain in unspecified hip (04/26/22) Visit Care Team Role Provider Type Chayo Diego MD Attending Provider Physician Family Provider Primary Care Provider Referring Provider Specialty: Family Practice Address: [address] [place] [address], [id number] Email: [email or web address] Plan Of Care PT-OP-T Assessment and Plan Start: 12/17/20 09:07 Freq: Status: Active Protocol: Document 04/26/22 15:19 [facility] (Rec: 04/26/22 16:38 [facility] [id number]) Physical Therapy Assessment Goals Pt is demonstrating good body mechanics when picking up her baby girl [facility] Goal (LTG) Kimber reports she is able to properly lift her baby without increased c/o LBP or reaggravating her hip. At this point Linnea is doing better over, she will have occasional back pain not always lifting her correctly. Putting her in the crib isn't hurting any more. excellent progress left side pelvic floor guarding Impairment left side of the lateral pelvic floor guarded and tight Short Term Goal (STG) Kimber is educated in relaxed awareness of the pelvic floor and is able to relax to baseline on EMG biofeedback Goal met STG Duration 5 weeks hip pain rated 4/10 Impairment right sided hip pain rated 4/ 10, c/o hip clicking with standing rocking [facility] Goal (LTG) Kimber reports a overall reduction in hip tightness and pain and is no longer experiencing clicking when she stands to rock her baby Kimber reports she is doing better overall with this and feels both therapy and dry needling have helped, she still is experiencing intermittent anterior hip pain Excellent progress overall LTG Duration 8 weeks difficulty with squatting Impairment Difficulty with squatting activity due to R SI pain [facility] Goal (LTG) SI pain is intermittent but seems improved overall, squatting has not been as much as a issue for Kimber. 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 She hasn't returned to squats since this time iliopsoas tightness R>L Impairment Iliopsoas tightness R>L Short Term Goal (STG) Kimber is educated in stretches she can do now that she is in the period for her right iliopsoas Goal met STG Duration 4 weeks Assessment Summary Assessment sacral KAYDEN deep on the right side today, tender at the right ischium, worked on MET for sacral torsion/rotation, released piriformis B and sacral mobs into counter nutation. Gave hip roll out stabilization exercise as well as instructions for pelvic floor activation and TA activation for HEP to help with sacral stabilization. Linnea would like continued PT at 2 xms a month Physical Therapy Plan Frequency and Duration Frequency of Treatment every other week Duration of Treatment 8 Plan of Care Start Date 04/26/22 Plan of Care End Date 06/27/22 Therapeutic Interventions Therapeutic Interventions Home Exercise Program,Manual Therapy,Patient/Caregiver Education,Self-Care/Home Management,Soft Tissue Mobilization,Therapeutic Exercises Plan of Care Dates Plan of Care Start Date 04/26/22 Plan of Care End Date 06/27/22 Electronically Signed by: Hyacinth Gifford, PT 04/26/22 0786 If you are in agreement with this Plan of Care, please return a signed and dated copy. I have reviewed this Plan of Care and certify that the skilled therapy services above are required to meet the patient?s needs. Physician Signature Date Printed Name and Credentials Clinical Instructor Signature Printed Name and Credentials
--- NOTE | 2022-05-17 17:51 | PT.OTN ---
Current Diagnoses Pain in unspecified hip (05/17/22) Physical Therapy Treatment Note PT-OP-A Visit Information Start: 12/17/20 09:07 Freq: Status: Active Protocol: Document 05/17/22 15:17 [facility] (Rec: 05/17/22 16:03 [facility]S INCLUDE 234 BEDS AT THE [facility] [id number]) Out-Patient Physical Therapy Visit Information Visit Information Visit Type Treatment Note PT-OP-B Current Condition Start: 12/17/20 09:07 Freq: Status: Active Protocol: Document 12/17/20 12:56 [facility] (Rec: 12/17/20 13:07 [facility] [id number]) Current Condition History of Current Condition History of Current Condition 10/17/20 vaginal delivery no tears and now it feels really tight. She complains of right hip clicking and tightness in the front of her hip, medial ankle on the right painful more so when she stands. When she is rocking back and when she is walking she can feel her anterior hip click. PT-OP-C Subjective Start: 12/17/20 09:07 Freq: Status: Active Protocol: Document 05/17/22 15:17 [facility] (Rec: 05/17/22 16:03 [facility] [id number]) OP-PT Subjective Patient Comments Patient Comments has been going to chiropracter 3 days per week, she feels stiff in her sacral areal especially PT-OP-F Manual Assessment Start: 12/17/20 09:07 Freq: Status: Active Protocol: Document 12/17/20 13:00 [facility] (Rec: 12/22/20 15:06 [facility] [email or web address]) Manual Assessments Soft Tissue Assessment Soft Tissue Mobility Assessment tightness of the right iliopsoas, ITB, quad attachments to the ASIS left lateral wall of the pelvic floor tight and guarded PT-OP-I Pelvic Floor Start: 12/17/20 09:07 Freq: Status: Active Protocol: Document 03/22/22 15:26 [facility] (Rec: 03/22/22 16:08 [facility] [id number]) Pelvic Floor Assessment Pelvic Clock Pelvic Clock 3-6 Guarding Contraction Ability Voluntary Contraction Moderate Voluntary Relaxation Moderate Manual Muscle Testing Left 4 Manual Muscle Testing Right 4 Manual Muscle Testing Anterior 4 Manual Muscle Testing Posterior 4 Comments Pelvic Floor Comments pt is not feeling the guarding now and is able to relax to 2 .0 uv PT-OP-J Posture/Palpation/Skin Start: 12/17/20 09:07 Freq: Status: Active Protocol: Document 12/17/20 13:00 [facility] (Rec: 12/22/20 15:06 COUNTS INCLUDE 234 BEDS AT THE [facility] [id number]) Palpation Assessment Location R ASIS Palpation Location tenderness right ASIS right SI joint Palpation Location right SI joint PSIS Palpation Findings Tenderness Palpation Details tenderness to palpation over the right ASIS PT-OP-M Strength Start: 12/17/20 09:07 Freq: Status: Active Protocol: Document 12/17/20 13:00 [facility] (Rec: 12/22/20 15:06 COUNTS INCLUDE 234 BEDS AT THE [facility] [id number]) Trunk Strength Trunk Manual Muscle Testing Testing Position Supine Flexion 4 Good Core Stabilization Kimber is able to facilitate her TA with good awareness PT-OP-Q Treatments Start: 12/17/20 09:07 Freq: Status: Active Protocol: Document 05/17/22 15:15 [facility] (Rec: 05/17/22 17:51 COUNTS INCLUDE 234 BEDS AT THE [facility] [id number]) Manual Therapy Treatment Soft Tissue Mobilization prone piriformis release B Body Position Prone Comments left greater than right piriformis tightness, Manual Techniques sidelying MET for sacral rotation Reps/Duration x 5 reps left sidelying sacral mobilizations into counternutation Type MET Reps/Duration x 5 reps manual piriformis stretch Reps/Duration holding 1-2 min x 2 PT-OP-R Modalities Start: 05/13/21 17:21 Freq: Status: Active Protocol: Document 10/27/21 12:00 [facility] (Rec: 10/28/21 14:22 COUNTS INCLUDE 234 BEDS AT THE [facility] [id number]) Ultrasound Therapy Treatment right thoracic parapsinals Treatment Duration (minutes) 8 Patient Position Prone Coupling Medium Ultrasound Gel Applicator Size (cm2) 5 Mode Setting Continuous Duty Cycle 100% Intensity Setting (w/cm2) 1.5 Comments good tolerance PT-OP-T Assessment and Plan Start: 12/17/20 09:07 Freq: Status: Active Protocol: Document 05/17/22 15:15 [facility] (Rec: 05/17/22 17:51 COUNTS INCLUDE 234 BEDS AT THE [facility] [id number]) Physical Therapy Assessment Assessment Summary Assessment Kimber is twister tender in her sacral region and feels tight especially in the am, right sacral KAYDEN still deep on the right. Worked on release of B piriformis as well as sacral mobilizations. Decreased tenderness following tx today. Physical Therapy Plan Frequency and Duration Frequency of Treatment 2x/Week Duration of Treatment 8 Plan of Care Start Date 04/26/22 Plan of Care End Date 06/27/22 Therapeutic Interventions Therapeutic Interventions Home Exercise Program,Manual Therapy,Patient/Caregiver Education,Self-Care/Home Management,Soft Tissue Mobilization,Therapeutic Exercises Next Visit Focus/Plan Next Note Type Treatment Note Next Visit Plan continue progressing core stabilzation, MFR as needed for SI alignment
--- NOTE | 2022-05-24 16:26 | PT.OTN ---
Current Diagnoses Pain in unspecified hip (05/24/22) Physical Therapy Treatment Note PT-OP-A Visit Information Start: 12/17/20 09:07 Freq: Status: Active Protocol: Document 05/24/22 15:15 [facility] (Rec: 05/24/22 16:26 [facility] [id number]) Out-Patient Physical Therapy Visit Information Visit Information Visit Type Treatment Note Visit Start Time 15:15 Visit Stop Time 16:00 Total Visit Minutes 45 Visit Number 52 PT-OP-B Current Condition Start: 12/17/20 09:07 Freq: Status: Active Protocol: Document 12/17/20 12:56 [facility] (Rec: 12/17/20 13:07 [facility] [id number]) Current Condition History of Current Condition History of Current Condition 10/17/20 vaginal delivery no tears and now it feels really tight. She complains of right hip clicking and tightness in the front of her hip, medial ankle on the right painful more so when she stands. When she is rocking back and when she is walking she can feel her anterior hip click. PT-OP-C Subjective Start: 12/17/20 09:07 Freq: Status: Active Protocol: Document 05/24/22 15:15 [facility] (Rec: 05/24/22 16:26 [facility] [id number]) OP-PT Subjective Patient Comments Patient Comments She feels like she is a little better, the top of her sacrum was a little off. PT-OP-F Manual Assessment Start: 12/17/20 09:07 Freq: Status: Active Protocol: Document 12/17/20 13:00 [facility] (Rec: 12/22/20 15:06 [facility] [email or web address]) Manual Assessments Soft Tissue Assessment Soft Tissue Mobility Assessment tightness of the right iliopsoas, ITB, quad attachments to the ASIS left lateral wall of the pelvic floor tight and guarded PT-OP-I Pelvic Floor Start: 12/17/20 09:07 Freq: Status: Active Protocol: Document 03/22/22 15:26 [facility] (Rec: 03/22/22 16:08 [facility] [id number]) Pelvic Floor Assessment Pelvic Clock Pelvic Clock 3-6 Guarding Contraction Ability Voluntary Contraction Moderate Voluntary Relaxation Moderate Manual Muscle Testing Left 4 Manual Muscle Testing Right 4 Manual Muscle Testing Anterior 4 Manual Muscle Testing Posterior 4 Comments Pelvic Floor Comments pt is not feeling the guarding now and is able to relax to 2 .0 uv PT-OP-J Posture/Palpation/Skin Start: 12/17/20 09:07 Freq: Status: Active Protocol: Document 12/17/20 13:00 [facility] (Rec: 12/22/20 15:06 [facility] [id number]) Palpation Assessment Location R ASIS Palpation Location tenderness right ASIS right SI joint Palpation Location right SI joint PSIS Palpation Findings Tenderness Palpation Details tenderness to palpation over the right ASIS PT-OP-M Strength Start: 12/17/20 09:07 Freq: Status: Active Protocol: Document 12/17/20 13:00 [facility] (Rec: 12/22/20 15:06 [facility] [id number]) Trunk Strength Trunk Manual Muscle Testing Testing Position Supine Flexion 4 Good Core Stabilization Kimber is able to facilitate her TA with good awareness PT-OP-Q Treatments Start: 12/17/20 09:07 Freq: Status: Active Protocol: Document 05/24/22 15:15 [facility] (Rec: 05/24/22 16:26 [facility] [id number]) Therapeutic Exercises Supine Exercises pelvic floor long holds with relaxation Equipment Used x 10 reps Reps/Minutes x 10 Comments 18.8 uv average Manual Therapy Treatment Soft Tissue Mobilization prone piriformis release B Body Position Prone Comments left greater than right piriformis tightness, right quad and iliopsoas MFR Body Location right quad and iliopsoas Body Position Supine Comments worked in supine today for Iliopsoas and quad release Manual Techniques sacral mobilizations into counternutation Type MET Reps/Duration x 5 reps manual recheck of leg length Comments leg length equal today PT-OP-R Modalities Start: 05/13/21 17:21 Freq: Status: Active Protocol: Document 10/27/21 12:00 [facility] (Rec: 10/28/21 14:22 [facility] [id number]) Ultrasound Therapy Treatment right thoracic parapsinals Treatment Duration (minutes) 8 Patient Position Prone Coupling Medium Ultrasound Gel Applicator Size (cm2) 5 Mode Setting Continuous Duty Cycle 100% Intensity Setting (w/cm2) 1.5 Comments good tolerance PT-OP-T Assessment and Plan Start: 12/17/20 09:07 Freq: Status: Active Protocol: Document 05/24/22 15:15 [facility] (Rec: 05/24/22 16:26 [facility] [id number]) Physical Therapy Assessment Assessment Summary Assessment Kimber was much more aligned today in her sacrum today, sacral KAYDEN's were even. She was a little elevated on the right sacral base. Pelvic floor endurance contactions were really good today at 18 uv for her average Physical Therapy Plan Frequency and Duration Frequency of Treatment 2x/Week Duration of Treatment 8 Plan of Care Start Date 04/26/22 Plan of Care End Date 06/27/22 Therapeutic Interventions Therapeutic Interventions Home Exercise Program,Manual Therapy,Patient/Caregiver Education,Self-Care/Home Management,Soft Tissue Mobilization,Therapeutic Exercises Next Visit Focus/Plan Next Note Type Treatment Note Next Visit Plan continue progressing core stabilzation, MFR as needed for SI alignment
--- NOTE | 2022-05-31 16:14 | PT.OTN ---
Current Diagnoses Pain in unspecified hip (05/31/22) Physical Therapy Treatment Note PT-OP-A Visit Information Start: 12/17/20 09:07 Freq: Status: Active Protocol: Document 05/31/22 15:16 [facility] (Rec: 05/31/22 16:14 [facility] [id number]) Out-Patient Physical Therapy Visit Information Visit Information Visit Type Treatment Note Visit Start Time 15:15 Visit Stop Time 16:00 Total Visit Minutes 45 Visit Number 53 PT-OP-B Current Condition Start: 12/17/20 09:07 Freq: Status: Active Protocol: Document 12/17/20 12:56 [facility] (Rec: 12/17/20 13:07 [facility] [id number]) Current Condition History of Current Condition History of Current Condition 10/17/20 vaginal delivery no tears and now it feels really tight. She complains of right hip clicking and tightness in the front of her hip, medial ankle on the right painful more so when she stands. When she is rocking back and when she is walking she can feel her anterior hip click. PT-OP-C Subjective Start: 12/17/20 09:07 Freq: Status: Active Protocol: Document 05/31/22 15:16 [facility] (Rec: 05/31/22 16:14 [facility] [id number]) OP-PT Subjective Patient Comments Patient Comments Kimber notes her right hip feels really tight today and she still feels the tightness at the top of the sacrum on the right side PT-OP-F Manual Assessment Start: 12/17/20 09:07 Freq: Status: Active Protocol: Document 12/17/20 13:00 [facility] (Rec: 12/22/20 15:06 [facility] [id number]) Manual Assessments Soft Tissue Assessment Soft Tissue Mobility Assessment tightness of the right iliopsoas, ITB, quad attachments to the ASIS left lateral wall of the pelvic floor tight and guarded PT-OP-I Pelvic Floor Start: 12/17/20 09:07 Freq: Status: Active Protocol: Document 03/22/22 15:26 [facility] (Rec: 03/22/22 16:08 [facility] [id number]) Pelvic Floor Assessment Pelvic Clock Pelvic Clock 3-6 Guarding Contraction Ability Voluntary Contraction Moderate Voluntary Relaxation Moderate Manual Muscle Testing Left 4 Manual Muscle Testing Right 4 Manual Muscle Testing Anterior 4 Manual Muscle Testing Posterior 4 Comments Pelvic Floor Comments pt is not feeling the guarding now and is able to relax to 2 .0 uv PT-OP-J Posture/Palpation/Skin Start: 12/17/20 09:07 Freq: Status: Active Protocol: Document 12/17/20 13:00 [facility] (Rec: 12/22/20 15:06 [facility] [id number]) Palpation Assessment Location R ASIS Palpation Location tenderness right ASIS right SI joint Palpation Location right SI joint PSIS Palpation Findings Tenderness Palpation Details tenderness to palpation over the right ASIS PT-OP-M Strength Start: 12/17/20 09:07 Freq: Status: Active Protocol: Document 12/17/20 13:00 [facility] (Rec: 12/22/20 15:06 [facility] [id number]) Trunk Strength Trunk Manual Muscle Testing Testing Position Supine Flexion 4 Good Core Stabilization Kimber is able to facilitate her TA with good awareness PT-OP-Q Treatments Start: 12/17/20 09:07 Freq: Status: Active Protocol: Document 05/31/22 15:16 [facility] (Rec: 05/31/22 16:14 [facility] [id number]) Manual Therapy Treatment Soft Tissue Mobilization prone piriformis release B Body Position Prone Comments left greater than right piriformis tightness, sidelying QL release B Body Location right side Body Position left sidelying right quad and iliopsoas MFR Body Location right quad and iliopsoas Body Position Supine Comments worked in supine today for Iliopsoas and quad release 1 Body Location right iliopsoas and quads Comments manual STM/MFR over the right quadriceps and iliopsoas Manual Techniques sacral mobilizations into counternutation Type MET Reps/Duration x 5 reps manual piriformis stretch Reps/Duration holding 1-2 min x 2 manual sacral decompression Type manual sacral decompression and work into counter nutation Comments worked on sacral counternutation with MET PT-OP-R Modalities Start: 05/13/21 17:21 Freq: Status: Active Protocol: Document 10/27/21 12:00 [facility] (Rec: 10/28/21 14:22 [facility] [id number]) Ultrasound Therapy Treatment right thoracic parapsinals Treatment Duration (minutes) 8 Patient Position Prone Coupling Medium Ultrasound Gel Applicator Size (cm2) 5 Mode Setting Continuous Duty Cycle 100% Intensity Setting (w/cm2) 1.5 Comments good tolerance PT-OP-T Assessment and Plan Start: 12/17/20 09:07 Freq: Status: Active Protocol: Document 05/31/22 15:16 [facility] (Rec: 05/31/22 16:14 [facility] [id number]) Physical Therapy Assessment Assessment Summary Assessment right leg slightly shorter in supine, worked on releasing the QL and iliopsoas, R piriformis tight vs Left Physical Therapy Plan Frequency and Duration Frequency of Treatment 2x/Week Duration of Treatment 8 Plan of Care Start Date 04/26/22 Plan of Care End Date 06/27/22 Therapeutic Interventions Therapeutic Interventions Home Exercise Program,Manual Therapy,Patient/Caregiver Education,Self-Care/Home Management,Soft Tissue Mobilization,Therapeutic Exercises Discharge Physical Therapy Discharge Reasons Change in Medical Status Discharge Comments Pt being induced tonight for delivery Next Visit Focus/Plan Next Note Type Treatment Note Next Visit Plan continue progressing core stabilzation, MFR as needed for SI alignment
--- NOTE | 2022-06-14 17:13 | PT.OTN ---
Current Diagnoses Pain in unspecified hip (06/14/22) Physical Therapy Treatment Note PT-OP-A Visit Information Start: 12/17/20 09:07 Freq: Status: Active Protocol: Document 06/14/22 15:16 [facility] (Rec: 06/14/22 16:01 [facility] [id number]) Out-Patient Physical Therapy Visit Information Visit Information Visit Type Treatment Note Visit Start Time 15:15 Visit Stop Time 16:00 Total Visit Minutes 45 Visit Number 54 PT-OP-B Current Condition Start: 12/17/20 09:07 Freq: Status: Active Protocol: Document 12/17/20 12:56 [facility] (Rec: 12/17/20 13:07 [facility] [id number]) Current Condition History of Current Condition History of Current Condition 10/17/20 vaginal delivery no tears and now it feels really tight. She complains of right hip clicking and tightness in the front of her hip, medial ankle on the right painful more so when she stands. When she is rocking back and when she is walking she can feel her anterior hip click. PT-OP-C Subjective Start: 12/17/20 09:07 Freq: Status: Active Protocol: Document 06/14/22 15:16 [facility] (Rec: 06/14/22 16:01 [facility] [id number]) OP-PT Subjective Patient Comments Patient Comments pt notes her sacrum has been doing pretty good, she is a little sore from new exercises , its deep in her buttocks R side and her right hip feels tight. She also reports she recently found out she is , 6 weeks PT-OP-F Manual Assessment Start: 12/17/20 09:07 Freq: Status: Active Protocol: Document 12/17/20 13:00 [facility] (Rec: 12/22/20 15:06 [facility] [email or web address]) Manual Assessments Soft Tissue Assessment Soft Tissue Mobility Assessment tightness of the right iliopsoas, ITB, quad attachments to the ASIS left lateral wall of the pelvic floor tight and guarded PT-OP-I Pelvic Floor Start: 12/17/20 09:07 Freq: Status: Active Protocol: Document 03/22/22 15:26 [facility] (Rec: 03/22/22 16:08 [facility] [id number]) Pelvic Floor Assessment Pelvic Clock Pelvic Clock 3-6 Guarding Contraction Ability Voluntary Contraction Moderate Voluntary Relaxation Moderate Manual Muscle Testing Left 4 Manual Muscle Testing Right 4 Manual Muscle Testing Anterior 4 Manual Muscle Testing Posterior 4 Comments Pelvic Floor Comments pt is not feeling the guarding now and is able to relax to 2 .0 uv PT-OP-J Posture/Palpation/Skin Start: 12/17/20 09:07 Freq: Status: Active Protocol: Document 12/17/20 13:00 [facility] (Rec: 12/22/20 15:06 [facility] [email or web address]) Palpation Assessment Location R ASIS Palpation Location tenderness right ASIS right SI joint Palpation Location right SI joint PSIS Palpation Findings Tenderness Palpation Details tenderness to palpation over the right ASIS PT-OP-M Strength Start: 12/17/20 09:07 Freq: Status: Active Protocol: Document 12/17/20 13:00 [facility] (Rec: 12/22/20 15:06 [facility] [id number]) Trunk Strength Trunk Manual Muscle Testing Testing Position Supine Flexion 4 Good Core Stabilization Kimber is able to facilitate her TA with good awareness PT-OP-Q Treatments Start: 12/17/20 09:07 Freq: Status: Active Protocol: Document 06/14/22 15:16 [facility] (Rec: 06/14/22 17:13 [facility] [id number]) Manual Therapy Treatment Soft Tissue Mobilization prone piriformis release B Body Location R piriformis Body Position Prone Comments right side release right quad and iliopsoas MFR Body Location right quad and iliopsoas Body Position Supine Comments worked in supine today for Iliopsoas and quad release Manual Techniques manual piriformis stretch Reps/Duration holding 1-2 min x 2 posterior capsule stretch Type posterior hip capsule stretch Comments good tolerance manual iliopsoasd release in sidelying Type sidelying ilospsoas release Body Position Sidelying manual ilopsoas and quad stretches Body Position supine rufus test position Comments with PROM knee flexion and manual release to the quad and iliopsoas PT-OP-R Modalities Start: 05/13/21 17:21 Freq: Status: Active Protocol: Document 10/27/21 12:00 [facility] (Rec: 10/28/21 14:22 [facility] [id number]) Ultrasound Therapy Treatment right thoracic parapsinals Treatment Duration (minutes) 8 Patient Position Prone Coupling Medium Ultrasound Gel Applicator Size (cm2) 5 Mode Setting Continuous Duty Cycle 100% Intensity Setting (w/cm2) 1.5 Comments good tolerance PT-OP-T Assessment and Plan Start: 12/17/20 09:07 Freq: Status: Active Protocol: Document 06/14/22 15:16 [facility] (Rec: 06/14/22 17:13 [facility] [id number]) Physical Therapy Assessment Assessment Summary Assessment sarum was well aligned today, pt was tight in right anterior hip and has some residual tightness in the right gluteals and piriformis but doing better Physical Therapy Plan Frequency and Duration Frequency of Treatment 2x/Week Duration of Treatment 8 Plan of Care Start Date 04/26/22 Plan of Care End Date 06/27/22 Therapeutic Interventions Therapeutic Interventions Home Exercise Program,Manual Therapy,Patient/Caregiver Education,Self-Care/Home Management,Soft Tissue Mobilization,Therapeutic Exercises Discharge Physical Therapy Discharge Reasons Change in Medical Status Discharge Comments Pt being induced tonight for delivery Next Visit Focus/Plan Next Note Type Treatment Note Next Visit Plan continue progressing core stabilzation, MFR as needed for SI alignment
--- NOTE | 2022-09-15 17:09 | PT.OPPOC ---
Physical, Occupational & Speech Therapy At [facility] Current Diagnoses Pain in unspecified hip (10/04/22) Visit Care Team Role Provider Type Chayo Diego MD Attending Provider Physician Family Provider Primary Care Provider Referring Provider Specialty: Family Practice Address: [address] [place] [address], [id number] Email: [email or web address] Plan Of Care PT-OP-T Assessment and Plan Start: 12/17/20 09:07 Freq: Status: Active Protocol: Document 09/15/22 15:15 [facility] (Rec: 10/04/22 17:08 [facility] [id number]) Physical Therapy Assessment Goals pt lacks a HEP for related HEP Impairment pt lacks a HEP for related SI stabilization [facility]cf Goal (LTG) Kimber is independent with a home exercise program to do during the remainder of her for SI stabilization to avoid the sciatic symptoms she had with her last . 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 At this point Linnea is doing better over, she will have occasional back pain not always lifting her correctly. Putting her in the crib isn't hurting any more. 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 She is using miracle balls for home which help to release the tightness in her gluteals Good progress but now with her this is more difficult again iliopsoas tightness R>L Impairment Iliopsoas tightness R>L Short Term Goal (STG) Kimber is educated in stretches she can do now that she is in the period for her right iliopsoas Goal met STG Duration 4 weeks Assessment Summary Assessment Kimber returns to PT today at 20 weeks . She is experiencing right sided sacral discomfort as well as anterior hip tightness. Today we worked on stretching her iliopsoas and manual therapy techniques for her sacrum. Kimber would benefit from continued PT during her to work on SI stabilization, manual therapy techniques for her hip and HEP Physical Therapy Plan Frequency and Duration Frequency of Treatment 2x/Week Duration of treatment (weeks) 12 Plan of Care Start Date 09/15/22 Plan of Care End Date 12/08/22 Therapeutic Interventions Therapeutic Interventions Home Exercise Program,Manual Therapy,Patient/Caregiver Education,Self-Care/Home Management,Soft Tissue Mobilization,Therapeutic Exercises Next Visit Focus/Plan Next Note Type Treatment Note Next Visit Plan work on release of the right piriformis, SI stabilization exercises and manual therapy techniques for SI balancing. Plan of Care Dates Plan of Care Start Date 09/15/22 Plan of Care End Date 12/08/22 Electronically Signed by: Hyacinth Gifford, PT 10/04/22 [id number] If you are in agreement with this Plan of Care, please return a signed and dated copy. I have reviewed this Plan of Care and certify that the skilled therapy services above are required to meet the patient?s needs. Physician Signature Date Printed Name and Credentials Clinical Instructor Signature Printed Name and Credentials
--- NOTE | 2022-09-15 17:10 | PT.OTN ---
Current Diagnoses Pain in unspecified hip (10/04/22) Physical Therapy Treatment Note PT-OP-A Visit Information Start: 12/17/20 09:07 Freq: Status: Active Protocol: Document 09/15/22 15:15 [facility] (Rec: 09/15/22 17:00 [facility] [id number]) Out-Patient Physical Therapy Visit Information Visit Information Visit Type Progress Note Visit Start Time 15:15 Visit Stop Time 16:00 Total Visit Minutes 45 Visit Number 55 PT-OP-B Current Condition Start: 12/17/20 09:07 Freq: Status: Active Protocol: Document 12/17/20 12:56 [facility] (Rec: 12/17/20 13:07 [facility] [id number]) Current Condition History of Current Condition History of Current Condition 10/17/20 vaginal delivery no tears and now it feels really tight. She complains of right hip clicking and tightness in the front of her hip, medial ankle on the right painful more so when she stands. When she is rocking back and when she is walking she can feel her anterior hip click. PT-OP-C Subjective Start: 12/17/20 09:07 Freq: Status: Active Protocol: Document 09/15/22 15:15 [facility] (Rec: 09/15/22 17:00 [facility] [id number]) OP-PT Subjective Patient Comments Patient Comments pt notes she is 20 weeks and has been sick. She notes she only has been allowed. She has been really sick her whole pregnacy. She has been seeing a chiropractor for the sacral pain, she feels her hips are tight Pt also would like to work on pelvic floor. PT-OP-F Manual Assessment Start: 12/17/20 09:07 Freq: Status: Active Protocol: Document 12/17/20 13:00 [facility] (Rec: 12/22/20 15:06 [facility] [id number]) Manual Assessments Soft Tissue Assessment Soft Tissue Mobility Assessment tightness of the right iliopsoas, ITB, quad attachments to the ASIS left lateral wall of the pelvic floor tight and guarded PT-OP-I Pelvic Floor Start: 12/17/20 09:07 Freq: Status: Active Protocol: Document 03/22/22 15:26 [facility] (Rec: 03/22/22 16:08 [facility] [id number]) Pelvic Floor Assessment Pelvic Clock Pelvic Clock 3-6 Guarding Contraction Ability Voluntary Contraction Moderate Voluntary Relaxation Moderate Manual Muscle Testing Left 4 Manual Muscle Testing Right 4 Manual Muscle Testing Anterior 4 Manual Muscle Testing Posterior 4 Comments Pelvic Floor Comments pt is not feeling the guarding now and is able to relax to 2 .0 uv PT-OP-J Posture/Palpation/Skin Start: 12/17/20 09:07 Freq: Status: Active Protocol: Document 12/17/20 13:00 [facility] (Rec: 12/22/20 15:06 [facility] [id number]) Palpation Assessment Location R ASIS Palpation Location tenderness right ASIS right SI joint Palpation Location right SI joint PSIS Palpation Findings Tenderness Palpation Details tenderness to palpation over the right ASIS PT-OP-M Strength Start: 12/17/20 09:07 Freq: Status: Active Protocol: Document 12/17/20 13:00 [facility] (Rec: 12/22/20 15:06 [facility] [id number]) Trunk Strength Trunk Manual Muscle Testing Testing Position Supine Flexion 4 Good Core Stabilization Kimber is able to facilitate her TA with good awareness PT-OP-Q Treatments Start: 12/17/20 09:07 Freq: Status: Active Protocol: Document 09/15/22 15:15 [facility] (Rec: 10/04/22 17:08 [facility] [id number]) Manual Therapy Treatment Soft Tissue Mobilization right quad and iliopsoas MFR Body Location right quad and iliopsoas Body Position Supine Comments worked in supine today for Iliopsoas and quad release prone over pillow paraspinal release Body Location paraspinal release Manual Techniques manual piriformis stretch Reps/Duration holding 1-2 min x 2 manual iliopsoasd release in sidelying Type sidelying ilospsoas release Body Position Sidelying manual ilopsoas and quad stretches Body Position supine rufus test position Comments with PROM knee flexion and manual release to the quad and iliopsoas PT-OP-R Modalities Start: 05/13/21 17:21 Freq: Status: Active Protocol: Document 10/27/21 12:00 [facility] (Rec: 10/28/21 14:22 [facility] [id number]) Ultrasound Therapy Treatment right thoracic parapsinals Treatment Duration (minutes) 8 Patient Position Prone Coupling Medium Ultrasound Gel Applicator Size (cm2) 5 Mode Setting Continuous Duty Cycle 100% Intensity Setting (w/cm2) 1.5 Comments good tolerance PT-OP-T Assessment and Plan Start: 12/17/20 09:07 Freq: Status: Active Protocol: Document 09/15/22 15:15 [facility] (Rec: 10/04/22 17:08 [facility] [id number]) Physical Therapy Assessment Goals pt lacks a HEP for related HEP Impairment pt lacks a HEP for related SI stabilization Claim Processing Specialist Goal (LTG) Kimber is independent with a home exercise program to do during the remainder of her for SI stabilization to avoid the sciatic symptoms she had with her last . LTG Duration 12 weeks Pt is demonstrating good body mechanics when picking up her baby girl Claim Processing Specialist Goal (LTG) Kimber reports she is able to properly lift her baby without increased c/o LBP or reaggravating her hip. At this point Linnea is doing better over, she will have occasional back pain not always lifting her correctly. Putting her in the crib isn't hurting any more. excellent progress left side pelvic floor guarding Impairment left side of the lateral pelvic floor guarded and tight Short Term Goal (STG) Kimber is educated in relaxed awarenss of the pelvic floor and is able to relax to baseline on EMG biofeedback Goal met STG Duration 5 weeks hip pain rated 4/10 Impairment right sided hip pain rated 4/ 10, c/o hip clicking with standing rocking Fci Goal (LTG) Kimber reports a overall reduction in hip tightness and pain and is no longer experiencing clicking when she stands to rock her baby Kimber reports she is doing better overall with this and feels both therapy and dry needling have helped, she still is experiencing intermittent anterior hip pain Excellent progress overall LTG Duration 8 weeks difficulty with squatting Impairment Difficulty with squatting activity due to R SI pain [facility]ci Goal (LTG) SI pain is intermittent but seems improved overall, squatting has not been as much as a issue for Kimber. She is using miracle balls for home which help to release the tightness in her gluteals Good progress but now with her this is more difficult again iliopsoas tightness R>L Impairment Iliopsoas tightness R>L Short Term Goal (STG) Kimber is educated in stretches she can do now that she is in the period for her right iliopsoas Goal met STG Duration 4 weeks Assessment Summary Assessment Kimber returns to PT today at 20 weeks . She is experiencing right sided sacral discomfort as well as anterior hip tightness. Today we worked on stretching her iliopsoas and manual therapy techniques for her sacrum. Kimber would benefit from continued PT during her to work on SI stabilization, manual therapy techniques for her hip and HEP Physical Therapy Plan Frequency and Duration Frequency of Treatment 2x/Week Duration of treatment (weeks) 12 Plan of Care Start Date 09/15/22 Plan of Care End Date 12/08/22 Therapeutic Interventions Therapeutic Interventions Home Exercise Program,Manual Therapy,Patient/Caregiver Education,Self-Care/Home Management,Soft Tissue Mobilization,Therapeutic Exercises Next Visit Focus/Plan Next Note Type Treatment Note Next Visit Plan work on release of the right piriformis, SI stabilization exercises and manual therapy techniques for SI balancing.
--- NOTE | 2022-10-04 17:21 | PT.OTN ---
Current Diagnoses Pain in unspecified hip (10/04/22) Physical Therapy Treatment Note PT-OP-A Visit Information Start: 12/17/20 09:07 Freq: Status: Active Protocol: Document 10/04/22 17:10 [facility] (Rec: 10/04/22 17:21 [facility] [id number]) Out-Patient Physical Therapy Visit Information Visit Information Visit Type Treatment Note Visit Start Time 16:00 Visit Stop Time 16:45 Total Visit Minutes 45 Visit Number 56 PT-OP-B Current Condition Start: 12/17/20 09:07 Freq: Status: Active Protocol: Document 12/17/20 12:56 [facility] (Rec: 12/17/20 13:07 [facility] [id number]) Current Condition History of Current Condition History of Current Condition 10/17/20 vaginal delivery no tears and now it feels really tight. She complains of right hip clicking and tightness in the front of her hip, medial ankle on the right painful more so when she stands. When she is rocking back and when she is walking she can feel her anterior hip click. PT-OP-C Subjective Start: 12/17/20 09:07 Freq: Status: Active Protocol: Document 10/04/22 17:10 [facility] (Rec: 10/04/22 17:21 [facility] [id number]) OP-PT Subjective Patient Comments Patient Comments Kimber notes she is no longer feeling the nausea. She is still feeling the right sided sacral pain but hips feel pretty good today. She also has a question about her heel slides with TA activation as she felt that she was conning in the abdominal wall PT-OP-F Manual Assessment Start: 12/17/20 09:07 Freq: Status: Active Protocol: Document 12/17/20 13:00 [facility] (Rec: 12/22/20 15:06 [facility] [email or web address]) Manual Assessments Soft Tissue Assessment Soft Tissue Mobility Assessment tightness of the right iliopsoas, ITB, quad attachments to the ASIS left lateral wall of the pelvic floor tight and guarded PT-OP-I Pelvic Floor Start: 12/17/20 09:07 Freq: Status: Active Protocol: Document 03/22/22 15:26 [facility] (Rec: 03/22/22 16:08 [facility] [id number]) Pelvic Floor Assessment Pelvic Clock Pelvic Clock 3-6 Guarding Contraction Ability Voluntary Contraction Moderate Voluntary Relaxation Moderate Manual Muscle Testing Left 4 Manual Muscle Testing Right 4 Manual Muscle Testing Anterior 4 Manual Muscle Testing Posterior 4 Comments Pelvic Floor Comments pt is not feeling the guarding now and is able to relax to 2 .0 uv PT-OP-J Posture/Palpation/Skin Start: 12/17/20 09:07 Freq: Status: Active Protocol: Document 12/17/20 13:00 [facility] (Rec: 12/22/20 15:06 [facility] [id number]) Palpation Assessment Location R ASIS Palpation Location tenderness right ASIS right SI joint Palpation Location right SI joint PSIS Palpation Findings Tenderness Palpation Details tenderness to palpation over the right ASIS PT-OP-M Strength Start: 12/17/20 09:07 Freq: Status: Active Protocol: Document 12/17/20 13:00 [facility] (Rec: 12/22/20 15:06 [facility] [id number]) Trunk Strength Trunk Manual Muscle Testing Testing Position Supine Flexion 4 Good Core Stabilization Kimber is able to facilitate her TA with good awareness PT-OP-Q Treatments Start: 12/17/20 09:07 Freq: Status: Active Protocol: Document 10/04/22 17:10 [facility] (Rec: 10/04/22 17:21 [facility] [id number]) Therapeutic Exercises Supine Exercises Level 2 lower abdominal progression Comments held off on this today due to conning in the abdominal wall TA with marching Reps/Minutes x 10 Comments Kimber is able to keep SI stable and no conning with marches Other Exercises quadruped TA Comments HEP Manual Therapy Treatment Soft Tissue Mobilization prone piriformis release B Body Location R piriformis Body Position Prone Comments right side release prone over pillow paraspinal release Body Location paraspinal release Mobilization Type Myofascial Release Body Position prone over body pillow Comments pt tolerated prone body pillow today Manual Techniques manual piriformis stretch Reps/Duration holding 1-2 min x 2 Comments tightness of the right piriformis greater than left manual MET for right innominant anterior rotation Type MET right innominant anterior rotation Reps/Duration x 5 reps PT-OP-R Modalities Start: 05/13/21 17:21 Freq: Status: Active Protocol: Document 10/27/21 12:00 [facility] (Rec: 10/28/21 14:22 [facility] [id number]) Ultrasound Therapy Treatment right thoracic parapsinals Treatment Duration (minutes) 8 Patient Position Prone Coupling Medium Ultrasound Gel Applicator Size (cm2) 5 Mode Setting Continuous Duty Cycle 100% Intensity Setting (w/cm2) 1.5 Comments good tolerance PT-OP-T Assessment and Plan Start: 12/17/20 09:07 Freq: Status: Active Protocol: Document 10/04/22 17:10 [facility] (Rec: 10/04/22 17:21 [facility] [id number]) Physical Therapy Assessment Assessment Summary Assessment we worked on stabilization ex today and heel slides due cause a bit of conning so this exercise was modified to TA engagement with single leg jimmy. Pt was instructed to use a hand held mirror for watching her abdominal wall with jimmy Physical Therapy Plan Frequency and Duration Frequency of Treatment 2x/Week Duration of treatment (weeks) 12 Plan of Care Start Date 09/15/22 Plan of Care End Date 12/08/22 Therapeutic Interventions Therapeutic Interventions Home Exercise Program,Manual Therapy,Patient/Caregiver Education,Self-Care/Home Management,Soft Tissue Mobilization,Therapeutic Exercises Next Visit Focus/Plan Next Note Type Treatment Note Next Visit Plan work on release of the right piriformis, SI stabilization exercises and manual therapy techniques for SI balancing.
--- NOTE | 2022-10-11 18:33 | PT.OTN ---
Current Diagnoses Pain in unspecified hip (10/11/22) Physical Therapy Treatment Note PT-OP-A Visit Information Start: 12/17/20 09:07 Freq: Status: Active Protocol: Document 10/11/22 13:45 [facility] (Rec: 10/11/22 18:33 [facility] [id number]) Out-Patient Physical Therapy Visit Information Visit Information Visit Type Treatment Note Visit Start Time 13:45 Visit Stop Time 14:30 Total Visit Minutes 45 Visit Number 57 PT-OP-B Current Condition Start: 12/17/20 09:07 Freq: Status: Active Protocol: Document 12/17/20 12:56 [facility] (Rec: 12/17/20 13:07 [facility] [id number]) Current Condition History of Current Condition History of Current Condition 10/17/20 vaginal delivery no tears and now it feels really tight. She complains of right hip clicking and tightness in the front of her hip, medial ankle on the right painful more so when she stands. When she is rocking back and when she is walking she can feel her anterior hip click. PT-OP-C Subjective Start: 12/17/20 09:07 Freq: Status: Active Protocol: Document 10/11/22 13:52 [facility] (Rec: 10/11/22 14:39 [facility] [id number]) OP-PT Subjective Patient Comments Patient Comments pt notes she slipped when she was in [place] and she feels now like she can barely walk and has shooting pain in her right leg. This was last and yesterday became really sore. She notes she fell back and twisted a bit. Laying flat it hurts on the right PSIS PT-OP-F Manual Assessment Start: 12/17/20 09:07 Freq: Status: Active Protocol: Document 12/17/20 13:00 [facility] (Rec: 12/22/20 15:06 [facility] [email or web address]) Manual Assessments Soft Tissue Assessment Soft Tissue Mobility Assessment tightness of the right iliopsoas, ITB, quad attachments to the ASIS left lateral wall of the pelvic floor tight and guarded PT-OP-I Pelvic Floor Start: 12/17/20 09:07 Freq: Status: Active Protocol: Document 03/22/22 15:26 [facility] (Rec: 03/22/22 16:08 [facility] [id number]) Pelvic Floor Assessment Pelvic Clock Pelvic Clock 3-6 Guarding Contraction Ability Voluntary Contraction Moderate Voluntary Relaxation Moderate Manual Muscle Testing Left 4 Manual Muscle Testing Right 4 Manual Muscle Testing Anterior 4 Manual Muscle Testing Posterior 4 Comments Pelvic Floor Comments pt is not feeling the guarding now and is able to relax to 2 .0 uv PT-OP-J Posture/Palpation/Skin Start: 12/17/20 09:07 Freq: Status: Active Protocol: Document 12/17/20 13:00 [facility] (Rec: 12/22/20 15:06 [facility] [id number]) Palpation Assessment Location R ASIS Palpation Location tenderness right ASIS right SI joint Palpation Location right SI joint PSIS Palpation Findings Tenderness Palpation Details tenderness to palpation over the right ASIS PT-OP-M Strength Start: 12/17/20 09:07 Freq: Status: Active Protocol: Document 12/17/20 13:00 [facility] (Rec: 12/22/20 15:06 [facility] [id number]) Trunk Strength Trunk Manual Muscle Testing Testing Position Supine Flexion 4 Good Core Stabilization Kimber is able to facilitate her TA with good awareness PT-OP-Q Treatments Start: 12/17/20 09:07 Freq: Status: Active Protocol: Document 10/11/22 13:45 [facility] (Rec: 10/11/22 18:33 [facility] [id number]) Manual Therapy Treatment Soft Tissue Mobilization prone MFR over the thoracic paraspinals Mobilization Type Myofascial Release Intensity/Depth Moderate Body Position Prone Comments right greater than left thoracic paraspinal tightness and guarding prone piriformis release B Body Location B piriformis Body Position Prone Comments right side release Manual Techniques sidelying MET for sacral rotation Reps/Duration x 5 reps left sidelying kinesiotape Type kinesiotape over the sacrum Comments star pattern to assist with swelling PT-OP-R Modalities Start: 05/13/21 17:21 Freq: Status: Active Protocol: Document 10/27/21 12:00 [facility] (Rec: 10/28/21 14:22 [facility] [id number]) Ultrasound Therapy Treatment right thoracic parapsinals Treatment Duration (minutes) 8 Patient Position Prone Coupling Medium Ultrasound Gel Applicator Size (cm2) 5 Mode Setting Continuous Duty Cycle 100% Intensity Setting (w/cm2) 1.5 Comments good tolerance PT-OP-T Assessment and Plan Start: 12/17/20 09:07 Freq: Status: Active Protocol: Document 10/11/22 13:45 [facility] (Rec: 10/11/22 18:33 [facility] [id number]) Physical Therapy Assessment Assessment Summary Assessment Kimber had slipped on the snow and felt a rotation when she fell. She caught herself with her left arm and didn't feel she had impact on her sacrum but she was rotated today and was tender along the sacral border. She tolerated gentle MET treatments well and then kinesiotape was used over the sacrum in a star pattern to assist with swelling Physical Therapy Plan Frequency and Duration Frequency of Treatment 2x/Week Duration of treatment (weeks) 12 Plan of Care Start Date 09/15/22 Plan of Care End Date 12/08/22 Therapeutic Interventions Therapeutic Interventions Home Exercise Program,Manual Therapy,Patient/Caregiver Education,Self-Care/Home Management,Soft Tissue Mobilization,Therapeutic Exercises Next Visit Focus/Plan Next Note Type Treatment Note Next Visit Plan work on release of the right piriformis, SI stabilization exercises and manual therapy techniques for SI balancing.
--- NOTE | 2022-10-25 18:16 | PT.OTN ---
Current Diagnoses Pain in unspecified hip (10/25/22) Physical Therapy Treatment Note PT-OP-A Visit Information Start: 12/17/20 09:07 Freq: Status: Active Protocol: Document 10/25/22 18:06 [facility] (Rec: 10/25/22 18:12 [facility] [id number]) Out-Patient Physical Therapy Visit Information Visit Information Visit Type Treatment Note Visit Start Time 13:00 Visit Stop Time 13:45 Total Visit Minutes 45 Visit Number 58 PT-OP-B Current Condition Start: 12/17/20 09:07 Freq: Status: Active Protocol: Document 12/17/20 12:56 [facility] (Rec: 12/17/20 13:07 [facility] [id number]) Current Condition History of Current Condition History of Current Condition 10/17/20 vaginal delivery no tears and now it feels really tight. She complains of right hip clicking and tightness in the front of her hip, medial ankle on the right painful more so when she stands. When she is rocking back and when she is walking she can feel her anterior hip click. PT-OP-C Subjective Start: 12/17/20 09:07 Freq: Status: Active Protocol: Document 10/25/22 18:06 [facility] (Rec: 10/25/22 18:12 [facility] [id number]) OP-PT Subjective Patient Comments Patient Comments Kimber notes she has been feeling pressure at her pubic bone, not pain but she feels discomfort PT-OP-F Manual Assessment Start: 12/17/20 09:07 Freq: Status: Active Protocol: Document 12/17/20 13:00 [facility] (Rec: 12/22/20 15:06 [facility] [id number]) Manual Assessments Soft Tissue Assessment Soft Tissue Mobility Assessment tightness of the right iliopsoas, ITB, quad attachments to the ASIS left lateral wall of the pelvic floor tight and guarded PT-OP-I Pelvic Floor Start: 12/17/20 09:07 Freq: Status: Active Protocol: Document 03/22/22 15:26 [facility] (Rec: 03/22/22 16:08 [facility] [id number]) Pelvic Floor Assessment Pelvic Clock Pelvic Clock 3-6 Guarding Contraction Ability Voluntary Contraction Moderate Voluntary Relaxation Moderate Manual Muscle Testing Left 4 Manual Muscle Testing Right 4 Manual Muscle Testing Anterior 4 Manual Muscle Testing Posterior 4 Comments Pelvic Floor Comments pt is not feeling the guarding now and is able to relax to 2 .0 uv PT-OP-J Posture/Palpation/Skin Start: 12/17/20 09:07 Freq: Status: Active Protocol: Document 12/17/20 13:00 [facility] (Rec: 12/22/20 15:06 [facility] [id number]) Palpation Assessment Location R ASIS Palpation Location tenderness right ASIS right SI joint Palpation Location right SI joint PSIS Palpation Findings Tenderness Palpation Details tenderness to palpation over the right ASIS PT-OP-M Strength Start: 12/17/20 09:07 Freq: Status: Active Protocol: Document 12/17/20 13:00 [facility] (Rec: 12/22/20 15:06 [facility] [email or web address]) Trunk Strength Trunk Manual Muscle Testing Testing Position Supine Flexion 4 Good Core Stabilization Kimber is able to facilitate her TA with good awareness PT-OP-Q Treatments Start: 12/17/20 09:07 Freq: Status: Active Protocol: Document 10/25/22 18:06 [facility] (Rec: 10/25/22 18:12 [facility] [id number]) Manual Therapy Treatment Soft Tissue Mobilization prone piriformis release B Body Location B piriformis Body Position Prone Comments right side release lumbar paraspinals Mobilization Type Myofascial Release prone over pillow paraspinal release Body Location paraspinal release Mobilization Type Myofascial Release Body Position prone over body pillow Comments pt tolerated prone body pillow today Manual Techniques kinesiotape over the sacrum Comments pt tolerated the kinesiotape very well over the sacrum last visit and her swelling appeared to be decreased today . Kinesiotape was reapplied in a star pattern over the sacrum MET for right pubic upslip Reps/Duration x5 reps Comments pt presented with right pubic upslip, good correction with MET manual recheck of leg length Comments leg length equal today PT-OP-R Modalities Start: 05/13/21 17:21 Freq: Status: Active Protocol: Document 10/27/21 12:00 [facility] (Rec: 10/28/21 14:22 [facility] [id number]) Ultrasound Therapy Treatment right thoracic parapsinals Treatment Duration (minutes) 8 Patient Position Prone Coupling Medium Ultrasound Gel Applicator Size (cm2) 5 Mode Setting Continuous Duty Cycle 100% Intensity Setting (w/cm2) 1.5 Comments good tolerance PT-OP-T Assessment and Plan Start: 03/11/21 09:07 Freq: Status: Active Protocol: Document 10/25/22 18:06 [facility] (Rec: 10/25/22 18:12 [facility] [id number]) Physical Therapy Assessment Assessment Summary Assessment I talked with Kimber about wearing her SI joint as she may be experiencing some pubic bone separation due to ligamentous laxity combined with slip on the snow a few weeks ago. She did have a upslip of the right pubic bone which was corrected today. I am having her stay symmetrical with her activities until her next PT visit to reassess. She did not have as much swelling at this time over her sacrum and the kinesiotape really seemed to help with that. Physical Therapy Plan Frequency and Duration Frequency of Treatment 2x/Week Duration of treatment (weeks) 12 Plan of Care Start Date 09/15/22 Plan of Care End Date 12/08/22 Therapeutic Interventions Therapeutic Interventions Home Exercise Program,Manual Therapy,Patient/Caregiver Education,Self-Care/Home Management,Soft Tissue Mobilization,Therapeutic Exercises Next Visit Focus/Plan Next Note Type Treatment Note Next Visit Plan work on release of the right piriformis, SI stabilization exercises and manual therapy techniques for SI balancing.
--- NOTE | 2022-11-02 14:01 | PT.OTN ---
Current Diagnoses Pain in unspecified hip (11/01/22) Physical Therapy Treatment Note PT-OP-A Visit Information Start: 12/17/20 09:07 Freq: Status: Active Protocol: Document 11/01/22 13:00 [facility] (Rec: 11/01/22 13:53 [facility] [id number]) Out-Patient Physical Therapy Visit Information Visit Information Visit Type Treatment Note Visit Start Time 13:00 Visit Stop Time 13:45 Total Visit Minutes 45 Visit Number 59 PT-OP-B Current Condition Start: 12/17/20 09:07 Freq: Status: Active Protocol: Document 12/17/20 12:56 [facility] (Rec: 12/17/20 13:07 [facility] [id number]) Current Condition History of Current Condition History of Current Condition 10/17/20 vaginal delivery no tears and now it feels really tight. She complains of right hip clicking and tightness in the front of her hip, medial ankle on the right painful more so when she stands. When she is rocking back and when she is walking she can feel her anterior hip click. PT-OP-C Subjective Start: 12/17/20 09:07 Freq: Status: Active Protocol: Document 11/01/22 13:00 [facility] (Rec: 11/01/22 13:53 [facility] [id number]) OP-PT Subjective Patient Comments Patient Comments Pubic bone pressure has gotten better, wearing the belt has helped. Being up and moving has been helping Patient Reported Progress Improving PT-OP-F Manual Assessment Start: 12/17/20 09:07 Freq: Status: Active Protocol: Document 12/17/20 13:00 [facility] (Rec: 12/22/20 15:06 [facility] [email or web address]) Manual Assessments Soft Tissue Assessment Soft Tissue Mobility Assessment tightness of the right iliopsoas, ITB, quad attachments to the ASIS left lateral wall of the pelvic floor tight and guarded PT-OP-I Pelvic Floor Start: 12/17/20 09:07 Freq: Status: Active Protocol: Document 03/22/22 15:26 [facility] (Rec: 03/22/22 16:08 [facility] [id number]) Pelvic Floor Assessment Pelvic Clock Pelvic Clock 3-6 Guarding Contraction Ability Voluntary Contraction Moderate Voluntary Relaxation Moderate Manual Muscle Testing Left 4 Manual Muscle Testing Right 4 Manual Muscle Testing Anterior 4 Manual Muscle Testing Posterior 4 Comments Pelvic Floor Comments pt is not feeling the guarding now and is able to relax to 2 .0 uv PT-OP-J Posture/Palpation/Skin Start: 12/17/20 09:07 Freq: Status: Active Protocol: Document 12/17/20 13:00 [facility] (Rec: 12/22/20 15:06 [facility] [id number]) Palpation Assessment Location R ASIS Palpation Location tenderness right ASIS right SI joint Palpation Location right SI joint PSIS Palpation Findings Tenderness Palpation Details tenderness to palpation over the right ASIS PT-OP-M Strength Start: 12/17/20 09:07 Freq: Status: Active Protocol: Document 12/17/20 13:00 [facility] (Rec: 12/22/20 15:06 [facility] [id number]) Trunk Strength Trunk Manual Muscle Testing Testing Position Supine Flexion 4 Good Core Stabilization Kimber is able to facilitate her TA with good awareness PT-OP-Q Treatments Start: 12/17/20 09:07 Freq: Status: Active Protocol: Document 11/01/22 13:00 [facility] (Rec: 11/02/22 14:01 [facility] [id number]) Manual Therapy Treatment Soft Tissue Mobilization adductor release bilaterally Comments left greater than right sided adductor tightness prone piriformis release B Body Location B piriformis Body Position Prone Comments right side release right quad and iliopsoas MFR Body Location right quad and iliopsoas Body Position Supine Comments worked in supine today for Iliopsoas and quad release Manual Techniques MET for right pubic upslip Reps/Duration x5 reps Comments pt presented with right pubic upslip, good correction with MET PT-OP-R Modalities Start: 05/13/21 17:21 Freq: Status: Active Protocol: Document 10/27/21 12:00 [facility] (Rec: 10/28/21 14:22 [facility] [id number]) Ultrasound Therapy Treatment right thoracic parapsinals Treatment Duration (minutes) 8 Patient Position Prone Coupling Medium Ultrasound Gel Applicator Size (cm2) 5 Mode Setting Continuous Duty Cycle 100% Intensity Setting (w/cm2) 1.5 Comments good tolerance PT-OP-T Assessment and Plan Start: 12/17/20 09:07 Freq: Status: Active Protocol: Document 11/01/22 13:00 [facility] (Rec: 11/02/22 14:01 [facility] [id number]) Physical Therapy Assessment Assessment Summary Assessment The SI belt is helping for Kimber and her pubic pain is decreased this week. She was advised to keep working on her anterior pelvic floor and TA musculature to help with pubic bone stabilization Physical Therapy Plan Frequency and Duration Frequency of Treatment 2x/Week Duration of treatment (weeks) 12 Plan of Care Start Date 09/15/22 Plan of Care End Date 12/08/22 Therapeutic Interventions Therapeutic Interventions Home Exercise Program,Manual Therapy,Patient/Caregiver Education,Self-Care/Home Management,Soft Tissue Mobilization,Therapeutic Exercises Next Visit Focus/Plan Next Note Type Treatment Note Next Visit Plan Recheck leg length and pubic bone alignment, work on release of the right piriformis, SI stabilization exercises and manual therapy techniques for SI balancing.
--- NOTE | 2022-11-08 17:55 | PT.OTN ---
Current Diagnoses Pain in unspecified hip (11/08/22) Physical Therapy Treatment Note PT-OP-A Visit Information Start: 12/17/20 09:07 Freq: Status: Active Protocol: Document 11/08/22 14:40 [facility] (Rec: 11/08/22 15:24 [facility] [id number]) Out-Patient Physical Therapy Visit Information Visit Information Visit Type Treatment Note Visit Note 1/6 visits currently allowed Visit Start Time 14:40 Visit Stop Time 15:20 Total Visit Minutes 40 Visit Number 60 PT-OP-B Current Condition Start: 12/17/20 09:07 Freq: Status: Active Protocol: Document 12/17/20 12:56 [facility] (Rec: 12/17/20 13:07 [facility] [id number]) Current Condition History of Current Condition History of Current Condition 10/17/20 vaginal delivery no tears and now it feels really tight. She complains of right hip clicking and tightness in the front of her hip, medial ankle on the right painful more so when she stands. When she is rocking back and when she is walking she can feel her anterior hip click. PT-OP-C Subjective Start: 12/17/20 09:07 Freq: Status: Active Protocol: Document 11/08/22 14:40 [facility] (Rec: 11/08/22 15:24 [facility] [id number]) OP-PT Subjective Patient Comments Patient Comments Pt is feeling decently good, she found out on monday she is anemic, she is still having a little bit of uncomfortableness but not as bad as it was. She has been wearning the belt and that has been helping and the pressure has been getting better. Patient Reported Progress Improving PT-OP-F Manual Assessment Start: 12/17/20 09:07 Freq: Status: Active Protocol: Document 12/17/20 13:00 [facility] (Rec: 12/22/20 15:06 [facility] [email or web address]) Manual Assessments Soft Tissue Assessment Soft Tissue Mobility Assessment tightness of the right iliopsoas, ITB, quad attachments to the ASIS left lateral wall of the pelvic floor tight and guarded PT-OP-I Pelvic Floor Start: 12/17/20 09:07 Freq: Status: Active Protocol: Document 03/22/22 15:26 [facility] (Rec: 03/22/22 16:08 [facility] [id number]) Pelvic Floor Assessment Pelvic Clock Pelvic Clock 3-6 Guarding Contraction Ability Voluntary Contraction Moderate Voluntary Relaxation Moderate Manual Muscle Testing Left 4 Manual Muscle Testing Right 4 Manual Muscle Testing Anterior 4 Manual Muscle Testing Posterior 4 Comments Pelvic Floor Comments pt is not feeling the guarding now and is able to relax to 2 .0 uv PT-OP-J Posture/Palpation/Skin Start: 12/17/20 09:07 Freq: Status: Active Protocol: Document 12/17/20 13:00 [facility] (Rec: 12/22/20 15:06 [facility] [email or web address]) Palpation Assessment Location R ASIS Palpation Location tenderness right ASIS right SI joint Palpation Location right SI joint PSIS Palpation Findings Tenderness Palpation Details tenderness to palpation over the right ASIS PT-OP-M Strength Start: 12/17/20 09:07 Freq: Status: Active Protocol: Document 12/17/20 13:00 [facility] (Rec: 12/22/20 15:06 [facility] [email or web address]) Trunk Strength Trunk Manual Muscle Testing Testing Position Supine Flexion 4 Good Core Stabilization Kimber is able to facilitate her TA with good awareness PT-OP-Q Treatments Start: 12/17/20 09:07 Freq: Status: Active Protocol: Document 11/08/22 14:40 [facility] (Rec: 11/08/22 15:24 [facility] [id number]) Therapeutic Exercises Supine Exercises bridges Reps/Minutes x 10 reps modified pelvic floor stretch Reps/Minutes hold 1-2 min TA with marching Reps/Minutes x 10-20 reps Sidelying Exercises clam shells Reps/Minutes 2 x 10 reps Manual Therapy Treatment Soft Tissue Mobilization adductor release on the left Body Location left adductors Mobilization Type Myofascial Release Intensity/Depth Moderate prone over pillow paraspinal release Body Location paraspinal release Mobilization Type Myofascial Release Body Position prone over body pillow Comments pt tolerated prone body pillow today, worked on releasing the thoracic paraspinals PT-OP-R Modalities Start: 05/13/21 17:21 Freq: Status: Active Protocol: Document 10/27/21 12:00 [facility] (Rec: 10/28/21 14:22 [facility] [id number]) Ultrasound Therapy Treatment right thoracic parapsinals Treatment Duration (minutes) 8 Patient Position Prone Coupling Medium Ultrasound Gel Applicator Size (cm2) 5 Mode Setting Continuous Duty Cycle 100% Intensity Setting (w/cm2) 1.5 Comments good tolerance PT-OP-T Assessment and Plan Start: 12/17/20 09:07 Freq: Status: Active Protocol: Document 11/08/22 14:40 [facility] (Rec: 11/08/22 17:55 [facility] [id number]) Physical Therapy Assessment Assessment Summary Assessment Leg length was equal today and decreased pain over the pubic bone. I went ahead and added in stabilization exercises, pt to see how she does with these and stop of she experience and pubic pain. MFR work over the lower thoracic paraspinals with pillow tolerated well. Physical Therapy Plan Frequency and Duration Frequency of Treatment 2x/Week Duration of treatment (weeks) 12 Plan of Care Start Date 09/15/22 Plan of Care End Date 12/08/22 Next Visit Focus/Plan Next Note Type Treatment Note Next Visit Plan Recheck leg length and pubic bone alignment, work on release of the right piriformis, SI stabilization exercises and manual therapy techniques for SI balancing.
--- NOTE | 2022-12-01 17:13 | PT.OTN ---
Current Diagnoses Pain in unspecified hip (12/01/22) Physical Therapy Treatment Note PT-OP-A Visit Information Start: 12/17/20 09:07 Freq: Status: Active Protocol: Document 12/01/22 09:48 [facility] (Rec: 12/01/22 10:37 [facility] [id number]) Out-Patient Physical Therapy Visit Information Visit Information Visit Type Treatment Note Visit Note 11/14 Visit Start Time 09:50 Visit Stop Time 10:30 Total Visit Minutes 40 Visit Number 61 PT-OP-B Current Condition Start: 12/17/20 09:07 Freq: Status: Active Protocol: Document 12/17/20 12:56 [facility] (Rec: 12/17/20 13:07 [facility] [id number]) Current Condition History of Current Condition History of Current Condition 10/17/20 vaginal delivery no tears and now it feels really tight. She complains of right hip clicking and tightness in the front of her hip, medial ankle on the right painful more so when she stands. When she is rocking back and when she is walking she can feel her anterior hip click. PT-OP-C Subjective Start: 12/17/20 09:07 Freq: Status: Active Protocol: Document 12/01/22 09:48 [facility] (Rec: 12/01/22 10:37 [facility] [id number]) OP-PT Subjective Patient Comments Patient Comments pt is feeling the thoracic pain only on the right side, this is the same pain she felt with her last PT-OP-F Manual Assessment Start: 12/17/20 09:07 Freq: Status: Active Protocol: Document 12/17/20 13:00 [facility] (Rec: 12/22/20 15:06 [facility] [email or web address]) Manual Assessments Soft Tissue Assessment Soft Tissue Mobility Assessment tightness of the right iliopsoas, ITB, quad attachments to the ASIS left lateral wall of the pelvic floor tight and guarded PT-OP-I Pelvic Floor Start: 12/17/20 09:07 Freq: Status: Active Protocol: Document 03/22/22 15:26 [facility] (Rec: 03/22/22 16:08 [facility] [id number]) Pelvic Floor Assessment Pelvic Clock Pelvic Clock 3-6 Guarding Contraction Ability Voluntary Contraction Moderate Voluntary Relaxation Moderate Manual Muscle Testing Left 4 Manual Muscle Testing Right 4 Manual Muscle Testing Anterior 4 Manual Muscle Testing Posterior 4 Comments Pelvic Floor Comments pt is not feeling the guarding now and is able to relax to 2 .0 uv PT-OP-J Posture/Palpation/Skin Start: 12/17/20 09:07 Freq: Status: Active Protocol: Document 12/17/20 13:00 [facility] (Rec: 12/22/20 15:06 [facility] [email or web address]) Palpation Assessment Location R ASIS Palpation Location tenderness right ASIS right SI joint Palpation Location right SI joint PSIS Palpation Findings Tenderness Palpation Details tenderness to palpation over the right ASIS PT-OP-M Strength Start: 12/17/20 09:07 Freq: Status: Active Protocol: Document 12/17/20 13:00 [facility] (Rec: 12/22/20 15:06 [facility] [email or web address]) Trunk Strength Trunk Manual Muscle Testing Testing Position Supine Flexion 4 Good Core Stabilization Kimber is able to facilitate her TA with good awareness PT-OP-Q Treatments Start: 12/17/20 09:07 Freq: Status: Active Protocol: Document 12/01/22 09:45 [facility] (Rec: 12/01/22 17:13 [facility] [id number]) Therapeutic Exercises Other Exercises quadruped TA with opp arm lifts Reps/Minutes x 10 each direction quadruped thoracic extension Other Exercise Name quarduped thoracic ext Reps/Minutes x 10 reps cat cow Reps/Minutes x 10 reps Manual Therapy Treatment Soft Tissue Mobilization prone MFR over the thoracic paraspinals Mobilization Type Myofascial Release Intensity/Depth Moderate Body Position Prone Comments right greater than left thoracic paraspinal tightness and guarding prone over pillow paraspinal release Body Location paraspinal release Mobilization Type Myofascial Release Body Position prone over body pillow Comments pt tolerated prone body pillow today, worked on releasing the thoracic paraspinals PT-OP-R Modalities Start: 05/13/21 17:21 Freq: Status: Active Protocol: Document 10/27/21 12:00 [facility] (Rec: 10/28/21 14:22 [facility] [id number]) Ultrasound Therapy Treatment right thoracic parapsinals Treatment Duration (minutes) 8 Patient Position Prone Coupling Medium Ultrasound Gel Applicator Size (cm2) 5 Mode Setting Continuous Duty Cycle 100% Intensity Setting (w/cm2) 1.5 Comments good tolerance PT-OP-T Assessment and Plan Start: 12/17/20 09:07 Freq: Status: Active Protocol: Document 12/01/22 09:48 [facility] (Rec: 12/01/22 10:37 [facility] [id number]) Physical Therapy Assessment Assessment Summary Assessment added in quadruped TA with opp arms and reviewed quadruped thoracic rotations, added in chest openers in doorway and with foam roll for home. Pt responded well to manual therapy techniques to release the thoracic paraspinals Physical Therapy Plan Frequency and Duration Frequency of Treatment 2x/Week Duration of treatment (weeks) 12 Plan of Care Start Date 09/15/22 Plan of Care End Date 12/08/22 Therapeutic Interventions Therapeutic Interventions Home Exercise Program,Manual Therapy,Patient/Caregiver Education,Self-Care/Home Management,Soft Tissue Mobilization,Therapeutic Exercises Next Visit Focus/Plan Next Note Type Treatment Note Next Visit Plan Recheck leg length and pubic bone alignment, work on release of the right piriformis, SI stabilization exercises and manual therapy techniques for SI balancing. recheck thoracic paraspinal tone next visit and how Kimber did with her stretches for home
--- NOTE | 2022-12-08 18:02 | PT.OTN ---
Current Diagnoses Pain in unspecified hip (12/08/22) Physical Therapy Treatment Note PT-OP-A Visit Information Start: 12/17/20 09:07 Freq: Status: Active Protocol: Document 12/08/22 09:49 [facility] (Rec: 12/08/22 09:58 [facility] [id number]) Out-Patient Physical Therapy Visit Information Visit Information Visit Type Progress Note Visit Note 36 Visit Start Time 09:50 Visit Stop Time 10:30 Total Visit Minutes 40 Visit Number 62 PT-OP-B Current Condition Start: 12/17/20 09:07 Freq: Status: Active Protocol: Document 12/17/20 12:56 AMH (Rec: 12/17/20 13:07 [facility] [id number]) Current Condition History of Current Condition History of Current Condition 10/17/20 vaginal delivery no tears and now it feels really tight. She complains of right hip clicking and tightness in the front of her hip, medial ankle on the right painful more so when she stands. When she is rocking back and when she is walking she can feel her anterior hip click. PT-OP-C Subjective Start: 12/17/20 09:07 Freq: Status: Active Protocol: Document 12/08/22 09:49 AMH (Rec: 12/08/22 09:58 [facility] [id number]) OP-PT Subjective Patient Comments Patient Comments pt has been doing her rows and chest stretching, she may need one level up with the theraband, still notes she still feels the spot in her back that was giving her pain symptoms. PT-OP-F Manual Assessment Start: 12/17/20 09:07 Freq: Status: Active Protocol: Document 12/17/20 13:00 AMH (Rec: 12/22/20 15:06 AMH [id number]) Manual Assessments Soft Tissue Assessment Soft Tissue Mobility Assessment tightness of the right iliopsoas, ITB, quad attachments to the ASIS left lateral wall of the pelvic floor tight and guarded PT-OP-I Pelvic Floor Start: 12/17/20 09:07 Freq: Status: Active Protocol: Document 03/22/22 15:26 AMH (Rec: 03/22/22 16:08 AMH [id number]) Pelvic Floor Assessment Pelvic Clock Pelvic Clock 3-6 Guarding Contraction Ability Voluntary Contraction Moderate Voluntary Relaxation Moderate Manual Muscle Testing Left 4 Manual Muscle Testing Right 4 Manual Muscle Testing Anterior 4 Manual Muscle Testing Posterior 4 Comments Pelvic Floor Comments pt is not feeling the guarding now and is able to relax to 2 .0 uv PT-OP-J Posture/Palpation/Skin Start: 12/17/20 09:07 Freq: Status: Active Protocol: Document 12/17/20 13:00 AMH (Rec: 12/22/20 15:06 AMH [id number]) Palpation Assessment Location R ASIS Palpation Location tenderness right ASIS right SI joint Palpation Location right SI joint PSIS Palpation Findings Tenderness Palpation Details tenderness to palpation over the right ASIS PT-OP-M Strength Start: 12/17/20 09:07 Freq: Status: Active Protocol: Document 12/17/20 13:00 AMH (Rec: 12/22/20 15:06 AMH [id number]) Trunk Strength Trunk Manual Muscle Testing Testing Position Supine Flexion 4 Good Core Stabilization Kimber is able to facilitate her TA with good awareness PT-OP-Q Treatments Start: 12/17/20 09:07 Freq: Status: Active Protocol: Document 12/08/22 09:49 AMH (Rec: 12/08/22 18:01 [facility] [id number]) Manual Therapy Treatment Soft Tissue Mobilization prone over pillow paraspinal release Body Location paraspinal release Mobilization Type Myofascial Release Body Position prone over body pillow Comments pt tolerated prone body pillow today, worked on releasing the thoracic paraspinals Joint Mobilizations prone thoracic mobilizations Joint T3-T8 Direction PA Grade II Body Position Prone Manual Techniques MET for right pubic upslip Reps/Duration x5 reps Comments pt presented with right pubic upslip, good correction with MET PT-OP-R Modalities Start: 05/13/21 17:21 Freq: Status: Active Protocol: Document 10/27/21 12:00 AMH (Rec: 10/28/21 14:22 AM[facility] [id number]) Ultrasound Therapy Treatment right thoracic parapsinals Treatment Duration (minutes) 8 Patient Position Prone Coupling Medium Ultrasound Gel Applicator Size (cm2) 5 Mode Setting Continuous Duty Cycle 100% Intensity Setting (w/cm2) 1.5 Comments good tolerance PT-OP-T Assessment and Plan Start: 12/17/20 09:07 Freq: Status: Active Protocol: Document 12/08/22 09:49 AMH (Rec: 12/08/22 09:58 AMH [id number]) Physical Therapy Assessment Goals pt lacks a HEP for related HEP Impairment pt lacks a HEP for related SI stabilization Basketball Assembler Goal (LTG) Kimber is independent with a home exercise program to do during the remainder of her for SI stabilization to avoid the sciatic symptoms she had with her last . We continue to progress the HEP for Kimber as she progresses in her LTG Duration 12 weeks Pt is demonstrating good body mechanics when picking up her baby girl Fpc Goal (LTG) Kimber reports she is able to properly lift her baby without increased c/o LBP or reaggravating her hip. At this point Linnea is doing better over, she will have occasional back pain not always lifting her correctly. Putting her in the crib isn't hurting any more. excellent progress left side pelvic floor guarding Impairment left side of the lateral pelvic floor guarded and tight Short Term Goal (STG) Kimber is educated in relaxed awarenss of the pelvic floor and is able to relax to baseline on EMG biofeedback Goal met STG Duration 5 weeks hip pain rated 4/10 Impairment right sided hip pain rated 4/ 10, c/o hip clicking with standing rocking Basketball Assembler Goal (LTG) Kimber reports a overall reduction in hip tightness and pain and is no longer experiencing clicking when she stands to rock her baby 12/08/22 at thispoint Kimber's hip pain has been managed LTG Duration 8 weeks difficulty with squatting Impairment Difficulty with squatting activity due to R SI pain Fpc Goal (LTG) SI pain is intermittent but seems improved overall, squatting has not been as much as a issue for Kimber. She is using miracle balls for home which help to release the tightness in her gluteals Good progress but now with her this is more difficult again iliopsoas tightness R>L Impairment Iliopsoas tightness R>L Short Term Goal (STG) Kimber is educated in stretches she can do now that she is in the period for her right iliopsoas Goal met STG Duration 4 weeks Assessment Summary Assessment Kimber is being seen during her for hip, SI pain and thoracic pain greater on the right side. She has made good progress with her hip and low back. Kimber has a home program she is following and she has been able to keep pain levels low for her hip and low back. She is experiencing right sided thoracic pain that is causing pain with reaching and lifting . We have been working on thoracic mobility and working on releasing the thoracic paraspinals to help decrease pain. Kimber would benefit from continued PT for the remainder of her . She will need a new referral from her insurance to be authorized. Physical Therapy Plan Frequency and Duration Frequency of Treatment 2x/Week Duration of treatment (weeks) 12 Plan of Care Start Date 12/08/22 Plan of Care End Date 02/09/23 Therapeutic Interventions Therapeutic Interventions Home Exercise Program,Manual Therapy,Patient/Caregiver Education,Self-Care/Home Management,Soft Tissue Mobilization,Therapeutic Exercises Next Visit Focus/Plan Next Note Type Treatment Note Next Visit Plan Recheck leg length and pubic bone alignment, work on release of the right piriformis, SI stabilization exercises and manual therapy techniques for SI balancing. recheck thoracic paraspinal tone next visit and how Kimber did with her stretches for home
--- NOTE | 2022-12-08 18:04 | PT.OPPOC ---
Physical, Occupational & Speech Therapy At [facility] Current Diagnoses Pain in unspecified hip (12/08/22) Visit Care Team Role Provider Type Chayo Diego MD Attending Provider Physician Family Provider Primary Care Provider Referring Provider Specialty: Family Practice Address: [address] [place] [address], [id number] Email: [email or web address] Plan Of Care PT-OP-T Assessment and Plan Start: 12/17/20 09:07 Freq: Status: Active Protocol: Document 12/08/22 09:49 AMH (Rec: 12/08/22 09:58 [facility] [id number]) Physical Therapy Assessment Goals pt lacks a HEP for related HEP Impairment pt lacks a HEP for related SI stabilization Fci Goal (LTG) Kimber is independent with a home exercise program to do during the remainder of her for SI stabilization to avoid the sciatic symptoms she had with her last . We continue to progress the HEP for Kimber as she progresses in her LTG Duration 12 weeks Pt is demonstrating good body mechanics when picking up her baby girl Fci Goal (LTG) Kimber reports she is able to properly lift her baby without increased c/o LBP or reaggravating her hip. At this point Linnea is doing better over, she will have occasional back pain not always lifting her correctly. Putting her in the crib isn't hurting any more. excellent progress left side pelvic floor guarding Impairment left side of the lateral pelvic floor guarded and tight Short Term Goal (STG) Kimber is educated in relaxed awarenss of the pelvic floor and is able to relax to baseline on EMG biofeedback Goal met STG Duration 5 weeks hip pain rated 4/10 Impairment right sided hip pain rated 4/ 10, c/o hip clicking with standing rocking Supervisor Fitting Goal (LTG) Kimber reports a overall reduction in hip tightness and pain and is no longer experiencing clicking when she stands to rock her baby 12/08/22 at this point Kimber's hip pain has been managed LTG Duration 8 weeks difficulty with squatting Impairment Difficulty with squatting activity due to R SI pain Supervisor Fitting Goal (LTG) SI pain is intermittent but seems improved overall, squatting has not been as much as a issue for Kimber. She is using miracle balls for home which help to release the tightness in her gluteals Good progress but now with her this is more difficult again iliopsoas tightness R>L Impairment Iliopsoas tightness R>L Short Term Goal (STG) Kimber is educated in stretches she can do now that she is in the period for her right iliopsoas Goal met STG Duration 4 weeks Assessment Summary Assessment Kimber is being seen during her for hip, SI pain and thoracic pain greater on the right side. She has made good progress with her hip and low back. Kimber has a home program she is following and she has been able to keep pain levels low for her hip and low back. She is experiencing right sided thoracic pain that is causing pain with reaching and lifting . We have been working on thoracic mobility and working on releasing the thoracic paraspinals to help decrease pain. Kimber would benefit from continued PT for the remainder of her . She will need a new referral from her insurance to be authorized. Physical Therapy Plan Frequency and Duration Frequency of Treatment 2x/Week Duration of treatment (weeks) 12 Plan of Care Start Date 12/08/22 Plan of Care End Date 02/09/23 Therapeutic Interventions Therapeutic Interventions Home Exercise Program,Manual Therapy,Patient/Caregiver Education,Self-Care/Home Management,Soft Tissue Mobilization,Therapeutic Exercises Next Visit Focus/Plan Next Note Type Treatment Note Next Visit Plan Recheck leg length and pubic bone alignment, work on release of the right piriformis, SI stabilization exercises and manual therapy techniques for SI balancing. recheck thoracic paraspinal tone next visit and how Kimber did with her stretches for home Plan of Care Dates Plan of Care Start Date 12/08/22 Plan of Care End Date 02/09/23 Electronically Signed by: Hyacinth Gifford, PT 12/08/22 0664 If you are in agreement with this Plan of Care, please return a signed and dated copy. I have reviewed this Plan of Care and certify that the skilled therapy services above are required to meet the patient?s needs. Physician Signature Date Printed Name and Credentials Clinical Instructor Signature Printed Name and Credentials
--- NOTE | 2022-12-22 14:02 | PT.OTN ---
Current Diagnoses Pain in unspecified hip (12/22/22) Physical Therapy Treatment Note PT-OP-A Visit Information Start: 12/17/20 09:07 Freq: Status: Active Protocol: Document 12/22/22 10:35 AMH (Rec: 12/22/22 11:18 AMH [id number]) Out-Patient Physical Therapy Visit Information Visit Information Visit Type Treatment Note Visit Note 6 Visit Start Time 10:30 Visit Stop Time 11:15 Total Visit Minutes 45 Visit Number 63 PT-OP-B Current Condition Start: 12/17/20 09:07 Freq: Status: Active Protocol: Document 12/17/20 12:56 AMH (Rec: 12/17/20 13:07 AMH [id number]) Current Condition History of Current Condition History of Current Condition 10/17/20 vaginal delivery no tears and now it feels really tight. She complains of right hip clicking and tightness in the front of her hip, medial ankle on the right painful more so when she stands. When she is rocking back and when she is walking she can feel her anterior hip click. PT-OP-C Subjective Start: 12/17/20 09:07 Freq: Status: Active Protocol: Document 12/22/22 10:35 AMH (Rec: 12/22/22 11:18 AMH [id number]) OP-PT Subjective Patient Comments Patient Comments pt has been doing acupuncture and she is still feeing the right sided pain, it is not as sore or noticible today but the right side of her thoracic has been very sore and keeping her awake at night Patient Reported Progress Same PT-OP-F Manual Assessment Start: 12/17/20 09:07 Freq: Status: Active Protocol: Document 12/17/20 13:00 AMH (Rec: 12/22/20 15:06 AMH [id number]) Manual Assessments Soft Tissue Assessment Soft Tissue Mobility Assessment tightness of the right iliopsoas, ITB, quad attachments to the ASIS left lateral wall of the pelvic floor tight and guarded PT-OP-I Pelvic Floor Start: 12/17/20 09:07 Freq: Status: Active Protocol: Document 03/22/22 15:26 AMH (Rec: 03/22/22 16:08 AMH [id number]) Pelvic Floor Assessment Pelvic Clock Pelvic Clock 3-6 Guarding Contraction Ability Voluntary Contraction Moderate Voluntary Relaxation Moderate Manual Muscle Testing Left 4 Manual Muscle Testing Right 4 Manual Muscle Testing Anterior 4 Manual Muscle Testing Posterior 4 Comments Pelvic Floor Comments pt is not feeling the guarding now and is able to relax to 2 .0 uv PT-OP-J Posture/Palpation/Skin Start: 12/17/20 09:07 Freq: Status: Active Protocol: Document 12/17/20 13:00 AMH (Rec: 12/22/20 15:06 AMH [id number]) Palpation Assessment Location R ASIS Palpation Location tenderness right ASIS right SI joint Palpation Location right SI joint PSIS Palpation Findings Tenderness Palpation Details tenderness to palpation over the right ASIS PT-OP-M Strength Start: 12/17/20 09:07 Freq: Status: Active Protocol: Document 12/17/20 13:00 AMH (Rec: 12/22/20 15:06 AMH [email or web address]) Trunk Strength Trunk Manual Muscle Testing Testing Position Supine Flexion 4 Good Core Stabilization Kimber is able to facilitate her TA with good awareness PT-OP-Q Treatments Start: 12/17/20 09:07 Freq: Status: Active Protocol: Document 12/22/22 10:30 AMH (Rec: 12/22/22 14:01 AMH [id number]) Therapeutic Exercises Supine Exercises diaphragmatic breathing Reps/Minutes x 10 reps Comments with emphasis on rib cage expansion Manual Therapy Treatment Soft Tissue Mobilization intercostal release Body Location right ribs 10-12 intercostal release Body Position Sidelying Comments pt was in left sidelying, MFR was performed on the intercostals from anterior rib cage on 12 th rib to the thoracic junction sidelying QL release B Body Location right side Body Position left sidelying Joint Mobilizations sidelying scapular mobilizations Comments pt laying on left side for right sidelying scapular mobilizations PT-OP-R Modalities Start: 05/13/21 17:21 Freq: Status: Active Protocol: Document 10/27/21 12:00 AMH (Rec: 10/28/21 14:22 [facility] [id number]) Ultrasound Therapy Treatment right thoracic parapsinals Treatment Duration (minutes) 8 Patient Position Prone Coupling Medium Ultrasound Gel Applicator Size (cm2) 5 Mode Setting Continuous Duty Cycle 100% Intensity Setting (w/cm2) 1.5 Comments good tolerance PT-OP-T Assessment and Plan Start: 12/17/20 09:07 Freq: Status: Active Protocol: Document 12/22/22 10:30 AMH (Rec: 12/22/22 14:01 [facility] [id number]) Physical Therapy Assessment Assessment Summary Assessment I worked today on the rig cage with intercostal release, calderons baby is laying more on the right side under the right rib area. She is tight in the fascia under the right rib and intercostals were tight all the way to the throacic junction on the right side ribs 10-12. Encouraged anterior chest stretching for home, rib cage expansion with diaphragmatic breathing Physical Therapy Plan Frequency and Duration Frequency of Treatment 2x/Week Duration of treatment (weeks) 12 Plan of Care Start Date 12/08/22 Plan of Care End Date 02/09/23 Therapeutic Interventions Therapeutic Interventions Home Exercise Program,Manual Therapy,Patient/Caregiver Education,Self-Care/Home Management,Soft Tissue Mobilization,Therapeutic Exercises Next Visit Focus/Plan Next Note Type Treatment Note Next Visit Plan recheck in with how pt did with intercostal release and continue with this treatment if it helped reduce her thoracic spine pain on the right
--- NOTE | 2022-12-27 17:33 | PT.OTN ---
Current Diagnoses Pain in unspecified hip (12/27/22) Physical Therapy Treatment Note PT-OP-A Visit Information Start: 12/17/20 09:07 Freq: Status: Active Protocol: Document 12/27/22 17:30 [facility] (Rec: 12/27/22 17:32 [facility] [id number]) Out-Patient Physical Therapy Visit Information Visit Information Visit Type Treatment Note Visit Note 5/6 Visit Start Time 13:50 Visit Stop Time 14:35 Total Visit Minutes 45 Visit Number 64 PT-OP-B Current Condition Start: 12/17/20 09:07 Freq: Status: Active Protocol: Document 12/17/20 12:56 [facility] (Rec: 12/17/20 13:07 [facility] [id number]) Current Condition History of Current Condition History of Current Condition 10/17/20 vaginal delivery no tears and now it feels really tight. She complains of right hip clicking and tightness in the front of her hip, medial ankle on the right painful more so when she stands. When she is rocking back and when she is walking she can feel her anterior hip click. PT-OP-C Subjective Start: 12/17/20 09:07 Freq: Status: Active Protocol: Document 12/27/22 13:50 [facility] (Rec: 12/27/22 14:40 [facility] [id number]) OP-PT Subjective Patient Comments Patient Comments pt reports she felt like the work on her ribs did really help her back. She had relief until today. PT-OP-F Manual Assessment Start: 12/17/20 09:07 Freq: Status: Active Protocol: Document 12/17/20 13:00 [facility] (Rec: 12/22/20 15:06 [facility] [id number]) Manual Assessments Soft Tissue Assessment Soft Tissue Mobility Assessment tightness of the right iliopsoas, ITB, quad attachments to the ASIS left lateral wall of the pelvic floor tight and guarded PT-OP-I Pelvic Floor Start: 12/17/20 09:07 Freq: Status: Active Protocol: Document 03/22/22 15:26 [facility] (Rec: 03/22/22 16:08 [facility] [id number]) Pelvic Floor Assessment Pelvic Clock Pelvic Clock 3-6 Guarding Contraction Ability Voluntary Contraction Moderate Voluntary Relaxation Moderate Manual Muscle Testing Left 4 Manual Muscle Testing Right 4 Manual Muscle Testing Anterior 4 Manual Muscle Testing Posterior 4 Comments Pelvic Floor Comments pt is not feeling the guarding now and is able to relax to 2 .0 uv PT-OP-J Posture/Palpation/Skin Start: 12/17/20 09:07 Freq: Status: Active Protocol: Document 12/17/20 13:00 [facility] (Rec: 12/22/20 15:06 [facility] [email or web address]) Palpation Assessment Location R ASIS Palpation Location tenderness right ASIS right SI joint Palpation Location right SI joint PSIS Palpation Findings Tenderness Palpation Details tenderness to palpation over the right ASIS PT-OP-M Strength Start: 12/17/20 09:07 Freq: Status: Active Protocol: Document 12/17/20 13:00 [facility] (Rec: 12/22/20 15:06 [facility] [email or web address]) Trunk Strength Trunk Manual Muscle Testing Testing Position Supine Flexion 4 Good Core Stabilization Kimber is able to facilitate her TA with good awareness PT-OP-Q Treatments Start: 12/17/20 09:07 Freq: Status: Active Protocol: Document 12/22/22 10:30 [facility] (Rec: 12/22/22 14:01 [facility] [id number]) Therapeutic Exercises Supine Exercises diaphragmatic breathing Reps/Minutes x 10 reps Comments with emphasis on rib cage expansion Manual Therapy Treatment Soft Tissue Mobilization intercostal release Body Location right ribs 10-12 intercostal release Body Position Sidelying Comments pt was in left sidelying, MFR was performed on the intercostals from anterior rib cage on 12 th rib to the thoracic junction sidelying QL release B Body Location right side Body Position left sidelying Joint Mobilizations sidelying scapular mobilizations Comments pt laying on left side for right sidelying scapular mobilizations PT-OP-R Modalities Start: 05/13/21 17:21 Freq: Status: Active Protocol: Document 10/27/21 12:00 [facility] (Rec: 10/28/21 14:22 [facility] [id number]) Ultrasound Therapy Treatment right thoracic parapsinals Treatment Duration (minutes) 8 Patient Position Prone Coupling Medium Ultrasound Gel Applicator Size (cm2) 5 Mode Setting Continuous Duty Cycle 100% Intensity Setting (w/cm2) 1.5 Comments good tolerance PT-OP-T Assessment and Plan Start: 12/17/20 09:07 Freq: Status: Active Protocol: Document 12/27/22 17:30 [facility] (Rec: 12/27/22 17:32 [facility] [id number]) Physical Therapy Assessment Assessment Summary Assessment Kimber is tolerating treatment well working on intercostal release on the right side to help with her right sided thoracic spine pain. Baby appears to be putting some pressure on the front of the right rib cage creating pain into the thoracic spine. She has responded well to manual work in this region. Kimber would benefit from continued PT Physical Therapy Plan Frequency and Duration Frequency of Treatment 2x/Week Duration of treatment (weeks) 12 Plan of Care Start Date 12/08/22 Plan of Care End Date 02/09/23 Therapeutic Interventions Therapeutic Interventions Home Exercise Program,Manual Therapy,Patient/Caregiver Education,Self-Care/Home Management,Soft Tissue Mobilization,Therapeutic Exercises Next Visit Focus/Plan Next Note Type Treatment Note Next Visit Plan recheck in with how pt did with intercostal release and continue with this treatment if it helped reduce her thoracic spine pain on the right
--- NOTE | 2022-12-29 17:12 | PT.OTN ---
Current Diagnoses Pain in unspecified hip (12/29/22) Physical Therapy Treatment Note PT-OP-A Visit Information Start: 12/17/20 09:07 Freq: Status: Active Protocol: Document 12/29/22 16:10 [facility] (Rec: 12/29/22 17:12 [facility] [id number]) Out-Patient Physical Therapy Visit Information Visit Information Visit Type Treatment Note Visit Note 03/14 Visit Start Time 16:10 Visit Stop Time 16:50 Total Visit Minutes 40 Visit Number 65 PT-OP-B Current Condition Start: 12/17/20 09:07 Freq: Status: Active Protocol: Document 12/17/20 12:56 [facility] (Rec: 12/17/20 13:07 [facility] [id number]) Current Condition History of Current Condition History of Current Condition 10/17/20 vaginal delivery no tears and now it feels really tight. She complains of right hip clicking and tightness in the front of her hip, medial ankle on the right painful more so when she stands. When she is rocking back and when she is walking she can feel her anterior hip click. PT-OP-C Subjective Start: 12/17/20 09:07 Freq: Status: Active Protocol: Document 12/29/22 16:10 [facility] (Rec: 12/29/22 17:12 [facility] [id number]) OP-PT Subjective Patient Comments Patient Comments pt reports she felt her baby is dropped now and its not as sore under her right rib. She is still feeling the right sided thoracic paraspinal guarding. She notes some right guarding in her hip flexor PT-OP-F Manual Assessment Start: 12/17/20 09:07 Freq: Status: Active Protocol: Document 12/17/20 13:00 [facility] (Rec: 12/22/20 15:06 [facility] [email or web address]) Manual Assessments Soft Tissue Assessment Soft Tissue Mobility Assessment tightness of the right iliopsoas, ITB, quad attachments to the ASIS left lateral wall of the pelvic floor tight and guarded PT-OP-I Pelvic Floor Start: 12/17/20 09:07 Freq: Status: Active Protocol: Document 03/22/22 15:26 [facility] (Rec: 03/22/22 16:08 [facility] [id number]) Pelvic Floor Assessment Pelvic Clock Pelvic Clock 3-6 Guarding Contraction Ability Voluntary Contraction Moderate Voluntary Relaxation Moderate Manual Muscle Testing Left 4 Manual Muscle Testing Right 4 Manual Muscle Testing Anterior 4 Manual Muscle Testing Posterior 4 Comments Pelvic Floor Comments pt is not feeling the guarding now and is able to relax to 2 .0 uv PT-OP-J Posture/Palpation/Skin Start: 12/17/20 09:07 Freq: Status: Active Protocol: Document 12/17/20 13:00 [facility] (Rec: 12/22/20 15:06 [facility] [email or web address]) Palpation Assessment Location R ASIS Palpation Location tenderness right ASIS right SI joint Palpation Location right SI joint PSIS Palpation Findings Tenderness Palpation Details tenderness to palpation over the right ASIS PT-OP-M Strength Start: 12/17/20 09:07 Freq: Status: Active Protocol: Document 12/17/20 13:00 [facility] (Rec: 12/22/20 15:06 [facility] [email or web address]) Trunk Strength Trunk Manual Muscle Testing Testing Position Supine Flexion 4 Good Core Stabilization Kimber is able to facilitate her TA with good awareness PT-OP-Q Treatments Start: 12/17/20 09:07 Freq: Status: Active Protocol: Document 12/29/22 16:10 [facility] (Rec: 12/29/22 17:12 [facility] [id number]) Manual Therapy Treatment Soft Tissue Mobilization intercostal release Body Location right ribs 10-12 intercostal release Body Position Sidelying Comments pt was in left sidelying, MFR was performed on the intercostals from anterior rib cage on 12 th rib to the thoracic junction right quad and iliopsoas MFR Body Location right quad and iliopsoas Body Position Supine Comments worked in supine today for Iliopsoas and quad release Manual Techniques manual thoracic mobilizations with PA glides in left sidelying Reps/Duration x 10 PT-OP-R Modalities Start: 05/13/21 17:21 Freq: Status: Active Protocol: Document 10/27/21 12:00 [facility] (Rec: 10/28/21 14:22 [facility] [id number]) Ultrasound Therapy Treatment right thoracic parapsinals Treatment Duration (minutes) 8 Patient Position Prone Coupling Medium Ultrasound Gel Applicator Size (cm2) 5 Mode Setting Continuous Duty Cycle 100% Intensity Setting (w/cm2) 1.5 Comments good tolerance PT-OP-T Assessment and Plan Start: 12/17/20 09:07 Freq: Status: Active Protocol: Document 12/29/22 16:10 [facility] (Rec: 12/29/22 17:12 [facility] [id number]) Physical Therapy Assessment Assessment Summary Assessment Mimi was not as tight in her intercostals today, leg length was equal but hip flexor was really tight today Physical Therapy Plan Frequency and Duration Frequency of Treatment 2x/Week Duration of treatment (weeks) 12 Plan of Care Start Date 12/08/22 Plan of Care End Date 02/09/23 Therapeutic Interventions Therapeutic Interventions Home Exercise Program,Manual Therapy,Patient/Caregiver Education,Self-Care/Home Management,Soft Tissue Mobilization,Therapeutic Exercises
--- NOTE | 2023-01-05 17:42 | PT.OTN ---
Current Diagnoses Pain in unspecified hip (01/05/23) Physical Therapy Treatment Note PT-OP-A Visit Information Start: 12/17/20 09:07 Freq: Status: Active Protocol: Document 01/05/23 17:36 [facility] (Rec: 01/05/23 17:42 [facility] [id number]) Out-Patient Physical Therapy Visit Information Visit Information Visit Type Treatment Note Visit Note 10/14 Visit Start Time 15:30 Visit Stop Time 16:15 Total Visit Minutes 45 Visit Number 66 PT-OP-B Current Condition Start: 12/17/20 09:07 Freq: Status: Active Protocol: Document 12/17/20 12:56 [facility] (Rec: 12/17/20 13:07 [facility] [id number]) Current Condition History of Current Condition History of Current Condition 10/17/20 vaginal delivery no tears and now it feels really tight. She complains of right hip clicking and tightness in the front of her hip, medial ankle on the right painful more so when she stands. When she is rocking back and when she is walking she can feel her anterior hip click. PT-OP-C Subjective Start: 12/17/20 09:07 Freq: Status: Active Protocol: Document 01/05/23 17:36 [facility] (Rec: 01/05/23 17:42 [facility] [id number]) OP-PT Subjective Patient Comments Patient Comments pt was able to obtain additional PT coverage for 6 visits to get her through her . SHe is due January 28. Pt notes she is still experiencing the right sided upper back discomfort. Also feels that her pelvis may be shifted PT-OP-F Manual Assessment Start: 12/17/20 09:07 Freq: Status: Active Protocol: Document 12/17/20 13:00 [facility] (Rec: 12/22/20 15:06 [facility] [email or web address]) Manual Assessments Soft Tissue Assessment Soft Tissue Mobility Assessment tightness of the right iliopsoas, ITB, quad attachments to the ASIS left lateral wall of the pelvic floor tight and guarded PT-OP-I Pelvic Floor Start: 12/17/20 09:07 Freq: Status: Active Protocol: Document 03/22/22 15:26 [facility] (Rec: 03/22/22 16:08 [facility] [id number]) Pelvic Floor Assessment Pelvic Clock Pelvic Clock 3-6 Guarding Contraction Ability Voluntary Contraction Moderate Voluntary Relaxation Moderate Manual Muscle Testing Left 4 Manual Muscle Testing Right 4 Manual Muscle Testing Anterior 4 Manual Muscle Testing Posterior 4 Comments Pelvic Floor Comments pt is not feeling the guarding now and is able to relax to 2 .0 uv PT-OP-J Posture/Palpation/Skin Start: 12/17/20 09:07 Freq: Status: Active Protocol: Document 12/17/20 13:00 [facility] (Rec: 12/22/20 15:06 [facility] [id number]) Palpation Assessment Location R ASIS Palpation Location tenderness right ASIS right SI joint Palpation Location right SI joint PSIS Palpation Findings Tenderness Palpation Details tenderness to palpation over the right ASIS PT-OP-M Strength Start: 12/17/20 09:07 Freq: Status: Active Protocol: Document 12/17/20 13:00 [facility] (Rec: 12/22/20 15:06 [facility] [id number]) Trunk Strength Trunk Manual Muscle Testing Testing Position Supine Flexion 4 Good Core Stabilization Kimber is able to facilitate her TA with good awareness PT-OP-Q Treatments Start: 12/17/20 09:07 Freq: Status: Active Protocol: Document 01/05/23 17:36 [facility] (Rec: 01/05/23 17:42 [facility] [id number]) Manual Therapy Treatment Soft Tissue Mobilization intercostal release Body Location right ribs 10-12 intercostal release Body Position Sidelying Comments pt was in left sidelying, MFR was performed on the intercostals from anterior rib cage on 12 th rib to the thoracic junction prone MFR over the thoracic paraspinals Body Location SIDELYING Mobilization Type Myofascial Release Comments pt is sidelying now instead of prone for paraspinal release Manual Techniques manual recheck of leg length Comments leg length equal today manual iliopsoasd release in sidelying Type sidelying ilospsoas release Body Position Sidelying Comments worked in sidelying for quad and iliopsoas stretch manual MET for right innominant anterior rotation Type MET right innominant anterior rotation Reps/Duration x 5 reps Comments performed in left sidelying PT-OP-R Modalities Start: 05/13/21 17:21 Freq: Status: Active Protocol: Document 10/27/21 12:00 [facility] (Rec: 10/28/21 14:22 [facility] [id number]) Ultrasound Therapy Treatment right thoracic parapsinals Treatment Duration (minutes) 8 Patient Position Prone Coupling Medium Ultrasound Gel Applicator Size (cm2) 5 Mode Setting Continuous Duty Cycle 100% Intensity Setting (w/cm2) 1.5 Comments good tolerance PT-OP-T Assessment and Plan Start: 12/17/20 09:07 Freq: Status: Active Protocol: Document 01/05/23 17:36 [facility] (Rec: 01/05/23 17:42 [facility] [id number]) Physical Therapy Assessment Assessment Summary Assessment Mimi is 36 weeks and due 01/28/23. She will be seen with [facility] next visit to work on thoracic paraspinals for the right side of her spine. She is experiencing outflare of her rib cage from baby's placement and this is putting pressure on her T spine. I work on both the intercostals as well as the thoracic paraspinals and she does well with this. quadruped ther ex also work really well for her . SHe has tightness right quad and iliopsoas and does well with manual stretching in sidelying Physical Therapy Plan Frequency and Duration Frequency of Treatment 2x/Week Duration of treatment (weeks) 12 Plan of Care Start Date 12/08/22 Plan of Care End Date 02/09/23 Therapeutic Interventions Therapeutic Interventions Home Exercise Program,Manual Therapy,Patient/Caregiver Education,Self-Care/Home Management,Soft Tissue Mobilization,Therapeutic Exercises Next Visit Focus/Plan Next Note Type Treatment Note Next Visit Plan work on right quad and iliopsoas stretching in sidelying, work on thoracic spinal release for the right side and intercostal release on the right.
--- NOTE | 2023-01-09 12:14 | PT.OTN ---
Current Diagnoses Pain in unspecified hip (01/09/23) Physical Therapy Treatment Note PT-OP-A Visit Information Start: 12/17/20 09:07 Freq: Status: Active Protocol: Document 01/09/23 11:23 AMB (Rec: 01/09/23 12:14 AMB [id number]) Out-Patient Physical Therapy Visit Information Visit Information Visit Type Treatment Note Visit Note 11/14 Visit Start Time 11:15 Visit Stop Time 12:00 Total Visit Minutes 45 Visit Number 67 PT-OP-B Current Condition Start: 12/17/20 09:07 Freq: Status: Active Protocol: Document 12/17/20 12:56 [facility] (Rec: 12/17/20 13:07 [facility] [id number]) Current Condition History of Current Condition History of Current Condition 10/17/20 vaginal delivery no tears and now it feels really tight. She complains of right hip clicking and tightness in the front of her hip, medial ankle on the right painful more so when she stands. When she is rocking back and when she is walking she can feel her anterior hip click. PT-OP-C Subjective Start: 12/17/20 09:07 Freq: Status: Active Protocol: Document 01/09/23 11:23 AMB (Rec: 01/09/23 12:14 AMB [id number]) OP-PT Subjective Patient Comments Patient Comments Pt continuing to have R thoracic back pain PT-OP-F Manual Assessment Start: 12/17/20 09:07 Freq: Status: Active Protocol: Document 12/17/20 13:00 [facility] (Rec: 12/22/20 15:06 [facility] [email or web address]) Manual Assessments Soft Tissue Assessment Soft Tissue Mobility Assessment tightness of the right iliopsoas, ITB, quad attachments to the ASIS left lateral wall of the pelvic floor tight and guarded PT-OP-I Pelvic Floor Start: 12/17/20 09:07 Freq: Status: Active Protocol: Document 03/22/22 15:26 [facility] (Rec: 03/22/22 16:08 [facility] [id number]) Pelvic Floor Assessment Pelvic Clock Pelvic Clock 3-6 Guarding Contraction Ability Voluntary Contraction Moderate Voluntary Relaxation Moderate Manual Muscle Testing Left 4 Manual Muscle Testing Right 4 Manual Muscle Testing Anterior 4 Manual Muscle Testing Posterior 4 Comments Pelvic Floor Comments pt is not feeling the guarding now and is able to relax to 2 .0 uv PT-OP-J Posture/Palpation/Skin Start: 12/17/20 09:07 Freq: Status: Active Protocol: Document 12/17/20 13:00 [facility] (Rec: 12/22/20 15:06 [facility] [email or web address]) Palpation Assessment Location R ASIS Palpation Location tenderness right ASIS right SI joint Palpation Location right SI joint PSIS Palpation Findings Tenderness Palpation Details tenderness to palpation over the right ASIS PT-OP-M Strength Start: 12/17/20 09:07 Freq: Status: Active Protocol: Document 12/17/20 13:00 [facility] (Rec: 12/22/20 15:06 [facility] [email or web address]) Trunk Strength Trunk Manual Muscle Testing Testing Position Supine Flexion 4 Good Core Stabilization Kimber is able to facilitate her TA with good awareness PT-OP-Q Treatments Start: 12/17/20 09:07 Freq: Status: Active Protocol: Document 01/09/23 11:23 AMB (Rec: 01/09/23 12:14 AMB [id number]) Therapeutic Exercises Sidelying Exercises open book Reps/Minutes 10 Other Exercises quadratus lumorum stretch Reps/Minutes B Comments QL mounter quadruped sidebends Other Exercise Name quadruped sidebends Reps/Minutes x 10 reps cat cow Reps/Minutes x 10 reps quadruped TA Comments HEP Manual Therapy Treatment Soft Tissue Mobilization prone MFR over the thoracic paraspinals Body Location SIDELYING Mobilization Type Myofascial Release Comments pt is sidelying now instead of prone for paraspinal release lumbar paraspinals Mobilization Type Myofascial Release PT-OP-R Modalities Start: 05/13/21 17:21 Freq: Status: Active Protocol: Document 10/27/21 12:00 [facility] (Rec: 10/28/21 14:22 [facility] [id number]) Ultrasound Therapy Treatment right thoracic parapsinals Treatment Duration (minutes) 8 Patient Position Prone Coupling Medium Ultrasound Gel Applicator Size (cm2) 5 Mode Setting Continuous Duty Cycle 100% Intensity Setting (w/cm2) 1.5 Comments good tolerance PT-OP-T Assessment and Plan Start: 12/17/20 09:07 Freq: Status: Active Protocol: Document 01/09/23 11:23 AMB (Rec: 01/09/23 12:14 AMB [id number]) Physical Therapy Assessment Goals pt lacks a HEP for related HEP Impairment pt lacks a HEP for related SI stabilization Transmission Supervisor Goal (LTG) Kimber is independent with a home exercise program to do during the remainder of her for SI stabilization to avoid the sciatic symptoms she had with her last . We continue to progress the HEP for Kimber as she progresses in her LTG Duration 12 weeks Pt is demonstrating good body mechanics when picking up her baby girl Alf Goal (LTG) Kimber reports she is able to properly lift her baby without increased c/o LBP or reaggravating her hip. At this point Linnea is doing better over, she will have occasional back pain not always lifting her correctly. Putting her in the crib isn't hurting any more. excellent progress left side pelvic floor guarding Impairment left side of the lateral pelvic floor guarded and tight Short Term Goal (STG) Kimber is educated in relaxed awarenss of the pelvic floor and is able to relax to baseline on EMG biofeedback Goal met STG Duration 5 weeks hip pain rated 4/10 Impairment right sided hip pain rated 4/ 10, c/o hip clicking with standing rocking Alf Goal (LTG) Kimber reports a overall reduction in hip tightness and pain and is no longer experiencing clicking when she stands to rock her baby 12/08/22 at thispoint Kimber's hip pain has been managed LTG Duration 8 weeks difficulty with squatting Impairment Difficulty with squatting activity due to R SI pain Transmission Supervisor Goal (LTG) SI pain is intermittent but seems improved overall, squatting has not been as much as a issue for Kimber. She is using miracle balls for home which help to release the tightness in her gluteals Good progress but now with her this is more difficult again iliopsoas tightness R>L Impairment Iliopsoas tightness R>L Short Term Goal (STG) Kimber is educated in stretches she can do now that she is in the period for her right iliopsoas Goal met STG Duration 4 weeks Assessment Summary Assessment Mimi continues to have right sided tightness. Her is back now so she has been able to put some of the toddler care on him. Physical Therapy Plan Frequency and Duration Frequency of Treatment 2x/Week Duration of treatment (weeks) 12 Plan of Care Start Date 12/08/22 Plan of Care End Date 05/04/23 Therapeutic Interventions Therapeutic Interventions Home Exercise Program,Manual Therapy,Patient/Caregiver Education,Self-Care/Home Management,Soft Tissue Mobilization,Therapeutic Exercises Next Visit Focus/Plan Next Note Type Treatment Note Next Visit Plan work on right quad and iliopsoas stretching in sidelying, work on thoracic spinal release for the right side and intercostal release on the right.
--- NOTE | 2023-01-17 16:49 | PT.OTN ---
Current Diagnoses Pain in unspecified hip (01/17/23) Physical Therapy Treatment Note PT-OP-A Visit Information Start: 12/17/20 09:07 Freq: Status: Active Protocol: Document 01/17/23 15:30 [facility] (Rec: 01/17/23 16:47 [facility] [id number]) Out-Patient Physical Therapy Visit Information Visit Information Visit Type Treatment Note Visit Note 36 Visit Start Time 15:30 Visit Stop Time 16:15 Total Visit Minutes 45 Visit Number 68 PT-OP-B Current Condition Start: 12/17/20 09:07 Freq: Status: Active Protocol: Document 12/17/20 12:56 [facility] (Rec: 12/17/20 13:07 [facility] [id number]) Current Condition History of Current Condition History of Current Condition 10/17/20 vaginal delivery no tears and now it feels really tight. She complains of right hip clicking and tightness in the front of her hip, medial ankle on the right painful more so when she stands. When she is rocking back and when she is walking she can feel her anterior hip click. PT-OP-C Subjective Start: 12/17/20 09:07 Freq: Status: Active Protocol: Document 01/17/23 16:48 [facility] (Rec: 01/17/23 16:49 [facility] [id number]) OP-PT Subjective Patient Comments Patient Comments pt notes she is still feeling the back pain however she feels her baby has dropped lower now, pt reports she will most likely be induced next monday PT-OP-F Manual Assessment Start: 12/17/20 09:07 Freq: Status: Active Protocol: Document 12/17/20 13:00 [facility] (Rec: 12/22/20 15:06 [facility] [id number]) Manual Assessments Soft Tissue Assessment Soft Tissue Mobility Assessment tightness of the right iliopsoas, ITB, quad attachments to the ASIS left lateral wall of the pelvic floor tight and guarded PT-OP-I Pelvic Floor Start: 12/17/20 09:07 Freq: Status: Active Protocol: Document 03/22/22 15:26 [facility] (Rec: 03/22/22 16:08 [facility] [id number]) Pelvic Floor Assessment Pelvic Clock Pelvic Clock 3-6 Guarding Contraction Ability Voluntary Contraction Moderate Voluntary Relaxation Moderate Manual Muscle Testing Left 4 Manual Muscle Testing Right 4 Manual Muscle Testing Anterior 4 Manual Muscle Testing Posterior 4 Comments Pelvic Floor Comments pt is not feeling the guarding now and is able to relax to 2 .0 uv PT-OP-J Posture/Palpation/Skin Start: 12/17/20 09:07 Freq: Status: Active Protocol: Document 12/17/20 13:00 [facility] (Rec: 12/22/20 15:06 [facility] [id number]) Palpation Assessment Location R ASIS Palpation Location tenderness right ASIS right SI joint Palpation Location right SI joint PSIS Palpation Findings Tenderness Palpation Details tenderness to palpation over the right ASIS PT-OP-M Strength Start: 12/17/20 09:07 Freq: Status: Active Protocol: Document 12/17/20 13:00 [facility] (Rec: 12/22/20 15:06 [facility] [id number]) Trunk Strength Trunk Manual Muscle Testing Testing Position Supine Flexion 4 Good Core Stabilization Kimber is able to facilitate her TA with good awareness PT-OP-Q Treatments Start: 12/17/20 09:07 Freq: Status: Active Protocol: Document 01/17/23 16:48 [facility] (Rec: 01/17/23 16:49 [facility] [id number]) Manual Therapy Treatment Soft Tissue Mobilization intercostal release Body Location right ribs 10-12 intercostal release Body Position Sidelying Comments pt was in left sidelying, MFR was performed on the intercostals from anterior rib cage on 12 th rib to the thoracic junction prone MFR over the thoracic paraspinals Body Location SIDELYING Mobilization Type Myofascial Release Comments pt is sidelying now instead of prone for paraspinal release Manual Techniques manual ilopsoas and quad stretches Body Position in left sidelying for the right side Comments with PROM knee flexion and manual release to the quad and iliopsoas PT-OP-R Modalities Start: 05/13/21 17:21 Freq: Status: Active Protocol: Document 10/27/21 12:00 [facility] (Rec: 10/28/21 14:22 [facility] [id number]) Ultrasound Therapy Treatment right thoracic parapsinals Treatment Duration (minutes) 8 Patient Position Prone Coupling Medium Ultrasound Gel Applicator Size (cm2) 5 Mode Setting Continuous Duty Cycle 100% Intensity Setting (w/cm2) 1.5 Comments good tolerance PT-OP-T Assessment and Plan Start: 12/17/20 09:07 Freq: Status: Active Protocol: Document 01/17/23 15:30 [facility] (Rec: 01/17/23 16:47 [facility] [id number]) Physical Therapy Assessment Assessment Summary Assessment Pt will most likely be induced next monday, she was still feeling c/o right sided Physical Therapy Plan Frequency and Duration Frequency of Treatment 2x/Week Duration of treatment (weeks) 12 Plan of Care Start Date 12/08/22 Plan of Care End Date 02/09/23
--- NOTE | 2023-01-19 16:10 | PT.OTN ---
Current Diagnoses Pain in unspecified hip (01/19/23) Physical Therapy Treatment Note PT-OP-A Visit Information Start: 12/17/20 09:07 Freq: Status: Active Protocol: Document 01/19/23 15:20 [facility] (Rec: 01/19/23 16:10 [facility] [id number]) Out-Patient Physical Therapy Visit Information Visit Information Visit Type Treatment Note Visit Note 6 Visit Start Time 15:15 Visit Stop Time 16:00 Total Visit Minutes 45 Visit Number 69 PT-OP-B Current Condition Start: 12/17/20 09:07 Freq: Status: Active Protocol: Document 12/17/20 12:56 [facility] (Rec: 12/17/20 13:07 [facility] [id number]) Current Condition History of Current Condition History of Current Condition 10/17/20 vaginal delivery no tears and now it feels really tight. She complains of right hip clicking and tightness in the front of her hip, medial ankle on the right painful more so when she stands. When she is rocking back and when she is walking she can feel her anterior hip click. PT-OP-C Subjective Start: 12/17/20 09:07 Freq: Status: Active Protocol: Document 01/19/23 15:20 [facility] (Rec: 01/19/23 16:10 [facility] [id number]) OP-PT Subjective Patient Comments Patient Comments pt reports she is being induced on MondayJanuary 23. This will be her last PT visit PT-OP-F Manual Assessment Start: 12/17/20 09:07 Freq: Status: Active Protocol: Document 12/17/20 13:00 [facility] (Rec: 12/22/20 15:06 [facility] [email or web address]) Manual Assessments Soft Tissue Assessment Soft Tissue Mobility Assessment tightness of the right iliopsoas, ITB, quad attachments to the ASIS left lateral wall of the pelvic floor tight and guarded PT-OP-I Pelvic Floor Start: 12/17/20 09:07 Freq: Status: Active Protocol: Document 03/22/22 15:26 [facility] (Rec: 03/22/22 16:08 [facility] [id number]) Pelvic Floor Assessment Pelvic Clock Pelvic Clock 3-6 Guarding Contraction Ability Voluntary Contraction Moderate Voluntary Relaxation Moderate Manual Muscle Testing Left 4 Manual Muscle Testing Right 4 Manual Muscle Testing Anterior 4 Manual Muscle Testing Posterior 4 Comments Pelvic Floor Comments pt is not feeling the guarding now and is able to relax to 2 .0 uv PT-OP-J Posture/Palpation/Skin Start: 12/17/20 09:07 Freq: Status: Active Protocol: Document 12/17/20 13:00 [facility] (Rec: 12/22/20 15:06 [facility] [id number]) Palpation Assessment Location R ASIS Palpation Location tenderness right ASIS right SI joint Palpation Location right SI joint PSIS Palpation Findings Tenderness Palpation Details tenderness to palpation over the right ASIS PT-OP-M Strength Start: 12/17/20 09:07 Freq: Status: Active Protocol: Document 12/17/20 13:00 [facility] (Rec: 12/22/20 15:06 [facility] [id number]) Trunk Strength Trunk Manual Muscle Testing Testing Position Supine Flexion 4 Good Core Stabilization Kimber is able to facilitate her TA with good awareness PT-OP-Q Treatments Start: 12/17/20 09:07 Freq: Status: Active Protocol: Document 01/19/23 15:20 [facility] (Rec: 01/19/23 16:10 [facility] [id number]) Manual Therapy Treatment Soft Tissue Mobilization prone MFR over the thoracic paraspinals Body Location SIDELYING Mobilization Type Myofascial Release Comments pt is sidelying now instead of prone for paraspinal release sidelying QL release B Body Location right side Body Position left sidelying lumbar paraspinals Mobilization Type Myofascial Release Comments pt sat on green therapy ball with arm support on plinth Joint Mobilizations seated thoracic mobilizations Joint seated thoracic mobilizations for improved extension Direction PA glides Grade II Comments pt sat on green therapy ball with UE support from the plinth for mobilizations PT-OP-R Modalities Start: 05/13/21 17:21 Freq: Status: Active Protocol: Document 10/27/21 12:00 [facility] (Rec: 10/28/21 14:22 [facility] [id number]) Ultrasound Therapy Treatment right thoracic parapsinals Treatment Duration (minutes) 8 Patient Position Prone Coupling Medium Ultrasound Gel Applicator Size (cm2) 5 Mode Setting Continuous Duty Cycle 100% Intensity Setting (w/cm2) 1.5 Comments good tolerance PT-OP-T Assessment and Plan Start: 12/17/20 09:07 Freq: Status: Active Protocol: Document 01/19/23 15:20 [facility] (Rec: 01/19/23 16:10 [facility] [id number]) Physical Therapy Assessment Assessment Summary Assessment Pt is being induced Juma. She is still feeling the right sided thoracic tightness, no complaints of the hip pain or SI pain. pt tolerated seated position well today for treatment Physical Therapy Plan Discharge Physical Therapy Discharge Reasons Change in Medical Status Discharge Comments pt will be induced on MondayJanuary 23. KIMO PT at this time
--- NOTE | 2023-01-19 16:11 | PT.OPDS ---
Current Diagnoses Pain in unspecified hip (01/19/23) Visit Care Team Role Provider Type Chayo Diego MD Attending Provider Physician Family Provider Primary Care Provider Referring Provider Specialty: Family Practice Address: [address] [place] [address], [facility] [place], [place], [facility] Email: [email or web address] Visit Number Visit Number [id number] Discharge Summary PT-OP-B Current Condition Start: 12/17/20 09:07 Freq: Status: Active Protocol: Document 12/17/20 12:56 [facility] (Rec: 12/17/20 13:07 [facility] [id number]) Current Condition History of Current Condition History of Current Condition 10/17/20 vaginal delivery no tears and now it feels really tight. She complains of right hip clicking and tightness in the front of her hip, medial ankle on the right painful more so when she stands. When she is rocking back and when she is walking she can feel her anterior hip click. PT-OP-C Subjective Start: 12/17/20 09:07 Freq: Status: Active Protocol: Document 01/19/23 15:20 [facility] (Rec: 01/19/23 16:10 [facility] [id number]) OP-PT Subjective Patient Comments Patient Comments pt reports she is being induced on MondayJanuary 23. This will be her last PT visit PT-OP-F Manual Assessment Start: 12/17/20 09:07 Freq: Status: Active Protocol: Document 12/17/20 13:00 [facility] (Rec: 12/22/20 15:06 [facility] [email or web address]) Manual Assessments Soft Tissue Assessment Soft Tissue Mobility Assessment tightness of the right iliopsoas, ITB, quad attachments to the ASIS left lateral wall of the pelvic floor tight and guarded PT-OP-I Pelvic Floor Start: 12/17/20 09:07 Freq: Status: Active Protocol: Document 03/22/22 15:26 [facility] (Rec: 03/22/22 16:08 [facility] [id number]) Pelvic Floor Assessment Pelvic Clock Pelvic Clock 3-6 Guarding Contraction Ability Voluntary Contraction Moderate Voluntary Relaxation Moderate Manual Muscle Testing Left 4 Manual Muscle Testing Right 4 Manual Muscle Testing Anterior 4 Manual Muscle Testing Posterior 4 Comments Pelvic Floor Comments pt is not feeling the guarding now and is able to relax to 2 .0 uv PT-OP-J Posture/Palpation/Skin Start: 12/17/20 09:07 Freq: Status: Active Protocol: Document 12/17/20 13:00 [facility] (Rec: 12/22/20 15:06 [facility] [id number]) Palpation Assessment Location R ASIS Palpation Location tenderness right ASIS right SI joint Palpation Location right SI joint PSIS Palpation Findings Tenderness Palpation Details tenderness to palpation over the right ASIS PT-OP-M Strength Start: 12/17/20 09:07 Freq: Status: Active Protocol: Document 12/17/20 13:00 [facility] (Rec: 12/22/20 15:06 [facility] [id number]) Trunk Strength Trunk Manual Muscle Testing Testing Position Supine Flexion 4 Good Core Stabilization Kimber is able to facilitate her TA with good awareness PT-OP-T Assessment and Plan Start: 12/17/20 09:07 Freq: Status: Active Protocol: Document 01/19/23 15:20 [facility] (Rec: 01/19/23 16:10 [facility] [id number]) Physical Therapy Assessment Assessment Summary Assessment Pt is being induced Monday. She is still feeling the right sided thoracic tightness, no complaints of the hip pain or SI pain. pt tolerated seated position well today for treatment Physical Therapy Plan Discharge Physical Therapy Discharge Reasons Change in Medical Status Discharge Comments pt will be induced on MondayJanuary 23. DC PT at this time
== END 2023-02-14 14:37 ==
LOC: PHYS 15:15
PROVIDERS: Family Provider Family Medicine; PCP Family Medicine; Referring Provider Family Medicine; Visit Provider Family Medicine
DX: M25.559 Pain in unspecified hip (principal)
CPT/HCPCS: 97035; 97110; 97112; 97140; 97162; 97535

== ENCOUNTER 2023-01-22 19:57 | Inpatient (IN) | payer OTHER, SELFPAY ==
[2023-01-22] MEDS: miSOPROStoL 25 MCG TABLET VAG (21:22)
[2023-01-22 21:47] LABS: Add Manual Diff / Slide Review NO; Basophils Absolute Auto 0 /uL (0-100); Basophils Percent Auto 0.3 % (0-2); Eosinophils Absolute Auto 100 /uL (0-450); Eosinophils Percent Auto 0.9 % (2-4); Hematocrit 35.6 % (36-46); Hemoglobin 12.1 g/dL (12.0-16.0); Lymphocytes Absolute Auto 2400 /uL (1100-4500); Lymphocytes Percent Auto 22.8 % (25-40); Mean Corpuscular HGB Conc 34.1 % (30-36); Mean Corpuscular Hemoglobin 30.3 PG (26-34); Monocytes Absolute Auto 500 /uL (0-900); Monocytes Percent Auto 4.9 % (3-14); Neutrophils Absolute Auto 7500 /uL (1500-7000); Neutrophils Percent Auto 71.1 % (50-75); Platelet Count 229 X10^3/uL (150-400); Red Cell Distribution Width 13.9 % (11.6-14.8); White Blood Cell Count 10.6 X10^3/uL (4.5-11.0)
[2023-01-23] MEDS: LACTATED RINGERS 1,000 ML 100 ML IV ×2 (03:49→14:00)
[2023-01-23] MEDS: miSOPROStoL 25 MCG TABLET VAG (04:11)
[2023-01-23 06:26] VITALS: BP 114/57
[2023-01-23] MEDS: OXYTOCIN PREMIX 30 UNIT/500 ML PLAST..BAG IV (09:47)
--- NOTE | 2023-01-23 12:21 | PM.OBHP.IH.1 ---
OB HPI Date/Time Date of admission: 01/22/23 Date Patient Seen: 01/23/23 History of Present Condition Chief complaint: OB GREG Calculator Estimated Delivery Date Method Current WG Current Estimate 01/30/23 Manual 39w 0d Final GREG - OFELIA Other Estimates 01/30/23 LMP (Certain) 39w 0d 02/02/23 Ultrasound #1 38w 4d Estimated Gestational Age (weeks): 39w0d : 2 Para: 1 Narrative: 32yo at 39w0d here for elective IOL. She denies any vaginal bleeding, LOF. She has had some cramping since cytotec last night. She is feeling her baby move regularly. Her was complicated by marginal previa, resolved on repeat. Also anxiety/depression, on Sertraline. care: good care, initiated at week # and pounds weight gain Dating criteria OB: LMP confirmed by 1st trimester US Ultrasounds: normal 1st trimester US and normal mid trimester US (marginal previa resolved on repeat) Obstetrical complications: none Medical complications OB: none Preadmission Labs Last OB Lab Results: Blood Type A Positive 01/22/23 20:45 Antibody Screen Negative 01/22/23 20:45 Hematocrit 35.6 % (36-46) L 01/22/23 20:45 Hemoglobin 12.1 g/dL (12.0-16.0) 01/22/23 20:45 Hepatitis B Surface Antigen Negative s/c (NEGATIVE) 07/04/22 16:45 Hepatitis C Antibody Negative s/c (NEGATIVE) 07/04/22 16:45 Rubella Antibody 25.4 IU/mL (>15) 07/04/22 16:45 Varicella-Zoster IgG Antibody 364 index (Immune >165) 07/04/22 16:45 Glucose 1 Hour 89 mg/dL (76-139) 11/03/22 10:41 Group B Streptococcus (PCR) Neg for grp b strep 01/04/23 10:44 -: Urine: negative Genetic Screens: Cell-free DNA: Normal External Labs -: Urine: negative Prior (ies) Past Pregnancies Del. Date GA/Weeks Labor Lgth Wt Sex Route Outcome Anesthesia Place Delv Breastfeed Preg Comp Name 10/17/20 38+ 5 lb 12 oz Female vaginal live - full term IH 13 months intrauterine growth restr other Anayeli Delivery Date: 10/17/20 Last Updated by: Chayo Diego MD hx of DVT on anticoagulation during Evaluation Evaluation Baseline heart rate: 145 Variability: Moderate (11-25) monitor accelerations: Present Monitor Decelerations: Absent Contraction Frequency (minutes): 4 Uterine Contraction Intensity: Strong/Firm Status: Category l Dilation (cm): 2 Effacement (%): 90 Dilation: 1-2 cm Effacement: >/=80% station: -1 Position of cervix: posterior Consistency: soft Jimenes score: 8 PFSH Medical History Abnormal Pap smear of cervix (~2012) Acne (~2005) Allergies support offered Chicken pox (~1994) Chronic right hip pain Clogged duct, Congenital dysplasia of right hip (~2009) DVT (deep venous thrombosis) (~2011) growth restriction Fibroids (~2009) Labral tear of right hip joint (~2011) Pelvic somatic dysfunction Piriformis syndrome of right side Sacral region somatic dysfunction Seasonal allergies Segmental and somatic dysfunction of abdomen and other regions Short leg syndrome, right, acquired Somatic dysfunction of lower extremity Surgical History Anesthesia H/O LEEP (~2012) History of hip surgery (~2009) History of laparoscopic appendectomy (~2010) History of tonsillectomy (~02/2012) Hx laparoscopic cholecystectomy (~2010) Orgas teeth extracted (~2008) Family History Mother Osteoporosis Father Glaucoma Grandmother Alzheimer's dementia Parkinsons disease Osteoporosis History of heart bypass surgery Hypertension Grandfather Family estrangement Hypertension Glaucoma Grandmother Family estrangement Grandfather Family estrangement Social History marital status: number of children: 1 household members: spouse and children lives independently: Yes housing: house pets and animals: Yes (2 Sushila De La Garza) education level: college (Santhosh's degree) occupational status: employed (works from home) current occupational exposures/hazards: No special darrick needs: No travel history: recent (domestic only) seatbelt use: always water heater temp set < 120 deg: Yes working smoke detector in home: Yes fire extinguisher in home: Yes carbon monox detector in home: Yes firearms in home: Yes firearms unloaded and locked: Yes do you feel safe at home: Yes Smoking Status: Never smoker alcohol intake: former (~1-3/month when not ) substance use type: does not use during the past year weight has: remained stable well-balanced diet: daily or most days daily servings fruits/ve-4 caffeine: No Type(s) of exercise: walking and weight lifting Meds Home Medications and Allergies Home Medications Medication Instructions Recorded Confirmed Type magnesium 250 mg tablet 250 mg PO DAILY 07/10/20 01/18/23 History prenat.vits,nory,bxi-jgwk-gcsmw 1 tab PO DAILY #180 tabs 09/08/20 01/18/23 Rx epinephrine 0.3 mg/0.3 mL 0.3 mg (0.3 mL) IM ONCE #2 ea 03/25/22 01/18/23 Rx injection, auto-injector (EpiPen 2-Jaswinder) docosahexaenoic acid 200 mg mg PO 06/28/22 01/18/23 History capsule ( DHA) ondansetron 4 mg disintegrating 4 mg PO Q6H PRN nausea and 07/22/22 01/18/23 Rx tablet vomiting #20 tabs cetirizine 5 mg tablet 5 mg PO DAILY #90 tabs 12/15/22 01/18/23 Rx sertraline 25 mg tablet 25 mg PO DAILY #90 tabs 12/15/22 01/18/23 Rx Double Electric Breast Pump and #1 ea 01/09/23 01/18/23 Rx supplies Allergies Allergy/AdvReac Type Severity Reaction Status Date / Time grass pollen Allergy Intermediate Swollen Verified 01/18/23 11:04 lips, no anaphylaxis. meperidine [From Demerol] Allergy Mild Hives Verified 01/18/23 11:04 cefprozil [From Cefzil] Allergy Unknown as a child. Verified 01/18/23 11:04 Sulfa (Sulfonamide Allergy Unknown as a child Verified 01/18/23 11:04 Antibiotics) OB Exam Narrative Exam Narrative: Gen: NAD, sitting comfortably in bed, appears well CV: RRR, no murmurs Resp: clear to auscultation bilaterally Abd: soft, nontender, gravid Ext: no edema Objective Labs 01/22/23 20:45 Labs: Laboratory Results - last 24 hr 01/22/23 01/22/23 20:45 20:45 WBC 10.6 RBC 4.00 Hgb 12.1 Hct 35.6 L MCV 89.0 MCH 30.3 MCHC 34.1 RDW 13.9 Plt Count 229 Neut % (Auto) 71.1 Lymph % (Auto) 22.8 L Gilliam % (Auto) 4.9 Eos % (Auto) 0.9 L Baso % (Auto) 0.3 Neut # (Auto) 7500 H Lymph # (Auto) 2400 Gilliam # (Auto) 500 Eos # (Auto) 100 Baso # (Auto) 0 Blood Type A Positive Antibody Screen Negative Assessment and Plan Assessment and Plan Assessment and Plan narrative: 32yo at 39w0d here for elective IOL. GBS negative, Rh positive. Received cytotec overnight with some cervical change. Jimenes score now 8. - Expectant management - FHT reassuring - Start pitocin, titrate as tolerated - Epidural for pain control when desired - GBS negative, no prophylaxis indicated
[2023-01-23] MEDS: ONDANSETRON 4 MG/2 ML INJ IV (14:46)
--- NOTE | 2023-01-23 19:44 | PM.OBPRVD ---
Labor & Delivery Delivery date: 01/23/23 Cervical ripening method: per misoprostal protocol Induction method: per pitocin protocol Delivery monitor: external FHT and external uterine Route of delivery: L&D Laceration Description: None Quantitative Blood Loss: 25 Narrative: PROCEDURE: at 39w0d presented for elective IOL and was admitted to Labor and Delivery. She received cytotec then pitocin for induction. The patient progressed through the 1st stage over 4 hours. SROM occured at 12:53 with clear fluid. Pain was controlled with an epidural. The patient progressed through the 2nd stage over 2 hours. In the 2nd stage, the pt had category II tracing with repetitive variable and late decels. baseline began to rise, up to 180, variability dimishing between decels. Due to nonreassuring FHT, the decision was made to proceed with vacuum-assisted vaginal delivery. Patient was evaluated and noted to have adequate pain control. Patient counseled on risks/benefits/alternatives of vacuum assisted delivery. Risks were discussed and they included but were not limited to a need for an episiotomy, pressure turner on the baby, lacerations to the baby's scalp/face, serious damage including skull fracture, the need to proceed with an abdominal procedure, , paralysis of the baby's arms and/or legs, neurological impairment of the baby. Alternatives would include CS or further observation depending on status. Questions were answered and the patient verbalized an understanding and decided to proceed. Maternal bladder was emptied. Vacuum cup of the [employer] applied to the flexion point without difficulty and during contractions, pressure applied between 400-600 mmHg as indicated in the green zone of the pressure gauge. The infant was pulled to after 2 pulls with 0 pop-offs. The then delivered the remainder with maternal efforts alone. The pt delivered a viable male with APGARs 8/9 at 18:50. The baby had compound presentation with right hand/arm. The cord was cut and clamped after it stopped pulsating. The placenta delivered with gentle cord traction, and appeared complete. The perineum and vagina were inspected with no lacerations. The was examined, without any injuries noted. Needle and sponge counts were correct.? The vagina was inspected and no items were left in situ. Kimber was doing well with Audrey Phillip, her and Nathaniel, , at bedside. PREPROCEDURE DIAGNOSIS: Intrauterine at 39w0d GBS negative RH positive Anxiety/depression POSTPROCEDURE DIAGNOSIS: Intrauterine at 39w0d, delivered Same as preprocedure Baby 1: gender: Male Presentation: vertex Position: Right Occiput Anterior (compound with right arm) Placenta delivery description: Spontaneous Cord Vessel Description: 3 Vessels score (1 min): 9 score (5 min): 9 weight: 7 lb 8.637 oz Plan for aftercare: Routine care
[2023-01-23] MEDS: ACETAMINOPHEN 325 MG TABLET 650 MG PO (22:14)
[2023-01-23] MEDS: IBUPROFEN 600 MG TABLET PO (22:15)
[2023-01-24] MEDS: ACETAMINOPHEN 325 MG TABLET 650 MG PO ×2 (03:51→10:23)
[2023-01-24] MEDS: IBUPROFEN 600 MG TABLET PO ×2 (03:51→10:23)
[2023-01-24] MEDS: DERMOPLAST SPRAY 20% 60 ML 1 SPRAY TOP (03:54)
[2023-01-24] MEDS: SERTRALINE 50 MG TABLET 25 MG PO (09:18)
[2023-01-24] MEDS: DOCUSATE 100 MG CAPSULE PO (09:18)
[2023-01-24] MEDS: PRENATAL VIT,CALC/IRON/FOLIC 1 TABLET 1 TAB PO (09:18)
[2023-01-24 13:10] VITALS: BP 107/58; PULSE 57; RESP 16; TEMP 37.1
--- NOTE | 2023-01-24 14:08 | PM.OBDS.1 ---
Discharge Providers Provider Date of admission: 01/22/23 19:57 Discharge Date: 01/24/23 Primary care physician: Chayo Diego MD Consults: 01/24/23 19:41 Consult to Nonprofit Financial Controller Routine Comment: Discharge provider: Chayo Diego MD Summary Hospital Course Date Patient Seen: 01/24/23 Diagnoses: 39w0d gestation Rh positive GBS negative Vacuum-assisted Nonreassuring FHT Anxiety/depression Hospital Course: The pt presented for elective IOL. She received cytotec followed by pitocin. She had SROM with clear fluid present. She had an epidural for pain control. She progressed to complete, and developed recurrent late and variable decels with rising baseline. Vacuum assisted vaginal delivery was performed without complications for nonreassuring heart tones. The baby descended quickly with an uncomplicated delivery. There were no lacerations. , there were no complications. At the time of discharge she was voiding, ambulating, and passing flatus without difficulty. Her lochia was decreasing appropriately. Her pain was well controlled. She will f/u in 6 weeks for check. She would like natural methods for contraception. Peripartum Data Infant Delivery Method: Assisted Delivery Laceration Description: None Episiotomy description: None Procedures: Vacuum-assisted vaginal delivery complications: none Weed 1: Gender: Male Disposition of : home Discharge Diagnosis (1) Vacuum-assisted vaginal delivery: Status: Acute (2) Non-reassuring heart tones, delivered, current hospitalization: Status: Acute Status at Discharge Cognitive/behavioral status at discharge: oriented Functional status at discharge: independent ambulation Overall status at discharge: patient is progressing back to baseline Time Spent with Patient Time attestation: Total time spent providing and/or coordinating discharge services: Objective Labs 01/22/23 20:45 Exam Vital Signs (past 8 hours): - 01/24/23 13:10 Temperature 98.7 F Pulse Rate 57 L Respiratory Rate 16 Blood Pressure 107/58 L Narrative Exam Narrative: Gen: NAD, sitting comfortably in bed, appears well CV: RRR, no murmurs Resp: clear to auscultation bilaterally Abd: soft, appropriately tender, fundus firm and below the umbilicus, nondistended Ext: no edema Discharge Plan Discharge Plan Patient Disposition: Home Discharge orders & Medications Prescriptions: New acetaminophen 325 mg Tablet 650 mg PO Q6HR PRN (Reason: Pain, Mild (1-3)) Qty: 30 0RF docusate sodium 100 mg Capsule 100 mg PO DAILY Qty: 30 0RF ibuprofen 600 mg Tablet 600 mg PO Q6HR PRN (Reason: Pain, Mild (1-3)) Qty: 30 0RF Continued (DME) [employer] Breast Pump and supplies See Rx Instructions .ROUTE .MEDSUPPLY Qty: 1 0RF Rx Instructions: Use daily as directed prenat.vits,nory,[id number] Tablet 1 tab PO DAILY Qty: 180 2RF epinephrine [EpiPen 2-Jaswinder] 0.3 mg/0.3 mL auto-injector 0.3 mg IM ONCE Qty: 2 0RF Rx Instructions: as a single dose; may repeat once ondansetron 4 mg tablet,disintegrating 4 mg PO Q6H PRN (Reason: nausea and vomiting) Qty: 20 0RF cetirizine 5 mg tablet 5 mg PO DAILY Qty: 90 1RF sertraline 25 mg tablet 25 mg PO DAILY Qty: 90 1RF magnesium 250 mg tablet 250 mg PO DAILY DHA 200 mg capsule PO Follow up/Referrals: Chayo Diego MD [Primary Care Provider] - 6 Weeks (Appointment with on at 1:30 PM) Diet/Activity/Treatments Diet: Diet as Tolerated and Regular Skin/Wound/Dressing Care Report to your healthcare provider any signs of infection, such as:: chills, fever, increased pain and unusual drainage Visit Report/Discharge Packet Instructions: DI for Labor and Delivery, Vaginal Stand Alone Forms: Patient Portal/API, Stroke Signs & Symptoms Discharge Data Primary Care Provider: Chayo Diego
== END 2023-01-24 07:05 | disposition home or self-care (01) | DRG 807 ==
PROVIDERS: Admitting Provider Family Medicine; Family Provider Family Medicine; PCP Family Medicine; Referring Provider Family Medicine; Visit Provider Family Medicine
DX: O99.344 Other mental disorders complicating childbirth (principal); Z37.0 Single live birth; F32.A Depression, unspecified; O76 Abnormality in fetal heart rate and rhythm complicating labor and delivery; F41.9 Anxiety disorder, unspecified; Z3A.39 39 weeks gestation of pregnancy
CPT/HCPCS: 36415; 59050; 59200; 59400; 85025; 86850; 86900; 86901; G0379; J2405; J2590

== ENCOUNTER → 2023-02-12 10:37 | Outpatient (CLI) | payer OTHER, SELFPAY | PROVIDERS: Family Provider Family Medicine; PCP Family Medicine; Visit Provider Nurse Practitioner Family | DX: J02.9 Acute pharyngitis, unspecified (principal) | CPT/HCPCS: 87070 ==

== ENCOUNTER 2023-02-14 21:03 | Emergency (ER) | payer OTHER, SELFPAY ==
[2023-02-14 21:11] VITALS: BP 128/65; PULSE 70; RESP 17; TEMP 36.6; O2SAT 98; BMI 24.6
--- NOTE | 2023-02-15 00:35 | ED.WOUNDLAC ---
HPI - Wound/Laceration General Chief Complaint: Wound/Laceration Stated Complaint: toe nail removed,R foot big toe t-0 Time Seen by Provider: 02/14/23 23:52 Source: patient Mode of arrival: Ambulatory History of Present Illness HPI narrative: Otherwise healthy 32-year-old woman who is 2-1/2 weeks presents with her left great toenail partially avulsed. She states that her 2-year-old ran up to her and kicked the edge of her toe ?just right? avulsing the nail. She says this has happened 1 time before and since that time the nail has always been a little thicker and gross much slower. She has no other complaints at this time. Related Data Previous Rx's Medication Instructions Recorded prenat.vits,nory,[id number] 1 tab PO DAILY #180 tabs 09/08/20 sertraline 25 mg tablet 25 mg PO DAILY #90 tabs 12/15/22 Allergies Allergy/AdvReac Type Severity Reaction Status Date / Time grass pollen Allergy Intermediate Swollen Verified 02/14/23 21:15 lips, no anaphylaxis. meperidine [From Demerol] Allergy Mild Hives Verified 02/14/23 21:15 cefprozil [From Cefzil] Allergy Unknown as a child. Verified 02/14/23 21:15 Sulfa (Sulfonamide Allergy Unknown as a child Verified 02/14/23 21:15 Antibiotics) Review of Systems Review of Systems Narrative: Remainder of complete review of systems is otherwise unremarkable except for that included in the HPI. Patient History Medical History Abnormal Pap smear of cervix (~2012) Acne (~2005) Allergies support offered Chicken pox (~1994) Chronic right hip pain Clogged duct, Congenital dysplasia of right hip (~2009) DVT (deep venous thrombosis) (~2011) growth restriction Fibroids (~2009) Labral tear of right hip joint (~2011) Pelvic somatic dysfunction Piriformis syndrome of right side Sacral region somatic dysfunction Seasonal allergies Segmental and somatic dysfunction of abdomen and other regions Short leg syndrome, right, acquired Somatic dysfunction of lower extremity Surgical History Anesthesia H/O LEEP (~2012) History of hip surgery (~2009) History of laparoscopic appendectomy (~2010) History of tonsillectomy (~02/2012) Hx laparoscopic cholecystectomy (~2010) [place] teeth extracted (~2008) Family History Mother Osteoporosis Father Glaucoma Grandmother Alzheimer's dementia Parkinsons disease Osteoporosis History of heart bypass surgery Hypertension Grandfather Family estrangement Hypertension Glaucoma Grandmother Family estrangement Grandfather Family estrangement Social History marital status: number of children: 1 household members: spouse and children lives independently: Yes housing: house pets and animals: Yes (2 Great [place]) education level: college ([employer]'s degree) occupational status: employed (works from home) current occupational exposures/hazards: No special darrick needs: No travel history: recent (domestic only) seatbelt use: always water heater temp set < 120 deg: Yes working smoke detector in home: Yes fire extinguisher in home: Yes carbon monox detector in home: Yes firearms in home: Yes firearms unloaded and locked: Yes do you feel safe at home: Yes Smoking Status: Never smoker alcohol intake: former (~1-3/month when not ) substance use type: does not use during the past year weight has: remained stable well-balanced diet: daily or most days daily servings fruits/ve-4 caffeine: No Type(s) of exercise: walking and weight lifting Smoking Status: Never smoker alcohol intake frequency: holidays/special occasions only Substance Use Type: does not use Exam Initial Vital Signs Initial Vital Signs: Vital Signs Temperature 97.8 F 02/14/23 21:11 Pulse Rate 70 02/14/23 21:11 Respiratory Rate 17 02/14/23 21:11 Blood Pressure 128/65 02/14/23 21:11 Pulse Oximetry 98 02/14/23 21:11 Oxygen Delivery Method Room Air 02/14/23 21:11 General: Alert appropriate in no acute distress Respiratory: Able to speak in full sentences, no obvious respiratory distress Skin: No obvious rashes, warm and dry Neurologic: Grossly intact no obvious asymmetries or abnormalities Psych: appropriate insight and affect, cooperative Extremity: Left great toenail is mostly avulsed, hanging on by approximately half of the nail bed. It does look well healed under the nail so I suspect that it had been partially avulsed already to allow such a minor trauma to completely disrupted the entire nail. No evidence of bony injury. She is neurovascularly intact. Course Orders Ordered: Discontinued Medications Lidocaine HCl (Lidocaine 1% (Pf) 2ml) 2 ml INJ NOW ONE Stop: 02/15/23 00:03 Last Admin: 02/15/23 00:38 Dose: 2 ml Documented By: Vital Signs Vital signs: Vital Signs - 8 hr 02/15/23 00:44 Pulse Rate 59 L Respiratory Rate 16 Blood Pressure 122/71 Pulse Oximetry 95 Oxygen Delivery Method Room Air MDM - Wound/Laceration MDM Narrative Medical decision making narrative: CC: Partially avulsed left great toenail Complicating co-morbidities: Prior injury to that toenail, 2 weeks , currently Data collected from: patient, Differential considered: Minor nail injury, complete nail avulsion, broken toe Exam documented above, pertinent findings include: Great toe is 80% avulsed with minimal bleeding. Treatments: 2 cc of lidocaine is injected near the nail bed and the remainder of the toenail is removed with minimal bleeding and no complication. Patient tolerated that well Discussion: 80% traumatic avulsion of the left great toe. After the toe was anesthetized the remainder of the toenail is removed. There is no obvious or significant injury to the nail bed itself. Reassurance is given. Discussed wound care and recommendations for follow-up should symptoms worsen or look like her toe was becoming infected. Discharge Plan Departure Patient Disposition: Home Clinical Impression: Avulsed toenail Qualifiers: Encounter type: initial encounter Qualified Code(s): S91.209A - Unspecified open wound of unspecified toe(s) with damage to nail, initial encounter Instructions: DI for Nail Avulsion Injury Activity Restrictions/Additional Instructions: Thank you for coming in today Based on how easily the toenail came out, I suspect that it was not fully attached underneath the majority of the nail. The nail bed itself looks nice and healthy. The nail hopefully will continue to grow back nicely. Use antibiotic ointment to keep the nail bed moist so the dressing does not stick to it. Once it is healed enough you can simply leave it open. It typically takes a month or 2 for the nail to start growing back. If you find that you are getting worse or develop any new symptoms, please feel free to return to the emergency department for further evaluation. Prescriptions: No Action prenat.vits,nory,yvb-[id number] Tablet 1 tab PO DAILY Qty: 180 2RF sertraline 25 mg tablet 25 mg PO DAILY Qty: 90 1RF Referrals: Chayo Diego MD [Primary Care Provider] - Stand Alone Forms: Patient Portal/API
[2023-02-15] MEDS: LIDOCAINE 1% (PF) 2ML 2 ML INJ (00:38)
[2023-02-15 00:44] VITALS: BP 122/71; PULSE 59; RESP 16; O2SAT 95
== END 2023-02-15 00:45 | disposition home or self-care (01) ==
PROVIDERS: Emergency Provider Emergency Medicine; Family Provider Family Medicine; PCP Family Medicine
DX: S91.202A Unspecified open wound of left great toe with damage to nail, initial encounter (principal)
CPT/HCPCS: 99282

== ENCOUNTER → 2023-03-17 10:54 | Outpatient (CLI) | payer OTHER, SELFPAY | PROVIDERS: Family Provider Family Medicine; PCP Family Medicine; Visit Provider Nurse Practitioner Family | DX: J02.9 Acute pharyngitis, unspecified (principal) | CPT/HCPCS: 87070 ==

== ENCOUNTER → 2023-04-05 08:06 | Outpatient (CLI) | payer OTHER, SELFPAY ==
--- NOTE | 2023-04-05 08:07 | DI.ECHO.S_ITS ---
[place] [facility]---------+ [facility] +---------+ : : [address] : : : : [id number] : : : : Phone: [phone]+ Echocardiogram Report + + :Name: ARNOL ESPITIA Study Date: 04/05/2023 Height: 68 in : :[facility] ReadingLocation: Weight: 165 lb : : Gender: Female BSA: 1.9 m2 : :: 1990 Age: 32 yrs BP: 101/64 mmHg: :Reason For Study: SON WITH AORTIC COARCTATION AND BICUSPID : :AORTIC VALVE : :Ordering Physician: SAMUEL, : :MALINDA Performed By: Megan Landa : :Referring: MALINDA BAKER : + + Interpretation Summary The left ventricle is normal in size and wall thickness. Left ventricular systolic function is normal. The ejection fraction is estimated to be 55-60%. The right ventricle is normal in size and function. The aortic valve is trileaflet. The aortic valve opens well. There is mild tricuspid regurgitation. Pulmonary artery pressures cannot be estimated because of the lack of a measurable TR jet velocity but the IVC suggests a CVP of around 3 mmHg. BP: 101/64 mmHg No Doppler or imaging evidence of an aortic coarctation. Procedure: A two-dimensional transthoracic echocardiogram with color flow and Doppler was performed. The study quality was technically adequate. There is no prior echocardiogram noted for this patient. The patient was in sinus bradycardia with heart rates between 52-65 bpm during the exam. Left Ventricle: The left ventricle is normal in size and wall thickness. A false chord is noted (normal variant). There is no thrombus. The ejection fraction is estimated to be 55-60%. Left ventricular systolic function is normal. There are no focal wall motion abnormalities. Diastolic parameters suggest probable normal left ventricular diastolic function and normal filling pressures. Right Ventricle: The right ventricle is normal in size and function. Atria: The left atrial size is normal. Right atrial size is normal. There is no Doppler evidence for an interatrial shunt. Mitral Valve: The mitral valve is normal in structure and function. Redundant elongated chordae are noted. There is trace mitral regurgitation. Aortic Valve: The aortic valve is normal in structure and function. The aortic valve is trileaflet. The aortic valve opens well. There is no aortic valve stenosis. No aortic regurgitation is present. Tricuspid Valve: The tricuspid valve is normal in structure and function. There is mild tricuspid regurgitation. Pulmonary artery pressures cannot be estimated because of the lack of a measurable TR jet velocity but the IVC suggests a CVP of around 3 mmHg. Pulmonic Valve: The pulmonic valve leaflets are thin and pliable; valve motion is normal. There is trace pulmonic regurgitation. Great Vessels: The aortic root is normal size. The dimensions of the ascending aorta are normal. The aortic arch is normal in size. No Doppler or imaging evidence of an aortic coarctation. The IVC is of normal diameter and collapses greater than 50% with a sniff. This suggests a low right atrial pressure of 3 mm Hg. Pericardium/ Pleura There is no pericardial effusion. There is no pleural effusion. MMode/2D Measurements & Calculations LVIDd: 5.0 cm LVOT diam: 2.1 cm LVIDs: 3.6 cm Ao root diam: 2.7 cm FS: 28.2 % asc Aorta Diam: 2.4 cm EPSS: 0.59 cm Ao Arch Diam (Prox Trans): 2.2 cm IVSd: 0.57 cm LVPWd: 0.57 cm LV smallwood. diameter/BSA (cm/m^2): 2.6 LV sys. diameter/BSA (cm/m^2): 1.9 LA A2 area: 14.9 cm2 RA long axis: 4.1 cm LA A4 area: 14.4 cm2 RA area: 11.9 cm2 LA length (vol): 4.2 cm RA vol: 29.4 ml LA vol: 43.2 ml RA : 15.6 ml/m2 LA vol index: 22.9 ml/m2 IVC diam: 1.2 cm RVD1 (basal): 2.9 cm RVD2 (mid): 2.6 cm TAPSE: 2.2 cm Doppler Measurements & Calculations Ao V2 max: 99.5 cm/sec LVOT Max Slim: 87.2 cm/sec Ao V2 mean: 71.0 cm/sec LV V1 max P.0 mmHg Ao max P.0 mmHg LV V1 VTI: 21.0 cm Ao mean P.2 mmHg YESSICA(I,D): 3.1 cm2 Ao V2 VTI: 23.0 cm YESSICA(V,D): 3.0 cm2 sev ratio: 0.91 YESSICA indexed to BSA (cm^2/m^2): 1.6 MV E max slim: 85.0 cm/sec PA V2 max: 97.9 cm/sec MV A max slim: 38.4 cm/sec PA V2 mean: 68.0 cm/sec MV E/A: 2.2 PA mean P.1 mmHg Med Peak E' Slim: 9.9 cm/sec PA pr(Accel): 22.5 mmHg E/E' med: 8.6 Lat Peak E' Slim: 15.2 cm/sec E/E' lat: 5.6 E/e' average: 7.1 MV dec time: 0.18 sec SV(LVOT): 71.3 ml Reading Physician:05:27 PM
== END ==
PROVIDERS: Family Provider Family Medicine; PCP Family Medicine; Referring Provider Family Medicine; Visit Provider Family Medicine
DX: I07.1 Rheumatic tricuspid insufficiency (principal); Z82.79 Family history of other congenital malformations, deformations and chromosomal abnormalities
CPT/HCPCS: 93306

== ENCOUNTER 2023-04-30 20:10 | Emergency (ER) | payer OTHER, SELFPAY ==
--- NOTE | 2023-04-30 20:22 | DI.US.S_ITS ---
PROCEDURE: US PERIPH VENOUS LOW EXTREM RT INDICATIONS: PAIN SWELLING HX OF DVT TECHNIQUE: Real-time imaging, as well as color and pulse Doppler interrogation, were performed of the lower extremity deep veins from the inguinal ligament to the popliteal fossa. COMPARISON: None. FINDINGS: The common femoral, femoral and popliteal veins are normally compressible, and free of intraluminal thrombus. Color and pulse Doppler demonstrate normal phasic intraluminal flow. There is normal augmentation response to distal compression maneuver. IMPRESSION: 1. No evidence of deep venous thrombosis in the right lower extremity. Dictated by: Delfin Kelley M.D. on 04/30/2023 at 22:13 Approved by: Delfin Kelley M.D. on 04/30/2023 at 22:13
--- NOTE | 2023-04-30 20:22 | ED_ITS ---
HPI - General Adult General Chief complaint: Extremity Problem,Nontraumatic Stated complaint: right leg swollen/history of dvt Time Seen by Provider: 04/30/23 20:22 History of Present Illness HPI narrative: 32-year-old female nonsmoker with history of DVT presents with swelling of her right lower calf in the absence of any injury. She states that she noted some swelling of her lateral ankle which has now greatly improved if not completely resolved and was concerned that perhaps she has a recurrence of a DVT. She had 1 previously that was thought to be related to the aftermath of surgery. She denies any chest pain or shortness of breath. She is not dizzy nor weak or lightheaded. She denies nausea, vomiting or diarrhea. Related Data Previous Rx's Medication Instructions Recorded cetirizine 5 mg tablet See Rx Instructions .Route 03/08/23 .COMPLEX #30 tabs ferrous sulfate 325 mg (65 mg 325 mg PO DAILY #90 tabs 03/08/23 iron) tablet prenat.vits,nory,lwf-[id number] 1 tab PO DAILY #180 tabs 03/08/23 sertraline 50 mg tablet 50 mg PO DAILY #90 tabs 03/08/23 Allergies Allergy/AdvReac Type Severity Reaction Status Date / Time grass pollen Allergy Intermediate Swollen Verified 03/17/23 10:32 lips, no anaphylaxis. meperidine [From Demerol] Allergy Mild Hives Verified 03/17/23 10:32 cefprozil [From Cefzil] Allergy Unknown as a child. Verified 03/17/23 10:32 Sulfa (Sulfonamide Allergy Unknown as a child Verified 03/17/23 10:32 Antibiotics) Review of Systems Review of Systems Narrative: GENERAL: Denies chills, fatigue, malaise, fever, sweats. HEENT: Denies sinus pain, ear pain, sore throat, difficulty swallowing, dizziness. RESPIRATORY: Denies dyspnea, cough, wheezing, hemoptysis, sputum. CARDIOVASCULAR: Denies chest pain, palpitations, orthopnea, edema, GASTROINTESTINAL: Denies nausea, vomiting, abdominal pain, diarrhea, constipation, melena. : Denies dysuria, frequency, incontinence, hematuria, urinary retention. MUSCULOSKELETAL: denies weakness, joint pain, or bony pain SKIN: See HPI NEUROLOGIC: Denies weakness, headache, numbness, change in speech, confusion, seizures, incoordination. PSYCHIATRIC: No concerning psychosocial issues. 12 point review of systems is negative except for those stated above Patient History Medical History Abnormal Pap smear of cervix (~2012) Acne (~2005) support offered Chicken pox (~1994) Chronic right hip pain Clogged duct, Congenital dysplasia of right hip (~2009) DVT (deep venous thrombosis) (~2011) growth restriction Fibroids (~2009) Labral tear of right hip joint (~2011) Pelvic somatic dysfunction Piriformis syndrome of right side Sacral region somatic dysfunction Seasonal allergies Segmental and somatic dysfunction of abdomen and other regions Short leg syndrome, right, acquired Somatic dysfunction of lower extremity Surgical History Anesthesia H/O LEEP (~2012) History of hip surgery (~2009) History of laparoscopic appendectomy (~2010) History of tonsillectomy (~02/2012) Hx laparoscopic cholecystectomy (~2010) [place] teeth extracted (~2008) Family History Mother Osteoporosis Father Glaucoma Grandmother Alzheimer's dementia Parkinsons disease Osteoporosis History of heart bypass surgery Hypertension Grandfather Family estrangement Hypertension Glaucoma Grandmother Family estrangement Grandfather Family estrangement Social History marital status: number of children: 1 household members: spouse and children lives independently: Yes housing: house pets and animals: Yes (2 [place]) education level: college ([employer]'s degree) occupational status: employed (works from home) current occupational exposures/hazards: No special darrick needs: No travel history: recent (domestic only) seatbelt use: always water heater temp set < 120 deg: Yes working smoke detector in home: Yes fire extinguisher in home: Yes carbon monox detector in home: Yes firearms in home: Yes firearms unloaded and locked: Yes do you feel safe at home: Yes Smoking Status: Never smoker alcohol intake: former (~1-3/month when not ) substance use type: does not use during the past year weight has: remained stable well-balanced diet: daily or most days daily servings fruits/ve-4 caffeine: No Type(s) of exercise: walking and weight lifting Smoking Status: Never smoker alcohol intake frequency: holidays/special occasions only Substance Use Type: does not use Exam Narrative Exam Narrative: GEN: AOx3 and in mild distress EYES: Pupils are equal, round, and reactive to light and accommodation. Extraoccular muscles are intact bilaterally. There is no subconjunctival hemorrhage or exudate. CHEST: Lungs are clear to auscultation bilaterally and free of wheezes, rales, or rhonchi. Heart rate is regular rhythm, there are no murmurs, clicks, rubs, or gallops. There is no chest wall tenderness. ABD: Abdomen is soft and nontender. There is no guarding or rebound. Bowel sounds are normal in all 4 quadrants. There is no mass or organomegaly. EXT: No obvious swelling of right lower extremity, no warmth, redness or tenderness, no lymphangitis SKIN: Warm, pink, and dry. No erythema or rash Initial Vital Signs Initial Vital Signs: Vital Signs Temperature 98.2 F 04/30/23 20:30 Pulse Rate 73 04/30/23 20:30 Respiratory Rate 18 04/30/23 20:30 Blood Pressure 130/60 04/30/23 20:30 Pulse Oximetry 97 04/30/23 20:30 Oxygen Delivery Method Room Air 04/30/23 20:30 Course Orders Ordered: ED Orders 04/30/23 20:22 US periph venous low extrem rt Stat Vital Signs Vital signs: Vital Signs - 8 hr 04/30/23 20:30 Temperature 98.2 F Pulse Rate 73 Respiratory Rate 18 Blood Pressure 130/60 Pulse Oximetry 97 Oxygen Delivery Method Room Air Medical Decision Making [facility] Narrative Medical decision making narrative: [32] year old patient presents with right lower extremity swelling, since resolved, concerned about possible DVT Multiple etiologies for patient's symptoms considered including, but not limited to: [DVT versus cellulitis versus dependent edema versus other] Prior Charts reviewed in our EMR Primary Historian: patient Imaging reviewed:US without evidence of DVT Patient's history and physical exam are reassuring, no ongoing redness, pain or swelling, no DVT on ultrasound, no evidence of cellulitis on physical exam. Findings and discharge diagnosis discussed with patient/family followed by verbalization of understanding Return precautions discussed with patient/family whom verbalize understanding of diagnosis and plan Discharge Plan Departure Patient Disposition: Home Clinical Impression: Feared complaint without diagnosis Activity Restrictions/Additional Instructions: *You have been diagnosed with [improved swelling without evidence of clot] *What to do: *Please continue to take your regular medications as directed. *Please follow up with your primary care provider in 2-3 days, call for an appointment. Let them know you were seen in the Emergency Department and that we ask that you be seen in follow up. We will electronically transmit a record of today's note if your PCP is in our system *Return to Emergency Department if you should have any new, worsening or concerning symptoms, such as [fever greater than 101 F, shaking chills, worsening pain, persistent vomiting or other bothersome symptoms] Prescriptions: No Action prenat.vits,nory,vws-udov-xdrrl Tablet 1 tab PO DAILY Qty: 180 2RF ferrous sulfate 325 mg (65 mg iron) tablet 325 mg PO DAILY Qty: 90 0RF cetirizine 5 mg tablet See Rx Instructions .ROUTE .COMPLEX Qty: 30 1RF Dose Instruction: Take 1 tablet by mouth daily Rx Instructions: Take 1 tablet by mouth daily sertraline 50 mg tablet 50 mg PO DAILY Qty: 90 3RF Referrals: Chayo Diego MD [Primary Care Provider] - Stand Alone Forms: Patient Portal/API
[2023-04-30 20:30] VITALS: BP 130/60; PULSE 73; RESP 18; TEMP 36.8; O2SAT 97; BMI 25.0
== END 2023-04-30 23:14 | disposition home or self-care (01) ==
PROVIDERS: Emergency Provider Emergency Medicine; Family Provider Family Medicine; PCP Family Medicine
DX: R60.9 Edema, unspecified (principal)
CPT/HCPCS: 93971; 99281; 99283

== ENCOUNTER → 2023-06-20 14:42 | Outpatient (CLI) | payer OTHER, SELFPAY ==
--- NOTE | 2023-06-20 14:43 | DI.RAD.S_ITS ---
PROCEDURE: XR FOOT RT MIN 3V INDICATIONS: foot pain TECHNIQUE: 3 views of the foot were acquired. COMPARISON: None. FINDINGS: Bones: No fractures or dislocations. No suspicious bony lesions. Soft tissues: No tibiotalar joint effusion. Achilles tendon appears normal. IMPRESSION: No fracture. No osseous lesion. If symptoms and/or clinical suspicion for pathology persists, further assessment with advanced imaging (e.g. CT, MRI or bone scan) should be considered. Dictated by: Dedra Maier MD, PhD on 06/20/2023 at 15:24 Approved by: Dedra Maier MD, PhD on 06/20/2023 at 15:25
== END ==
PROVIDERS: Family Provider Family Medicine; PCP Family Medicine; Referring Provider Family Medicine; Visit Provider Family Medicine
DX: M79.671 Pain in right foot (principal)
CPT/HCPCS: 73630

== ENCOUNTER 2023-10-18 09:45 | Outpatient (RCR) | payer OTHER, SELFPAY ==
--- NOTE | 2023-03-16 16:50 | PT.OPPOC ---
Physical, Occupational & Speech Therapy At [facility] Current Diagnoses Other specified disorders of muscle (03/16/23) Segmental and somatic dysfunction of pelvic region (03/16/23) Visit Care Team Role Provider Type Chayo Diego MD Attending Provider Physician Family Provider Primary Care Provider Referring Provider Specialty: Family Practice Address: [address] [place] [address], [facility] Email: [email or web address] Plan Of Care PT-OP-T Assessment and Plan Start: 03/16/23 15:56 Freq: Status: Active Protocol: Document 03/16/23 16:03 [facility] (Rec: 03/16/23 17:36 [facility] [id number]) Physical Therapy Assessment Rehab Potential Rehabilitation Potential Excellent Evaluation Complexity Number of Personal Factors/Comorbidities 0 Number of Body Systems Impaired 1-2 Clinical Presentation at Evaluation Stable Impairments Impairments Activity Tolerance,Functional Activities,Pain,Posture,Soft Tissue Mobility,Strength,Tone Other Impairments urinary incontinence Goals 4 Impairment iliopsoas and quad tightness on the right hip Jail Goal (LTG) Kimber presents with full hip ROM into extension and has a negative rufus test LTG Duration 12 weeks 3 Impairment Decreased endurance of the pelvic floor Manager Psychology Goal (LTG) Kimber is able to sustain a pelvic floor contraction x 10 seconds in supine and 5 seconds in standing LTG Duration 12 weeks 2 Impairment core weakness of the pelvic floor and lower abdominal muscles Short Term Goal (STG) Kimber is educated on core strengthening and pelvic floor strengthening using EMG biofeedback STG Duration 3 weeks Jail Goal (LTG) Kimber presents with improvements in pelvic floor strength by 1 muscle grade and is able to facilitate TA for dynamic lumbar stabilization exercises LTG Duration 12 weeks 1 Impairment Right side thoracic and right side rib cage pain worse in positions such as breast feeding Short Term Goal (STG) pt is educated in postural stretches she can do to decrease strain to the thoracic spine STG Duration 4 weeks Manager Psychology Goal (LTG) Kimber reports a overall reduction in thoracic and right sided rib cage pain and is able to breast feed without pain LTG Duration 12 weeks Assessment Summary Assessment Kimber is a 32 year old female who is 7 weeks with pelvic floor weakness and decreased core strength. She has a history of a right hip labral repair as a teenager and we have worked in PT on both hip stabilization as well as keeping her hip flexors from tightnening up. She feels she did well maintaining her hip mobility and stability throughout her and labor went well for her hip. She is c/o right hip tightness . She is still feeling the right sided rib pain and pain in the right thoracic region but it is not as pronounced. She rates her rib pain as 2/10 and hip pain as 3/10. Kimber does present with weakness of her gluteus medius BSandeep Quiroga is a good candidate for PT for both core strengthening as well as working on posture for her back and strengthening her hip stabilizers. Physical Therapy Plan Frequency and Duration Frequency of Treatment 1x/Week Duration of treatment (weeks) 12 Plan of Care Start Date 03/16/23 Plan of Care End Date 06/08/23 Therapeutic Interventions Therapeutic Interventions Home Exercise Program,Manual Therapy,Neuromuscular Re- education,Patient/Caregiver Education,Self-Care/Home Management,Soft Tissue Mobilization,Therapeutic Exercises Modalities Biofeedback Next Visit Focus/Plan Next Note Type Treatment Note Next Visit Plan Begin EMG biofeedback next visit for endurance training of the pelvic floor, work on postural modifications for the thoracic spine Plan of Care Dates Plan of Care Start Date 03/16/23 Plan of Care End Date 06/08/23 Electronically Signed by: Hyacinth Gifford, PT 03/21/23 [id number] If you are in agreement with this Plan of Care, please return a signed and dated copy. I have reviewed this Plan of Care and certify that the skilled therapy services above are required to meet the patient?s needs. Physician Signature Date Printed Name and Credentials Clinical Instructor Signature Printed Name and Credentials
--- NOTE | 2023-03-16 16:50 | PT.OIE ---
Current Diagnoses Other specified disorders of muscle (03/16/23) Segmental and somatic dysfunction of pelvic region (03/16/23) Past Medical History (Last Updated 03/08/23 @ 17:02 by Chayo Diego MD) Abnormal Pap smear of cervix (~2012) Acne (~2005) support offered Chicken pox (~1994) Chronic right hip pain Clogged duct, Congenital dysplasia of right hip (~2009) DVT (deep venous thrombosis) (~2011) growth restriction Fibroids (~2009) Labral tear of right hip joint (~2011) Pelvic somatic dysfunction Piriformis syndrome of right side Sacral region somatic dysfunction Seasonal allergies Segmental and somatic dysfunction of abdomen and other regions Short leg syndrome, right, acquired Somatic dysfunction of lower extremity Past Surgical History (Last Reviewed 02/15/23 @ 05:23 by Mi Clayton MD) Anesthesia H/O LEEP (~2012) History of hip surgery (~2009) History of laparoscopic appendectomy (~2010) History of tonsillectomy (~02/2012) Hx laparoscopic cholecystectomy (~2010) Martin teeth extracted (~2008) Visit Care Team Role Provider Type Chayo Diego MD Attending Provider Physician Family Provider Primary Care Provider Referring Provider Specialty: Family Practice Address: [address] [place] [address], [facility] Email: [email or web address] Physical Therapy Initial Evaluation PT-OP-A Visit Information Start: 03/16/23 15:56 Freq: Status: Active Protocol: Document 03/16/23 16:03 [facility] (Rec: 03/16/23 16:34 [facility] [id number]) Out-Patient Physical Therapy Visit Information Visit Information Visit Type Initial Evaluation Visit Start Time 16:00 Visit Stop Time 16:45 Total Visit Minutes 45 Visit Number 1 Evaluation Information Evaluation Date 03/16/23 PT-OP-B Current Condition Start: 03/16/23 15:56 Freq: Status: Active Protocol: Document 03/16/23 16:03 [facility] (Rec: 03/16/23 16:34 [facility] [id number]) Current Condition History of Current Condition Onset Date 01/23/23 Current Complaints urinary incontinence , rib cage and LBP, right hip tightness History of Current Condition pt [facility] ended up in [facility] in [place] due to rhino virus, they were there for a week. They found out that her son needs heart surgery due to a chest xray and echocardiograhm. He will be having heart surgery at [facility] and date is not currently known. She notes now that in the am she will go to the bathroom but as she is sitting down she will leak, also as she is coughing she will drip. No increase in frequency during the day. She is getting 6-7 hour stretches of sleep at night. No c/o constipation. She was tender with intercourse but not painful. Right hip is still tight and did have some soreness in ther pelvis for a few days post . Kimber describes continued Right sided rib pain though not as severe as it was initially and low back pain/tightness as well as right sided hip tightness. Prior Treatments and Tests pt notes her baby was born January 23 [address], he ended up in the [facility] in [place] due to rhino virus, they were there for a week. They found out that her son needs heart surgery due to a chest xray. He will be having heart surgery at [facility]. SHe notes now that in the am she will go to the bathroom but as she is sitting down she will leak, also as she is coughing she will drip. No increase in frequency during the day. She is getting 6-7 hour stretches of sleep at night. No c/o constipation. She was tender with intercourse but not painful. Right hip is still tight. she did have some soreness in ther pelvis for a few days post . She is continuous still operator at the right rib cage as well as thoracic spine and she notes bras bother her. She also experiences low back tightness, she has been doing cat cow and tj pose. Treatment Goals Patient/Caregiver Goals To improve pelvic floor and core strength post , reduce thoracic and LBP PT-OP-C Subjective Start: 03/16/23 15:56 Freq: Status: Active Protocol: Document 03/16/23 16:03 [facility] (Rec: 03/16/23 17:20 [facility] [id number]) OP-PT Pain Assessment Location LBP Intensity 3 Scale Used Numeric (0 - 10) right sided rib and thoracic pain Intensity 3 Scale Used Numeric (0 - 10) right anterior hip Intensity 3 Scale Used Numeric (0 - 10) PT-OP-F Manual Assessment Start: 03/16/23 15:56 Freq: Status: Active Protocol: Document 03/16/23 16:03 [facility] (Rec: 03/16/23 17:20 [facility] [id number]) Manual Assessments Soft Tissue Assessment Soft Tissue Mobility Assessment right sided tightness in the iliopsoas and adductors, + rufus test on the right side tightness of the left lumbar paraspinals Right piriformis tightness Joint Mobility Assessment Joint Mobility Assessment hypomobility of the T-spine T4 -T10 with PA glides PT-OP-I Pelvic Floor Start: 03/16/23 15:56 Freq: Status: Active Protocol: Document 03/16/23 16:03 [facility] (Rec: 03/16/23 17:20 [facility] [id number]) Pelvic Floor Assessment Urine Pelvic Floor Surgery No Urinary Symptoms Dysuria,Dribbling After Urination Other Urinary Symptoms urinary leakage in the AM on the way to the bathroom and leaking with coughing or jumping Leakage Size Small Leakage Cause Cough,Exercise,Sneeze,Urge Pelvic Clock Pelvic Clock 3-6 Tenderness,Tightness Pelvic Clock Other tightness in the left lateral kendall of the levator ani Perineal Descent Resting Absent Bearing Absent Contraction Ability Voluntary Contraction Weak Voluntary Relaxation Weak Manual Muscle Testing Left 3 Manual Muscle Testing Right 3 Manual Muscle Testing Anterior 3 Manual Muscle Testing Posterior 3 Muscle Endurance (Seconds) 5 PT-OP-M Strength Start: 03/16/23 15:56 Freq: Status: Active Protocol: Document 03/16/23 16:03 [facility] (Rec: 03/16/23 17:21 [facility] [id number]) Hip Strength Hip Manual Muscle Testing Left Abduction 4 Good External Rotation 4 Good Right Abduction 3+ Fair+ External Rotation 3+ Fair+ PT-OP-Q Treatments Start: 03/16/23 15:56 Freq: Status: Active Protocol: Document 03/16/23 16:03 [facility] (Rec: 03/16/23 17:20 [facility] [id number]) Therapeutic Exercises Supine Exercises pelvic floor long holds Reps/Minutes 10 reps holding 10 seconds and relaxing x 10 seconds foam roll stretch Supine Exercise Name both horizontal as well as vertical Side bilateral Reps/Minutes 3-4 min Comments to open up the chest and assist with thoracic mobilization Sidelying Exercises hip abduction Reps/Minutes 3 x 10 reps clam shells Reps/Minutes 3 x 10 reps PT-OP-T Assessment and Plan Start: 03/16/23 15:56 Freq: Status: Active Protocol: Document 03/16/23 16:03 [facility] (Rec: 03/16/23 17:36 [facility] [id number]) Physical Therapy Assessment Rehab Potential Rehabilitation Potential Excellent Evaluation Complexity Number of Personal Factors/Comorbidities 0 Number of Body Systems Impaired 1-2 Clinical Presentation at Evaluation Stable Impairments Impairments Activity Tolerance,Functional Activities,Pain,Posture,Soft Tissue Mobility,Strength,Tone Other Impairments urinary incontinence Goals 4 Impairment iliopsoas and quad tightness on the right hip Mold Finisher Goal (LTG) Kimber presents with full hip ROM into extension and has a negative rufus test LTG Duration 12 weeks 3 Impairment Decreased endurance of the pelvic floor Senior Living Goal (LTG) Kimber is able to sustain a pelvic floor contraction x 10 seconds in supine and 5 seconds in standing LTG Duration 12 weeks 2 Impairment core weakess of the pelvic floor and lower abdominal muscles Short Term Goal (STG) Kimber is educated on core strengthening and pelvic floor strengthening using EMG biofeedback STG Duration 3 weeks Mold Finisher Goal (LTG) Kimber presents with improvements in pelvic floor strength by 1 muscle grade and is able to facilitate TA for dynamic lumbar stabilization exercises LTG Duration 12 weeks 1 Impairment Right side thoracic and right side rib cage pain worse in positions such as breast feeding Short Term Goal (STG) pt is educated in postural stretches she can do to decrease strain to the thoracic spine STG Duration 4 weeks Mold Finisher Goal (LTG) Kimber reports a overall reduction in thoracic and right sided rib cage pain and is able to breast feed without pain LTG Duration 12 weeks Assessment Summary Assessment Kimber is a 32 year old female who is 7 weeks with pelvic floor weakness and decreased core strength. She has a history of a right hip labral repair as a teenager and we have worked in PT on both hip stabilization as well as keeping her hip flexors from tightnening up. She feels she did well maintaining her hip mobility and stability throughout her and labor went well for her hip. She is c/o right hip tightness . She is still feeling the right sided rib pain and pain in the right thoracic region but it is not as pronounced. She rates her rib pain as 2/10 and hip pain as 3/10. Kimber does present with weakness of her gluteus medius BSandeep Quiroga is a good candidate for PT for both core strengthening as well as working on posture for her back and strengthening her hip stabilizers. Physical Therapy Plan Frequency and Duration Frequency of Treatment 1x/Week Duration of treatment (weeks) 12 Plan of Care Start Date 03/16/23 Plan of Care End Date 06/08/23 Therapeutic Interventions Therapeutic Interventions Home Exercise Program,Manual Therapy,Neuromuscular Re- education,Patient/Caregiver Education,Self-Care/Home Management,Soft Tissue Mobilization,Therapeutic Exercises Modalities Biofeedback Next Visit Focus/Plan Next Note Type Treatment Note Next Visit Plan Begin EMG biofeedback next visit for endurance training of the pelvic floor, work on postural modifications for the thoracic spine
--- NOTE | 2023-03-28 11:57 | PT.OTN ---
Current Diagnoses Other specified disorders of muscle (03/23/23) Segmental and somatic dysfunction of pelvic region (03/23/23) Physical Therapy Treatment Note PT-OP-A Visit Information Start: 03/16/23 15:56 Freq: Status: Active Protocol: Document 03/23/23 09:37 [facility] (Rec: 03/23/23 10:32 [facility] [id number]) Out-Patient Physical Therapy Visit Information Visit Information Visit Type Treatment Note Visit Start Time 09:45 Visit Stop Time 10:30 Total Visit Minutes 45 Visit Number 2 PT-OP-B Current Condition Start: 03/16/23 15:56 Freq: Status: Active Protocol: Document 03/16/23 16:03 [facility] (Rec: 03/16/23 16:34 [facility] [id number]) Current Condition History of Current Condition Onset Date 01/23/23 Current Complaints urinary incontinence , rib cage and LBP, right hip tightness History of Current Condition pt notes her baby was born January [facility], he ended up in the [facility] in [place] due to rhino virus, they were there for a week. They found out that her son needs heart surgery due to a chest xray and echocardiograhm. He will be having heart surgery at [facility] and date is not currently known. She notes now that in the am she will go to the bathroom but as she is sitting down she will leak, also as she is coughing she will drip. No increase in frequency during the day. She is getting 6-7 hour stretches of sleep at night. No c/o constipation. She was tender with intercourse but not painful. Right hip is still tight and did have some soreness in ther pelvis for a few days post . Kimber describes continued Right sided rib pain though not as severe as it was initially and low back pain/tightness as well as right sided hip tightness. Prior Treatments and Tests pt notes her baby was born January [facility], he ended up in the [facility] in [place] due to rhino virus, they were there for a week. They found out that her son needs heart surgery due to a chest xray. He will be having heart surgery at [facility]. SHe notes now that in the am she will go to the bathroom but as she is sitting down she will leak, also as she is coughing she will drip. No increase in frequency during the day. She is getting 6-7 hour stretches of sleep at night. No c/o constipation. She was tender with intercourse but not painful. Right hip is still tight. she did have some soreness in ther pelvis for a few days post . 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 She also experiences low back tightness, she has been doing cat cow and tj pose. Treatment Goals Patient/Caregiver Goals To improve pelvic floor and core strength post , reduce thoracic and LBP PT-OP-C Subjective Start: 03/16/23 15:56 Freq: Status: Active Protocol: Document 03/23/23 09:37 [facility] (Rec: 03/23/23 10:32 [facility] [id number]) OP-PT Subjective Patient Comments Patient Comments pt notes she started working out again and is tolerating it pretty well. She is still feeling the thoracic tightness but its not as severe Patient Reported Progress Improving PT-OP-F Manual Assessment Start: 03/16/23 15:56 Freq: Status: Active Protocol: Document 03/16/23 16:03 [facility] (Rec: 03/16/23 17:20 [facility] [id number]) Manual Assessments Soft Tissue Assessment Soft Tissue Mobility Assessment right sided tightness in the iliopsoas and adductors, + rufus test on the right side tightness of the left lumbar paraspinals Right piriformis tightness Joint Mobility Assessment Joint Mobility Assessment hypomobility of the T-spine T4 -T10 with PA glides PT-OP-I Pelvic Floor Start: 03/16/23 15:56 Freq: Status: Active Protocol: Document 03/16/23 16:03 [facility] (Rec: 03/16/23 17:20 [facility] [id number]) Pelvic Floor Assessment Urine Pelvic Floor Surgery No Urinary Symptoms Dysuria,Dribbling After Urination Other Urinary Symptoms urinary leakage in the AM on the way to the bathroom and leaking with coughing or jumping Leakage Size Small Leakage Cause Cough,Exercise,Sneeze,Urge Pelvic Clock Pelvic Clock 3-6 Tenderness,Tightness Pelvic Clock Other tightness in the left lateral kendall of the levator ani Perineal Descent Resting Absent Bearing Absent Contraction Ability Voluntary Contraction Weak Voluntary Relaxation Weak Manual Muscle Testing Left 3 Manual Muscle Testing Right 3 Manual Muscle Testing Anterior 3 Manual Muscle Testing Posterior 3 Muscle Endurance (Seconds) 5 PT-OP-M Strength Start: 03/16/23 15:56 Freq: Status: Active Protocol: Document 03/16/23 16:03 [facility] (Rec: 03/16/23 17:21 [facility] [id number]) Hip Strength Hip Manual Muscle Testing Left Abduction 4 Good External Rotation 4 Good Right Abduction 3+ Fair+ External Rotation 3+ Fair+ PT-OP-Q Treatments Start: 03/16/23 15:56 Freq: Status: Active Protocol: Document 03/23/23 09:37 [facility] (Rec: 03/23/23 10:32 [facility] [id number]) Therapeutic Exercises Supine Exercises templates for eccentric control Reps/Minutes x 5 min pelvic floor quick flicks Reps/Minutes x 10 reps pelvic floor long holds Reps/Minutes 12.4 and max of 18.4 Prone Exercises prone thoracic extension Reps/Minutes x 15 Sidelying Exercises shoulder ER Reps/Minutes 2 x 10 Manual Therapy Treatment Soft Tissue Mobilization thoracic paraspinals Body Location thoracic paraspinals Mobilization Type Myofascial Release Body Position Prone Comments right greater than left side tightness in the thoracic paraspinals Joint Mobilizations PA glides T4-T10 Grade III Body Position Prone Comments good tolerance, hypomobility PT-OP-T Assessment and Plan Start: 03/16/23 15:56 Freq: Status: Active Protocol: Document 03/23/23 09:37 [facility] (Rec: 03/23/23 10:32 [facility] [id number]) Physical Therapy Assessment Assessment Summary Assessment Kimber demonstrated good endurance today with EMGbiofeedback for her pelvic floor. She was able to sustain a pelvic floor contraction for approx 8 -10 seconds. She is still tight in thoracic paraspinals and would benefit from continued work in this region promoting increased thoracic extension Physical Therapy Plan Frequency and Duration Frequency of Treatment 1x/Week Duration of treatment (weeks) 12 Plan of Care Start Date 03/16/23 Plan of Care End Date 06/08/23 Therapeutic Interventions Therapeutic Interventions Home Exercise Program,Manual Therapy,Neuromuscular Re- education,Patient/Caregiver Education,Self-Care/Home Management,Soft Tissue Mobilization,Therapeutic Exercises Modalities Biofeedback Next Visit Focus/Plan Next Note Type Treatment Note Next Visit Plan continue working on core stabilization, postural strengthening, manual therapy techniques
--- NOTE | 2023-04-04 17:46 | PT.OTN ---
Current Diagnoses Other specified disorders of muscle (04/04/23) Segmental and somatic dysfunction of pelvic region (04/04/23) Physical Therapy Treatment Note PT-OP-A Visit Information Start: 03/16/23 15:56 Freq: Status: Active Protocol: Document 04/04/23 10:49 [facility] (Rec: 04/04/23 11:35 [facility] [id number]) Out-Patient Physical Therapy Visit Information Visit Information Visit Type Treatment Note Visit Start Time 10:50 Visit Stop Time 11:30 Total Visit Minutes 40 Visit Number 3 PT-OP-B Current Condition Start: 03/16/23 15:56 Freq: Status: Active Protocol: Document 03/16/23 16:03 [facility] (Rec: 03/16/23 16:34 [facility] [id number]) Current Condition History of Current Condition Onset Date 01/23/23 Current Complaints urinary incontinence , rib cage and LBP, right hip tightness History of Current Condition pt notes her baby was born January [place] [facility], he ended up in the [facility] in [place] due to rhino virus, they were there for a week. They found out that her son needs heart surgery due to a chest xray and echocardiograhm. He will be having heart surgery at [facility] and date is not currently known. She notes now that in the am she will go to the bathroom but as she is sitting down she will leak, also as she is coughing she will drip. No increase in frequency during the day. She is getting 6-7 hour stretches of sleep at night. No c/o constipation. She was tender with intercourse but not painful. Right hip is still tight and did have some soreness in ther pelvis for a few days post . Kimber describes continued Right sided rib pain though not as severe as it was initially and low back pain/tightness as well as right sided hip tightness. Prior Treatments and Tests pt notes her baby was born January [facility], he ended up in the [facility] in [place] due to rhino virus, they were there for a week. They found out that her son needs heart surgery due to a chest xray. He will be having heart surgery at [facility]. SHe notes now that in the am she will go to the bathroom but as she is sitting down she will leak, also as she is coughing she will drip. No increase in frequency during the day. She is getting 6-7 hour stretches of sleep at night. No c/o constipation. She was tender with intercourse but not painful. Right hip is still tight. she did have some soreness in ther pelvis for a few days post . 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 She also experiences low back tightness, she has been doing cat cow and tj pose. Treatment Goals Patient/Caregiver Goals To improve pelvic floor and core strength post , reduce thoracic and LBP PT-OP-C Subjective Start: 03/16/23 15:56 Freq: Status: Active Protocol: Document 04/04/23 10:49 [facility] (Rec: 04/04/23 11:35 [facility] [id number]) OP-PT Subjective Patient Comments Patient Comments pt notes April 25 is the date of surgery, pt notes her right lower back is feeling really tight, pain under the right rib cage is slowly improving Patient Reported Progress Improving PT-OP-F Manual Assessment Start: 03/16/23 15:56 Freq: Status: Active Protocol: Document 03/16/23 16:03 [facility] (Rec: 03/16/23 17:20 [facility] [id number]) Manual Assessments Soft Tissue Assessment Soft Tissue Mobility Assessment right sided tightness in the iliopsoas and adductors, + rufus test on the right side tightness of the left lumbar paraspinals Right piriformis tightness Joint Mobility Assessment Joint Mobility Assessment hypomobility of the T-spine T4 -T10 with PA glides PT-OP-I Pelvic Floor Start: 03/16/23 15:56 Freq: Status: Active Protocol: Document 03/16/23 16:03 [facility] (Rec: 03/16/23 17:20 [facility] [id number]) Pelvic Floor Assessment Urine Pelvic Floor Surgery No Urinary Symptoms Dysuria,Dribbling After Urination Other Urinary Symptoms urinary leakage in the AM on the way to the bathroom and leaking with coughing or jumping Leakage Size Small Leakage Cause Cough,Exercise,Sneeze,Urge Pelvic Clock Pelvic Clock 3-6 Tenderness,Tightness Pelvic Clock Other tightness in the left lateral kendall of the levator ani Perineal Descent Resting Absent Bearing Absent Contraction Ability Voluntary Contraction Weak Voluntary Relaxation Weak Manual Muscle Testing Left 3 Manual Muscle Testing Right 3 Manual Muscle Testing Anterior 3 Manual Muscle Testing Posterior 3 Muscle Endurance (Seconds) 5 PT-OP-M Strength Start: 03/16/23 15:56 Freq: Status: Active Protocol: Document 03/16/23 16:03 [facility] (Rec: 03/16/23 17:21 [facility] [id number]) Hip Strength Hip Manual Muscle Testing Left Abduction 4 Good External Rotation 4 Good Right Abduction 3+ Fair+ External Rotation 3+ Fair+ PT-OP-Q Treatments Start: 03/16/23 15:56 Freq: Status: Active Protocol: Document 04/04/23 10:49 [facility] (Rec: 04/04/23 11:35 [facility] [id number]) Manual Therapy Treatment Soft Tissue Mobilization adductor release on the right Body Position Supine psoas release on the right Body Location right psoas Comments thomasd test position lumbar paraspinals Body Location right lumbar paraspinls Mobilization Type Myofascial Release Intensity/Depth Moderate Body Position Prone Comments prone over body pillow thoracic paraspinals Body Location thoracic paraspinals Mobilization Type Myofascial Release Body Position Prone Comments right greater than left side tightness in the thoracic paraspinals Manual Techniques manual iliopsoas stretch Comments hold 2 min in rufus test position PT-OP-T Assessment and Plan Start: 03/16/23 15:56 Freq: Status: Active Protocol: Document 04/04/23 10:50 [facility] (Rec: 04/04/23 17:46 [facility] [id number]) Physical Therapy Assessment Assessment Summary Assessment Right leg longer in supine today, worked on release of the iliopsoas and quads in supine and she was tighter today. Worked on releasing the right lumbar paraspinals. Pt tolerated well. She has been able to increase her walking with the stroller. Physical Therapy Plan Frequency and Duration Frequency of Treatment 1x/Week Duration of treatment (weeks) 12 Plan of Care Start Date 03/16/23 Plan of Care End Date 06/08/23 Therapeutic Interventions Therapeutic Interventions Home Exercise Program,Manual Therapy,Neuromuscular Re- education,Patient/Caregiver Education,Self-Care/Home Management,Soft Tissue Mobilization,Therapeutic Exercises Modalities Biofeedback Next Visit Focus/Plan Next Note Type Treatment Note Next Visit Plan continue working on core stabilization, postural strengthening, manual therapy techniques
--- NOTE | 2023-05-03 10:29 | PT.OTN ---
Current Diagnoses Other specified disorders of muscle (05/03/23) Segmental and somatic dysfunction of pelvic region (05/03/23) Physical Therapy Treatment Note PT-OP-A Visit Information Start: 03/16/23 15:56 Freq: Status: Active Protocol: Document 05/03/23 09:30 [facility] (Rec: 05/03/23 10:28 [facility] [id number]) Out-Patient Physical Therapy Visit Information Visit Information Visit Type Treatment Note Visit Start Time 09:30 Visit Stop Time 10:15 Total Visit Minutes 45 Visit Number 4 PT-OP-B Current Condition Start: 03/16/23 15:56 Freq: Status: Active Protocol: Document 03/16/23 16:03 [facility] (Rec: 03/16/23 16:34 [facility] [id number]) Current Condition History of Current Condition Onset Date 01/23/23 Current Complaints urinary incontinence , rib cage and LBP, right hip tightness History of Current Condition pt notes her baby was born January [birth year] Ken[birth year], he ended up in the [facility] in [place] due to rhino virus, they were there for a week. They found out that her son needs heart surgery due to a chest xray and echocardiograhm. [facility] and date is not currently known. She notes now that in the am she will go to the bathroom but as she is sitting down she will leak, also as she is coughing she will drip. No increase in frequency during the day. She is getting 6-7 hour stretches of sleep at night. No c/o constipation. She was tender with intercourse but not painful. Right hip is still tight and did have some soreness in ther pelvis for a few days post . Kimber describes continued Right sided rib pain though not as severe as it was initially and low back pain/tightness as well as right sided hip tightness. Prior Treatments and Tests pt notes her baby was born January 23Sep[place]entura Kenji, he ended up in the [facility] in [place] due to rhino virus, they were there for a week. They found out that her son needs heart surgery due to a chest xray. [facility] SHe notes now that in the am she will go to the bathroom but as she is sitting down she will leak, also as she is coughing she will drip. No increase in frequency during the day. She is getting 6-7 hour stretches of sleep at night. No c/o constipation. She was tender with intercourse but not painful. Right hip is still tight. she did have some soreness in ther pelvis for a few days post . 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 She also experiences low back tightness, she has been doing cat cow and tj pose. Treatment Goals Patient/Caregiver Goals To improve pelvic floor and core strength post , reduce thoracic and LBP PT-OP-C Subjective Start: 03/16/23 15:56 Freq: Status: Active Protocol: Document 05/03/23 09:30 [facility] (Rec: 05/03/23 10:28 [facility] [id number]) OP-PT Subjective Patient Comments Patient Comments pt notes she got home from her sons heart surgery on Monday, she feels tired. She stayed from monday to sat in the ICU with him. Everything feels tight from stress. The rib cage pain is not as much as it was last month and is improving PT-OP-F Manual Assessment Start: 03/16/23 15:56 Freq: Status: Active Protocol: Document 03/16/23 16:03 [facility] (Rec: 03/16/23 17:20 [facility] [id number]) Manual Assessments Soft Tissue Assessment Soft Tissue Mobility Assessment right sided tightness in the iliopsoas and adductors, + rufus test on the right side tightness of the left lumbar paraspinals Right piriformis tightness Joint Mobility Assessment Joint Mobility Assessment hypomobility of the T-spine T4 -T10 with PA glides PT-OP-I Pelvic Floor Start: 03/16/23 15:56 Freq: Status: Active Protocol: Document 03/16/23 16:03 [facility] (Rec: 03/16/23 17:20 [facility] [id number]) Pelvic Floor Assessment Urine Pelvic Floor Surgery No Urinary Symptoms Dysuria,Dribbling After Urination Other Urinary Symptoms urinary leakage in the AM on the way to the bathroom and leaking with coughing or jumping Leakage Size Small Leakage Cause Cough,Exercise,Sneeze,Urge Pelvic Clock Pelvic Clock 3-6 Tenderness,Tightness Pelvic Clock Other tightness in the left lateral kendall of the levator ani Perineal Descent Resting Absent Bearing Absent Contraction Ability Voluntary Contraction Weak Voluntary Relaxation Weak Manual Muscle Testing Left 3 Manual Muscle Testing Right 3 Manual Muscle Testing Anterior 3 Manual Muscle Testing Posterior 3 Muscle Endurance (Seconds) 5 PT-OP-M Strength Start: 03/16/23 15:56 Freq: Status: Active Protocol: Document 03/16/23 16:03 [facility] (Rec: 03/16/23 17:21 [facility] [id number]) Hip Strength Hip Manual Muscle Testing Left Abduction 4 Good External Rotation 4 Good Right Abduction 3+ Fair+ External Rotation 3+ Fair+ PT-OP-Q Treatments Start: 03/16/23 15:56 Freq: Status: Active Protocol: Document 05/03/23 09:30 [facility] (Rec: 05/03/23 10:28 [facility] [id number]) Manual Therapy Treatment Soft Tissue Mobilization psoas release on the right Body Location right psoas Comments thomasd test position lumbar paraspinals Body Location right lumbar paraspinals Mobilization Type Myofascial Release Intensity/Depth Moderate Body Position Prone Comments prone over body pillow thoracic paraspinals Body Location thoracic paraspinals Mobilization Type Myofascial Release Body Position Prone Comments right greater than left side tightness in the thoracic paraspinals Manual Techniques prone quad stretch Reps/Duration hold 1 min each side manual iliopsoas stretch Comments hold 2 min in rufus test position PT-OP-T Assessment and Plan Start: 03/16/23 15:56 Freq: Status: Active Protocol: Document 05/03/23 09:30 [facility] (Rec: 05/03/23 10:28 [facility] [id number]) Physical Therapy Assessment Assessment Summary Assessment Leg length was equal today and SI was aligned. The right iliopsoas is tight and I worked on releasing this as well as working on releasing the tension from the paraspinals. Physical Therapy Plan Frequency and Duration Frequency of Treatment 1x/Week Duration of treatment (weeks) 12 Plan of Care Start Date 03/16/23 Plan of Care End Date 06/08/23 Therapeutic Interventions Therapeutic Interventions Home Exercise Program,Manual Therapy,Neuromuscular Re- education,Patient/Caregiver Education,Self-Care/Home Management,Soft Tissue Mobilization,Therapeutic Exercises Modalities Biofeedback Next Visit Focus/Plan Next Note Type Treatment Note Next Visit Plan review HEP and update as pt is able to progress
--- NOTE | 2023-05-18 16:09 | PT.OTN ---
Current Diagnoses Other specified disorders of muscle (05/18/23) Segmental and somatic dysfunction of pelvic region (05/18/23) Physical Therapy Treatment Note PT-OP-A Visit Information Start: 03/16/23 15:56 Freq: Status: Active Protocol: Document 05/18/23 15:00 [facility] (Rec: 05/18/23 16:06 [facility] [id number]) Out-Patient Physical Therapy Visit Information Visit Information Visit Type Treatment Note Visit Start Time 15:00 Visit Stop Time 15:45 Total Visit Minutes 45 Visit Number 5 PT-OP-B Current Condition Start: 03/16/23 15:56 Freq: Status: Active Protocol: Document 03/16/23 16:03 [facility] (Rec: 03/16/23 16:34 [facility] [id number]) Current Condition History of Current Condition Onset Date 01/23/23 Current Complaints urinary incontinence , rib cage and LBP, right hip tightness History of Current Condition pt notes her baby was born January 23SepVentura Kenji, he ended up in the [facility] in [place] due to rhino virus, they were there for a week. They found out that her son needs heart surgery due to a chest xray and echocardiograhm. He will be having heart surgery at [facility] and date is not currently known. She notes now that in the am she will go to the bathroom but as she is sitting down she will leak, also as she is coughing she will drip. No increase in frequency during the day. She is getting 6-7 hour stretches of sleep at night. No c/o constipation. She was tender with intercourse but not painful. Right hip is still tight and did have some soreness in ther pelvis for a few days post . Kimber describes continued Right sided rib pain though not as severe as it was initially and low back pain/tightness as well as right sided hip tightness. Prior Treatments and Tests pt notes her baby was born January 23SepVentura Kenji, he ended up in the [facility] in [place] due to rhino virus, they were there for a week. They found out that her son needs heart surgery due to a chest xray. He will be having heart surgery at [facility]. SHe notes now that in the am she will go to the bathroom but as she is sitting down she will leak, also as she is coughing she will drip. No increase in frequency during the day. She is getting 6-7 hour stretches of sleep at night. No c/o constipation. She was tender with intercourse but not painful. Right hip is still tight. she did have some soreness in ther pelvis for a few days post . She is insulation board back tender at the right rib cage as well as thoracic spine and she notes bras bother her. She also experiences low back tightness, she has been doing cat cow and tj pose. Treatment Goals Patient/Caregiver Goals To improve pelvic floor and core strength post , reduce thoracic and LBP PT-OP-C Subjective Start: 03/16/23 15:56 Freq: Status: Active Protocol: Document 05/18/23 15:00 [facility] (Rec: 05/18/23 16:06 [facility] [id number]) OP-PT Subjective Patient Comments Patient Comments pt reports her low back has been hurting this last week. She is not sure if it is from carrying her baby or her posture or what it is from PT-OP-F Manual Assessment Start: 03/16/23 15:56 Freq: Status: Active Protocol: Document 03/16/23 16:03 [facility] (Rec: 03/16/23 17:20 [facility] [id number]) Manual Assessments Soft Tissue Assessment Soft Tissue Mobility Assessment right sided tightness in the iliopsoas and adductors, + rufus test on the right side tightness of the left lumbar paraspinals Right piriformis tightness Joint Mobility Assessment Joint Mobility Assessment hypomobility of the T-spine T4 -T10 with PA glides PT-OP-I Pelvic Floor Start: 03/16/23 15:56 Freq: Status: Active Protocol: Document 03/16/23 16:03 [facility] (Rec: 03/16/23 17:20 [facility] [id number]) Pelvic Floor Assessment Urine Pelvic Floor Surgery No Urinary Symptoms Dysuria,Dribbling After Urination Other Urinary Symptoms urinary leakage in the AM on the way to the bathroom and leaking with coughing or jumping Leakage Size Small Leakage Cause Cough,Exercise,Sneeze,Urge Pelvic Clock Pelvic Clock 3-6 Tenderness,Tightness Pelvic Clock Other tightness in the left lateral kendall of the levator ani Perineal Descent Resting Absent Bearing Absent Contraction Ability Voluntary Contraction Weak Voluntary Relaxation Weak Manual Muscle Testing Left 3 Manual Muscle Testing Right 3 Manual Muscle Testing Anterior 3 Manual Muscle Testing Posterior 3 Muscle Endurance (Seconds) 5 PT-OP-M Strength Start: 03/16/23 15:56 Freq: Status: Active Protocol: Document 03/16/23 16:03 [facility] (Rec: 03/16/23 17:21 [facility] [id number]) Hip Strength Hip Manual Muscle Testing Left Abduction 4 Good External Rotation 4 Good Right Abduction 3+ Fair+ External Rotation 3+ Fair+ PT-OP-Q Treatments Start: 03/16/23 15:56 Freq: Status: Active Protocol: Document 05/18/23 15:00 [facility] (Rec: 05/18/23 16:06 [facility] [id number]) Manual Therapy Treatment Soft Tissue Mobilization psoas release on the right Body Location Bilateral psoas release Comments pt was restricted in B psoas musculature today still R>L lumbar paraspinals Body Location right lumbar paraspinals Mobilization Type Myofascial Release Intensity/Depth Moderate Body Position Prone Comments prone over body pillow Manual Techniques manual iliopsoas stretch Comments hold 2 min in rufus test position PT-OP-T Assessment and Plan Start: 03/16/23 15:56 Freq: Status: Active Protocol: Document 05/18/23 15:00 [facility] (Rec: 05/18/23 16:06 [facility] [id number]) Physical Therapy Assessment Goals 4 Impairment iliopsoas and quad tightness on the right hip Personal Injury Law Specialist Goal (LTG) Kimber presents with full hip ROM into extension and has a negative rufus test Good overall progress, today though she was tight again as she has returned home from sleeping at the hospital with her son after heart surgery LTG Duration 12 weeks 3 Impairment Decreased endurance of the pelvic floor [facility]ci Goal (LTG) Kimber is able to sustain a pelvic floor contraction x 10 seconds in supine and 5 seconds in standing GOAL MET LTG Duration 12 weeks 2 Impairment core weakess of the pelvic floor and lower abdominal muscles Short Term Goal (STG) Kimber is educated on core strengthening and pelvic floor strengthening using EMG biofeedback GOAL MET STG Duration 3 weeks [facility]ci Goal (LTG) Kimber presents with improvements in pelvic floor strength by 1 muscle grade and is able to facilitate TA for dynamic lumbar stabilization exercises Good progress LTG Duration 12 weeks 1 Impairment Right side thoracic and right side rib cage pain worse in positions such as breast feeding Short Term Goal (STG) pt is educated in postural stretches she can do to decrease strain to the thoracic spine GOAL MET STG Duration 4 weeks Fci Goal (LTG) Kimber reports a overall reduction in thoracic and right sided rib cage pain and is able to breast feed without pain good progress and pain is slowly decreasing LTG Duration 12 weeks Assessment Summary Assessment Kimber was tightner today in her lumbar paraspinals and was also rotated anteriorly on the right side of her pelvis. We discussed the front pack and how it can cause increased lordosis and to continue working on both stretching her hip flexors as well as doing her lumbar stretches to combat this. Her baby is also growing so there is the added weight. She would benefit from continued PT especially since [facility] Physical Therapy Plan Frequency and Duration Frequency of Treatment 1x/Week Duration of treatment (weeks) 12 Plan of Care Start Date 05/18/23 Plan of Care End Date 08/10/23 Therapeutic Interventions Therapeutic Interventions Home Exercise Program,Manual Therapy,Neuromuscular Re- education,Patient/Caregiver Education,Self-Care/Home Management,Soft Tissue Mobilization,Therapeutic Exercises Modalities Biofeedback Next Visit Focus/Plan Next Visit Plan continue working on core stabilization, postural strengthening, manual therapy techniques
--- NOTE | 2023-05-18 16:10 | PT.OPPOC ---
Physical, Occupational & Speech Therapy At [facility] Current Diagnoses Other specified disorders of muscle (05/18/23) Segmental and somatic dysfunction of pelvic region (05/18/23) Visit Care Team Role Provider Type Chayo Diego MD Attending Provider Physician Family Provider Primary Care Provider Referring Provider Specialty: Family Practice Address: [address] [place] [address], [facility] Email: [email or web address] Plan Of Care PT-OP-T Assessment and Plan Start: 03/16/23 15:56 Freq: Status: Active Protocol: Document 05/18/23 15:00 [facility] (Rec: 05/18/23 16:06 [facility] [id number]) Physical Therapy Assessment Goals 4 Impairment iliopsoas and quad tightness on the right hip Usp Goal (LTG) Kimber presents with full hip ROM into extension and has a negative rufus test Good overall progress, today though she was tight again as she has returned home from sleeping at the hospital with her son after heart surgery LTG Duration 12 weeks 3 Impairment Decreased endurance of the pelvic floor Slurry Tank Operator Goal (LTG) Kimber is able to sustain a pelvic floor contraction x 10 seconds in supine and 5 seconds in standing GOAL MET LTG Duration 12 weeks 2 Impairment core weakness of the pelvic floor and lower abdominal muscles Short Term Goal (STG) Kimber is educated on core strengthening and pelvic floor strengthening using EMG biofeedback GOAL MET STG Duration 3 weeks Slurry Tank Operator Goal (LTG) Kimber presents with improvements in pelvic floor strength by 1 muscle grade and is able to facilitate TA for dynamic lumbar stabilization exercises Good progress LTG Duration 12 weeks 1 Impairment Right side thoracic and right side rib cage pain worse in positions such as breast feeding Short Term Goal (STG) pt is educated in postural stretches she can do to decrease strain to the thoracic spine GOAL MET STG Duration 4 weeks Slurry Tank Operator Goal (LTG) Kimber reports a overall reduction in thoracic and right sided rib cage pain and is able to breast feed without pain good progress and pain is slowly decreasing LTG Duration 12 weeks Assessment Summary Assessment Kimber was vertical punch operator today in her lumbar paraspinals and was also rotated anteriorly on the right side of her pelvis. We discussed the front pack and how it can cause increased lordosis and to continue working on both stretching her hip flexors as well as doing her lumbar stretches to combat this. Her baby is also growing so there is the added weight. She would benefit from continued PT especially since she has recently returned from staying in the hospital with her son following his heart surgery Physical Therapy Plan Frequency and Duration Frequency of Treatment 1x/Week Duration of treatment (weeks) 12 Plan of Care Start Date 05/18/23 Plan of Care End Date 08/10/23 Therapeutic Interventions Therapeutic Interventions Home Exercise Program,Manual Therapy,Neuromuscular Re- education,Patient/Caregiver Education,Self-Care/Home Management,Soft Tissue Mobilization,Therapeutic Exercises Modalities Biofeedback Next Visit Focus/Plan Next Visit Plan continue working on core stabilization, postural strengthening, manual therapy techniques Plan of Care Dates Plan of Care Start Date 05/18/23 Plan of Care End Date 08/10/23 Electronically Signed by: Hyacinth Gifford, PT 05/18/23 3886 If you are in agreement with this Plan of Care, please return a signed and dated copy. I have reviewed this Plan of Care and certify that the skilled therapy services above are required to meet the patient?s needs. Physician Signature Date Printed Name and Credentials Clinical Instructor Signature Printed Name and Credentials
--- NOTE | 2023-05-25 15:50 | PT.OTN ---
Current Diagnoses Other specified disorders of muscle (05/25/23) Segmental and somatic dysfunction of pelvic region (05/25/23) Physical Therapy Treatment Note PT-OP-A Visit Information Start: 03/16/23 15:56 Freq: Status: Active Protocol: Document 05/25/23 14:59 [facility] (Rec: 05/25/23 15:50 [facility] [id number]) Out-Patient Physical Therapy Visit Information Visit Information Visit Type Treatment Note PT-OP-B Current Condition Start: 03/16/23 15:56 Freq: Status: Active Protocol: Document 03/16/23 16:03 [facility] (Rec: 03/16/23 16:34 [facility] [id number]) Current Condition History of Current Condition Onset Date 01/23/23 Current Complaints urinary incontinence , rib cage and LBP, right hip tightness History of Current Condition pt notes her baby was born January 23SepVentura Kenji, he ended up in the [facility] in [place] due to rhino virus, they were there for a week. They found out that her son needs heart surgery due to a chest xray and echocardiograhm. He will be having heart surgery at [facility] and date is not currently known. She notes now that in the am she will go to the bathroom but as she is sitting down she will leak, also as she is coughing she will drip. No increase in frequency during the day. She is getting 6-7 hour stretches of sleep at night. No c/o constipation. She was tender with intercourse but not painful. Right hip is still tight and did have some soreness in ther pelvis for a few days post . Kimber describes continued Right sided rib pain though not as severe as it was initially and low back pain/tightness as well as right sided hip tightness. Prior Treatments and Tests pt notes her baby was born January 23SepVentura Kenji, he ended up in the [facility] in [place] due to rhino virus, they were there for a week. They found out that her son needs heart surgery due to a chest xray. He will be having heart surgery at [facility]. SHe notes now that in the am she will go to the bathroom but as she is sitting down she will leak, also as she is coughing she will drip. No increase in frequency during the day. She is getting 6-7 hour stretches of sleep at night. No c/o constipation. She was tender with intercourse but not painful. Right hip is still tight. she did have some soreness in ther pelvis for a few days post . She is glass cleaning machine tender at the right rib cage as well as thoracic spine and she notes bras bother her. She also experiences low back tightness, she has been doing cat cow and tj pose. Treatment Goals Patient/Caregiver Goals To improve pelvic floor and core strength post , reduce thoracic and LBP PT-OP-C Subjective Start: 03/16/23 15:56 Freq: Status: Active Protocol: Document 05/25/23 14:59 [facility] (Rec: 05/25/23 15:50 [facility] [id number]) OP-PT Subjective Patient Comments Patient Comments pt notes she has started going duque to chiro and is feeling better overall. She has been able to begin adding in resistance with her strengthening program PT-OP-F Manual Assessment Start: 03/16/23 15:56 Freq: Status: Active Protocol: Document 03/16/23 16:03 [facility] (Rec: 03/16/23 17:20 [facility] [id number]) Manual Assessments Soft Tissue Assessment Soft Tissue Mobility Assessment right sided tightness in the iliopsoas and adductors, + rufus test on the right side tightness of the left lumbar paraspinals Right piriformis tightness Joint Mobility Assessment Joint Mobility Assessment hypomobility of the T-spine T4 -T10 with PA glides PT-OP-I Pelvic Floor Start: 03/16/23 15:56 Freq: Status: Active Protocol: Document 03/16/23 16:03 [facility] (Rec: 03/16/23 17:20 [facility] [id number]) Pelvic Floor Assessment Urine Pelvic Floor Surgery No Urinary Symptoms Dysuria,Dribbling After Urination Other Urinary Symptoms urinary leakage in the AM on the way to the bathroom and leaking with coughing or jumping Leakage Size Small Leakage Cause Cough,Exercise,Sneeze,Urge Pelvic Clock Pelvic Clock 3-6 Tenderness,Tightness Pelvic Clock Other tightness in the left lateral kendall of the levator ani Perineal Descent Resting Absent Bearing Absent Contraction Ability Voluntary Contraction Weak Voluntary Relaxation Weak Manual Muscle Testing Left 3 Manual Muscle Testing Right 3 Manual Muscle Testing Anterior 3 Manual Muscle Testing Posterior 3 Muscle Endurance (Seconds) 5 PT-OP-M Strength Start: 03/16/23 15:56 Freq: Status: Active Protocol: Document 03/16/23 16:03 [facility] (Rec: 03/16/23 17:21 [facility] [id number]) Hip Strength Hip Manual Muscle Testing Left Abduction 4 Good External Rotation 4 Good Right Abduction 3+ Fair+ External Rotation 3+ Fair+ PT-OP-Q Treatments Start: 03/16/23 15:56 Freq: Status: Active Protocol: Document 05/25/23 14:59 [facility] (Rec: 05/25/23 15:50 [facility] [id number]) Therapeutic Exercises Supine Exercises pelvic floor long holds Reps/Minutes 17.8 average and max 28.7 uv Manual Therapy Treatment Soft Tissue Mobilization psoas release on the right Body Location Bilateral psoas release Comments pt was restricted in B psoas musculature today still R>L Manual Techniques manual recheck of leg length Comments leg length equal today in supine manual iliopsoas stretch Comments hold 2 min in rufus test position Self-Care/Home Management Treatment Education Patient Education Home Exercise Program Other Education pt was educated in use of a pelvic wand for self release of the left side of the levator ani as it is still feeling tight. PT-OP-T Assessment and Plan Start: 03/16/23 15:56 Freq: Status: Active Protocol: Document 05/25/23 14:59 [facility] (Rec: 05/25/23 15:50 [facility] [id number]) Physical Therapy Assessment Assessment Summary Assessment Kimber is doing better with pelvic floor recruitment as well as endurance holds and has shown a increase in strength on EMG biofeedback. She still feels the tightness on the left lateral wall of her pelvic floor and I edcuated her on the use of a pelvic wand today to help with tightness release. Pt to check in with insurance to see if she has any additional authorized PT visits Physical Therapy Plan Frequency and Duration Frequency of Treatment 1x/Week Duration of treatment (weeks) 12 Plan of Care Start Date 05/18/23 Plan of Care End Date 08/10/23 Next Visit Focus/Plan Next Note Type Treatment Note Next Visit Plan continue working on core stabilization, postural strengthening, manual therapy techniques
--- NOTE | 2023-05-30 16:02 | PT.OTN ---
Current Diagnoses Other specified disorders of muscle (05/30/23) Segmental and somatic dysfunction of pelvic region (05/30/23) Physical Therapy Treatment Note PT-OP-A Visit Information Start: 03/16/23 15:56 Freq: Status: Active Protocol: Document 05/30/23 15:02 [facility] (Rec: 05/30/23 16:02 [facility] [id number]) Out-Patient Physical Therapy Visit Information Visit Information Visit Type Treatment Note Visit Note 10/16 allowed insurance visits Visit Start Time 15:00 Visit Stop Time 15:45 Total Visit Minutes 45 Visit Number 1 PT-OP-B Current Condition Start: 03/16/23 15:56 Freq: Status: Active Protocol: Document 03/16/23 16:03 [facility] (Rec: 03/16/23 16:34 [facility] [id number]) Current Condition History of Current Condition Onset Date 01/23/23 Current Complaints urinary incontinence , rib cage and LBP, right hip tightness History of Current Condition pt [facility] he ended [facility] in [facility] in [place] due to rhino virus, they were there for a week. They found out that her son needs heart surgery due to a chest xray and echocardiograhm. He will be having heart surgery at [facility] and date is not currently known. She notes now that in the am she will go to the bathroom but as she is sitting down she will leak, also as she is coughing she will drip. No increase in frequency during the day. She is getting 6-7 hour stretches of sleep at night. No c/o constipation. She was tender with intercourse but not painful. Right hip is still tight and did have some soreness in ther pelvis for a few days post . Kimber describes continued Right sided rib pain though not as severe as it was initially and low back pain/tightness as well as right sided hip tightness. Prior Treatments and Tests pt notes her baby was born January [facility], he ended up in the [place] in [place] due to rhino virus, they were there for a week. They found out that her son needs heart surgery due to a chest xray. He will be having heart surgery at [facility]. SHe notes now that in the am she will go to the bathroom but as she is sitting down she will leak, also as she is coughing she will drip. No increase in frequency during the day. She is getting 6-7 hour stretches of sleep at night. No c/o constipation. She was tender with intercourse but not painful. Right hip is still tight. she did have some soreness in ther pelvis for a few days post . She is splitter tender at the right rib cage as well as thoracic spine and she notes bras bother her. She also experiences low back tightness, she has been doing cat cow and tj pose. Treatment Goals Patient/Caregiver Goals To improve pelvic floor and core strength post , reduce thoracic and LBP PT-OP-C Subjective Start: 03/16/23 15:56 Freq: Status: Active Protocol: Document 05/30/23 15:02 [facility] (Rec: 05/30/23 16:02 [facility] [id number]) OP-PT Subjective Patient Comments Patient Comments pt notes the last couple of weeks her right foot has been hurting and now it is affecting her knee she is not aware of any thing she has done to affect her foot. PT-OP-F Manual Assessment Start: 03/16/23 15:56 Freq: Status: Active Protocol: Document 03/16/23 16:03 [facility] (Rec: 03/16/23 17:20 [facility] [id number]) Manual Assessments Soft Tissue Assessment Soft Tissue Mobility Assessment right sided tightness in the iliopsoas and adductors, + rufus test on the right side tightness of the left lumbar paraspinals Right piriformis tightness Joint Mobility Assessment Joint Mobility Assessment hypomobility of the T-spine T4 -T10 with PA glides PT-OP-I Pelvic Floor Start: 03/16/23 15:56 Freq: Status: Active Protocol: Document 03/16/23 16:03 [facility] (Rec: 03/16/23 17:20 [facility] [id number]) Pelvic Floor Assessment Urine Pelvic Floor Surgery No Urinary Symptoms Dysuria,Dribbling After Urination Other Urinary Symptoms urinary leakage in the AM on the way to the bathroom and leaking with coughing or jumping Leakage Size Small Leakage Cause Cough,Exercise,Sneeze,Urge Pelvic Clock Pelvic Clock 3-6 Tenderness,Tightness Pelvic Clock Other tightness in the left lateral kendall of the levator ani Perineal Descent Resting Absent Bearing Absent Contraction Ability Voluntary Contraction Weak Voluntary Relaxation Weak Manual Muscle Testing Left 3 Manual Muscle Testing Right 3 Manual Muscle Testing Anterior 3 Manual Muscle Testing Posterior 3 Muscle Endurance (Seconds) 5 PT-OP-M Strength Start: 03/16/23 15:56 Freq: Status: Active Protocol: Document 03/16/23 16:03 [facility] (Rec: 03/16/23 17:21 [facility] [id number]) Hip Strength Hip Manual Muscle Testing Left Abduction 4 Good External Rotation 4 Good Right Abduction 3+ Fair+ External Rotation 3+ Fair+ PT-OP-Q Treatments Start: 03/16/23 15:56 Freq: Status: Active Protocol: Document 05/30/23 15:02 [facility] (Rec: 05/30/23 16:02 [facility] [id number]) Therapeutic Exercises Sidelying Exercises hip abduction Sidelying Exercise Name B hip abduction Reps/Minutes 3 x 10 Other Exercises double squat and single leg reach Reps/Minutes x 10 reps sidesteps with theraband in squat Reps/Minutes x 10 squats with theraband Reps/Minutes x10 Manual Therapy Treatment Soft Tissue Mobilization psoas release on the right Body Location Right sided psoas release Comments worked in rufus test position on releasing the iliopsoas Manual Techniques supine ITB stretch Comments Right side hold 2 min with leg straight sidelying quad stretch' Comments hold x 2 min manual recheck of leg length Comments leg length equal today in supine PT-OP-T Assessment and Plan Start: 03/16/23 15:56 Freq: Status: Active Protocol: Document 05/30/23 15:02 [facility] (Rec: 05/30/23 16:02 [facility] [id number]) Physical Therapy Assessment Assessment Summary Assessment Gait was assessed today and Kimber is presenting with a gluteus medius drop and valgus at the right knee. She is correcting with supination of her right foot. I did advise new shoes for her with improved support. We started dynamic hip stabilization exercises today with lateral steps with theraband and squats with theraband around thighs to help activate the lateral hips and squat with left foot tapping forward and back for right hip isolation. Physical Therapy Plan Frequency and Duration Frequency of Treatment 1x/Week Duration of treatment (weeks) 12 Plan of Care Start Date 05/18/23 Plan of Care End Date 08/10/23 Therapeutic Interventions Therapeutic Interventions Home Exercise Program,Manual Therapy,Neuromuscular Re- education,Patient/Caregiver Education,Self-Care/Home Management,Soft Tissue Mobilization,Therapeutic Exercises Modalities Biofeedback Next Visit Focus/Plan Next Note Type Treatment Note Next Visit Plan review new dynamic hip stabilization exercises next visit
--- NOTE | 2023-06-06 16:25 | PT.OTN ---
Current Diagnoses Other specified disorders of muscle (06/06/23) Segmental and somatic dysfunction of pelvic region (06/06/23) Physical Therapy Treatment Note PT-OP-A Visit Information Start: 03/16/23 15:56 Freq: Status: Active Protocol: Document 06/06/23 13:21 [facility] (Rec: 06/06/23 14:05 [facility] [id number]) Out-Patient Physical Therapy Visit Information Visit Information Visit Type Treatment Note Visit Note 11/16 allowed insurance visits Visit Start Time 13:15 Visit Stop Time 14:00 Total Visit Minutes 45 Visit Number 8 PT-OP-B Current Condition Start: 03/16/23 15:56 Freq: Status: Active Protocol: Document 03/16/23 16:03 [facility] (Rec: 03/16/23 16:34 [facility] [id number]) Current Condition History of Current Condition Onset Date 01/23/23 Current Complaints urinary incontinence , rib cage and LBP, right hip tightness History of Current Condition pt [facility] he ended up in the [facility] in [place] due to rhino virus, they were there for a week. They found out that her son needs heart surgery due to a chest xray and echocardiograhm. He will be having heart surgery at [facility] and date is not currently known. She notes now that in the am she will go to the bathroom but as she is sitting down she will leak, also as she is coughing she will drip. No increase in frequency during the day. She is getting 6-7 hour stretches of sleep at night. No c/o constipation. She was tender with intercourse but not painful. Right hip is still tight and did have some soreness in ther pelvis for a few days post . Kimber describes continued Right sided rib pain though not as severe as it was initially and low back pain/tightness as well as right sided hip tightness. Prior Treatments and Tests pt notes her baby was born January [facility], he ended [place] in the [facility] in [place] due to rhino virus, they were there for a week. They found out that her son needs heart surgery due to a chest xray. He will be having heart surgery at [facility]. SHe notes now that in the am she will go to the bathroom but as she is sitting down she will leak, also as she is coughing she will drip. No increase in frequency during the day. She is getting 6-7 hour stretches of sleep at night. No c/o constipation. She was tender with intercourse but not painful. Right hip is still tight. she did have some soreness in ther pelvis for a few days post . 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 She also experiences low back tightness, she has been doing cat cow and tj pose. Treatment Goals Patient/Caregiver Goals To improve pelvic floor and core strength post , reduce thoracic and LBP PT-OP-C Subjective Start: 03/16/23 15:56 Freq: Status: Active Protocol: Document 06/06/23 13:15 [facility] (Rec: 06/06/23 16:24 [facility] [id number]) OP-PT Subjective Patient Comments Patient Comments Kimber notes she is still having some foot discomfort but it is a little better. She has been doing her exercises and did get new shoes from the running store. She feels tight in her anterior hip and low back today. 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 for 2 months PT-OP-F Manual Assessment Start: 03/16/23 15:56 Freq: Status: Active Protocol: Document 03/16/23 16:03 [facility] (Rec: 03/16/23 17:20 [facility] [id number]) Manual Assessments Soft Tissue Assessment Soft Tissue Mobility Assessment right sided tightness in the iliopsoas and adductors, + rufus test on the right side tightness of the left lumbar paraspinals Right piriformis tightness Joint Mobility Assessment Joint Mobility Assessment hypomobility of the T-spine T4 -T10 with PA glides PT-OP-I Pelvic Floor Start: 03/16/23 15:56 Freq: Status: Active Protocol: Document 03/16/23 16:03 [facility] (Rec: 03/16/23 17:20 [facility] [id number]) Pelvic Floor Assessment Urine Pelvic Floor Surgery No Urinary Symptoms Dysuria,Dribbling After Urination Other Urinary Symptoms urinary leakage in the AM on the way to the bathroom and leaking with coughing or jumping Leakage Size Small Leakage Cause Cough,Exercise,Sneeze,Urge Pelvic Clock Pelvic Clock 3-6 Tenderness,Tightness Pelvic Clock Other tightness in the left lateral kendall of the levator ani Perineal Descent Resting Absent Bearing Absent Contraction Ability Voluntary Contraction Weak Voluntary Relaxation Weak Manual Muscle Testing Left 3 Manual Muscle Testing Right 3 Manual Muscle Testing Anterior 3 Manual Muscle Testing Posterior 3 Muscle Endurance (Seconds) 5 PT-OP-M Strength Start: 03/16/23 15:56 Freq: Status: Active Protocol: Document 03/16/23 16:03 [facility] (Rec: 03/16/23 17:21 [facility] [id number]) Hip Strength Hip Manual Muscle Testing Left Abduction 4 Good External Rotation 4 Good Right Abduction 3+ Fair+ External Rotation 3+ Fair+ PT-OP-Q Treatments Start: 03/16/23 15:56 Freq: Status: Active Protocol: Document 06/06/23 13:15 [facility] (Rec: 06/06/23 16:24 [facility] [id number]) Manual Therapy Treatment Soft Tissue Mobilization psoas release on the right Body Location Right sided psoas release Comments worked in rufus test position on releasing the iliopsoas lumbar paraspinals Body Location right lumbar paraspinals Mobilization Type Myofascial Release Intensity/Depth Moderate Body Position Prone Comments prone over body pillow Manual Techniques sidelying quad stretch' Comments hold x 2 min manual recheck of leg length Comments Right leg slightly shorter in supine manual iliopsoas stretch Comments hold 2 min in rufus test position PT-OP-T Assessment and Plan Start: 03/16/23 15:56 Freq: Status: Active Protocol: Document 06/06/23 13:15 [facility] (Rec: 06/06/23 16:24 [facility] [id number]) Physical Therapy Assessment Assessment Summary Assessment I worked on releasing the anterior hip today as she was more guarded and low back paraspinals are tight today. Her baby is getting closer to 5 months and weighing more. We discussed her HEP and stretches to continue to work on relaxing her back Physical Therapy Plan Frequency and Duration Frequency of Treatment 1x/Week Duration of treatment (weeks) 12 Plan of Care Start Date 05/18/23 Plan of Care End Date 08/10/23 Therapeutic Interventions Therapeutic Interventions Home Exercise Program,Manual Therapy,Neuromuscular Re- education,Patient/Caregiver Education,Self-Care/Home Management,Soft Tissue Mobilization,Therapeutic Exercises Modalities Biofeedback Next Visit Focus/Plan Next Note Type Treatment Note Next Visit Plan continue working on core stabilization, postural strengthening, manual therapy techniques
--- NOTE | 2023-06-28 13:08 | PT.OTN ---
Current Diagnoses Other specified disorders of muscle (06/28/23) Segmental and somatic dysfunction of pelvic region (06/28/23) Physical Therapy Treatment Note PT-OP-A Visit Information Start: 03/16/23 15:56 Freq: Status: Active Protocol: Document 06/28/23 11:20 [facility] (Rec: 06/28/23 12:09 [facility] [id number]) Out-Patient Physical Therapy Visit Information Visit Information Visit Type Treatment Note Visit Start Time 11:20 Visit Stop Time 12:00 Total Visit Minutes 40 Visit Number 9 PT-OP-B Current Condition Start: 03/16/23 15:56 Freq: Status: Active Protocol: Document 03/16/23 16:03 [facility] (Rec: 03/16/23 16:34 [facility] [id number]) Current Condition History of Current Condition Onset Date 01/23/23 Current Complaints urinary incontinence , rib cage and LBP, right hip tightness History of Current Condition pt notes her baby was born January [facility], he ended up in the [facility] in [place] due to rhino virus, they were there for a week. They found out that her son needs heart surgery due to a chest xray and echocardiograhm. He will be having heart surgery at [facility] and date is not currently known. She notes now that in the am she will go to the bathroom but as she is sitting down she will leak, also as she is coughing she will drip. No increase in frequency during the day. She is getting 6-7 hour stretches of sleep at night. No c/o constipation. She was tender with intercourse but not painful. Right hip is still tight and did have some soreness in ther pelvis for a few days post . Kimber describes continued Right sided rib pain though not as severe as it was initially and low back pain/tightness as well as right sided hip tightness. Prior Treatments and Tests pt notes her baby was born January [facility], he ended up in the [facility] in [place] due to rhino virus, they were there for a week. They found out that her son needs heart surgery due to a chest xray. He will be having heart surgery at [facility]. SHe notes now that in the am she will go to the bathroom but as she is sitting down she will leak, also as she is coughing she will drip. No increase in frequency during the day. She is getting 6-7 hour stretches of sleep at night. No c/o constipation. She was tender with intercourse but not painful. Right hip is still tight. she did have some soreness in ther pelvis for a few days post . 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 She also experiences low back tightness, she has been doing cat cow and tj pose. 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 PT-OP-F Manual Assessment Start: 03/16/23 15:56 Freq: Status: Active Protocol: Document 03/16/23 16:03 [facility] (Rec: 03/16/23 17:20 [facility] [id number]) Manual Assessments Soft Tissue Assessment Soft Tissue Mobility Assessment right sided tightness in the iliopsoas and adductors, + rufus test on the right side tightness of the left lumbar paraspinals Right piriformis tightness Joint Mobility Assessment Joint Mobility Assessment hypomobility of the T-spine T4 -T10 with PA glides PT-OP-I Pelvic Floor Start: 03/16/23 15:56 Freq: Status: Active Protocol: Document 03/16/23 16:03 [facility] (Rec: 03/16/23 17:20 [facility] [id number]) Pelvic Floor Assessment Urine Pelvic Floor Surgery No Urinary Symptoms Dysuria,Dribbling After Urination Other Urinary Symptoms urinary leakage in the AM on the way to the bathroom and leaking with coughing or jumping Leakage Size Small Leakage Cause Cough,Exercise,Sneeze,Urge Pelvic Clock Pelvic Clock 3-6 Tenderness,Tightness Pelvic Clock Other tightness in the left lateral kendall of the levator ani Perineal Descent Resting Absent Bearing Absent Contraction Ability Voluntary Contraction Weak Voluntary Relaxation Weak Manual Muscle Testing Left 3 Manual Muscle Testing Right 3 Manual Muscle Testing Anterior 3 Manual Muscle Testing Posterior 3 Muscle Endurance (Seconds) 5 PT-OP-M Strength Start: 03/16/23 15:56 Freq: Status: Active Protocol: Document 03/16/23 16:03 [facility] (Rec: 03/16/23 17:21 [facility] [id number]) Hip Strength Hip Manual Muscle Testing Left Abduction 4 Good External Rotation 4 Good Right Abduction 3+ Fair+ External Rotation 3+ Fair+ PT-OP-Q Treatments Start: 03/16/23 15:56 Freq: Status: Active Protocol: Document 06/28/23 11:20 [facility] (Rec: 06/28/23 13:04 [facility] [id number]) Therapeutic Exercises Supine Exercises supine lower trunk rotation with oblique stretch Reps/Minutes hold 30 sec each rep Comments Kimber could feel the deep stretch in her lower back with this exercise Manual Therapy Treatment Soft Tissue Mobilization QL release B Mobilization Type Myofascial Release Intensity/Depth Moderate Body Position Sidelying Comments tightness of the QL R>L side psoas release on the right Body Location Right sided psoas release Comments worked in sidelying to release the right psoas lumbar paraspinals Body Position Sidelying Comments worked on sidelying each side on releasing the lumbar paraspinals PT-OP-T Assessment and Plan Start: 03/16/23 15:56 Freq: Status: Active Protocol: Document 06/28/23 11:20 [facility] (Rec: 06/28/23 12:09 [facility] [id number]) Physical Therapy Assessment Assessment Summary Assessment We worked on releasing the QL and lumbar paraspinals today and I added in lumbar rotation oblique axis stretch for Kimber Physical Therapy Plan Frequency and Duration Frequency of Treatment 1x/Week Duration of treatment (weeks) 12 Plan of Care Start Date 05/18/23 Plan of Care End Date 08/10/23 Therapeutic Interventions Therapeutic Interventions Home Exercise Program,Manual Therapy,Neuromuscular Re- education,Patient/Caregiver Education,Self-Care/Home Management,Soft Tissue Mobilization,Therapeutic Exercises Modalities Biofeedback Next Visit Focus/Plan Next Note Type Treatment Note Next Visit Plan review lumbar rotation stretch next week and how Kimber is feeling with low back tightness
--- NOTE | 2023-07-06 16:54 | PT.OTN ---
Current Diagnoses Other specified disorders of muscle (07/06/23) Segmental and somatic dysfunction of pelvic region (07/06/23) Physical Therapy Treatment Note PT-OP-A Visit Information Start: 03/16/23 15:56 Freq: Status: Active Protocol: Document 07/06/23 09:29 [facility] (Rec: 07/06/23 10:31 [facility] [id number]) Out-Patient Physical Therapy Visit Information Visit Information Visit Type Treatment Note Visit Note 4/8 visits allowed Visit Start Time 09:30 Visit Stop Time 10:15 Total Visit Minutes 45 Visit Number 10 Evaluation Information Evaluation Date 03/16/23 PT-OP-B Current Condition Start: 03/16/23 15:56 Freq: Status: Active Protocol: Document 03/16/23 16:03 [facility] (Rec: 03/16/23 16:34 [facility] [id number]) Current Condition History of Current Condition Onset Date 01/23/23 Current Complaints urinary incontinence , rib cage and LBP, right hip tightness History of Current Condition pt notes her baby was born January 23SepVentura Kenji, he ended up in the [facility] in [place] due to rhino virus, they were there for a week. They found out that her son needs heart surgery due to a chest xray and echocardiograhm. He will be having heart surgery at [facility] and date is not currently known. She notes now that in the am she will go to the bathroom but as she is sitting down she will leak, also as she is coughing she will drip. No increase in frequency during the day. She is getting 6-7 hour stretches of sleep at night. No c/o constipation. She was tender with intercourse but not painful. Right hip is still tight and did have some soreness in ther pelvis for a few days post . Kimbre describes continued Right sided rib pain though not as severe as it was initially and low back pain/tightness as well as right sided hip tightness. Prior Treatments and Tests pt notes her baby was born January 23SepVentura Kenji, he ended up in the [facility] in [place] due to rhino virus, they were there for a week. They found out that her son needs heart surgery due to a chest xray. He will be having heart surgery at [facility]. SHe notes now that in the am she will go to the bathroom but as she is sitting down she will leak, also as she is coughing she will drip. No increase in frequency during the day. She is getting 6-7 hour stretches of sleep at night. No c/o constipation. She was tender with intercourse but not painful. Right hip is still tight. she did have some soreness in ther pelvis for a few days post . 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 She also experiences low back tightness, she has been doing cat cow and tj pose. 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 Patient Reported Progress Improving PT-OP-F Manual Assessment Start: 03/16/23 15:56 Freq: Status: Active Protocol: Document 03/16/23 16:03 [facility] (Rec: 03/16/23 17:20 [facility] [id number]) Manual Assessments Soft Tissue Assessment Soft Tissue Mobility Assessment right sided tightness in the iliopsoas and adductors, + rufus test on the right side tightness of the left lumbar paraspinals Right piriformis tightness Joint Mobility Assessment Joint Mobility Assessment hypomobility of the T-spine T4 -T10 with PA glides PT-OP-I Pelvic Floor Start: 03/16/23 15:56 Freq: Status: Active Protocol: Document 03/16/23 16:03 [facility] (Rec: 03/16/23 17:20 [facility] [id number]) Pelvic Floor Assessment Urine Pelvic Floor Surgery No Urinary Symptoms Dysuria,Dribbling After Urination Other Urinary Symptoms urinary leakage in the AM on the way to the bathroom and leaking with coughing or jumping Leakage Size Small Leakage Cause Cough,Exercise,Sneeze,Urge Pelvic Clock Pelvic Clock 3-6 Tenderness,Tightness Pelvic Clock Other tightness in the left lateral kendall of the levator ani Perineal Descent Resting Absent Bearing Absent Contraction Ability Voluntary Contraction Weak Voluntary Relaxation Weak Manual Muscle Testing Left 3 Manual Muscle Testing Right 3 Manual Muscle Testing Anterior 3 Manual Muscle Testing Posterior 3 Muscle Endurance (Seconds) 5 PT-OP-M Strength Start: 03/16/23 15:56 Freq: Status: Active Protocol: Document 03/16/23 16:03 [facility] (Rec: 03/16/23 17:21 [facility] [id number]) Hip Strength Hip Manual Muscle Testing Left Abduction 4 Good External Rotation 4 Good Right Abduction 3+ Fair+ External Rotation 3+ Fair+ PT-OP-Q Treatments Start: 03/16/23 15:56 Freq: Status: Active Protocol: Document 07/06/23 16:52 [facility] (Rec: 07/06/23 16:54 [facility] [id number]) Manual Therapy Treatment Soft Tissue Mobilization QL release B Mobilization Type Myofascial Release Intensity/Depth Moderate Body Position Sidelying Comments tightness of the QL R>L side lumbar paraspinals Body Location right lumbar paraspinals Mobilization Type Myofascial Release Intensity/Depth Moderate Body Position Prone Comments prone over body pillow thoracic paraspinals Body Location thoracic paraspinals Mobilization Type Myofascial Release Body Position Prone Comments right greater than left side tightness in the thoracic paraspinals Manual Techniques prone quad stretch Reps/Duration hold 1 min each side PT-OP-T Assessment and Plan Start: 03/16/23 15:56 Freq: Status: Active Protocol: Document 07/06/23 16:52 [facility] (Rec: 07/06/23 16:54 [facility] [id number]) Physical Therapy Assessment Assessment Summary Assessment Mimi has been doing her rotation stretches, she is 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 She hasn't gotten in as much of her exercises due to this Physical Therapy Plan Frequency and Duration Frequency of Treatment 1x/Week Duration of treatment (weeks) 12 Plan of Care Start Date 05/18/23 Plan of Care End Date 08/10/23 Therapeutic Interventions Therapeutic Interventions Home Exercise Program,Manual Therapy,Neuromuscular Re- education,Patient/Caregiver Education,Self-Care/Home Management,Soft Tissue Mobilization,Therapeutic Exercises Modalities Biofeedback Next Visit Focus/Plan Next Visit Plan continue working on core stabilization, postural strengthening, manual therapy techniques
--- NOTE | 2023-07-11 16:06 | PT.OTN ---
Current Diagnoses Other specified disorders of muscle (07/11/23) Segmental and somatic dysfunction of pelvic region (07/11/23) Physical Therapy Treatment Note PT-OP-A Visit Information Start: 03/16/23 15:56 Freq: Status: Active Protocol: Document 07/11/23 11:15 [facility] (Rec: 07/11/23 16:06 [facility] [id number]) Out-Patient Physical Therapy Visit Information Visit Information Visit Type Treatment Note Visit Note 5/8 visits allowed Visit Start Time 11:15 Visit Stop Time 12:00 Total Visit Minutes 45 Visit Number 11 PT-OP-B Current Condition Start: 03/16/23 15:56 Freq: Status: Active Protocol: Document 03/16/23 16:03 [facility] (Rec: 03/16/23 16:34 [facility] [id number]) Current Condition History of Current Condition Onset Date 01/23/23 Current Complaints urinary incontinence , rib cage and LBP, right hip tightness History of Current Condition pt notes her baby was born January 23SepVentura Kenji, he ended up in the [facility] in [place] due to rhino virus, they were there for a week. They found out that her son needs heart surgery due to a chest xray and echocardiograhm. He will be having heart surgery at [facility] and date is not currently known. She notes now that in the am she will go to the bathroom but as she is sitting down she will leak, also as she is coughing she will drip. No increase in frequency during the day. She is getting 6-7 hour stretches of sleep at night. No c/o constipation. She was tender with intercourse but not painful. Right hip is still tight and did have some soreness in ther pelvis for a few days post . Kimber describes continued Right sided rib pain though not as severe as it was initially and low back pain/tightness as well as right sided hip tightness. Prior Treatments and Tests pt notes her baby was born January 23SepVentura Kenji, he ended up in the [facility] in [place] due to rhino virus, they were there for a week. They found out that her son needs heart surgery due to a chest xray. He will be having heart surgery at [facility]. SHe notes now that in the am she will go to the bathroom but as she is sitting down she will leak, also as she is coughing she will drip. No increase in frequency during the day. She is getting 6-7 hour stretches of sleep at night. No c/o constipation. She was tender with intercourse but not painful. Right hip is still tight. she did have some soreness in ther pelvis for a few days post . 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 She also experiences low back tightness, she has been doing cat cow and tj pose. Treatment Goals Patient/Caregiver Goals To improve pelvic floor and core strength post , reduce thoracic and LBP PT-OP-C Subjective Start: 03/16/23 15:56 Freq: Status: Active Protocol: Document 07/11/23 11:15 [facility] (Rec: 07/11/23 16:06 [facility] [id number]) OP-PT Subjective Patient Comments Patient Comments Kimber reports she was able to get 5 hours of sleep at one time and is feeling better. She is still tight especially in her upper thoracic back today PT-OP-F Manual Assessment Start: 03/16/23 15:56 Freq: Status: Active Protocol: Document 03/16/23 16:03 [facility] (Rec: 03/16/23 17:20 [facility] [id number]) Manual Assessments Soft Tissue Assessment Soft Tissue Mobility Assessment right sided tightness in the iliopsoas and adductors, + rufus test on the right side tightness of the left lumbar paraspinals Right piriformis tightness Joint Mobility Assessment Joint Mobility Assessment hypomobility of the T-spine T4 -T10 with PA glides PT-OP-I Pelvic Floor Start: 03/16/23 15:56 Freq: Status: Active Protocol: Document 03/16/23 16:03 [facility] (Rec: 03/16/23 17:20 [facility] [id number]) Pelvic Floor Assessment Urine Pelvic Floor Surgery No Urinary Symptoms Dysuria,Dribbling After Urination Other Urinary Symptoms urinary leakage in the AM on the way to the bathroom and leaking with coughing or jumping Leakage Size Small Leakage Cause Cough,Exercise,Sneeze,Urge Pelvic Clock Pelvic Clock 3-6 Tenderness,Tightness Pelvic Clock Other tightness in the left lateral kendall of the levator ani Perineal Descent Resting Absent Bearing Absent Contraction Ability Voluntary Contraction Weak Voluntary Relaxation Weak Manual Muscle Testing Left 3 Manual Muscle Testing Right 3 Manual Muscle Testing Anterior 3 Manual Muscle Testing Posterior 3 Muscle Endurance (Seconds) 5 PT-OP-M Strength Start: 03/16/23 15:56 Freq: Status: Active Protocol: Document 03/16/23 16:03 [facility] (Rec: 03/16/23 17:21 [facility] [id number]) Hip Strength Hip Manual Muscle Testing Left Abduction 4 Good External Rotation 4 Good Right Abduction 3+ Fair+ External Rotation 3+ Fair+ PT-OP-Q Treatments Start: 03/16/23 15:56 Freq: Status: Active Protocol: Document 07/11/23 11:15 [facility] (Rec: 07/11/23 16:06 [facility] [id number]) Manual Therapy Treatment Soft Tissue Mobilization QL release B Mobilization Type Myofascial Release Intensity/Depth Moderate Body Position Sidelying Comments tightness of the QL R>L side lumbar paraspinals Body Location right lumbar paraspinals Mobilization Type Myofascial Release Intensity/Depth Moderate Body Position Prone Comments prone over body pillow thoracic paraspinals Body Location thoracic paraspinals Mobilization Type Myofascial Release Body Position Prone Comments right greater than left side tightness in the thoracic paraspinals Joint Mobilizations PA glides T4-T10 Grade III Body Position Prone Comments good tolerance, hypomobility PT-OP-T Assessment and Plan Start: 03/16/23 15:56 Freq: Status: Active Protocol: Document 07/11/23 11:15 [facility] (Rec: 07/11/23 16:06 [facility] [id number]) Physical Therapy Assessment Assessment Summary Assessment Mimi was doing better today and was not as guarded. I did talk to her about postural exercises and stretches for her anterior chest. She has not been able to do a lot of her exercises with her being deployed and with her return to work. Physical Therapy Plan Frequency and Duration Frequency of Treatment 1x/Week Duration of treatment (weeks) 12 Plan of Care Start Date 05/18/23 Plan of Care End Date 08/10/23 Therapeutic Interventions Therapeutic Interventions Home Exercise Program,Manual Therapy,Neuromuscular Re- education,Patient/Caregiver Education,Self-Care/Home Management,Soft Tissue Mobilization,Therapeutic Exercises Modalities Biofeedback Next Visit Focus/Plan Next Visit Plan continue working on core stabilization, postural strengthening, manual therapy techniques
--- NOTE | 2023-07-27 13:24 | PT.OTN ---
Current Diagnoses Other specified disorders of muscle (07/27/23) Segmental and somatic dysfunction of pelvic region (07/27/23) Physical Therapy Treatment Note PT-OP-A Visit Information Start: 03/16/23 15:56 Freq: Status: Active Protocol: Document 07/27/23 12:34 [facility] (Rec: 07/27/23 13:24 [facility] [id number]) Out-Patient Physical Therapy Visit Information Visit Information Visit Type Treatment Note Visit Start Time 12:34 Visit Stop Time 13:14 Total Visit Minutes 40 Visit Number 12 PT-OP-B Current Condition Start: 03/16/23 15:56 Freq: Status: Active Protocol: Document 03/16/23 16:03 [facility] (Rec: 03/16/23 16:34 [facility] [id number]) Current Condition History of Current Condition Onset Date 01/23/23 Current Complaints urinary incontinence , rib cage and LBP, right hip tightness History of Current Condition pt notes her baby was born January 23SepVentura Kenji, he ended up in the [facility] in [place] due to rhino virus, they were there for a week. They found out that her son needs heart surgery due to a chest xray and echocardiograhm. He will be having heart surgery at [facility] and date is not currently known. She notes now that in the am she will go to the bathroom but as she is sitting down she will leak, also as she is coughing she will drip. No increase in frequency during the day. She is getting 6-7 hour stretches of sleep at night. No c/o constipation. She was tender with intercourse but not painful. Right hip is still tight and did have some soreness in ther pelvis for a few days post . Kimber describes continued Right sided rib pain though not as severe as it was initially and low back pain/tightness as well as right sided hip tightness. Prior Treatments and Tests pt notes her baby was born January 23SepVentura Kenji, he ended up in the [facility] in [place] due to rhino virus, they were there for a week. They found out that her son needs heart surgery due to a chest xray. He will be having heart surgery at [facility]. SHe notes now that in the am she will go to the bathroom but as she is sitting down she will leak, also as she is coughing she will drip. No increase in frequency during the day. She is getting 6-7 hour stretches of sleep at night. No c/o constipation. She was tender with intercourse but not painful. Right hip is still tight. she did have some soreness in ther pelvis for a few days post . She is [employer] at the right rib cage as well as thoracic spine and she notes bras bother her. She also experiences low back tightness, she has been doing cat cow and tj pose. Treatment Goals Patient/Caregiver Goals To improve pelvic floor and core strength post , reduce thoracic and LBP PT-OP-C Subjective Start: 03/16/23 15:56 Freq: Status: Active Protocol: Document 07/27/23 12:34 [facility] (Rec: 07/27/23 13:24 [facility] [id number]) OP-PT Subjective Patient Comments Patient Comments she is still feeling the tightness in her low back and in her hip PT-OP-F Manual Assessment Start: 03/16/23 15:56 Freq: Status: Active Protocol: Document 03/16/23 16:03 [facility] (Rec: 03/16/23 17:20 [facility] [id number]) Manual Assessments Soft Tissue Assessment Soft Tissue Mobility Assessment right sided tightness in the iliopsoas and adductors, + rufus test on the right side tightness of the left lumbar paraspinals Right piriformis tightness Joint Mobility Assessment Joint Mobility Assessment hypomobility of the T-spine T4 -T10 with PA glides PT-OP-I Pelvic Floor Start: 03/16/23 15:56 Freq: Status: Active Protocol: Document 03/16/23 16:03 [facility] (Rec: 03/16/23 17:20 [facility] [id number]) Pelvic Floor Assessment Urine Pelvic Floor Surgery No Urinary Symptoms Dysuria,Dribbling After Urination Other Urinary Symptoms urinary leakage in the AM on the way to the bathroom and leaking with coughing or jumping Leakage Size Small Leakage Cause Cough,Exercise,Sneeze,Urge Pelvic Clock Pelvic Clock 3-6 Tenderness,Tightness Pelvic Clock Other tightness in the left lateral kendall of the levator ani Perineal Descent Resting Absent Bearing Absent Contraction Ability Voluntary Contraction Weak Voluntary Relaxation Weak Manual Muscle Testing Left 3 Manual Muscle Testing Right 3 Manual Muscle Testing Anterior 3 Manual Muscle Testing Posterior 3 Muscle Endurance (Seconds) 5 PT-OP-M Strength Start: 03/16/23 15:56 Freq: Status: Active Protocol: Document 03/16/23 16:03 [facility] (Rec: 03/16/23 17:21 [facility] [id number]) Hip Strength Hip Manual Muscle Testing Left Abduction 4 Good External Rotation 4 Good Right Abduction 3+ Fair+ External Rotation 3+ Fair+ PT-OP-Q Treatments Start: 03/16/23 15:56 Freq: Status: Active Protocol: Document 07/27/23 12:34 [facility] (Rec: 07/27/23 13:24 [facility] [id number]) Manual Therapy Treatment Soft Tissue Mobilization psoas release on the right Body Location Right sided psoas release Comments worked in sidelying to release the right psoas lumbar paraspinals Body Location right lumbar paraspinals Mobilization Type Myofascial Release Intensity/Depth Moderate Body Position Prone Comments prone over body pillow thoracic paraspinals Body Location thoracic paraspinals Mobilization Type Myofascial Release Body Position Prone Comments right greater than left side tightness in the thoracic paraspinals Joint Mobilizations PA glides T4-T10 Grade III Body Position Prone Comments good tolerance, hypomobility PT-OP-T Assessment and Plan Start: 03/16/23 15:56 Freq: Status: Active Protocol: Document 07/27/23 12:34 [facility] (Rec: 07/27/23 13:24 [facility] [id number]) Physical Therapy Assessment Assessment Summary Assessment Mimi notes right hip tightness today and is still tight in her low back. She has not been able to return to exercise yet with her deployed and with her working. Her mom is here next week and she will be able to get in more exercise. Physical Therapy Plan Frequency and Duration Frequency of Treatment 1x/Week Duration of treatment (weeks) 12 Plan of Care Start Date 05/18/23 Plan of Care End Date 08/10/23 Therapeutic Interventions Therapeutic Interventions Home Exercise Program,Manual Therapy,Neuromuscular Re- education,Patient/Caregiver Education,Self-Care/Home Management,Soft Tissue Mobilization,Therapeutic Exercises Modalities Biofeedback Next Visit Focus/Plan Next Note Type Treatment Note Next Visit Plan continue working on core stabilization, postural strengthening, manual therapy techniques
--- NOTE | 2023-08-08 14:19 | PT.OTN ---
Current Diagnoses Other specified disorders of muscle (08/08/23) Segmental and somatic dysfunction of pelvic region (08/08/23) Physical Therapy Treatment Note PT-OP-A Visit Information Start: 03/16/23 15:56 Freq: Status: Active Protocol: Document 08/08/23 12:32 [facility] (Rec: 08/08/23 13:22 [facility] [id number]) Out-Patient Physical Therapy Visit Information Visit Information Visit Type Treatment Note Visit Note 04/15 Visit Start Time 12:32 Visit Stop Time 13:15 Total Visit Minutes 43 Visit Number 13 PT-OP-B Current Condition Start: 03/16/23 15:56 Freq: Status: Active Protocol: Document 03/16/23 16:03 [facility] (Rec: 03/16/23 16:34 [facility] [id number]) Current Condition History of Current Condition Onset Date 01/23/23 Current Complaints urinary incontinence , rib cage and LBP, right hip tightness History of Current Condition pt notes her baby was born January 23SepVentura Kenji, he ended up in the [facility] in [place] due to rhino virus, they were there for a week. They found out that her son needs heart surgery due to a chest xray and echocardiograhm. He will be having heart surgery at [facility] and date is not currently known. She notes now that in the am she will go to the bathroom but as she is sitting down she will leak, also as she is coughing she will drip. No increase in frequency during the day. She is getting 6-7 hour stretches of sleep at night. No c/o constipation. She was tender with intercourse but not painful. Right hip is still tight and did have some soreness in ther pelvis for a few days post . Kimber describes continued Right sided rib pain though not as severe as it was initially and low back pain/tightness as well as right sided hip tightness. Prior Treatments and Tests pt notes her baby was born January 23SepVentura Kenji, he ended up in the [facility] in [place] due to rhino virus, they were there for a week. They found out that her son needs heart surgery due to a chest xray. He will be having heart surgery at [facility]. SHe notes now that in the am she will go to the bathroom but as she is sitting down she will leak, also as she is coughing she will drip. No increase in frequency during the day. She is getting 6-7 hour stretches of sleep at night. No c/o constipation. She was tender with intercourse but not painful. Right hip is still tight. she did have some soreness in ther pelvis for a few days post . She is still operator brandy at the right rib cage as well as thoracic spine and she notes bras bother her. She also experiences low back tightness, she has been doing cat cow and tj pose. Treatment Goals Patient/Caregiver Goals To improve pelvic floor and core strength post , reduce thoracic and LBP PT-OP-C Subjective Start: 03/16/23 15:56 Freq: Status: Active Protocol: Document 08/08/23 12:32 [facility] (Rec: 08/08/23 13:22 [facility] [id number]) OP-PT Subjective Patient Comments Patient Comments Mimi has been coughing a lot due to having a hold but hasn' t noticed any leaking. She is also feeling like her sciatic is flaring on the right side PT-OP-F Manual Assessment Start: 03/16/23 15:56 Freq: Status: Active Protocol: Document 03/16/23 16:03 [facility] (Rec: 03/16/23 17:20 [facility] [id number]) Manual Assessments Soft Tissue Assessment Soft Tissue Mobility Assessment right sided tightness in the iliopsoas and adductors, + rufus test on the right side tightness of the left lumbar paraspinals Right piriformis tightness Joint Mobility Assessment Joint Mobility Assessment hypomobility of the T-spine T4 -T10 with PA glides PT-OP-I Pelvic Floor Start: 03/16/23 15:56 Freq: Status: Active Protocol: Document 03/16/23 16:03 [facility] (Rec: 03/16/23 17:20 [facility] [id number]) Pelvic Floor Assessment Urine Pelvic Floor Surgery No Urinary Symptoms Dysuria,Dribbling After Urination Other Urinary Symptoms urinary leakage in the AM on the way to the bathroom and leaking with coughing or jumping Leakage Size Small Leakage Cause Cough,Exercise,Sneeze,Urge Pelvic Clock Pelvic Clock 3-6 Tenderness,Tightness Pelvic Clock Other tightness in the left lateral kendall of the levator ani Perineal Descent Resting Absent Bearing Absent Contraction Ability Voluntary Contraction Weak Voluntary Relaxation Weak Manual Muscle Testing Left 3 Manual Muscle Testing Right 3 Manual Muscle Testing Anterior 3 Manual Muscle Testing Posterior 3 Muscle Endurance (Seconds) 5 PT-OP-M Strength Start: 03/16/23 15:56 Freq: Status: Active Protocol: Document 03/16/23 16:03 [facility] (Rec: 03/16/23 17:21 [facility] [id number]) Hip Strength Hip Manual Muscle Testing Left Abduction 4 Good External Rotation 4 Good Right Abduction 3+ Fair+ External Rotation 3+ Fair+ PT-OP-Q Treatments Start: 03/16/23 15:56 Freq: Status: Active Protocol: Document 08/08/23 12:32 [facility] (Rec: 08/08/23 13:22 [facility] [id number]) Therapeutic Exercises Supine Exercises pelvic floor quick flicks Reps/Minutes x 10 reps pelvic floor long holds Reps/Minutes 18.5 and 25.8 Manual Therapy Treatment Soft Tissue Mobilization QL release B Mobilization Type Myofascial Release Intensity/Depth Moderate Body Position Sidelying Comments tightness of the QL R>L side adductor release on the right Body Position Supine psoas release on the right Body Location Right sided psoas release Comments worked in sidelying to release the right psoas lumbar paraspinals Body Location right lumbar paraspinals Mobilization Type Myofascial Release Intensity/Depth Moderate Body Position Prone Comments prone over body pillow thoracic paraspinals Body Location thoracic paraspinals Mobilization Type Myofascial Release Body Position Prone Comments right greater than left side tightness in the thoracic paraspinals PT-OP-T Assessment and Plan Start: 03/16/23 15:56 Freq: Status: Active Protocol: Document 08/08/23 12:32 [facility] (Rec: 08/08/23 13:22 [facility] [id number]) Physical Therapy Assessment Goals 4 Impairment iliopsoas and quad tightness on the right hip Overnight Cashier Goal (LTG) Kimber presents with full hip ROM into extension and has a negative rufus test Kimber has been trying to fit in her stretches but is 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 She is overall doing better with reduced tightness however she does experience set backs LTG Duration 12 weeks 3 Impairment Decreased endurance of the pelvic floor Overnight Cashier Goal (LTG) Kimber is able to sustain a pelvic floor contraction x 10 seconds in supine and 5 seconds in standing GOAL MET LTG Duration 12 weeks 2 Impairment core weakess of the pelvic floor and lower abdominal muscles Short Term Goal (STG) Kimber is educated on core strengthening and pelvic floor strengthening using EMG biofeedback GOAL MET STG Duration 3 weeks Overnight Cashier Goal (LTG) Kimber presents with improvements in pelvic floor strength by 1 muscle grade and is able to facilitate TA for dynamic lumbar stabilization exercises Good progress LTG Duration 12 weeks 1 Impairment Right side thoracic and right side rib cage pain worse in positions such as breast feeding Short Term Goal (STG) pt is educated in postural stretches she can do to decrease strain to the thoracic spine GOAL MET STG Duration 4 weeks Overnight Cashier Goal (LTG) Kimber reports a overall reduction in thoracic and right sided rib cage pain and is able to breast feed without pain good progress and pain is slowly decreasing LTG Duration 12 weeks Assessment Summary Assessment Kimber has had a bad cold and has been coughing a lot but no urinary leaking, she notes she felt like she was close to leaking but didn't. We did revisit pelvic floor strength today and she is doing well with her endurance for pelvic floor contractions. 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 She is still tight in her paraspinals and right anterior hip. Kimber would benefit from continued PT Physical Therapy Plan Frequency and Duration Frequency of Treatment 1x/Week Duration of treatment (weeks) 12 Plan of Care Start Date 08/08/23 Plan of Care End Date 10/03/23 Therapeutic Interventions Therapeutic Interventions Home Exercise Program,Manual Therapy,Neuromuscular Re- education,Patient/Caregiver Education,Self-Care/Home Management,Soft Tissue Mobilization,Therapeutic Exercises Modalities Biofeedback Next Visit Focus/Plan Next Note Type Treatment Note Next Visit Plan continue working on core stabilization, postural strengthening, manual therapy techniques
--- NOTE | 2023-08-08 14:21 | PT.OPPOC ---
Physical, Occupational & Speech Therapy At [facility] Current Diagnoses Other specified disorders of muscle (08/08/23) Segmental and somatic dysfunction of pelvic region (08/08/23) Visit Care Team Role Provider Type Chayo Diego MD Attending Provider Physician Family Provider Primary Care Provider Referring Provider Specialty: Family Practice Address: [address] [place] [address], [facility] Email: [email or web address] Plan Of Care PT-OP-T Assessment and Plan Start: 03/16/23 15:56 Freq: Status: Active Protocol: Document 08/08/23 12:32 [facility] (Rec: 08/08/23 13:22 [facility] [id number]) Physical Therapy Assessment Goals 4 Impairment iliopsoas and quad tightness on the right hip Intermediate Goal (LTG) Kimber presents with full hip ROM into extension and has a negative rufus test Kimber has been trying to fit in her stretches but is 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 She is overall doing better with reduced tightness however she does experience set backs LTG Duration 12 weeks 3 Impairment Decreased endurance of the pelvic floor Tonal Regulator Goal (LTG) Kimber is able to sustain a pelvic floor contraction x 10 seconds in supine and 5 seconds in standing GOAL MET LTG Duration 12 weeks 2 Impairment core weakess of the pelvic floor and lower abdominal muscles Short Term Goal (STG) Kimber is educated on core strengthening and pelvic floor strengthening using EMG biofeedback GOAL MET STG Duration 3 weeks Intermediate Goal (LTG) Kimber presents with improvements in pelvic floor strength by 1 muscle grade and is able to facilitate TA for dynamic lumbar stabilization exercises Good progress LTG Duration 12 weeks 1 Impairment Right side thoracic and right side rib cage pain worse in positions such as breast feeding Short Term Goal (STG) pt is educated in postural stretches she can do to decrease strain to the thoracic spine GOAL MET STG Duration 4 weeks Intermediate Goal (LTG) Kimber reports a overall reduction in thoracic and right sided rib cage pain and is able to breast feed without pain good progress and pain is slowly decreasing LTG Duration 12 weeks Assessment Summary Assessment Kimber has had a bad cold and has been coughing a lot but no urinary leaking, she notes she felt like she was close to leaking but didn't. We did revisit pelvic floor strength today and she is doing well with her endurance for pelvic floor contractions. 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 She is still tight in her paraspinals and right anterior hip. Kimber would benefit from continued PT Physical Therapy Plan Frequency and Duration Frequency of Treatment 1x/Week Duration of treatment (weeks) 12 Plan of Care Start Date 08/08/23 Plan of Care End Date 10/03/23 Therapeutic Interventions Therapeutic Interventions Home Exercise Program,Manual Therapy,Neuromuscular Re- education,Patient/Caregiver Education,Self-Care/Home Management,Soft Tissue Mobilization,Therapeutic Exercises Modalities Biofeedback Next Visit Focus/Plan Next Note Type Treatment Note Next Visit Plan continue working on core stabilization, postural strengthening, manual therapy techniques Plan of Care Dates Plan of Care Start Date 08/08/23 Plan of Care End Date 10/03/23 Electronically Signed by: Hyacinth Gifford, PT 08/08/23 [id number] If you are in agreement with this Plan of Care, please return a signed and dated copy. I have reviewed this Plan of Care and certify that the skilled therapy services above are required to meet the patient?s needs. Physician Signature Date Printed Name and Credentials Clinical Instructor Signature Printed Name and Credentials
--- NOTE | 2023-08-17 14:00 | PT.OTN ---
Current Diagnoses Other specified disorders of muscle (08/17/23) Segmental and somatic dysfunction of pelvic region (08/17/23) Physical Therapy Treatment Note PT-OP-A Visit Information Start: 03/16/23 15:56 Freq: Status: Active Protocol: Document 08/17/23 12:35 [facility] (Rec: 08/17/23 14:00 [facility] [id number]) Out-Patient Physical Therapy Visit Information Visit Information Visit Type Treatment Note Visit Note 05/16 Visit Start Time 12:35 Visit Stop Time 13:20 Total Visit Minutes 45 Visit Number 14 PT-OP-B Current Condition Start: 03/16/23 15:56 Freq: Status: Active Protocol: Document 03/16/23 16:03 [facility] (Rec: 03/16/23 16:34 [facility] [id number]) Current Condition History of Current Condition Onset Date 01/23/23 Current Complaints urinary incontinence , rib cage and LBP, right hip tightness History of Current Condition pt notes her baby was born January 23SepVentura Kenji, he ended up in the [facility] in [place] due to rhino virus, they were there for a week. They found out that her son needs heart surgery due to a chest xray and echocardiograhm. He will be having heart surgery at [facility] and date is not currently known. She notes now that in the am she will go to the bathroom but as she is sitting down she will leak, also as she is coughing she will drip. No increase in frequency during the day. She is getting 6-7 hour stretches of sleep at night. No c/o constipation. She was tender with intercourse but not painful. Right hip is still tight and did have some soreness in ther pelvis for a few days post . Kimber describes continued Right sided rib pain though not as severe as it was initially and low back pain/tightness as well as right sided hip tightness. Prior Treatments and Tests pt notes her baby was born January 23SepVentura Kenji, he ended up in the [facility] in [place] due to rhino virus, they were there for a week. They found out that her son needs heart surgery due to a chest xray. He will be having heart surgery at [facility]. SHe notes now that in the am she will go to the bathroom but as she is sitting down she will leak, also as she is coughing she will drip. No increase in frequency during the day. She is getting 6-7 hour stretches of sleep at night. No c/o constipation. She was tender with intercourse but not painful. Right hip is still tight. she did have some soreness in ther pelvis for a few days post . She is shot coat tender at the right rib cage as well as thoracic spine and she notes bras bother her. She also experiences low back tightness, she has been doing cat cow and tj pose. Treatment Goals Patient/Caregiver Goals To improve pelvic floor and core strength post , reduce thoracic and LBP PT-OP-C Subjective Start: 03/16/23 15:56 Freq: Status: Active Protocol: Document 08/17/23 12:36 [facility] (Rec: 08/17/23 13:50 [facility] [id number]) OP-PT Subjective Patient Comments Patient Comments still feels tight in the low back but she has been doing a lot of strech, she slept wrong last night and her neck and upper back is sore Patient Reported Progress Improving PT-OP-F Manual Assessment Start: 03/16/23 15:56 Freq: Status: Active Protocol: Document 03/16/23 16:03 [facility] (Rec: 03/16/23 17:20 [facility] [id number]) Manual Assessments Soft Tissue Assessment Soft Tissue Mobility Assessment right sided tightness in the iliopsoas and adductors, + rufus test on the right side tightness of the left lumbar paraspinals Right piriformis tightness Joint Mobility Assessment Joint Mobility Assessment hypomobility of the T-spine T4 -T10 with PA glides PT-OP-I Pelvic Floor Start: 03/16/23 15:56 Freq: Status: Active Protocol: Document 03/16/23 16:03 [facility] (Rec: 03/16/23 17:20 [facility] [id number]) Pelvic Floor Assessment Urine Pelvic Floor Surgery No Urinary Symptoms Dysuria,Dribbling After Urination Other Urinary Symptoms urinary leakage in the AM on the way to the bathroom and leaking with coughing or jumping Leakage Size Small Leakage Cause Cough,Exercise,Sneeze,Urge Pelvic Clock Pelvic Clock 3-6 Tenderness,Tightness Pelvic Clock Other tightness in the left lateral kendall of the levator ani Perineal Descent Resting Absent Bearing Absent Contraction Ability Voluntary Contraction Weak Voluntary Relaxation Weak Manual Muscle Testing Left 3 Manual Muscle Testing Right 3 Manual Muscle Testing Anterior 3 Manual Muscle Testing Posterior 3 Muscle Endurance (Seconds) 5 PT-OP-M Strength Start: 03/16/23 15:56 Freq: Status: Active Protocol: Document 03/16/23 16:03 [facility] (Rec: 03/16/23 17:21 [facility] [id number]) Hip Strength Hip Manual Muscle Testing Left Abduction 4 Good External Rotation 4 Good Right Abduction 3+ Fair+ External Rotation 3+ Fair+ PT-OP-Q Treatments Start: 03/16/23 15:56 Freq: Status: Active Protocol: Document 08/17/23 12:35 [facility] (Rec: 08/17/23 14:00 [facility] [id number]) Manual Therapy Treatment Soft Tissue Mobilization thoracic paraspinals Body Location thoracic paraspinals Mobilization Type Myofascial Release Body Position Prone Comments paraspinal tightness decreased overall Joint Mobilizations PA glides T4-T10 Grade III Body Position Prone Comments good tolerance, hypomobility Manual Techniques suboccipital release Comments subocciptal tightness today B, Kimber could feel good release and was educated on self suboccipital release for home manual scalene stretch B Comments worked on scalene release bilaterally, left greater than right sided tightness PT-OP-T Assessment and Plan Start: 03/16/23 15:56 Freq: Status: Active Protocol: Document 08/17/23 12:35 [facility] (Rec: 08/17/23 14:00 [facility] [id number]) Physical Therapy Assessment Assessment Summary Assessment Kimber is doing overall better with her back, she is still hypomobile in the upper thoracic spine, She was tight in the upper thoracic spine and suboccipital region. We discussed self suboccipital release today Physical Therapy Plan Frequency and Duration Frequency of Treatment 1x/Week Duration of treatment (weeks) 12 Plan of Care Start Date 08/08/23 Plan of Care End Date 10/03/23 Next Visit Focus/Plan Next Note Type Treatment Note Next Visit Plan Kimber will need further authorization from her insurance for more visits. If she is allowed additional visits work toward improved thoracic mobility
--- NOTE | 2023-09-07 14:05 | PT.OTN ---
Current Diagnoses Other specified disorders of muscle (09/07/23) Segmental and somatic dysfunction of pelvic region (09/07/23) Physical Therapy Treatment Note PT-OP-A Visit Information Start: 03/16/23 15:56 Freq: Status: Active Protocol: Document 09/07/23 13:05 [facility] (Rec: 09/07/23 14:05 [facility] [id number]) Out-Patient Physical Therapy Visit Information Visit Information Visit Type Treatment Note Visit Note 10/20 Visit Start Time 13:05 Visit Stop Time 13:50 Total Visit Minutes 45 Visit Number 15 PT-OP-B Current Condition Start: 03/16/23 15:56 Freq: Status: Active Protocol: Document 03/16/23 16:03 [facility] (Rec: 03/16/23 16:34 [facility] [id number]) Current Condition History of Current Condition Onset Date 01/23/23 Current Complaints urinary incontinence , rib cage and LBP, right hip tightness History of Current Condition pt notes her baby was born January [birth year][place], he ended up in the [facility] in [place] due to rhino virus, they were there for a week. They found out that her son needs heart surgery due to a chest xray and echocardiograhm. He will be having heart surgery at [facility] and date is not currently known. She notes now that in the am she will go to the bathroom but as she is sitting down she will leak, also as she is coughing she will drip. No increase in frequency during the day. She is getting 6-7 hour stretches of sleep at night. No c/o constipation. She was tender with intercourse but not painful. Right hip is still tight and did have some soreness in ther pelvis for a few days post . Kimber describes continued Right sided rib pain though not as severe as it was initially and low back pain/tightness as well as right sided hip tightness. Prior Treatments and Tests pt notes her baby was born January 23[place] Ken[place], he ended up in the [facility] in [place] due to rhino virus, they were there for a week. They found out that her son needs heart surgery due to a chest xray. He will be having heart surgery at [facility]. SHe notes now that in the am she will go to the bathroom but as she is sitting down she will leak, also as she is coughing she will drip. No increase in frequency during the day. She is getting 6-7 hour stretches of sleep at night. No c/o constipation. She was tender with intercourse but not painful. Right hip is still tight. she did have some soreness in ther pelvis for a few days post . 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 She also experiences low back tightness, she has been doing cat cow and tj pose. 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 PT-OP-F Manual Assessment Start: 03/16/23 15:56 Freq: Status: Active Protocol: Document 03/16/23 16:03 [facility] (Rec: 03/16/23 17:20 [facility] [id number]) Manual Assessments Soft Tissue Assessment Soft Tissue Mobility Assessment right sided tightness in the iliopsoas and adductors, + rufus test on the right side tightness of the left lumbar paraspinals Right piriformis tightness Joint Mobility Assessment Joint Mobility Assessment hypomobility of the T-spine T4 -T10 with PA glides PT-OP-I Pelvic Floor Start: 03/16/23 15:56 Freq: Status: Active Protocol: Document 03/16/23 16:03 [facility] (Rec: 03/16/23 17:20 [facility] [id number]) Pelvic Floor Assessment Urine Pelvic Floor Surgery No Urinary Symptoms Dysuria,Dribbling After Urination Other Urinary Symptoms urinary leakage in the AM on the way to the bathroom and leaking with coughing or jumping Leakage Size Small Leakage Cause Cough,Exercise,Sneeze,Urge Pelvic Clock Pelvic Clock 3-6 Tenderness,Tightness Pelvic Clock Other tightness in the left lateral kendall of the levator ani Perineal Descent Resting Absent Bearing Absent Contraction Ability Voluntary Contraction Weak Voluntary Relaxation Weak Manual Muscle Testing Left 3 Manual Muscle Testing Right 3 Manual Muscle Testing Anterior 3 Manual Muscle Testing Posterior 3 Muscle Endurance (Seconds) 5 PT-OP-M Strength Start: 03/16/23 15:56 Freq: Status: Active Protocol: Document 03/16/23 16:03 [facility] (Rec: 03/16/23 17:21 [facility] [id number]) Hip Strength Hip Manual Muscle Testing Left Abduction 4 Good External Rotation 4 Good Right Abduction 3+ Fair+ External Rotation 3+ Fair+ PT-OP-Q Treatments Start: 03/16/23 15:56 Freq: Status: Active Protocol: Document 09/07/23 13:05 [facility] (Rec: 09/07/23 14:05 [facility] [id number]) Manual Therapy Treatment Soft Tissue Mobilization QL release B Mobilization Type Myofascial Release Intensity/Depth Moderate Body Position Sidelying Comments tightness of the QL R>L side adductor release on the right Body Position Supine psoas release on the right Body Location Right sided psoas release Comments worked in sidelying to release the right psoas lumbar paraspinals Body Location right lumbar paraspinals Mobilization Type Myofascial Release Intensity/Depth Moderate Body Position Prone Comments prone over body pillow thoracic paraspinals Body Location thoracic paraspinals Mobilization Type Myofascial Release Body Position Prone Comments paraspinal tightness decreased overall Manual Techniques prone quad stretch Body Location B quads Comments hold 1-2 min each manual iliopsoas stretch Comments hold 2 min in rufus test position PT-OP-T Assessment and Plan Start: 03/16/23 15:56 Freq: Status: Active Protocol: Document 09/07/23 13:05 [facility] (Rec: 09/07/23 14:05 [facility] [id number]) Physical Therapy Assessment Assessment Summary Assessment Kimber felt tighter today throughout her right hip and low back, I encouraged her to work on sidebending and thoracic rotation in quadruped as she can Physical Therapy Plan Frequency and Duration Frequency of Treatment 1x/Week Duration of treatment (weeks) 12 Plan of Care Start Date 08/08/23 Plan of Care End Date 10/03/23 Therapeutic Interventions Therapeutic Interventions Home Exercise Program,Manual Therapy,Neuromuscular Re- education,Patient/Caregiver Education,Self-Care/Home Management,Soft Tissue Mobilization,Therapeutic Exercises Modalities Biofeedback Next Visit Focus/Plan Next Note Type Treatment Note Next Visit Plan Mimi was given 12 additional PT visits, continue with stabilization and MFR work for the low back and hips
--- NOTE | 2023-09-26 16:30 | PT.OTN ---
Current Diagnoses Other specified disorders of muscle (09/26/23) Segmental and somatic dysfunction of pelvic region (09/26/23) Physical Therapy Treatment Note PT-OP-A Visit Information Start: 03/16/23 15:56 Freq: Status: Active Protocol: Document 09/26/23 13:52 [facility] (Rec: 09/26/23 14:32 [facility] [id number]) Out-Patient Physical Therapy Visit Information Visit Information Visit Type Treatment Note Visit Note 11/20 PT-OP-B Current Condition Start: 03/16/23 15:56 Freq: Status: Active Protocol: Document 03/16/23 16:03 [facility] (Rec: 03/16/23 16:34 [facility] [id number]) Current Condition History of Current Condition Onset Date 01/23/23 Current Complaints urinary incontinence , rib cage and LBP, right hip tightness History of Current Condition pt notes her baby was born January 23 [facility], he ended up in the [facility] in [place] due to rhino virus, they were there for a week. They found out that her son needs heart surgery due to a chest xray and echocardiograhm. He will be having heart surgery at [facility] and date is not currently known. She notes now that in the am she will go to the bathroom but as she is sitting down she will leak, also as she is coughing she will drip. No increase in frequency during the day. She is getting 6-7 hour stretches of sleep at night. No c/o constipation. She was tender with intercourse but not painful. Right hip is still tight and did have some soreness in ther pelvis for a few days post . Kimber describes continued Right sided rib pain though not as severe as it was initially and low back pain/tightness as well as right sided hip tightness. Prior Treatments and Tests pt notes her baby was born January 23 [facility], he ended up in the [facility] in [place] due to rhino virus, they were there for a week. They found out that her son needs heart surgery due to a chest xray. He will be having heart surgery at [facility]. SHe notes now that in the am she will go to the bathroom but as she is sitting down she will leak, also as she is coughing she will drip. No increase in frequency during the day. She is getting 6-7 hour stretches of sleep at night. No c/o constipation. She was tender with intercourse but not painful. Right hip is still tight. she did have some soreness in ther pelvis for a few days post . 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 She also experiences low back tightness, she has been doing cat cow and tj pose. Treatment Goals Patient/Caregiver Goals To improve pelvic floor and core strength post , reduce thoracic and LBP PT-OP-C Subjective Start: 03/16/23 15:56 Freq: Status: Active Protocol: Document 09/26/23 13:52 [facility] (Rec: 09/26/23 14:32 [facility] [id number]) OP-PT Subjective Patient Comments Patient Comments pt notes her back is feeling tight. PT-OP-F Manual Assessment Start: 03/16/23 15:56 Freq: Status: Active Protocol: Document 03/16/23 16:03 [facility] (Rec: 03/16/23 17:20 [facility] [id number]) Manual Assessments Soft Tissue Assessment Soft Tissue Mobility Assessment right sided tightness in the iliopsoas and adductors, + rufus test on the right side tightness of the left lumbar paraspinals Right piriformis tightness Joint Mobility Assessment Joint Mobility Assessment hypomobility of the T-spine T4 -T10 with PA glides PT-OP-I Pelvic Floor Start: 03/16/23 15:56 Freq: Status: Active Protocol: Document 03/16/23 16:03 [facility] (Rec: 03/16/23 17:20 [facility] [id number]) Pelvic Floor Assessment Urine Pelvic Floor Surgery No Urinary Symptoms Dysuria,Dribbling After Urination Other Urinary Symptoms urinary leakage in the AM on the way to the bathroom and leaking with coughing or jumping Leakage Size Small Leakage Cause Cough,Exercise,Sneeze,Urge Pelvic Clock Pelvic Clock 3-6 Tenderness,Tightness Pelvic Clock Other tightness in the left lateral kendall of the levator ani Perineal Descent Resting Absent Bearing Absent Contraction Ability Voluntary Contraction Weak Voluntary Relaxation Weak Manual Muscle Testing Left 3 Manual Muscle Testing Right 3 Manual Muscle Testing Anterior 3 Manual Muscle Testing Posterior 3 Muscle Endurance (Seconds) 5 PT-OP-M Strength Start: 03/16/23 15:56 Freq: Status: Active Protocol: Document 03/16/23 16:03 [facility] (Rec: 03/16/23 17:21 [facility] [id number]) Hip Strength Hip Manual Muscle Testing Left Abduction 4 Good External Rotation 4 Good Right Abduction 3+ Fair+ External Rotation 3+ Fair+ PT-OP-Q Treatments Start: 03/16/23 15:56 Freq: Status: Active Protocol: Document 09/26/23 16:27 [facility] (Rec: 09/26/23 16:30 [facility] [id number]) Manual Therapy Treatment Soft Tissue Mobilization adductor release on the right Mobilization Type Myofascial Release Body Position Supine psoas release on the right Body Location Right sided psoas release Comments worked in sidelying to release the right psoas lumbar paraspinals Body Location right lumbar paraspinals Mobilization Type Myofascial Release Intensity/Depth Moderate Body Position Prone Comments prone over body pillow PT-OP-T Assessment and Plan Start: 03/16/23 15:56 Freq: Status: Active Protocol: Document 09/26/23 16:27 [facility] (Rec: 09/26/23 16:30 [facility] [id number]) Physical Therapy Assessment Assessment Summary Assessment Kimber was tight in her right hip today and low back. She is doing all the caregiving for her kids on her own as her is deployed and her son just underwent his second surgery. She has not been able to get in a lot of her stretches or exercises Physical Therapy Plan Frequency and Duration Frequency of Treatment 1x/Week Duration of treatment (weeks) 12 Plan of Care Start Date 08/08/23 Plan of Care End Date 10/03/23 Therapeutic Interventions Therapeutic Interventions Home Exercise Program,Manual Therapy,Neuromuscular Re- education,Patient/Caregiver Education,Self-Care/Home Management,Soft Tissue Mobilization,Therapeutic Exercises Modalities Biofeedback Next Visit Focus/Plan Next Note Type Treatment Note Next Visit Plan continue with stabilization and MFR work for the low back and hips
--- NOTE | 2023-10-18 12:34 | PT.OTN ---
Current Diagnoses Other specified disorders of muscle (10/18/23) Segmental and somatic dysfunction of pelvic region (10/18/23) Physical Therapy Treatment Note PT-OP-A Visit Information Start: 03/16/23 15:56 Freq: Status: Active Protocol: Document 10/18/23 09:50 [facility] (Rec: 10/18/23 12:31 [facility] [id number]) Out-Patient Physical Therapy Visit Information Visit Information Visit Type Treatment Note Visit Start Time 09:50 Visit Stop Time 10:30 Total Visit Minutes 40 Visit Number 17 PT-OP-B Current Condition Start: 03/16/23 15:56 Freq: Status: Active Protocol: Document 03/16/23 16:03 [facility] (Rec: 03/16/23 16:34 [facility] [id number]) Current Condition History of Current Condition Onset Date 01/23/23 Current Complaints urinary incontinence , rib cage and LBP, right hip tightness History of Current Condition pt notes her baby was born January [place], he ended up in the [facility] in [place] due to rhino virus, they were there for a week. They found out that her son needs heart surgery due to a chest xray and echocardiograhm. He will be having heart surgery at [facility] and date is not currently known. She notes now that in the am she will go to the bathroom but as she is sitting down she will leak, also as she is coughing she will drip. No increase in frequency during the day. She is getting 6-7 hour stretches of sleep at night. No c/o constipation. She was tender with intercourse but not painful. Right hip is still tight and did have some soreness in ther pelvis for a few days post . Kimber describes continued Right sided rib pain though not as severe as it was initially and low back pain/tightness as well as right sided hip tightness. Prior Treatments and Tests pt notes her baby was born January [place], he ended up in the [facility] in [place] due to rhino virus, they were there for a week. They found out that her son needs heart surgery due to a chest xray. He will be having heart surgery at [facility]. SHe notes now that in the am she will go to the bathroom but as she is sitting down she will leak, also as she is coughing she will drip. No increase in frequency during the day. She is getting 6-7 hour stretches of sleep at night. No c/o constipation. She was tender with intercourse but not painful. Right hip is still tight. she did have some soreness in ther pelvis for a few days post . 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 She also experiences low back tightness, she has been doing cat cow and tj pose. Treatment Goals Patient/Caregiver Goals To improve pelvic floor and core strength post , reduce thoracic and LBP PT-OP-C Subjective Start: 03/16/23 15:56 Freq: Status: Active Protocol: Document 10/18/23 09:49 [facility] (Rec: 10/18/23 10:35 [facility] [id number]) OP-PT Subjective Patient Comments Patient Comments pt notes her husbands gets home monday. PT-OP-F Manual Assessment Start: 03/16/23 15:56 Freq: Status: Active Protocol: Document 03/16/23 16:03 [facility] (Rec: 03/16/23 17:20 [facility] [id number]) Manual Assessments Soft Tissue Assessment Soft Tissue Mobility Assessment right sided tightness in the iliopsoas and adductors, + rufus test on the right side tightness of the left lumbar paraspinals Right piriformis tightness Joint Mobility Assessment Joint Mobility Assessment hypomobility of the T-spine T4 -T10 with PA glides PT-OP-I Pelvic Floor Start: 03/16/23 15:56 Freq: Status: Active Protocol: Document 03/16/23 16:03 [facility] (Rec: 03/16/23 17:20 [facility] [id number]) Pelvic Floor Assessment Urine Pelvic Floor Surgery No Urinary Symptoms Dysuria,Dribbling After Urination Other Urinary Symptoms urinary leakage in the AM on the way to the bathroom and leaking with coughing or jumping Leakage Size Small Leakage Cause Cough,Exercise,Sneeze,Urge Pelvic Clock Pelvic Clock 3-6 Tenderness,Tightness Pelvic Clock Other tightness in the left lateral kendall of the levator ani Perineal Descent Resting Absent Bearing Absent Contraction Ability Voluntary Contraction Weak Voluntary Relaxation Weak Manual Muscle Testing Left 3 Manual Muscle Testing Right 3 Manual Muscle Testing Anterior 3 Manual Muscle Testing Posterior 3 Muscle Endurance (Seconds) 5 PT-OP-M Strength Start: 03/16/23 15:56 Freq: Status: Active Protocol: Document 03/16/23 16:03 [facility] (Rec: 03/16/23 17:21 [facility] [id number]) Hip Strength Hip Manual Muscle Testing Left Abduction 4 Good External Rotation 4 Good Right Abduction 3+ Fair+ External Rotation 3+ Fair+ PT-OP-Q Treatments Start: 03/16/23 15:56 Freq: Status: Active Protocol: Document 10/18/23 09:50 [facility] (Rec: 10/18/23 12:31 [facility] [id number]) Manual Therapy Treatment Soft Tissue Mobilization QL release B Mobilization Type Myofascial Release Intensity/Depth Moderate Body Position Sidelying Comments tightness of the QL R>L side adductor release on the right Mobilization Type Myofascial Release Body Position Supine psoas release on the right Body Location Right sided psoas release Comments worked in sidelying to release the right psoas lumbar paraspinals Body Location right lumbar paraspinals Mobilization Type Myofascial Release Intensity/Depth Moderate Body Position Sidelying Comments left sidelying releasing the right paraspinals Manual Techniques manual recheck of leg length Comments legs equal today manual iliopsoas stretch Comments hold 2 min in rufus test position Self-Care/Home Management Treatment Education Patient Education Home Exercise Program Other Education pt shown seated rolling her foot on a golf ball and arch lifts to assist with foot pain , time was spent discussing her foot pain and she is working on wearing her shoes for support PT-OP-T Assessment and Plan Start: 03/16/23 15:56 Freq: Status: Active Protocol: Document 10/18/23 09:50 [facility] (Rec: 10/18/23 12:31 [facility] [id number]) Physical Therapy Assessment Goals 4 Impairment iliopsoas and quad tightness on the right hip Prison Goal (LTG) Kimber presents with full hip ROM into extension and has a negative rufus test Kimber has been trying to fit in her stretches but is 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 She is overall doing better with reduced tightness however she does experience set backs LTG Duration 12 weeks 3 Impairment Decreased endurance of the pelvic floor [place] Goal (LTG) Kimber is able to sustain a pelvic floor contraction x 10 seconds in supine and 5 seconds in standing GOAL MET LTG Duration 12 weeks 2 Impairment core weakess of the pelvic floor and lower abdominal muscles Short Term Goal (STG) Kimber is educated on core strengthening and pelvic floor strengthening using EMG biofeedback GOAL MET STG Duration 3 weeks [place] Goal (LTG) Kimber presents with improvements in pelvic floor strength by 1 muscle grade and is able to facilitate TA for dynamic lumbar stabilization exercises Good progress LTG Duration 12 weeks 1 Impairment Right side thoracic and right side rib cage pain worse in positions such as breast feeding Short Term Goal (STG) pt is educated in postural stretches she can do to decrease strain to the thoracic spine GOAL MET STG Duration 4 weeks Prison Goal (LTG) Kimber reports a overall reduction in thoracic and right sided rib cage pain and is able to breast feed without pain good progress and pain is slowly decreasing LTG Duration 12 weeks Assessment Summary Assessment Kimber seems to be doing a little better with her low back and hip. 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 She feels good about her home program and at this time we will DC PT for her hip and back. She does have a PT referral for her right shoulder which she will start in November. Physical Therapy Plan Discharge Physical Therapy Discharge Comments pt is feeling good with her home program at this time and will DC PT for her hips and back
== END 2023-10-23 14:54 | disposition home or self-care (01) ==
LOC: PHYS 09:45
PROVIDERS: Family Provider Family Medicine; PCP Family Medicine; Referring Provider Family Medicine; Visit Provider Family Medicine
DX: M99.05 Segmental and somatic dysfunction of pelvic region (principal); M62.89 Other specified disorders of muscle
CPT/HCPCS: 97110; 97140; 97161; 97535

== ENCOUNTER → 2023-11-28 14:11 | Outpatient (CLI) | payer OTHER, SELFPAY ==
[2023-11-28 14:56] LABS: Add Manual Diff / Slide Review NO; Basophils Absolute Auto 0 /uL (0-100); Basophils Percent Auto 0.3 % (0-2); Eosinophils Absolute Auto 400 /uL (0-450); Eosinophils Percent Auto 4.3 % (2-4); Hematocrit 40.2 % (36-46); Hemoglobin 13.3 g/dL (12.0-16.0); Lymphocytes Absolute Auto 2700 /uL (1100-4500); Lymphocytes Percent Auto 25.6 % (25-40); Mean Corpuscular HGB Conc 33.2 % (30-36); Mean Corpuscular Hemoglobin 29.2 PG (26-34); Mean Corpuscular Volume 87.9 fL (80-100); Monocytes Absolute Auto 600 /uL (0-900); Monocytes Percent Auto 5.8 % (3-14); Neutrophils Absolute Auto 6700 /uL (1500-7000); Platelet Count 255 X10^3/uL (150-400); Red Blood Cell Count 4.57 X10^6/uL (4.0-5.2); Red Cell Distribution Width 13.4 % (11.6-14.8); White Blood Cell Count 10.5 X10^3/uL (4.5-11.0)
[2023-11-28 15:23] LABS: Hemoglobin A1C% w Est Avg Glu 5.2 % (4.0-6.0)
[2023-11-28 15:27] LABS: Alanine Aminotransferase 18 IU/L (<35); Albumin 4.2 g/dL (3.5-5.0); Albumin Globulin Ratio 1.6 (1.0-2.8); Alkaline Phosphatase 79 U/L (38-126); Aspartate Aminotransferase 23 IU/L (14-36); Bilirubin Total 0.3 mg/dL (0.2-1.3); Blood Urea Nitrogen 20 mg/dL (7-17); Calcium 9.1 mg/dL (8.4-10.2); Carbon Dioxide 25 mmol/L (22-32); Chloride 104 mmol/L (98-107); Estimated Glomerular Filt Rate > 60 mL/min (>60); Globulin 2.6 g/dL (1.7-4.1); Glucose 91 mg/dL (70-100); HEMOLYSIS < 15 (0-50); Potassium 4.2 mmol/L (3.4-5.1); Sodium 140 mmol/L (137-145); Total Protein 6.8 g/dL (6.3-8.2)
[2023-11-28 15:36] LABS: Free T4, Direct Thyroxine 1.23 ng/dL (0.78-2.19)
[2023-11-28 15:49] LABS: Thyroid Stimulating Hormone 2.46 uIU/mL (0.47-4.68)
[2023-11-28 15:50] LABS: Follicle Stimulating Hormone 2.82 mIU/mL; Luteinizing Hormone 8.94 mIU/mL
[2023-11-29 08:35] LABS: Triiodothyronine T3 Total 90 ng/dL (71-180)
[2023-12-03 18:07] LABS: Estrogen 242 pg/mL (.)
== END ==
PROVIDERS: Family Provider Family Medicine; PCP Family Medicine; Referring Provider Family Medicine; Visit Provider Family Medicine
DX: R63.5 Abnormal weight gain (principal)
CPT/HCPCS: 36415; 80053; 82670; 82672; 83001; 83002; 83036; 84439; 84443; 84480; 85025

== ENCOUNTER → 2023-12-29 10:25 | Outpatient (CLI) | payer OTHER, SELFPAY ==
--- NOTE | 2023-12-29 11:28 | DI.RAD.S_ITS ---
PROCEDURE: XR CHEST 2V INDICATIONS: cough, SOB TECHNIQUE: 2 views of the chest were acquired. COMPARISON: None. FINDINGS: Surgical changes and devices: None. Lungs and pleura: Lungs are clear. No pleural effusions or pneumothorax. Mediastinum: Mediastinal contours are normal. Heart size is normal. Bones and chest wall: No suspicious bony abnormalities. Soft tissues appear unremarkable. IMPRESSION: No acute cardiopulmonary abnormality. Dictated by: Quinten Vallecillo M.D. on 12/29/2023 at 14:43 Approved by: Quinten Vallecillo M.D. on 12/29/2023 at 14:43
== END ==
PROVIDERS: Family Provider Family Medicine; PCP Family Medicine; Referring Provider Family Medicine; Visit Provider Family Medicine
DX: R05.9 Cough, unspecified (principal); R53.83 Other fatigue
CPT/HCPCS: 71046

== ENCOUNTER → 2024-01-05 13:31 | Outpatient (CLI) | payer OTHER, SELFPAY ==
[2024-01-05 15:33] LABS: Iron 65 ug/dL (37-170); Magnesium 2.2 mg/dL (1.6-2.3)
[2024-01-05 15:47] LABS: T4 Total Thyroxine 7.65 ug/dL (5.5-11.0)
[2024-01-05 16:18] LABS: Vitamin B12 835 pg/mL (239-931)
[2024-01-07 11:30] LABS: Triiodothyronine T3 Total 109 ng/dL (71-180)
[2024-01-09 19:36] LABS: Anti Thyroglobulin Antibody <1.0 IU/mL (0.0-0.9); Thyroid Peroxidase Antibodies 11 IU/mL (0-34)
[2024-01-14 15:10] LABS: 1,25-Dihydroxy, Vitamin D-2 <10 pg/mL (.)
== END ==
LOC: LAB 13:31
PROVIDERS: Family Provider Family Medicine; PCP Family Medicine; Referring Provider Family Medicine; Visit Provider Family Medicine
DX: Z13.9 Encounter for screening, unspecified (principal); D64.9 Anemia, unspecified; R53.83 Other fatigue; E53.9 Vitamin B deficiency, unspecified; E55.9 Vitamin D deficiency, unspecified
CPT/HCPCS: 36415; 82607; 82652; 83540; 83735; 84436; 84480; 86376; 86800

== ENCOUNTER → 2024-01-06 12:51 | Outpatient (CLI) | payer OTHER, SELFPAY ==
--- NOTE | 2024-01-06 12:53 | DI.RAD.S_ITS ---
PROCEDURE: XR RIBS LT MIN 3V W CXR1V INDICATIONS: Left rib pain TECHNIQUE: 2 views of the ribs were acquired, along with a single view chest. COMPARISON: None. FINDINGS: Surgical changes and devices: None. Bones and chest wall: No fractures or dislocations. No suspicious bony lesions. Overlying soft tissues appear unremarkable. Lungs and pleura: No pleural effusions or pneumothorax. Lungs appear clear. Mediastinum: Mediastinal contours appear normal. Heart size is normal. IMPRESSION: No displaced rib fracture or pneumothorax. Dictated by: Jas Loza M.D. on 01/06/2024 at 18:42 Approved by: Jas Loza M.D. on 01/06/2024 at 18:42
== END ==
PROVIDERS: Family Provider Family Medicine; PCP Family Medicine; Referring Provider Nurse Practitioner Family; Visit Provider Nurse Practitioner Family
DX: R07.81 Pleurodynia (principal)
CPT/HCPCS: 71101

== ENCOUNTER → 2024-01-18 07:55 | Outpatient (CLI) | payer OTHER, SELFPAY ==
[2024-01-19 03:01] LABS: Cortisol AM (Before 10AM) 12.5 ug/dL (4.46-22.7)
== END ==
LOC: LAB 07:56
PROVIDERS: Family Provider Family Medicine; PCP Family Medicine; Referring Provider Family Medicine; Visit Provider Family Medicine
DX: R53.83 Other fatigue (principal)
CPT/HCPCS: 36415; 82533

== ENCOUNTER → 2024-01-19 10:14 | Outpatient (CLI) | payer OTHER, SELFPAY ==
[2024-01-19 11:22] LABS: COVID-19 CEPHEID 4-PLEX PCR Negative (Negative); Influenza A - CEPHEID Flu A NEGATIVE (NEGATIVE); Influenza B - CEPHEID Flu B NEGATIVE (NEGATIVE); Respiratory Syncytial Virus Negative (Negative)
== END ==
PROVIDERS: Family Provider Family Medicine; PCP Family Medicine; Visit Provider Family Medicine
DX: R05.3 Chronic cough (principal)
CPT/HCPCS: 0241U

== ENCOUNTER → 2024-01-19 10:22 | Outpatient (CLI) | payer OTHER, SELFPAY ==
--- NOTE | 2024-01-19 10:24 | DI.RAD.S_ITS ---
PROCEDURE: XR CHEST 2V INDICATIONS: cough TECHNIQUE: 2 views of the chest were acquired. COMPARISON: [facility], CR, XR CHEST 2V, 12/29/2023, 11:30. FINDINGS: Surgical changes and devices: None. Lungs and pleura: Lungs are clear. No pleural effusions or pneumothorax. Mediastinum: Mediastinal contours are normal. Heart size is normal. Bones and chest wall: No suspicious bony abnormalities. Soft tissues appear unremarkable. IMPRESSION: No acute cardiopulmonary abnormalities or focal airspace disease. Dictated by: Zoran Perez M.D. on 01/19/2024 at 21:36 Approved by: Zoran Perez M.D. on 01/19/2024 at 21:36
== END ==
LOC: RAD 10:23
PROVIDERS: Family Provider Family Medicine; PCP Family Medicine; Referring Provider Family Medicine; Visit Provider Family Medicine
DX: R05.3 Chronic cough (principal)
CPT/HCPCS: 0241U; 71046

== ENCOUNTER → 2024-04-30 13:18 | Outpatient (CLI) | payer OTHER, SELFPAY | PROVIDERS: Family Provider Family Medicine; PCP Family Medicine; Referring Provider Family Medicine; Visit Provider Family Medicine | DX: R05.9 Cough, unspecified (principal); R94.2 Abnormal results of pulmonary function studies | CPT/HCPCS: 94060; 94726; 94729 ==

== ENCOUNTER → 2024-06-04 10:01 | Outpatient (CLI) | payer OTHER, SELFPAY ==
[2024-06-04 12:35] LABS: Free T3, Triiodothyronine Free 9.98 pg/mL (2.77-5.27); Free T4, Direct Thyroxine 1.43 ng/dL (0.78-2.19)
[2024-06-04 12:49] LABS: Thyroid Stimulating Hormone 2.02 uIU/mL (0.47-4.68)
[2024-06-05 07:10] LABS: Thyroid Peroxidase Antibodies <9 IU/mL (0-34)
== END ==
PROVIDERS: Family Provider Family Medicine; PCP Family Medicine; Referring Provider Family Medicine; Visit Provider Family Medicine
DX: R79.89 Other specified abnormal findings of blood chemistry (principal)
CPT/HCPCS: 36415; 84439; 84443; 84481; 86376

== ENCOUNTER → 2024-06-13 11:37 | Outpatient (CLI) | payer OTHER, SELFPAY ==
[2024-06-13 12:25] LABS: COVID-19 CEPHEID 4-PLEX PCR Negative (Negative); Influenza A - CEPHEID Flu A NEGATIVE (NEGATIVE); Influenza B - CEPHEID Flu B NEGATIVE (NEGATIVE); Respiratory Syncytial Virus Negative (Negative)
== END ==
PROVIDERS: Family Provider Family Medicine; PCP Family Medicine; Visit Provider Physician Assistant Medical
DX: R05.1 Acute cough (principal)
CPT/HCPCS: 0241U

== ENCOUNTER 2024-08-12 01:43 | Emergency (ER) | payer OTHER, SELFPAY ==
[2024-08-12 02:07] VITALS: BP 130/61; PULSE 91; RESP 16; TEMP 36.5; O2SAT 100; BMI 28.8
--- NOTE | 2024-08-12 02:31 | DI.RAD.S_ITS ---
PROCEDURE: XR FOOT LT MIN 3V INDICATIONS: fall down stairs, pain, swelling TECHNIQUE: 3 views of the foot were acquired. COMPARISON: [facility], CR, XR FOOT RT MIN 3V, 06/20/2023, 14:45. FINDINGS: Bones: Extra-articular 5th metatarsal shaft fracture. Soft tissues: No tibiotalar joint effusion. Achilles tendon appears normal. Soft tissue swelling present. IMPRESSION: Extra-articular 5th metatarsal shaft fracture. Agree with preliminary report. Dictated by: Alfredo Dale M.D. on 08/12/2024 at 7:59 Approved by: Alfreod Dale M.D. on 08/12/2024 at 8:00
--- NOTE | 2024-08-12 02:31 | DI.RAD.S_ITS ---
PROCEDURE: XR ANKLE LT MIN 3V INDICATIONS: fall down stairs, pain, swelling TECHNIQUE: 3 views of the ankle were acquired. COMPARISON: None. FINDINGS: Bones: 5th metatarsal shaft fracture. No additional fractures or dislocations. Ankle mortise is normally aligned. No suspicious bony lesions. Soft tissues: No tibiotalar joint effusion. Achilles tendon appears normal. IMPRESSION: No acute bony abnormality of the ankle or significant effusion. Please see same day foot series for further discussion. Agree with preliminary report. Dictated by: Alfredo Dale M.D. on 08/12/2024 at 8:00 Approved by: Alfredo Dale M.D. on 08/12/2024 at 8:01
--- NOTE | 2024-08-12 02:34 | ED_ITS ---
HPI - Extremity Injury (Lower) General Chief Complaint: Extremity Injury, Lower Stated Complaint: fall, left foot no weight, rt knee pain Time Seen by Provider: 08/12/24 01:49 Source: patient Mode of arrival: Wheelchair History of Present Illness HPI Narrative: 33-year-old female was carrying her baby at home walking downstairs, missed the last step, tripped forward, baby okay, complained of pain to her left foot, left ankle, right knee. No other injuries. She had not strike her head. No loss of consciousness. Denies neck pain. Denies back pain. No other injuries recalled Related Data Previous Rx's Medication Instructions Recorded fexofenadine 60 mg tablet 60 mg PO BID #90 tabs 05/10/24 fluticasone propionate 220 1 puff inhalation Q12H #12 grams 05/10/24 mcg/actuation HFA aerosol inhaler sertraline 50 mg tablet 50 mg PO DAILY #90 tabs 08/02/24 triamcinolone acetonide 0.1 % 1 applic topical BID #15 grams 08/02/24 topical ointment hydrocodone 5 mg-acetaminophen 325 1 tab PO Q6H PRN pain #14 tabs 08/12/24 mg tablet Allergies Allergy/AdvReac Type Severity Reaction Status Date / Time grass pollen Allergy Intermediate Swollen Verified 08/02/24 08:34 lips, no anaphylaxis. meperidine [From Demerol] Allergy Mild Hives Verified 08/02/24 08:34 cefprozil [From Cefzil] Allergy Unknown as a child. Verified 08/02/24 08:34 Sulfa (Sulfonamide Allergy Unknown as a child Verified 08/02/24 08:34 Antibiotics) Review of Systems Review of Systems Narrative: See HPI Patient History Medical History Abnormal Pap smear of cervix (~2012) Acne (~2005) support offered Chicken pox (~1994) Chronic right hip pain Clogged duct, Congenital dysplasia of right hip (~2009) DVT (deep venous thrombosis) (~2011) growth restriction Fibroids (~2009) Labral tear of right hip joint (~2011) Pelvic somatic dysfunction Piriformis syndrome of right side Sacral region somatic dysfunction Seasonal allergies Segmental and somatic dysfunction of abdomen and other regions Short leg syndrome, right, acquired Somatic dysfunction of lower extremity Surgical History Anesthesia H/O LEEP (~2012) History of hip surgery (~2009) History of laparoscopic appendectomy (~2010) History of tonsillectomy (~02/2012) Hx laparoscopic cholecystectomy (~2010) [place] teeth extracted (~2008) Family History Mother Osteoporosis Father Glaucoma Grandmother Alzheimer's dementia Parkinsons disease Osteoporosis History of heart bypass surgery Hypertension Grandfather Family estrangement Hypertension Glaucoma Grandmother Family estrangement Grandfather Family estrangement Social History marital status: number of children: 1 household members: spouse and children lives independently: Yes housing: house pets and animals: Yes (2 Sushila Danfox) education level: college ([employer] degree) occupational status: employed (works from home) current occupational exposures/hazards: No special darrick needs: No travel history: recent (domestic only) seatbelt use: always water heater temp set < 120 deg: Yes working smoke detector in home: Yes fire extinguisher in home: Yes carbon monox detector in home: Yes firearms in home: Yes firearms unloaded and locked: Yes do you feel safe at home: Yes Smoking Status: Never smoker alcohol intake: former (~1-3/month when not ) substance use type: does not use during the past year weight has: remained stable well-balanced diet: daily or most days daily servings fruits/ve-4 caffeine: No Type(s) of exercise: walking and weight lifting Smoking Status: Never smoker alcohol intake frequency: holidays/special occasions only Substance Use Type: does not use Exam Narrative Exam Narrative: GENERAL: Well-developed patient, in mild distress. HEAD: Atraumatic. Normocephalic. EYES: Pupils equal round and reactive. Extraocular motions intact. No scleral icterus. No injection or drainage. ENT: Nose without bleeding, purulent drainage. Throat without erythema, tonsillar hypertrophy or exudate. Airway patent. NECK: Trachea midline. Non tender CARDIOVASCULAR: Regular rate and rhythm without murmurs, gallops, or rubs. RESPIRATORY: Clear to auscultation. Breath sounds equal bilaterally. No wheezes, rales, or rhonchi. GASTROINTESTINAL: Abdomen soft, non-tender, nondistended. EXTREMITIES: Right knee with proximal fibula area discomfort, no tenderness along the medial or lateral joint line, without gross effusion, no patellar tenderness, flexion to a proximally 45? limited by fibula area discomfort. No skin changes abrasions lacerations. Has tenderness left lateral malleolus ankle, no gross deformity, also tenderness and some swelling to the dorsal lateral left foot. No tenderness to toes, no gross toe deformities. Good cap refill toes, good DP pulse. BACK: Nontender without deformity or crepitance. No flank tenderness. NEURO: AOx3. Motor functions grossly nonfocal SKIN: No rash or erythema of visible areas Initial Vital Signs Initial Vital Signs: Vital Signs Temperature 97.7 F 08/12/24 02:07 Pulse Rate 91 H 08/12/24 02:07 Respiratory Rate 16 08/12/24 02:07 Blood Pressure 130/61 08/12/24 02:07 Pulse Oximetry 100 08/12/24 02:07 Oxygen Delivery Method Room Air 08/12/24 02:07 Course Orders Ordered: ED Orders 08/12/24 02:31 XR ankle LT min 3V Stat XR foot LT min 3V Stat 08/12/24 03:22 XR knee RT 3V Stat Discontinued Medications Hydrocodone Bitart/Acetaminophen (Hydrocodone/Acet 5/325 Prepack) 1 bottle MISC DIRECTED ONE Stop: 08/12/24 03:42 Last Admin: 08/12/24 03:53 Dose: 1 bottle Documented By: Hydromorphone HCl (Hydromorphone 1 Mg Inj) 1 mg IM NOW ONE Stop: 08/12/24 03:42 Last Admin: 08/12/24 03:53 Dose: 1 mg Documented By: Ibuprofen (Ibuprofen 400 Mg Tablet) 400 mg PO NOW ONE Stop: 08/12/24 03:28 Last Admin: 08/12/24 03:30 Dose: 400 mg Documented By: Ondansetron HCl (Ondansetron 4 Mg Odt) 4 mg SL NOW ONE Stop: 08/12/24 05:12 Last Admin: 08/12/24 05:15 Dose: 4 mg Documented By: Vital Signs Vital signs: Vital Signs - 8 hr 08/12/24 02:07 08/12/24 05:44 Temperature 97.7 F Pulse Rate 91 H 91 H Respiratory Rate 16 14 Blood Pressure 130/61 137/63 Pulse Oximetry 100 99 Oxygen Delivery Method Room Air Room Air MDM - Extremity Injury (Lower) MDM Narrative Medical decision making narrative: Twisting like injury to left foot and ankle missing the last step of a stair all holding her child. Child seemed to be okay. Left foot and ankle pain. Also right knee pain. History of remote hip surgeries but no new hip discomfort. X- rays right knee, left foot, left ankle requested. She would like pain medication, oral ibuprofen. X-ray left ankle. Impression: ?obliquely oriented partially imaged displaced fracture of the 5th metatarsal with associated soft tissue swelling. ? Ankle structures intact. See tele radiology report X-ray left foot. Impressions: ?obliquely oriented displaced fracture of the 5th metatarsal with associated soft tissue swelling. ? See tele radiology report X-ray right knee. Impressions: ?Normal right knee. ? See tele radiology report Placed in left posterior splint, crutches nonweightbearing. Follow up with Orthopedic surgery advised, contact information for on-call orthopedic surgeon Dr. Guzmán provided. Home pack hydrocodone pain medication provided. Further prescription to her pharmacy sent to use if needed. Follow up with Orthopedic surgery, return precautions discussed Discharge Plan Departure Patient Disposition: Home Clinical Impression: Fracture of metatarsal bone of left foot, Left ankle strain, Contusion of right knee Activity Restrictions/Additional Instructions: Fall after missing bottom step of stair at home flat surface while caring baby, child seemed to be okay, unfortunately you had pain and swelling to your left lateral foot, pain to your left ankle, some discomfort upper foreleg near right knee. X-rays left ankle and foot showed fracture midshaft oblique with a little bit of displacement in the 5th metatarsal bone of the foot. This might ultimately need surgery to stabilize. Placed in splint with nonweightbearing crutches for now. Pain medication sent to your pharmacy to use if needed. Follow up with Orthopedic surgery, contact information for office of on-call Orthopedic surgery Dr. Guzmán provided. Call for an appointment later today during open hours for close follow up in coordination of consultation. Rest, ice, elevation. Take pain medication as needed. Return to this/nearest emergency department for any change worsening symptoms or any concerns prior Prescriptions: New hydrocodone-acetaminophen 5-325 mg tablet 1 tab PO Q6H PRN (Reason: pain) Qty: 14 0RF No Action fexofenadine 60 mg tablet 60 mg PO BID Qty: 90 3RF fluticasone propionate 220 mcg/actuation HFA aerosol inhaler 1 puff inhalation Q12H Qty: 12 3RF sertraline 50 mg tablet 50 mg PO DAILY Qty: 90 3RF triamcinolone acetonide 0.1 % ointment 1 applic topical BID Qty: 15 2RF Referrals: Chayo Diego MD [Primary Care Provider] - Tarun Guzmán MD [Physician] - Stand Alone Forms: Patient Portal/API/Survey
--- NOTE | 2024-08-12 03:22 | DI.RAD.S_ITS ---
PROCEDURE: XR KNEE RT 3V INDICATIONS: fall, right knee pain TECHNIQUE: 3 views of the knee were acquired. COMPARISON: None. FINDINGS: Bones: No fractures or dislocations. No suspicious bony lesions. Soft tissues: No joint effusion. No suspicious soft tissue calcifications. IMPRESSION: No acute bony abnormality or significant effusion. Dictated by: Alfredo Dale M.D. on 08/12/2024 at 8:01 Approved by: Alfredo Dale M.D. on 08/12/2024 at 8:01
[2024-08-12] MEDS: IBUPROFEN 400 MG TABLET PO (03:30)
[2024-08-12] MEDS: HYDROCODONE/ACET 5/325 PREPACK 1 BOTTLE MISC (03:53)
[2024-08-12] MEDS: HYDROMORPHONE 1 MG INJ IM (03:53)
[2024-08-12] MEDS: ONDANSETRON 4 MG ODT SL (05:15)
[2024-08-12 05:44] VITALS: BP 137/63; PULSE 91; RESP 14; O2SAT 99
== END 2024-08-12 05:45 | disposition home or self-care (01) ==
PROVIDERS: Emergency Provider Emergency Medicine; Family Provider Family Medicine; PCP Family Medicine
DX: S92.352A Displaced fracture of fifth metatarsal bone, left foot, initial encounter for closed fracture (principal); S96.912A Strain of unspecified muscle and tendon at ankle and foot level, left foot, initial encounter; S80.01XA Contusion of right knee, initial encounter; W10.9XXA Fall (on) (from) unspecified stairs and steps, initial encounter
CPT/HCPCS: 29515; 73562; 73610; 73630; 96372; 99284; J1171

== ENCOUNTER → 2024-08-16 19:51 | Outpatient (CLI) | payer OTHER, SELFPAY ==
--- NOTE | 2024-08-16 19:53 | DI.MRI.S_ITS ---
PROCEDURE: MR KNEE RT WO CON INDICATIONS: RULE OUT ACL TEAR TECHNIQUE: Noncontrast sagittal PD fast spin echo and T2 fast spin echo with fat saturation, sagittal 3-D FLASH with fat saturation; coronal T1 spin echo and PD fast spin echo with fat saturation, and axial PD fast spin echo with fat saturation through the knee. COMPARISON: [facility], CR, XR FOOT LT MIN 3V, 08/12/2024, 2:34. [facility], CR, XR ANKLE LT MIN 3V, 08/12/2024, 2:34. [facility], CT, CT FOOT RIGHT WITHOUT CONTRAST, 09/29/2023, 7:11. [facility], CR, XR KNEE RT 3V, 08/12/2024, 3:35. FINDINGS: Image quality: Excellent. Bones: There is a minimally displaced avulsive fracture at the medial fibular head/neck margin (08/01) with associated marrow edema and extensive subcutaneous edema/hemorrhage along the posterolateral corner region (/). There is also a nondisplaced microtrabecular fracture with associated marrow edema at the posterior-central medial tibial plateau (04/29; 07/30). There is an additional, nondisplaced microtrabecular fracture at the peripheral-posterior margin of the lateral tibial plateau (02/28). Joints: There is a small knee joint effusion. There is no significant knee osteoarthritis. Tolentino's cyst: Trace Tolentino's cyst. Menisci: The medial meniscus is normal. The lateral meniscus is normal. The posterior root attachments are normal. Cruciate ligaments: There is mild intermediate signal in the anterior cruciate ligament, which is otherwise intact. The posterior cruciate ligament is normal. Collateral ligaments: The medial collateral ligament complex is normal. The lateral collateral ligament complex is normal. Popliteus Muscle/Tendon: The popliteus muscle and tendon are normal. Extensor mechanism: The quadriceps tendon is normal. The patellar tendon is normal. The medial and lateral patellar retinacular attachments are normal. Articular cartilage: There is no significant articular cartilage defect. Other: There is partial disruption of the fibular collateral ligament at its attachment upon the fibular head (07/30). The vertical limb of the arcuate ligament is heterogenous and not well identified inserting on the fibular head (7/8). The biceps femoris attachment is intact. Intramuscular feathery edema and hemorrhage is present within the tibialis posterior (5/30) as well as the tibialis anterior, extensor digitorum longus, and peroneus longus musculature (5/35). IMPRESSION: 1. Mild ACL sprain without a focal tear. 2. Minimally displaced avulsive fracture of the medial fibular head/neck, related to partial avulsion of the tibialis posterior muscle. 3. At least partial disruption of the fibular collateral ligament as well as the arcuate ligament, indicative of underlying posterolateral corner injury. Extensive edema and hemorrhage limits accurate assessment at this region. Given the injury pattern, distal extremity ankle and foot radiographs be recommended for evaluation of possible, additional injuries. 4. Mild traumatic muscle strains of the the tibialis anterior, extensor digitorum longus, and peroneus longus musculature. These findings were communicated via telephone to the ordering provider, Dora ALBRECHT, by Brennan Rios MD on 08/19/2024 at 10:28 a.m. Dictated by: Brennan Rios M.D. on 08/19/2024 at 9:55 Approved by: Brennan Rios M.D. on 08/19/2024 at 10:30
== END ==
PROVIDERS: Family Provider Family Medicine; PCP Family Medicine; Referring Provider Physician Assistant Surgical; Visit Provider Physician Assistant Surgical
DX: S82.831A Other fracture of upper and lower end of right fibula, initial encounter for closed fracture (principal); S83.511A Sprain of anterior cruciate ligament of right knee, initial encounter; S83.421A Sprain of lateral collateral ligament of right knee, initial encounter; M23.91 Unspecified internal derangement of right knee; M25.461 Effusion, right knee
CPT/HCPCS: 73721